=== PATIENT | female | born 1955 | race Caucasian/White ===

== ENCOUNTER → 2016-05-10 | Day surgery (SDC) | payer BC ==
[~2016-05-10] VITALS: Ht 162.6 cm; Wt 65.5 kg
[~2016-05-10] MED LIST: ACAM0.05 PO; CHLO25CA10 PO; CHLO5CAP2 PO; ESCI10TA17 PO; ESCI1TAB10 PO; ESCI1TAB9 PO; FERR1TAB13 PO; FOLI1TAB7 PO; FRS/40 PO; FURO-85 PO; GABA-112 PO; LIDOCAINE HCL 2% 2 ML VIAL (20MG/ML) ONE; LORA-741 PO; MAGN400T6 PO; MAGN500T4 PO; MISCCAP80 PO; MULT-506 PO; NADO20TA PO; NADO20TA15 PO; NALT50TA5 PO; OMEP40CA PO; OMEP40CA41 PO; PROPOFOL IV EMULSION 10 MG/ML 20 ML VIAL IV ONE; SODIUM CHLORIDE 0.9% 500ML 500 ML IV ONE; SPIR25TA PO; SPIR50TA2 PO; THIA50TA3 PO; TRAM-10 PO; TRAZ50TA35 PO; ULT50X PO
[2016-05-10 08:33] VITALS: Ht 162.6 cm; Wt 65.5 kg
--- NOTE | 2016-05-10 08:34 | Endo History and Physical ---
History & Physical Date of Service: May 10, 2016. Chief Complaint: h/o varices Referring Physician: History of Present Illness H/o varices Past Surgical History Hx Cardiac Surgery: No Hx Abdominal Surgery: No Hx Post-Op Nausea and Vomiting: No Hx Cancer Surgery: No Hx Thoracic Surgery: No Hx Orthopedic: No Hx Urinary Tract Surgery: No Social History Smoking Status: Never Smoker Hx Substance Use: Yes Hx Alcohol Use: No (FORMER ALCOHOLIC) Allergies Coded Allergies: Codeine (Verified Allergy, Unknown, ., 03/27/16) Dairy (Unverified Allergy, Unknown, GI ISSUES, 03/27/16) Sulfa Antibiotics (Verified Allergy, Unknown, ., 03/27/16) Current Medications Reported Home Medications Medications Dose Route/Sig Max Daily Dose Days Date Category Aldactone (Spironolactone) 25 Mg Tab 25 Mg PO QPM 03/27/16 Reported Aldactone (Spironolactone) 25 Mg Tab 25 Mg PO QAM 03/27/16 Reported Mag-Ox (Magnesium Oxide) 400 Mg Tab 400 Mg PO QAM 03/27/16 Reported Lasix (Furosemide) 20 Mg Tab 10 Mg PO QAM 03/27/16 Reported Probiotic (Probiotic Product) 1 Cap Cap 2 Cap PO DAILY 03/27/16 Reported Tramadol HCl 50 Mg Tab 25 Mg PO Q6H PRN 03/01/16 Rx Prilosec (Omeprazole) 40 Mg Capcr 40 Mg PO BID 02/16/16 Reported Lexapro (Escitalopram Oxalate) 10 Mg Tab 5 Mg PO QAM 02/16/16 Reported Folvite (Folic Acid) 1 Mg Tab 1 Mg PO DAILY 02/16/16 Reported Ativan (Lorazepam) 0.5 Mg Tab 0.5 Mg PO BID PRN 02/16/16 Reported Vitamin B-1 (Thiamine HCl) 50 Mg Tab 25 Mg PO QAM 02/16/16 Reported Corgard (Nadolol) 20 Mg Tab 20 Mg PO DAILY 02/16/16 Reported Physical Exam General Appearance: no apparent distress Respiratory/Chest: Respiratory effort: no dyspnea Auscultation: breath sounds normal Cardiovascular: Heart Auscultation: RRR Abdomen: Inspection & Palpation: soft Assessment and Plan CIrrhosis, h/o varices - EGD
[2016-05-10 08:46] VITALS: BP 110/62; PULSE 61; TEMP 36.6; O2SAT 98
== END | disposition home or self-care (01) ==
LOC: C.GI 08:06
PROVIDERS: ATTEND Internal Medicine Gastroenterology
DX: K70.31 Alcoholic cirrhosis of liver with ascites (principal); Z53.9 Procedure and treatment not carried out, unspecified reason

== ENCOUNTER → 2016-05-23 | Outpatient (CLI) | payer BC ==
[~2016-05-23] MED LIST changes: -LIDOCAINE HCL 2% 2 ML VIAL (20MG/ML) ONE; -PROPOFOL IV EMULSION 10 MG/ML 20 ML VIAL IV ONE; -SODIUM CHLORIDE 0.9% 500ML 500 ML IV ONE
== END | disposition home or self-care (01) ==
LOC: C.PATHSPEC 17:37
PROVIDERS: ATTEND Plastic Surgery
DX: D23.9 Other benign neoplasm of skin, unspecified (principal)

== ENCOUNTER → 2016-06-12 | Day surgery (SDC) | payer BC ==
[2016-06-05 11:10] VITALS: Ht 162.6 cm; Wt 64.1 kg
[~2016-06-12] VITALS: Ht 162.6 cm; Wt 64.1 kg
[~2016-06-12] MED LIST changes: -ESCI1TAB9 PO; +LIDOCAINE HCL 2% 2 ML VIAL (20MG/ML) ONE; -NADO20TA PO; -OMEP40CA PO; +PROPOFOL IV EMULSION 10 MG/ML 20 ML VIAL IV ONE; +SODIUM CHLORIDE 0.9% 500ML 500 ML IV ONE; -SPIR25TA PO; -ULT50X PO
--- NOTE | 2016-06-12 08:59 | Endo History and Physical ---
History & Physical Date of Service: Jun 12, 2016. Chief Complaint: Esophageal Varices Referring Physician: Dr Reginaldo Vazquez History of Present Illness esophageal varices Past Surgical History Hx Cardiac Surgery: No Hx Internal Defibrillator: No Hx Pacemaker: No Hx Abdominal Surgery: No Hx of Implantable Prosthesis: No Hx Post-Op Nausea and Vomiting: No Hx Cancer Surgery: Yes (FACE AND BACK SKIN EXCISION) Hx Thoracic Surgery: No Hx Orthopedic: No Hx Urinary Tract Surgery: No Family History IBD Social History Smoking Status: Former Smoker Hx Substance Use: No Hx Alcohol Use: No Allergies Coded Allergies: Codeine (Verified Allergy, Unknown, VOMITTING, 06/12/16) Dairy (Unverified Allergy, Unknown, GI ISSUES, 06/12/16) Sulfa Antibiotics (Verified Allergy, Unknown, VOMITTING, 06/12/16) Current Medications Reported Home Medications Medications Dose Route/Sig Max Daily Dose Days Date Category Prilosec (Omeprazole) 40 Mg Cap 40 Mg PO BID 06/05/16 Reported Vitamin B-1 (Thiamine HCl) 50 Mg Tab 50 Mg PO DAILY AFTERNOON 06/05/16 Reported Aldactone (Spironolactone) 50 Mg Tab 50 Mg PO QAM 06/05/16 Reported Magnesium (Magnesium Oxide (Mg Supplement) 500 Mg Tab 1 Tab PO QAM 06/05/16 Reported Ultram (Tramadol HCl) 50 Mg Tab 50 Mg PO Q8H PRN 06/05/16 Reported Lexapro (Escitalopram Oxalate) 10 Mg Tab 10 Mg PO QAM 06/05/16 Reported Lasix (Furosemide) 40 Mg Tab 40 Mg PO DAILY 06/05/16 Reported Lasix (Furosemide) 20 Mg Tab 20 Mg PO QAM 06/05/16 Reported Kp Ferrous Sulfate (Ferrous Sulfate) 325 Mg Tab 1 Tab PO BID 30 06/05/16 Reported Probiotic (Probiotic Product) 1 Cap Cap 1 Cap PO QAM 06/05/16 Reported Corgard (Nadolol) 20 Mg Tab 1 Tab PO BID 06/05/16 Reported Folvite (Folic Acid) 1 Mg Tab 1 Mg PO DAILY AFTERNOON 02/16/16 Reported Ativan (Lorazepam) 0.5 Mg Tab 0.5 Mg PO BID PRN 02/16/16 Reported Vital Signs Weight (Kilograms): 64.09 Height (Feet): 5 Height (Inches): 4 Date Time Temp Pulse Resp B/P Pulse Ox O2 Delivery O2 Flow Rate FiO2 06/12/16 08:33 36.5 63 18 134/70 94 Nasal Cannula Physical Exam General Appearance: WD/WN, no apparent distress Respiratory/Chest: Auscultation: breath sounds normal Cardiovascular: Heart Auscultation: RRR Abdomen: Inspection & Palpation: soft Assessment and Plan H/o varices - EGD
--- NOTE | 2016-06-12 09:28 | Discharge Instructions ---
Endoscopy Patient Instructions Date / Procedure(s) Performed Jun 12, 2016. EGD Allergy Information Coded Allergies: Codeine (Verified Allergy, Unknown, VOMITTING, 06/12/16) Dairy (Unverified Allergy, Unknown, GI ISSUES, 06/12/16) Sulfa Antibiotics (Verified Allergy, Unknown, VOMITTING, 06/12/16) Discharge Date / Findings Jun 12, 2016. Stigmata of prior banding; marked portal gastropathy Provider Instructions Activity Restrictions - No exercising or heavy lifting for 24 hours. - Do not drink alcohol the day of the procedure. - Do not drive a car or operate machinery until the day after the procedure. - Do not make any important decisions or sign important papers in 24 hours after the procedure. Following Day: - Return to full activity which may include returning to work/school. Diet Start your diet with liquids and light foods (jello, soup, juice, toast). Then eat your usual diet if not nauseated. Treatment For Common After Affects For mild abdominal pain, bloating, or excessive gas: - Rest - Eat lightly - Lie on right side Get hemoglobin checked this week Follow-Up Information Follow-up with Dr Reginaldo Vazquez as scheduled Anesthesia Information What You Should Know You have had a procedure that required some medicine to reduce anxiety and discomfort. This treatment is called moderate sedation. After receiving the treatment, you may be sleepy, but you will be able to breathe on your own. The effects of the treatment may last for several hours. Follow these instructions along with Activity/Diet recommendations noted above: * Do NOT do anything where dizziness or clumsiness would be dangerous. * Rest quietly at home today, then you can be up and about tomorrow. * Have a responsible person stay with you the rest of today. * You may have had an I.V. today. If so, you may take the dressing off later today. Recommendations Call your doctor if: * Trouble breathing * Continuous vomiting for more than 24 hours * Temperature above 101 degrees * Severe abdominal pain or bloating * Pain not relieved by pain medicine ordered * There is increased drainage or redness from any incision * A large amount of rectal bleeding greater than 2-3 tablespoons. (If you had a polyp/s removed or have hemorrhoids, a small amount of blood - from the rectum is to be expected.) * You have any unanswered questions or concerns. IN THE EVENT OF A SERIOUS EMERGENCY, GO TO THE NEAREST EMERGENCY ROOM Your discharge instructions were prepared by provider Sandhya Link. Patient Instructions Signature Page Mary Rueda Patient (or Guardian) Signature/Date: I have read and understand the instructions given to me by my caregivers. Caregiver/RN/Doctor Signature/Date: The above-named patient and/or guardian has received patient instructions on this date. + Original Patient Signature Page (only) stays with chart. Please make copy for patient.
[2016-06-12 09:45] VITALS: BP 114/65; PULSE 67; O2SAT 97
--- NOTE | 2016-06-12 10:53 | GI REPORT ---
Procedure Date: 06/12/2016 8:41 AM Procedure: Upper GI endoscopy Indications: For therapy of esophageal varices Medicines: See the Anesthesia note for documentation of the administered medications Complications: No immediate complications. Estimated Blood Loss: Estimated blood loss: none. Procedure: Pre-Anesthesia Assessment: - ASA Grade Assessment: III - A patient with severe systemic disease. After obtaining informed consent, the endoscope was passed under direct vision. Throughout the procedure, the patient's blood pressure, pulse, and oxygen saturations were monitored continuously. The scope was introduced through the mouth, and advanced to the second part of duodenum. The upper GI endoscopy was accomplished without difficulty. The patient tolerated the procedure well. Findings: There were multiple areas of scarring throughout the lower esophagus, from prior banding. There were no varices. The GE junction was at 40 cm and was irregular. No gastric varices. There was marked portal gastropathy throughout the cardia, fundus, and body of the stomach. There was marked edema, a congested snakeskin appearance to the mucosa, several areas of oozing, and two white nipple clots seen on the mucosa in the body. In the antrum, there were stripes of erythema and mild nodularity suggestive of GAVE. The duodenum was normal. Impression: Stigmata of prior esophageal banding; no esophageal varices. Marked portal gastropathy with active oozing and white nipple clots. Recommendation: - Discharge patient to home. Pt is on BID PPI and Corgard; during her procedure, she appeared to be therapeutic on beta-blockade. Pt should have periodic monitoring of Hgb. Sandhya Lew M.D. Sandhya Lew MD 06/12/2016 9:27:24 AM This report has been signed electronically. Note Initiated On: 06/12/2016 8:41 AM I attest to the content of the Intraoperative Record and orders documented therein, exceptions below
--- NOTE | 2016-06-12 11:03 | Anesthesiology Progress Note ---
Anesthesia Post Op Note Date & Time Jun 12, 2016 at 11:03 Vital Signs Pain Intensity: 0 Vital Signs Past 12 Hours Date Time Temp Pulse Resp B/P Pulse Ox O2 Delivery O2 Flow Rate FiO2 06/12/16 09:45 67 20 114/65 97 Room Air 06/12/16 09:31 66 20 105/64 95 Room Air 06/12/16 09:21 100/56 06/12/16 09:16 64 20 89/46 95 Nasal Cannula 06/12/16 08:33 36.5 63 18 134/70 94 Nasal Cannula Notes Mental Status: alert / awake / arousable, participated in evaluation Pt Amnestic to Procedure: Yes Nausea / Vomiting: adequately controlled Pain: adequately controlled Airway Patency, RR, SpO2: stable & adequate BP & HR: stable & adequate Hydration State: stable & adequate Anesthetic Complications: no major complications apparent
== END | disposition home or self-care (01) ==
LOC: C.GI 07:56
PROVIDERS: ATTEND Internal Medicine Gastroenterology
DX: I85.00 Esophageal varices without bleeding (principal); K31.89 Other diseases of stomach and duodenum; Z83.79 Family history of other diseases of the digestive system; Z87.891 Personal history of nicotine dependence; Z88.2 Allergy status to sulfonamides

== ENCOUNTER 2016-11-04 09:46 | Emergency (ER) | payer BC ==
[~2016-11-04] VITALS: Ht 162.6 cm; Wt 76.4 kg
[~2016-11-04 09:46] MED LIST changes: -CHLO25CA10 PO; -CHLO5CAP2 PO; -ESCI10TA17 PO; -FRS/40 PO; -LIDOCAINE HCL 2% 2 ML VIAL (20MG/ML) ONE; -MAGN500T4 PO; -PROPOFOL IV EMULSION 10 MG/ML 20 ML VIAL IV ONE; -SODIUM CHLORIDE 0.9% 500ML 500 ML IV ONE; -THIA50TA3 PO; -TRAM-10 PO
[2016-11-04 09:55] VITALS: TEMP 36.8; Ht 162.6 cm; Wt 76.4 kg
[2016-11-04] MEDS ORDERED: DIAZEPAM INJ 5 MG/ML 2 ML CARP IV STA (10:48)
[2016-11-04] MEDS ORDERED: PANTOprazole INJ 40 MG in SYRINGE 0 ML IV ONE (11:00)
[2016-11-04 11:38] LABS: ISTAT CREATININE 0.6 mg/dl (0.6-1.3); ISTAT HEMOGLOBIN 12.2 g/dl (12.0-16.0); ISTAT IONIZED CALCIUM 1.2 mmol/l (1.12-1.32)
[2016-11-04 11:38] LABS: MEAN CELL VOLUME 98.9 fL (80-100); MEAN CORPUSCULAR HEMOGLOBIN 33.4 pg (25-34); MEAN CORPUSCULAR HGB CONC 33.8 g/dl (32-36); RED BLOOD COUNT 3.74 M/uL (4.2-5.4); WHITE BLOOD COUNT 4.35 K/uL (4.8-10.8)
--- NOTE | 2016-11-04 11:41 | EMERGENCY ROOM VISIT NOTE ---
History Report prepared by Betty: Jennifer Middleton Under the Supervision of: Dr. Marycruz Nichols D.O. First contact with patient: 10:24 Chief Complaint: DETOX REQUEST Stated Complaint: RELAPSE Nursing Triage Summary: Patient sent by Dr Rodriguez States for detox from ETOH. Per patient she had approx 4 4oz of wine this morning. History of alcohol abuse, GI Bleed and esophageal varicies. Patient states "I went to see my shrink this morning and she told me to come to the emergency room for detox" History of Present Illness The patient is a 61 year old female who presents to the Emergency Room for a detox request. The patient has a history of alcoholism. She was recently in rehab for alcohol abuse and was discharged about a month ago. She was doing well but started to develop some cravings. She started drinking alcohol again one week ago. She states that she was drinking three ounces a day at first and is now drinking about 6 ounces a day. She typically starts drinking in the morning, but denies feeling shaky in the mornings. She admits to drinking wine this morning. She has not been blacking out from alcohol this week. She denies any recent falls or injuries. The patient is currently feeling shaky and nauseated. She thinks that this is "due to nerves." She states that her stomach feels "bruised" and this has happened in the past with her alcohol consumption. She is not sure if she has ever had seizures due to her alcohol withdrawal before. She states that she goes into a catatonic state and has to come to the hospital for evaluation, but she is unsure if she has ever had a seizure. The patient has been in the ICU with active DTs with her withdrawal in the past. The patient denies headache, fevers, cough, chest pain, vomiting, hematemesis, urinary symptoms, hematochezia, and any changes in bowel movements. She reports black stools but states that this is typical for her because she takes an iron supplement. She has gained a lot of weight over the past month, which she states is due to eating a lot of chocolate since she got out of rehab. The patient went to see her psychiatrist this morning and was sent to the ED for further evaluation. She notes bilateral ankle swelling and takes Lasix. She denies any personal history of kidney or heart problems. She takes Prilosec BID. Source of History: patient Onset: the past week Position: other (global) Quality: other (alcohol detox) Timing: constant Associated Symptoms: + nausea, + abdominal pain, No fevers, No headache, No cough, No chest pain, No vomiting, No hematochezia, No urinary symptoms Review of Systems See HPI for pertinent positives & negatives. A total of 10 systems reviewed and were otherwise negative. Past Medical & Surgical Medical Problems: (1) NASIM (acute kidney injury) (2) Anxiety (3) ARF (acute renal failure) (4) Decompensated hepatic cirrhosis (5) Dyslipidemia (6) Esophageal varices (7) Portal hypertensive gastropathy Surgical Problems: (1) H/O adenoidectomy (2) H/O colonoscopy (3) History of esophagogastroduodenoscopy (EGD) (4) Hx of tonsillectomy Family History Hypertension Social History Smoking Status: Never Smoker Alcohol Use: heavy Drug Use: none Marital Status: Housing Status: lives with family Occupation Status: retired Current/Historical Medications Scheduled Acamprosate Calcium (Acamprosate Calcium Dr), 666 MG PO TID Chlordiazepoxide (Librium), 25 MG PO DIRECTED Chlordiazepoxide Hcl (Librium), 5 MG PO DIRECTED Escitalopram (Lexapro), 20 MG PO DAILY Ferrous Sulfate (Kp Ferrous Sulfate), 1 TAB PO DAILY Folic Acid (Folvite), 1 MG PO DAILY AFTERNOON Furosemide (Lasix), 20-40 MG PO QAM Gabapentin (Neurontin), 200 MG PO TID Magnesium Oxide (Mag-Ox), 400 MG PO TID Multivitamin (Multivitamin), 1 TAB PO DAILY Nadolol (Corgard), 1 TAB PO BID Naltrexone Hcl (Naltrexone Hcl), 50 MG PO DAILY Omeprazole (Prilosec), 40 MG PO BID Probiotic Product (Probiotic), 1 CAP PO QAM Scheduled PRN Lorazepam (Ativan), 0.5-1 MG PO BID PRN for Anxiety Trazodone Hcl (Trazodone), 50 MG PO HS PRN for Sleep Allergies Coded Allergies: Codeine (Verified Allergy, Unknown, VOMITTING, 09/04/16) Dairy (Unverified Allergy, Unknown, GI ISSUES, 09/04/16) Sulfa Antibiotics (Verified Allergy, Unknown, VOMITTING, 09/04/16) Physical Exam Vital Signs Date Time Temp Pulse Resp B/P (MAP) Pulse Ox O2 Delivery O2 Flow Rate FiO2 11/04/16 14:54 63 20 129/85 94 11/04/16 14:17 64 19 129/85 93 Room Air 11/04/16 13:18 66 14 126/83 93 Room Air 11/04/16 13:14 65 11/04/16 11:35 67 18 115/87 94 Room Air 11/04/16 10:13 70 11/04/16 09:55 36.8 72 18 142/78 95 Room Air Physical Exam GENERAL: alert, tearful and distraught, well nourished, non-toxic EYE EXAM: normal conjunctiva, PERRL and EOM's grossly intact OROPHARYNX: no exudate, no erythema, lips, buccal mucosa, and tongue normal and mucous membranes are moist NECK: supple, no nuchal rigidity, no adenopathy, non-tender LUNGS: Clear to auscultation. Normal chest wall mechanics HEART: no murmurs, S1 normal and S2 normal ABDOMEN: abdomen soft, non-tender, normo-active bowel sounds, no masses, no rebound or guarding. BACK: Back is symmetrical on inspection and there is no deformity, no midline tenderness, no CVA tenderness. SKIN: no rashes and no bruising UPPER EXTREMITIES: upper extremities are grossly normal. LOWER EXTREMITIES: No pitting edema. NEURO EXAM: Normal sensorium, cranial nerves II-XII grossly intact, normal speech, no gross weakness of arms, no gross weakness of legs. Medical Decision & Procedures ER Provider Diagnostic Interpretation: Radiology results have been interpreted by the radiologist and reviewed by me. ABDOMEN 2VIEW W/PA CHEST RTN CLINICAL HISTORY: abd pain pain. Nausea. COMPARISON STUDY: 09/04/2016 FINDINGS: Lungs are clear. Diaphragms are smooth. Bowel pattern is nonobstructive. Multiple calcified uterine fibroids. IMPRESSION: Calcified uterine fibroids. Nonobstructive bowel pattern. No acute process of the chest. Electronically signed by: Carlos Mahan M.D. 11/04/2016 1:51 PM Dictated Date/Time: 11/04/2016 1:50 PM Laboratory Results 11/04/16 11:20 Red Blood Count 3.74, Mean Corpuscular Volume 98.9, Mean Corpuscular Hemoglobin 33.4, Mean Corpuscular Hemoglobin Concent 33.8, Mean Platelet Volume 10.5, Neutrophils (%) (Auto) 68.8, Lymphocytes (%) (Auto) 19.3, Monocytes (%) (Auto) 8.5, Eosinophils (%) (Auto) 3.0, Basophils (%) (Auto) 0.2, Neutrophils # (Auto) 2.99, Lymphocytes # (Auto) 0.84, Monocytes # (Auto) 0.37, Eosinophils # (Auto) 0.13, Basophils # (Auto) 0.01 11/04/16 11:20 Test 11/04/16 11:20 11/04/16 11:26 11/04/16 13:15 White Blood Count 4.35 K/uL (4.8-10.8) Red Blood Count 3.74 M/uL (4.2-5.4) Hemoglobin 12.5 g/dL (12.0-16.0) Hematocrit 37.0 % (37-47) Mean Corpuscular Volume 98.9 fL (80-100) Mean Corpuscular Hemoglobin 33.4 pg (25-34) Mean Corpuscular Hemoglobin Concent 33.8 g/dl (32-36) Platelet Count 66 K/uL (130-400) Mean Platelet Volume 10.5 fL (7.4-10.4) Neutrophils (%) (Auto) 68.8 % Lymphocytes (%) (Auto) 19.3 % Monocytes (%) (Auto) 8.5 % Eosinophils (%) (Auto) 3.0 % Basophils (%) (Auto) 0.2 % Neutrophils # (Auto) 2.99 K/uL (1.4-6.5) Lymphocytes # (Auto) 0.84 K/uL (1.2-3.4) Monocytes # (Auto) 0.37 K/uL (0.11-0.59) Eosinophils # (Auto) 0.13 K/uL (0-0.5) Basophils # (Auto) 0.01 K/uL (0-0.2) RDW Standard Deviation 50.6 fL (36.4-46.3) RDW Coefficient of Variation 14.3 % (11.5-14.5) Immature Granulocyte % (Auto) 0.2 % Immature Granulocyte # (Auto) 0.01 K/uL (0.00-0.02) Est Creatinine Clear Calc Drug Dose 93.0 ml/min Estimated GFR () 111.2 Estimated GFR (Non- 96.0 BUN/Creatinine Ratio 27.2 (10-20) Lactic Acid Level 1.0 mmol/L (0.4-2.0) Calcium Level 8.7 mg/dl (8.5-10.1) Magnesium Level 1.5 mg/dl (1.8-2.4) Total Bilirubin 1.4 mg/dl (0.2-1) Aspartate Amino Transf (AST/SGOT) 46 U/L (15-37) Alanine Aminotransferase (ALT/SGPT) 35 U/L (12-78) Alkaline Phosphatase 130 U/L (45-117) Troponin I < 0.015 ng/ml (0-0.045) Total Protein 6.5 gm/dl (6.4-8.2) Albumin 2.9 gm/dl (3.4-5.0) Globulin 3.6 gm/dl (2.5-4.0) Albumin/Globulin Ratio 0.8 (0.9-2) Lipase 281 U/L (73-393) Thyroid Stimulating Hormone (TSH) 1.500 uIu/ml (0.300-4.500) Ethyl Alcohol mg/dL < 3.0 mg/dl (0-3) Bedside Hemoglobin 12.2 g/dl (12.0-16.0) Bedside Hematocrit 36 % (37-47) Bedside Sodium 140 mEq/L (135-144) Bedside Potassium 4.1 mEq/L (3.3-5.0) Bedside Chloride 100 mEq/L (101-112) Bedside Total CO2 28 mEq/l (24-31) Anion Gap 17.0 mmol/L (16-25) Bedside Blood Urea Nitrogen 17 mg/dl (7-18) Bedside Creatinine 0.6 mg/dl (0.6-1.3) Bedside Glucose (other) 85 mg/dl (70-99) Bedside Ionized Calcium (Jes[place]) 1.20 mmol/l (1.12-1.32) Urine Color YELLOW Urine Appearance CLEAR (CLEAR) Urine pH 7.5 (4.5-7.5) Urine Specific [place] 1.012 (1.000-1.030) Urine Protein NEG (NEG) Urine Glucose (UA) NEG (NEG) Urine Ketones NEG (NEG) Urine Occult Blood NEG (NEG) Urine Nitrite NEG (NEG) Urine Bilirubin NEG (NEG) Urine Urobilinogen NEG (NEG) Urine Leukocyte Esterase NEG (NEG) Laboratory results per my review. Medications Administered Medications (Trade) Dose Ordered Sig/Kai Route Start Time Stop Time Status Last Admin Dose Admin Diazepam (Valium Inj) 5 mg NOW STAT IV 11/04/16 10:48 11/04/16 10:51 DC 11/04/16 11:25 5 MG Pantoprazole Sodium 40 mg/ Syringe 10 ml @ 5 mls/min NOW ONCE IV 11/04/16 11:00 11/04/16 11:01 DC 11/04/16 11:26 5 MLS/MIN Magnesium Sulfate (Magnesium Sulfate) 2 gm NOW STAT IV 11/04/16 12:33 11/04/16 12:34 DC 11/04/16 13:11 2 GM Chlordiazepoxide (Librium Cap) 25 mg NOW ONCE PO 11/04/16 13:45 11/04/16 13:46 DC 11/04/16 14:27 25 MG ECG Indication: toxicologic Rate (beats per minute): 63 Rhythm: normal sinus Findings: T-wave inversion (lead 3), no acute ischemic change, no ectopy, other (normal axis, normal intervals, low voltage) ED Course 1024: The patient was evaluated in room A4A. A complete history and physical exam was performed. 1048: Diazepam 5 mg IV 1100: Pantoprazole Sodium 40 mg/Syringe 10 ml @ 5 mls/min 1233: Magnesium Sulfate 2 gm IV 1244: I spoke with the rifle case repairer regarding the patient's treatment plan. The patient can be discharged for outpatient rehab. 1345: Librium cap 25 mg PO 1357: I reassessed the patient at this time. She is feeling better and resting comfortably. I discussed the results and treatment plan with the patient. I answered all pertaining questions that she had. She expressed understanding and verbalized agreement. The patient will be discharged home. Medical Decision Differential diagnosis: Etiologies such as toxicologic, infection, hypoglycemia, electrolyte abnormalities, cardiac sources, intracerebral event, neurologic, as well as others were entertained. Medication Reconciliation: I attest that I have personally reviewed the patient' s current medication list. Blood pressure screening: Patient was found to have an elevated blood pressure and was referred to their primary doctor for recheck and further treatment. Patient well-appearing here despite complaints of prior history. No evidence of worsening alcohol withdrawal or DTs. Vital signs stable throughout. Patient seen by psychiatric rifle case repairer as well to discuss rehabilitation. Patient's at bedside supportive and understanding of all results, plan, risks and complications, and symptoms to watch and return for. Discussed with patient short term use of Librium to help with potential for additional alcohol withdrawal symptoms. Patient already on additional chronic maintenance medications. Patient with no other concerns for safety, denies SI or HI. Patient's labs otherwise reassuring, known liver dysfunction and mild abnormalities likely normal for the patient. Patient's magnesium repleted here , and likely secondary to poor diet the setting of alcohol abuse. Discussed with patient adequate intake, and need for recheck of labs. No other evidence GI bleed, no vomiting or additional abdominal pain, doubt additional 30 or pulmonary pathology, doubt no acute GI pathology, doubt vascular etiology, bacteremia/sepsis. Impression Primary Impression: Alcohol abuse Additional Impressions: Alcohol withdrawal Hypomagnesemia Scribe Attestation The scribe's documentation has been prepared under my direction and personally reviewed by me in its entirety. I confirm that the note above accurately reflects all work, treatment, procedures, and medical decision making performed by me. Departure Information Dispostion Home / Self-Care Prescriptions Chlordiazepoxide Hcl (LIBRIUM) 5 Mg Cap 5 MG PO DIRECTED for 3 Days, #10 CAP Take 2 tablets every 8 hours on day 3, then 1 tablet every 12 hours on day 4 and 5. Prov: Marycruz Nichols DO 11/04/16 Chlordiazepoxide (Librium) 25 Mg Cap 25 MG PO DIRECTED for Agitation for 2 Days, #7 CAP Take 1 tablet every 6 hours on day 1, then 1 tablets every 8 hours on day 2. Prov: Marycruz Nichols DO 11/04/16 Referrals Ashley Adkins DO (PCP) Forms HOME CARE DOCUMENTATION FORM, IMPORTANT VISIT INFORMATION, WORK / SCHOOL INSTRUCTIONS Patient Instructions My [facility] Additional Instructions Please follow up with her psychologist, continue going to AA meetings, and continue the additional recommendations made by her counselor here. You may use the Librium to help with short-term alcohol withdrawal symptoms. Please continue your other medications as prescribed. If you develop any worsening shakiness, develop sweatiness, feel your heart is racing or have palpitations, develop dizziness, vomiting, noticed blood with the bowel movement, have abdominal pain, chest pain, trouble breathing, or any other new concerns, please return the emergency room. Problem Qualifiers Additional Impressions: Alcohol withdrawal Complication of substance-induced condition: uncomplicated Qualified Codes: F10.230 - Alcohol dependence with withdrawal, uncomplicated
[2016-11-04] MEDS ORDERED: ESCI10TA17 PO (11:56)
[2016-11-04 12:01] LABS: BASO % 0.2 %; BASO ABS # 0.01 K/uL (0-0.2); IG% 0.2 %; LYMPH % 19.3 %; LYMPH ABS # 0.84 K/uL (1.2-3.4); MEAN PLATELET VOLUME 10.5 fL (7.4-10.4); MONO % 8.5 %; NEUT % 68.8 %; PLATELET COUNT 66 K/uL (130-400)
[2016-11-04 12:10] LABS: COMPLETE YES
[2016-11-04 12:14] LABS: ALT/SGPT 35 U/L (12-78); AST/SGOT 46 U/L (15-37); BLOOD UREA NITROGEN 17 mg/dl (7-18); BUN/CREATININE RATIO 27.2 (10-20); CALCIUM 8.7 mg/dl (8.5-10.1); CARBON DIOXIDE 27 mmol/L (21-32); CHLORIDE 106 mmol/L (98-107); CREATININE 0.62 mg/dl (0.60-1.20); GLUCOSE 83 mg/dl (70-99); MAGNESIUM 1.5 mg/dl (1.8-2.4); POTASSIUM 4.1 mmol/L (3.5-5.1); SODIUM 142 mmol/L (136-145)
[2016-11-04 12:26] LABS: ALB/GLOB RATIO 0.8 (0.9-2); ALKALINE PHOSPHATASE 130 U/L (45-117)
[2016-11-04] MEDS ORDERED: MAGNESIUM SULFATE 1GM / D5W 1 GM BAG IV STA (12:33)
[2016-11-04 13:27] LABS: URINE APPEARANCE CLEAR (CLEAR); URINE BILIRUBIN NEG (NEG); URINE COLOR YELLOW; URINE NITRITE NEG (NEG); URINE PH 7.5 (4.5-7.5); URINE SPECIFIC GRAVITY 1.012 (1.000-1.030); UROBILINOGEN NEG (NEG); ZZUR CULT IF INDIC CLEAN CATCH NO
[2016-11-04 13:29] LABS: MANUAL MICROSCOPIC REQUIRED? NO; REVIEW REQ? NO
[2016-11-04] MEDS ORDERED: CHLORDIAZEPOXIDE 25 MG CAP PO ONE (13:45)
--- NOTE | 2016-11-04 13:52 | DIAGNOSTIC IMAGING REPORT ---
ABDOMEN 2VIEW W/PA CHEST RTN CLINICAL HISTORY: abd pain pain. Nausea. COMPARISON STUDY: 09/04/2016 FINDINGS: Lungs are clear. Diaphragms are smooth. Bowel pattern is nonobstructive. Multiple calcified uterine fibroids. IMPRESSION: Calcified uterine fibroids. Nonobstructive bowel pattern. No acute process of the chest. Electronically signed by: Carlos Mahan M.D. 11/04/2016 1:51 PM Dictated Date/Time: 11/04/2016 1:50 PM
[2016-11-04] MEDS ORDERED: CHLO5CAP2 PO (14:30)
[2016-11-04] MEDS ORDERED: CHLO25CA10 PO (14:30)
[2016-11-04 14:54] VITALS: BP 129/85; PULSE 63; O2SAT 94
== END 2016-11-04 14:56 | disposition home or self-care (01) ==
LOC: C.EDB 09:47 → C.EDA 14:56
DX: F10.230 Alcohol dependence with withdrawal, uncomplicated (principal); E83.42 Hypomagnesemia; R60.0 Localized edema; F41.9 Anxiety disorder, unspecified; K74.69 Other cirrhosis of liver; E78.5 Hyperlipidemia, unspecified; I85.00 Esophageal varices without bleeding; K31.89 Other diseases of stomach and duodenum; Z82.49 Family history of ischemic heart disease and other diseases of the circulatory system

== ENCOUNTER → 2017-08-22 | Outpatient (CLI) | payer OTHER ==
[~2017-08-22] MED LIST changes: +ESCI10TA17 PO; -ESCI1TAB10 PO; -FOLI1TAB7 PO; +FOLI1TAB8 PO; -SPIR50TA2 PO
[2017-08-22 14:23] VITALS: BP 108/70; PULSE 66; Ht 162.6 cm
== END ==
LOC: C.NEUR 13:36
PROVIDERS: ATTEND Internal Medicine Pulmonary Disease
DX: R06.83 Snoring (principal); R06.81 Apnea, not elsewhere classified; R40.0 Somnolence; F41.1 Generalized anxiety disorder; G47.61 Periodic limb movement disorder

== ENCOUNTER 2017-09-23 19:22 | Emergency (ER) | payer OTHER ==
[~2017-09-23] VITALS: Ht 162.6 cm; Wt 81.6 kg
[2017-09-23 19:26] VITALS: TEMP 36.7; Ht 162.6 cm; Wt 81.6 kg
--- NOTE | 2017-09-23 19:42 | EMERGENCY ROOM VISIT NOTE ---
History Report prepared by Betty: Noah Hou Under the Supervision of: Dr. Nitin Benoit M.D. First contact with patient: 19:28 Chief Complaint: RECTAL BLEEDING Stated Complaint: EXSESSIVE BLEEDING, SWOLLEN FEET AND LEGS History of Present Illness The patient is a 61 year old female who presents to the Emergency Room with complaints of intermittent rectal bleeding beginning a few weeks ago. The patient states she will wake up every morning and produce "pools" of blood. She reports she developed bilateral leg swelling a few days ago. The patient notes she is short of breath when she goes up stairs, but she states it is because she is not exercising regularly. The patient denies loss of consciousness, recent head injuries, and abdominal pain. She states she typically has 5 drinks a day, and she has had 3 before coming into the ED. The patient reports she has a history of stomach bleeding and varices. She notes she takes Prilosec. The patient states she sees her PCP every month and has an appointment in two days. She reports her liver specialist is Nery Watts. The patient denies trouble with her heart, trouble with her kidneys, and taking aspirin, Tylenol, or ibuprofen. Source of History: patient Onset: few weeks ago Quality: other (rectal bleeding) Timing: intermittent Associated Symptoms: No LOC, No abdominal pain Note: Associated symptoms: bilateral leg swelling Denies: recent head injury Review of Systems See HPI for pertinent positives & negatives. A total of 10 systems reviewed and were otherwise negative. Past Medical & Surgical Medical Problems: (1) NASIM (acute kidney injury) (2) Anxiety (3) ARF (acute renal failure) (4) Decompensated hepatic cirrhosis (5) Dyslipidemia (6) Esophageal varices (7) Portal hypertensive gastropathy Surgical Problems: (1) H/O adenoidectomy (2) H/O colonoscopy (3) History of esophagogastroduodenoscopy (EGD) (4) Hx of tonsillectomy Family History Hypertension Social History Smoking Status: Never Smoker Alcohol Use: heavy Drug Use: none Marital Status: Housing Status: lives with family Occupation Status: retired Current/Historical Medications Scheduled Acamprosate Calcium (Acamprosate Calcium Dr), 666 MG PO TID Clonidine Hcl (Catapres), 1 TAB PO HS Escitalopram (Lexapro), 20 MG PO DAILY Ferrous Sulfate (Kp Ferrous Sulfate), 1 TAB PO DAILY Folic Acid (Folvite), 1 MG PO DAILY AFTERNOON Furosemide (Lasix), 40 MG PO QAM Gabapentin (Gabapentin), 600 MG PO TID Hydrocortisone/Pramoxine (Proctofoam Hc), 1 APPL IN BID Magnesium Oxide (Mag-Ox), 400 MG PO TID Multivitamin (Multivitamin), 1 TAB PO DAILY Nadolol (Corgard), 1 TAB PO BID Omeprazole (Prilosec), 40 MG PO BID Probiotic Product (Probiotic), 1 CAP PO QAM Spironolactone (Aldactone), 25 MG PO QAM Scheduled PRN Trazodone Hcl (Trazodone), 50 MG PO HS PRN for Sleep Allergies Coded Allergies: Codeine (Verified Allergy, Unknown, VOMITTING, 09/23/17) Dairy (Verified Allergy, Unknown, GI ISSUES, 09/23/17) Sulfa Antibiotics (Verified Allergy, Unknown, VOMITTING, 09/23/17) Physical Exam Vital Signs Date Time Temp Pulse Resp B/P (MAP) Pulse Ox O2 Delivery O2 Flow Rate FiO2 09/23/17 20:57 74 18 118/64 93 09/23/17 19:26 36.7 71 18 128/77 96 Room Air Physical Exam GENERAL: Patient is mildly intoxicated appearing and in no acute distress. Smells heavily of alcohol. EYES: No scleral icterus, unremarkable pupils. Pale conjunctiva. ENT: Mucous membranes moist, no nasal congestion. NECK: No masses appreciated, no meningismus, trachea is midline. RESPIRATORY: No dyspnea. Clear to auscultation and equal bilaterally. No wheeze , no rhonchi. CARDIOVASCULAR: Regular rate and rhythm. No murmurs, rubs, gallops appreciated. GASTROINTESTINAL: Abdomen soft, nontender, no peritonitis. Bowel sounds positive. No masses appreciated. RECTAL (performed in the presence of a female nurse): Moderate hemorrhoid on the anterior, right, rectum. No other masses nor fluctuantes noted. No erythema. Small amount of brown stool at the the posterior rectal verge without any evidence of bleeding. BACK: No midline tenderness, no CVA tenderness EXTREMITIES: Normal motion all extremities, no cyanosis, no edema. NEUROLOGIC: Alert and oriented, no acute motor or sensory deficits, no focal weakness, cranial nerves grossly intact. SKIN: No rash, no jaundice, no diaphoresis. Medical Decision & Procedures ER Provider Diagnostic Interpretation: X ray results are stated below per my interpretation and the radiologist's interpretation. CHEST ONE VIEW PORTABLE CLINICAL HISTORY: 61 years-old Female presenting with Generalized weakness. TECHNIQUE: 82 COMPARISON: 11/04/2016. FINDINGS: Atherosclerosis of aortic arch. Tortuosity of the descending thoracic aorta. Cardiac silhouette enlarged. Mildly low lung volumes. No focal opacity. No large effusion or pneumothorax. Osseous structures normal. Upper abdomen normal. IMPRESSION: 1. No acute cardiopulmonary disease. Electronically signed by: Kirt Cross M.D. 09/23/2017 8:00 PM Dictated Date/Time: 09/23/2017 7:59 PM Laboratory Results 09/23/17 19:44 Red Blood Count 3.23, Mean Corpuscular Volume 108.4, Mean Corpuscular Hemoglobin 37.8, Mean Corpuscular Hemoglobin Concent 34.9, Mean Platelet Volume 10.2, Neutrophils (%) (Auto) 59.9, Lymphocytes (%) (Auto) 22.9, Monocytes (%) ( Auto) 15.3, Eosinophils (%) (Auto) 1.4, Basophils (%) (Auto) 0.5, Neutrophils # (Auto) 2.54, Lymphocytes # (Auto) 0.97, Monocytes # (Auto) 0.65, Eosinophils # ( Auto) 0.06, Basophils # (Auto) 0.02 09/23/17 19:44 Test 09/23/17 19:44 09/23/17 20:31 White Blood Count 4.24 K/uL (4.8-10.8) Red Blood Count 3.23 M/uL (4.2-5.4) Hemoglobin 12.2 g/dL (12.0-16.0) Hematocrit 35.0 % (37-47) Mean Corpuscular Volume 108.4 fL (80-100) Mean Corpuscular Hemoglobin 37.8 pg (25-34) Mean Corpuscular Hemoglobin Concent 34.9 g/dl (32-36) Platelet Count 80 K/uL (130-400) Mean Platelet Volume 10.2 fL (7.4-10.4) Neutrophils (%) (Auto) 59.9 % Lymphocytes (%) (Auto) 22.9 % Monocytes (%) (Auto) 15.3 % Eosinophils (%) (Auto) 1.4 % Basophils (%) (Auto) 0.5 % Neutrophils # (Auto) 2.54 K/uL (1.4-6.5) Lymphocytes # (Auto) 0.97 K/uL (1.2-3.4) Monocytes # (Auto) 0.65 K/uL (0.11-0.59) Eosinophils # (Auto) 0.06 K/uL (0-0.5) Basophils # (Auto) 0.02 K/uL (0-0.2) RDW Standard Deviation 59.0 fL (36.4-46.3) RDW Coefficient of Variation 14.8 % (11.5-14.5) Immature Granulocyte % (Auto) 0.0 % Immature Granulocyte # (Auto) 0.00 K/uL (0.00-0.02) Prothrombin Time 13.1 SECONDS (9.0-12.0) Prothromb Time International Ratio 1.3 (0.9-1.1) Activated Partial Thromboplast Time 28.1 SECONDS (21.0-31.0) Partial Thromboplastin Ratio 1.1 Anion Gap 6.0 mmol/L (3-11) Est Creatinine Clear Calc Drug Dose 82.7 ml/min Estimated GFR () 103.3 Estimated GFR (Non- 89.1 BUN/Creatinine Ratio 13.5 (10-20) Calcium Level 8.4 mg/dl (8.5-10.1) Magnesium Level 1.2 mg/dl (1.8-2.4) Total Bilirubin 1.2 mg/dl (0.2-1) Direct Bilirubin 0.6 mg/dl (0-0.2) Aspartate Amino Transf (AST/SGOT) 91 U/L (15-37) Alanine Aminotransferase (ALT/SGPT) 51 U/L (12-78) Alkaline Phosphatase 147 U/L (45-117) Total Creatine Kinase 118 U/L (26-192) Pro-B-Type Natriuretic Peptide 74 pg/ml (0-900) Total Protein 6.7 gm/dl (6.4-8.2) Albumin 3.3 gm/dl (3.4-5.0) Lipase 426 U/L (73-393) Ethyl Alcohol mg/dL 135.2 mg/dl (0-3) Urine Color YELLOW Urine Appearance CLEAR (CLEAR) Urine pH 7.5 (4.5-7.5) Urine Specific [place] 1.013 (1.000-1.030) Urine Protein NEG (NEG) Urine Glucose (UA) NEG (NEG) Urine Ketones NEG (NEG) Urine Occult Blood NEG (NEG) Urine Nitrite NEG (NEG) Urine Bilirubin NEG (NEG) Urine Urobilinogen NEG (NEG) Urine Leukocyte Esterase NEG (NEG) Urine WBC (Auto) 1-5 /hpf (0-5) Urine RBC (Auto) 0-4 /hpf (0-4) Urine Hyaline Casts (Auto) 0 /lpf (0-5) Urine Epithelial Cells (Auto) >30 /lpf (0-5) Urine Bacteria (Auto) NEG (NEG) Laboratory results as reviewed by me. Medications Administered Medications (Trade) Dose Ordered Sig/Kai Route Start Time Stop Time Status Last Admin Dose Admin Hydrocortisone (Proctozone Hc 2.5% Crm) 1 appln NOW ONCE EXT 09/23/17 21:00 09/23/17 21:01 DC 09/23/17 20:57 1 APPLN ED Course 1929: The patient was evaluated in room C12B. A complete history and physical exam was performed. 2042: I discussed the patient's findings of low magnesium with her. I also attempted to perform a rectal exam in the presence of nurse Rey in the room. The patient immediately started screaming loudly with light palpation of the rectal verge. No digital rectal exam was performed as patient did not tolerate the light palpation. Please refer to the PE for limited findings. I also had a long discussion with patient about her low magnesium, reported rectal bleeding, and leg pain. States she needs to leave and will not stay in the hospital even after I made it a point to stay. She is requesting a stronger hemorrhoid cream to use at home. I stressed the need to return immediately if symptoms worsen or if she would like to be reevaluated. I also offered to give her IV magnesium thiamine folate. She states she cannot wait and needs to go home now. The patient states her alcohol specialist sees her regularly and monitors her. Medical Decision Differential: Diverticulitis, AVM, Coagulopathy, Colitis, Malignancy, Upper GI bleed, Fissure, Hemorrhoids, amongst other pathologies entertained. 61 yr old alcoholic arrives for evaluation of rectal bleeding and bilateral leg pains. She is mildly intoxicated with Etoh 140. Labs with improving plts and no significant anemia. She does have significant hypomag but she makes clear this is normal for her though I suspect may be cause of leg pain. She had no calf pain nor swelling nor other hallmarks of dvt. Pulses are intact bilaterally. Bili doing OK for her and INR just mild bump. She has hemorrhoid on exam and there is some brown stool though unable to to JODI given she screams just with light touch of anywhere in area despite it all looking normal. Nurse notes that she did same thing with IV band as well. I do not see any evidence of swelling beyond a hemorrhoid. Will treat with steroid cream. Advised she be admitted for GI Bleed with severe hypoMag though she refuses. She is capable of making this decision and even by legal alcohol is within range to make this decision (as well as she is chronically intoxicated so I suspect 140 is not very high for her). I made it clear I felt she would benefit from inpatient stay. I offered IV Fluids and Magnesium which she also refuses. She is aware she must call her doctor tomorrow. She is aware she can return at any time if worsening or other concerns. Head Trauma GCS Score: 15 Medication Reconcilliation Current Medication List: was personally reviewed by me Blood Pressure Screening Patient's blood pressure: Normal blood pressure Blood pressure disposition: Did not require urgent referral Impression Primary Impression: Rectal bleeding Additional Impressions: Hemorrhoid Alcoholism Hypomagnesemia Scribe Attestation The scribe's documentation has been prepared under my direction and personally reviewed by me in its entirety. I confirm that the note above accurately reflects all work, treatment, procedures, and medical decision making performed by me. Departure Information Dispostion Home / Self-Care Prescriptions Hydrocortisone/Pramoxine (Proctofoam Hc) Aer 1 APPL IN BID, #10 GM 1 Refill Prov: Nitin Benoit M.D. 09/23/17 Referrals Ashley Adkins DO (PCP) Forms HOME CARE DOCUMENTATION FORM, IMPORTANT VISIT INFORMATION, WORK / SCHOOL INSTRUCTIONS Patient Instructions My [facility] Additional Instructions You are leaving against the advise of your physician in the Emergency Department. I advise you return at any time if you feel symptoms are worsening or if you have other concerns. Call 911 if worsening weakness, increased bleeding, vomiting blood, abdominal pains, etc. We are ALWAYS here to help. Call your doctor in the morning to make them aware you were here and to have further evaluation. Problem Qualifiers
--- NOTE | 2017-09-23 20:02 | DIAGNOSTIC IMAGING REPORT ---
CHEST ONE VIEW PORTABLE CLINICAL HISTORY: 61 years-old Female presenting with Generalized weakness. TECHNIQUE: 82 COMPARISON: 11/04/2016. FINDINGS: Atherosclerosis of aortic arch. Tortuosity of the descending thoracic aorta. Cardiac silhouette enlarged. Mildly low lung volumes. No focal opacity. No large effusion or pneumothorax. Osseous structures normal. Upper abdomen normal. IMPRESSION: 1. No acute cardiopulmonary disease. Electronically signed by: Kirt Cross M.D. 09/23/2017 8:00 PM Dictated Date/Time: 09/23/2017 7:59 PM
[2017-09-23 20:10] LABS: INR 1.3 (0.9-1.1); PTT PATIENT 28.1 SECONDS (21.0-31.0)
[2017-09-23 20:19] LABS: ALBUMIN 3.3 gm/dl (3.4-5.0); CALCIUM 8.4 mg/dl (8.5-10.1); CREATININE 0.72 mg/dl (0.60-1.20); TOTAL PROTEIN 6.7 gm/dl (6.4-8.2)
[2017-09-23] MEDS ORDERED: SPIR25TA PO (20:23)
[2017-09-23] MEDS ORDERED: CLON0.2T PO (20:23)
[2017-09-23] MEDS ORDERED: FURO40TA3 PO (20:23)
[2017-09-23] MEDS ORDERED: NRN600 PO (20:23)
[2017-09-23 20:26] LABS: HEMOGLOBIN 12.2 g/dL (12.0-16.0); MEAN CELL VOLUME 108.4 fL (80-100); MEAN CORPUSCULAR HEMOGLOBIN 37.8 pg (25-34); MEAN CORPUSCULAR HGB CONC 34.9 g/dl (32-36); MEAN PLATELET VOLUME 10.2 fL (7.4-10.4); PLATELET COUNT 80 K/uL (130-400); RED CELL DISTRIBUTION WIDTH CV 14.8 % (11.5-14.5); WHITE BLOOD COUNT 4.24 K/uL (4.8-10.8)
[2017-09-23 20:27] LABS: BASO % 0.5 %; BASO ABS # 0.02 K/uL (0-0.2); EOS % 1.4 %; EOS ABS # 0.06 K/uL (0-0.5); LYMPH % 22.9 %; LYMPH ABS # 0.97 K/uL (1.2-3.4); MONO % 15.3 %; MONO ABS # 0.65 K/uL (0.11-0.59); NEUT % 59.9 %; NEUT ABS # 2.54 K/uL (1.4-6.5)
[2017-09-23] MEDS ORDERED: HYDR1AER23 PR (20:51)
[2017-09-23 20:57] VITALS: BP 118/64; PULSE 74; O2SAT 93
[2017-09-23] MEDS ORDERED: HYDROCORTISONE HC 2.5% CRM 30GM TUBE EXT ONE (21:00)
== END 2017-09-23 21:01 | disposition home or self-care (01) ==
LOC: C.EDB 19:23 → C.EDC 21:01
DX: K62.5 Hemorrhage of anus and rectum (principal); K64.9 Unspecified hemorrhoids; F10.20 Alcohol dependence, uncomplicated; E83.42 Hypomagnesemia; F41.9 Anxiety disorder, unspecified; K74.69 Other cirrhosis of liver; Z90.89 Acquired absence of other organs; Z98.890 Other specified postprocedural states; Z88.5 Allergy status to narcotic agent; Z88.1 Allergy status to other antibiotic agents; Z91.018 Allergy to other foods; Z82.49 Family history of ischemic heart disease and other diseases of the circulatory system; Z79.899 Other long term (current) drug therapy

== ENCOUNTER 2018-09-29 13:17 | Observation (INO) ==
[2018-09-29] MEDS ORDERED: MAGNESIUM HYDROXIDE SUSP 30 ML UDC PO PRN (13:41)
[2018-09-29] MEDS ORDERED: ONDANSETRON INJ 2 MG/ML 2 ML VIAL IV PRN (13:41)
[2018-09-29] MEDS ORDERED: ACETAMINOPHEN 325 MG TAB PO PRN (13:41)
[2018-09-29] MEDS ORDERED: POLYETHYLENE (MIRALAX) 17 GM PACK PO PRN (13:41)
[2018-09-29] MEDS ORDERED: ALUMINUM/MAGNESIUM SUSP 30 ML UDC PO PRN (13:41)
[2018-09-29] MEDS ORDERED: GABAPENTIN 600MG ALCOHOL WITHDRAWAL LOAD PO STA (14:59)
[2018-09-29] MEDS ORDERED: LORazepam 1 MG TAB PO PRN (14:59)
[2018-09-29] MEDS ORDERED: MULTI-VITAMIN INFUSION 10 ML, THIAMINE HCL 100 MG, FOLIC ACID 1 MG in SODIUM CHLORIDE 0... IV SCH (15:15)
[2018-09-29 15:26] LABS: Hematocrit (blood only) 34.4 % (37-47); Hemoglobin 11.7 g/dL (12.0-16.0); Mean Corpuscular Volume 103.6 fL (80-100); RDW Coefficient of Variation 15.9 % (11.5-14.5); RDW Standard Deviation 60.3 fL (36.4-46.3); Red Blood Count 3.32 M/uL (4.2-5.4); White Blood Count 3.16 K/uL (4.8-10.8)
[2018-09-29 15:29] LABS: Mean Platelet Volume 11.1 fL (7.4-10.4); Platelet Count 79 K/uL (130-400)
[2018-09-29] MEDS ORDERED: GABAPENTIN 600 MG TAB PO ONE (15:30)
[2018-09-29 15:43] LABS: Alanine Aminotransferase 27 U/L (12-78); Albumin Level 3.1 gm/dl (3.4-5.0); Aspartate Aminotransferase 32 U/L (15-37); BUN Creatinine Ratio 12.7 (10-20); Blood Urea Nitrogen 12 mg/dl (7-18); Calcium 9.2 mg/dl (8.5-10.1); Carbon Dioxide 28 mmol/L (21-32); Chloride 108 mmol/L (98-107); Est GFR (African American) 71.5; Est GFR (Non-African American) 61.7; Glucose 74 mg/dl (70-99); Potassium 3.9 mmol/L (3.5-5.1); Sodium 141 mmol/L (136-145)
[2018-09-29 15:46] LABS: Albumin Globulin Ratio 0.9 (0.9-2); Alkaline Phosphatase 105 U/L (45-117); Bilirubin,Total 1.5 mg/dl (0.2-1); Globulin 3.3 gm/dl (2.5-4.0); Total Protein 6.4 gm/dl (6.4-8.2)
--- NOTE | 2018-09-29 15:46 | History & Physical Report ---
Date of Service September 29, 2018 Assessment & Plan (1) Hypomagnesemia: Hypomagnesemia -serum magnesium is 1.5 -start patient on magnesium oral BID, give IV magnesium x 3 -trend serum magnesium levels Altered Mental Status -ammonia level is 38 which is not very elevated considering patient's cirrhosis history - will continue home dose diuretic of Lasix and spirolactone and rifaximin -TSH and folic acid and B12 levels are normal -check RPR -rule out infectious process by obtaining urine analysis and blood culture -monitor for alcohol withdrawal -minimize sedating medications such as trazadone History of alcohol use alcoholic cirrhosis portal hypertension -Patient had endoscopy on 09/09/18 which did not show evidence of esophageal varices in the lower third of the esophagus; there was a post variceal banding scar was found in the lower third of the esophagus; the scar tissue was healthy in appearance; Severe portal hypertensive gastropathy was found in the gastric fundus and in the gastric body; the duodenal bulb and second portion of the duodenum were normal. -continue home dose nadolol for portal hypertension -INR is 1.5 from cirrhosis -inpatient gastroenterology consult -alcohol withdrawal protocol with ativan and gabapentin Anemia -check fecal occult blood stool -monitor hemoglobin -continue irone supplements -inpatient gastroenterology consult History of depression -continue home dose serteraline obtain PT/OT case management discharge planning DVT: SCDs Code Status:Do not resuscitate and Do not intubate Patient will be followed by my colleague: Dr. Hunt starting on 09/30/18 History of Present Illness Primary Care Provider: Ashley Adkins, DO This is a patient with multiple health issues related to history of alcohol use as per inpatient and outpatient notes including alcoholic cirrhosis, portal hypertension, ascites, h/o esophageal varices banded in 2016 Patient had endoscopy on 09/09/18 which did not show evidence of esophageal varices in the lower third of the esophagus; there was a post variceal banding scar was found in the lower third of the esophagus; the scar tissue was healthy in appearance; Severe portal hypertensive gastropathy was found in the gastric fundus and in the gastric body; the duodenal bulb and second portion of the duodenum were normal. Patient also has had alcohol detox program. During that time she had confusion and had a hospitalization at [facility] and then after being out of the detox program she presented to [facility] emergency room for weakness on 09/23/18 and discharged from the ER the same day and then had follow up visit on 09/24/[address] Arias who advised follow up with gastroenterology Patient was sent as direct admission by gastroenterology clinic with concerns that patient may have been having changes in mental status related to history of alcohol use or cirrhosis or from an underlying infection. Patient had reported that she has not been adherent to taking lactulose. In discussion with patient's Jerrod ([phone]) that he feels that the mental status is better than the ED visit 09/23/18. He does note that patient's cognition has gotten progressively worse over time and said that in the past she was able to drive but has been less functional. (Of note, patient was recommended to have license revoked at the end of 01/2018 hospitalization). Patient demonstrates to hospitalist that when she is walking she can do it only at a slow pace. Patient denies problems with falling. denies problems with balance. She did have a mild dsymetria of finger to nose test of the left upper extremity. Motor strength appeared strong and symmetric on both upper and lower extremities. Patient is awake and alert and oriented to person, place, and time. No headaches or lightheadedness. denies abdomen pain. no vomiting. Last alcohol drink was 1 glass of wine on Friday09/25/18 Patient denies palpitation or chest pain or shortness of breath. Patient denies fevers. denies dsyuria Patient does report of noting blood in stool when asked but no gross bleeding Allergies: sulfa and codeine as causes of vomiting but no rashes Family history: patient reports family history of alcoholism Allergies Allergy/AdvReac Type Severity Reaction Status Date / Time codeine Allergy Intermediate VOMITTING Verified 09/23/18 21:48 milk Allergy Intermediate GI ISSUES Verified 09/23/18 21:48 Sulfa (Sulfonamide Allergy Intermediate VOMITTING Verified 09/23/18 21:48 Antibiotics) Home Medications Home Medications Medication Instructions Recorded Confirmed Type baclofen 20 mg PO TID 09/23/18 09/29/18 History clonidine HCl 0.1 mg PO BID 09/23/18 09/29/18 History escitalopram oxalate [Lexapro] 20 mg PO DAILY 09/23/18 09/29/18 History ferrous sulfate 325 mg PO DAILY 09/23/18 09/29/18 History folic acid 1 mg PO DAILY 09/23/18 09/29/18 History furosemide 20 mg PO DAILY 09/23/18 09/29/18 History gabapentin 600 mg PO TID 09/23/18 09/29/18 History lactobacillus combination no.4 3,000 mmu cells PO DAILY 09/23/18 09/29/18 History [Probiotic] lactulose 10 g PO TID 09/23/18 09/29/18 History nadolol 40 mg PO DAILY 09/23/18 09/29/18 History omeprazole 40 mg PO DAILY 09/23/18 09/29/18 History rifaximin 550 mg PO BID 09/23/18 09/29/18 History spironolactone 50 mg PO DAILY 09/23/18 09/29/18 History trazodone 50 mg PO HS 09/23/18 09/29/18 History magnesium oxide 400 mg PO DAILY 09/29/18 09/29/18 History vitamin B complex [B-Complex] 1 tab PO DAILY 09/29/18 09/29/18 History Past Med/Surg History Medical History Alcoholic cirrhosis (Chronic) Thrombocytopenia (Chronic) Depression (Chronic) Lumbar stenosis (Chronic) Rectal fissure (Chronic) Uterine leiomyoma (Chronic) Ascites (Chronic) managed with furosemide 20mg daily and spironolactone 50mg daily Hyperbilirubinemia (Chronic) Alcohol dependence (Chronic) Dyslipidemia (Chronic) Anxiety (Chronic) Esophageal varices (Chronic) banded in 2015. Secondary prevention of variceal bleeding with Nadolol 40mg daily Portal hypertensive gastropathy (Chronic) Alcohol abuse (Chronic) Anemia (Chronic) Back pain (Chronic) Cirrhosis of liver (Chronic) NASIM (acute kidney injury) (Resolved) Abnormal laboratory test (Resolved) Hypomagnesemia (Resolved) Surgical History Hx of tonsillectomy (Chronic) H/O adenoidectomy (Chronic) History of esophagogastroduodenoscopy (EGD) (Chronic) "02/2014 - grade II esophageal varices, severe portal gastropahy, gastric varices, mild GAVE" 06/2016 - GAVE, no esophageal or variceal bleeding 04/07/18- hyperplastic polyp with ulceration, eso varices, portal hypertensive gastropathy 09/09/2018 Impression: - No evidence of esophageal varices. - Post variceal banding scar in the lower third of the esophagus. - Portal hypertensive gastropathy. - Normal duodenal bulb and second portion of the duodenum. H/O colonoscopy (Chronic) "09/2015 - normal " Social History Preferred Language: Czech Communication Ability: Effective Collection Systems Modeler Required: No Beliefs That Will Affect Care: None Current Living Situation: Spouse Feels Safe at Home: Yes Safety Concerns: Feels Safe At This Time Smoking Status: Current some day smoker Tobacco Type: cigarettes Second Hand Exposure: No Hx Alcohol Use: Yes Alcohol type: wine Hx Substance Use: No Review of Systems Review of Systems: All systems reviewed & are unremarkable except as noted in HPI & below Physical Exam Constitutional: WD/WN, vitals as above Eyes: PERRL, conjunctivae normal, anicteric sclerae EOM intact bilaterally ENMT: external ear and nose normal, oropharynx normal Neck: trachea midline, no thyromegaly Respiratory: normal respiratory effort, lungs clear to auscultation Cardiovascular: RRR, no murmur, no edema Gastrointestinal (Abdomen): normal bowel sounds, soft, nontender, no hepatosplenomegaly Musculoskeletal: Extremities: strength 5/5 throughout Neurologic: PERRL, EOMI, accommodation nl, no face palsy, no dysarthria CN's II-XI intact bilaterally and moves all extremities Coordination: + abnormal [id number] test (mild dsymetria of finger to nose test of the left upper extremity) Psychiatric: Orientation: alert and oriented x 3 Speech: normal rate/rhythm/volume of speech Results & Data Vital Signs (Past 12 Hours) Vital Signs Temp Pulse Resp BP Pulse Ox 09/29/18 15:37 36.5 C 64 20 95/61 L 94
[2018-09-29 15:52] LABS: Magnesium 1.5 mg/dl (1.8-2.4); Phosphorus 2.9 mg/dl (2.5-4.9)
[2018-09-29 15:54] LABS: Folate (Folic Acid) > 24.00 ng/ml (>5.38); Vitamin B12 1330 pg/ml (211-911)
[2018-09-29 15:57] LABS: INR 1.5 (0.9-1.1); Partial Thromboplastin Ratio 1.1; Prothrombin Time 14.6 Seconds (9.0-12.0)
[2018-09-29] MEDS ORDERED: MAGNESIUM OXIDE 400 MG TAB PO STA (15:57)
[2018-09-29 16:05] LABS: Basophils # (auto) 0.02 K/uL (0-0.2); Basophils % (auto) 0.6 %; Eosinophils # (auto) 0.05 K/uL (0-0.5); Eosinophils % (auto) 1.6 %; Immature Granulocytes # (auto) 0.01 K/uL (0.00-0.02); Immature Granulocytes % (auto) 0.3 %; Lymphocytes # (auto) 0.71 K/uL (1.2-3.4); Lymphocytes % (auto) 22.5 %; Monocytes # (auto) 0.43 K/uL (0.11-0.59); Monocytes % (auto) 13.6 %; Neutrophils # (auto) 1.94 K/uL (1.4-6.5); Neutrophils % (auto) 61.4 %
[2018-09-29] MEDS: MAGNESIUM SULFATE / D5W 1 GM/100 ML BAG IV SCH ×3 (16:51→19:07)
[2018-09-29] MEDS: ESCITALOPRAM OXALATE 20 MG TAB PO SCH (17:41)
[2018-09-29 19:56] LABS: Appearance Urine Clear (Clear); Bilirubin Urine Negative (Negative); Blood Urine Negative (Negative); Color Urine Yellow; Glucose Urine UA Negative (Negative); Ketones Urine Negative (Negative); Leukocyte Esterase Urine Negative (Negative); Nitrite Urine Negative (Negative); Protein Urine Negative (Negative); Specific Gravity Urine 1.015 (1.000-1.030); Urobilinogen Urine Negative (Negative); pH Urine 6.5 (4.5-7.5)
[2018-09-29] MEDS: MAGNESIUM OXIDE 400 MG TAB PO SCH (21:25)
[2018-09-29] MEDS: GABAPENTIN 100 MG CAP PO SCH (21:26)
[2018-09-30] MEDS: GABAPENTIN 100 MG CAP PO SCH (03:23)
[2018-09-30 06:49] LABS: Hematocrit (blood only) 33.8 % (37-47); Hemoglobin 11.7 g/dL (12.0-16.0); Mean Corpuscular Hgb Conc 34.6 g/dL (32-36); Mean Corpuscular Volume 104.6 fL (80-100); RDW Coefficient of Variation 15.9 % (11.5-14.5); RDW Standard Deviation 60.6 fL (36.4-46.3); Red Blood Count 3.23 M/uL (4.2-5.4); White Blood Count 2.49 K/uL (4.8-10.8)
[2018-09-30 06:59] LABS: Mean Platelet Volume 10.8 fL (7.4-10.4); Platelet Count 71 K/uL (130-400)
[2018-09-30 07:05] LABS: INR 1.5 (0.9-1.1); Prothrombin Time 14.6 Seconds (9.0-12.0)
[2018-09-30 07:15] LABS: Basophils # (auto) 0.03 K/uL (0-0.2); Basophils % (auto) 1.2 %; Eosinophils # (auto) 0.03 K/uL (0-0.5); Eosinophils % (auto) 1.2 %; Lymphocytes # (auto) 0.78 K/uL (1.2-3.4); Lymphocytes % (auto) 31.3 %; Monocytes # (auto) 0.25 K/uL (0.11-0.59); Neutrophils % (auto) 56.3 %
[2018-09-30 07:19] LABS: Albumin Level 2.7 gm/dl (3.4-5.0); BUN Creatinine Ratio 13.5 (10-20); Calcium 8.9 mg/dl (8.5-10.1); Creatinine Clr Calc Pharmacy 70.5 ml/min; Est GFR (Non-African American) 76.8; Potassium 3.8 mmol/L (3.5-5.1)
[2018-09-30 07:22] LABS: Albumin Globulin Ratio 0.9 (0.9-2); Bilirubin,Total 1.3 mg/dl (0.2-1); Total Protein 5.7 gm/dl (6.4-8.2)
[2018-09-30] MEDS: FERROUS SULFATE 325 MG TAB PO SCH (09:24)
[2018-09-30] MEDS: SPIRONOLACTONE 25 MG TAB PO SCH (09:24)
[2018-09-30] MEDS: PANTOprazole 40 MG TAB PO SCH (09:24)
[2018-09-30] MEDS: MAGNESIUM OXIDE 400 MG TAB PO SCH ×2 (09:24→21:36)
[2018-09-30] MEDS: FUROSEMIDE 20 MG TAB PO SCH (09:24)
[2018-09-30] MEDS: NADOLOL 40 MG TAB PO SCH (09:25)
[2018-09-30] MEDS: ESCITALOPRAM OXALATE 20 MG TAB PO SCH (09:25)
--- NOTE | 2018-09-30 14:13 | Gastrointestinal Consultation ---
Date of Consultation September 30, 2018 Assessment & Plan (1) Alcoholic cirrhosis: 1. Importance of complete, permanent alcohol cessation discussed in detail with pt and her . 2. Liver CT for screening for HCC. 3. Abd US for ascites, with cell count and culture, remove up to 5L of fluid if present. 4. 2 gram sodium diet. 5. Anticipate DC in the next 1-2 days on same diuretic doses, on Xifaxin 550mg BID (as before) and pt to take lactulose up to 3 times daily to affect 2-3 BMs/day. Pt states understanding. 6. Will need continued OP GI f/u for cirrhosis. (2) Esophageal varices: (3) Portal hypertensive gastropathy: Supervising Physician Co-Signing Physician Notes I saw and evaluated the patient. We were consulted for worsening encephalopathy. The patient does have a long history of alcohol and drug abuse and is presently not being abstinent. She denies having abdominal pain nausea or vomiting this afternoon she does appear much better. Physical examination No obvious distress Abdomen: Obese soft Impression: Patient with a history of alcoholic liver disease complicated by thrombocytopenia and hepatic encephalopathy. The patient was again counseled about the need for alcohol and drug rehabilitation as this will likely impact her long-term arrival. History of Present Illness Reason for Consultation: Possible hepatic encephalopathy Requesting Physician: Dr. Mcdonnell Attending Physician: Abbie Hunt MD History of Present Illness Ms. Mary Rueda is a 62yr old female pt of Dr. Adkins, with a hx of depression followed in GI clinic for ETOH cirrhosis complicated by ascites, esophageal varices. She has had brief periods of sobriety, however, continues to drink alcohol recently having started rehab in the [facility]. She tells me that she was transferred from rehab to a hospital for weakness, then was brought to [facility] last week for weakness, discharged from the ED. Admits to having drank alcohol in the past few days. Yesterday, during OP GI follow up, hepatic encephalopathy was suspected and she was direct admitted. Regarding OP management of her ETOH cirrhosis: She has not had any clear prior episodes of hepatic encephalopathy, but, her baseline mentating could be described as a constant, low grade, slow mentation, with slow word recall, mild confusion. She tends to answer questions very non specifically as would be expected with an elderly demented person. She is maintained on Lactulose and Rifaxamin and is supplemented with B12 and folate. She carries a hx of an esophageal variceal bleed in 2018, banded in 2015 and on 05/13/18. Most recent EGD on 09/09/[address] Mcmillan with PHG and scars from prior variceal banding in the lower 1/3 of the esophagus but no current varices. She has had mild ascites, managed with furosemide 20mg QD and spironolactone 50mg QD.She has been screened for HCC, most recently in Apr 2018, with MRI with suspicious findings but CT liver protocal w/o any discrete lesions. Regarding her depression, she is in counselling with Jennifer Arredondo, PhD. On arrival at [facility], ammonia 38. She is pancytopenic: WBC 2.4, Hb 11.7, Hct 33.8, glucose 71, INR 1.5, Na 146, K 3.8, Ch 110, CO2 29, BUN 11, Cr0.8. Mg on arrival was low at 1.5 and today is 2.0. Urine is clean, blood cultures without growth. Today, she tells me that she was "a little confused yesterday." Her is present and tells us that she was "very confused yesterday." Today, she is able to sit up on the bed, and walk with some assistance from the nurses as she is somewhat unsteady on her feet. She can tell me her name, she recalls my name and she can tell me today's date, but answered that the year is 2010. Allergies Allergy/AdvReac Type Severity Reaction Status Date / Time codeine Allergy Intermediate VOMITTING Verified 09/23/18 21:48 milk Allergy Intermediate GI ISSUES Verified 09/23/18 21:48 Sulfa (Sulfonamide Allergy Intermediate VOMITTING Verified 09/23/18 21:48 Antibiotics) Home Medications Home Medications Medication Instructions Recorded Confirmed Type baclofen 20 mg PO TID 09/23/18 09/29/18 History clonidine HCl 0.1 mg PO BID 09/23/18 09/29/18 History escitalopram oxalate [Lexapro] 20 mg PO DAILY 09/23/18 09/29/18 History ferrous sulfate 325 mg PO DAILY 09/23/18 09/29/18 History folic acid 1 mg PO DAILY 09/23/18 09/29/18 History furosemide 20 mg PO DAILY 09/23/18 09/29/18 History gabapentin 600 mg PO TID 09/23/18 09/29/18 History lactobacillus combination no.4 3,000 mmu cells PO DAILY 09/23/18 09/29/18 History [Probiotic] lactulose 10 g PO TID 09/23/18 09/29/18 History nadolol 40 mg PO DAILY 09/23/18 09/29/18 History omeprazole 40 mg PO DAILY 09/23/18 09/29/18 History rifaximin 550 mg PO BID 09/23/18 09/29/18 History spironolactone 50 mg PO DAILY 09/23/18 09/29/18 History trazodone 50 mg PO HS 09/23/18 09/29/18 History magnesium oxide 400 mg PO DAILY 09/29/18 09/29/18 History vitamin B complex [B-Complex] 1 tab PO DAILY 09/29/18 09/29/18 History Patient History Medical History Alcoholic cirrhosis (Chronic) Thrombocytopenia (Chronic) Depression (Chronic) Lumbar stenosis (Chronic) Rectal fissure (Chronic) Uterine leiomyoma (Chronic) Ascites (Chronic) managed with furosemide 20mg daily and spironolactone 50mg daily Hyperbilirubinemia (Chronic) Alcohol dependence (Chronic) Dyslipidemia (Chronic) Anxiety (Chronic) Esophageal varices (Chronic) banded in 2015. Secondary prevention of variceal bleeding with Nadolol 40mg daily Portal hypertensive gastropathy (Chronic) Alcohol abuse (Chronic) Anemia (Chronic) Back pain (Chronic) Cirrhosis of liver (Chronic) NASIM (acute kidney injury) (Resolved) Abnormal laboratory test (Resolved) Hypomagnesemia (Resolved) Surgical History Hx of tonsillectomy (Chronic) H/O adenoidectomy (Chronic) History of esophagogastroduodenoscopy (EGD) (Chronic) "02/2014 - grade II esophageal varices, severe portal gastropahy, gastric varices, mild GAVE" 06/2016 - GAVE, no esophageal or variceal bleeding 04/07/18- hyperplastic polyp with ulceration, eso varices, portal hypertensive gastropathy 09/09/2018 Impression: - No evidence of esophageal varices. - Post variceal banding scar in the lower third of the esophagus. - Portal hypertensive gastropathy. - Normal duodenal bulb and second portion of the duodenum. H/O colonoscopy (Chronic) "09/2015 - normal " Social History Preferred Language: Citizen Of [place] Communication Ability: Effective Crate Opener Required: No Beliefs That Will Affect Care: None Current Living Situation: Spouse Feels Safe at Home: Yes Safety Concerns: Feels Safe At This Time Smoking Status: Current some day smoker Tobacco Type: cigarettes Second Hand Exposure: No Hx Alcohol Use: Yes Alcohol type: wine Hx Substance Use: No Review of Systems Review of Systems: ROS: Gen: Denies weakness, fevers, weight loss Eyes: No eye redness, or pain, no recent vision changes Resp: No SOB, no cough Cardio: No palpitations/irregular beats, no chest pain GI: No abdominal pain, no nausea/vomiting : Denies pain on urination Skin: No jaundice, itching or new rashes Constitutional: + fatigue and + weakness; no fever, no chills and no body aches +weakness, no weight loss, denies fevers Eyes: no icterus Physical Exam Constitutional: well developed, + ill appearing, + thin and cooperative Eyes: PERRL, conjunctivae normal, anicteric sclerae Respiratory: normal respiratory effort, lungs clear to auscultation normal respiratory effort and able to speak in complete sentences; no respiratory distress, no labored breathing, does not use accessory muscles and no cough Cardiovascular: RRR, no murmur, no edema Gastrointestinal (Abdomen): normal bowel sounds, soft, nontender, no hepatosplenomegaly Inspection/Auscultation: abdomen normal to inspection and normal bowel sounds; abdomen not distended and no abdominal edema Percussion/Palpation: + abdomen tender (Mild diffuse adbdominal msk tenderness. No signs of acute abdomen.) and abdomen soft; no guarding and abdomen not rigid no obvious ascites Skin: no rashes, warm and dry normal turgor and + pallor Neurologic: PERRL, EOMI, accommodation nl, no face palsy, no dysarthria awake; not confused Psychiatric: Orientation: alert, oriented to person, oriented to place and cooperative giddy, overly joyful affect, alternating with dull affect. Results & Data Vital Signs (Past 12 Hours) Vital Signs Temp Pulse Pulse Resp BP BP Pulse Ox 09/30/18 11:54 36.4 C L 56 L 18 126/79 96 09/30/18 07:09 60 09/30/18 07:04 36.6 C 61 18 102/68 93 09/30/18 04:20 36.7 C 58 L 18 109/69 90 (1) Alcoholic cirrhosis Ascites presence: unspecified Qualified Code(s): K70.30 - Alcoholic cirrhosis of liver without ascites
--- NOTE | 2018-09-30 14:17 | Hospitalist Progress Note ---
Date of Service September 30, 2018 Assessment & Plan (1) Confusion: Patient is brought to the ER by her , as patient was found to be confused, difficult to arouse Similar episode happened a week ago 09/23/2018, leading to ER visit, patient was discharged from the ER On admissions patient ammonia level mildly elevated to 38, no overt signs symptom of hepatic encephalopathy Patient has not been taking her lactulose for some time (states that she ran out of prescription, and nobody will order it for her ) Very poor insight, and slow thought process Patient started on lactulose, continue on rifaximin Patient follows with [facility], appreciate input GI consult (2) Hypomagnesemia: Due to history of chronic alcohol abuse, poor p.o. intake, alcoholic liver disease/cirrhosis IV supplement of mag given Repeat mag level within normal limit Continue to monitor electrolytes Anemia -check fecal occult blood stool -monitor hemoglobin -continue irone supplements -inpatient gastroenterology consult History of depression -continue home dose serteraline obtain PT/OT case management discharge planning DVT: SCDs Code Status:Do not resuscitate and Do not intubate Patient will be followed by my colleague: Dr. Hunt starting on 09/30/18 (3) Alcoholic cirrhosis: History of long-term, heavy alcohol abuse, leading to alcoholic liver disease/cirrhosis with portal hypertension, esophageal varices Was in alcohol rehab in [facility] Patient denies of recent alcohol intake Blood alcohol level less than 3 No sign of symptoms of alcohol withdrawal Patient counseled for strict alcohol abstinence by GI team and by myself (4) Anxiety: (5) Portal hypertensive gastropathy: Continue PPI, no evidence of GI bleed (6) Portal hypertension: -Patient had endoscopy on 09/09/18 which did not show evidence of esophageal varices in the lower third of the esophagus; there was a post variceal banding scar was found in the lower third of the esophagus; the scar tissue was healthy in appearance; Severe portal hypertensive gastropathy was found in the gastric fundus and in the gastric body; the duodenal bulb and second portion of the duodenum were normal. -continue home dose nadolol for portal hypertension -INR is 1.5 from cirrhosis GI consulted, appreciate input (7) History of esophagogastroduodenoscopy (EGD): (8) Esophageal varices: Due to alcoholic cirrhosis/portal hypertension History of grade 2 esophageal varices, status post banding in 2016 Recent EGD showed no evidence of varices and lower third of esophagus Appreciate input from GI (9) Thrombocytopenia: Chronic: Secondary to alcoholic liver disease, platelet count 71K which is approximate baseline No sign or symptoms of active bleeding avoid antiplatelets CODE STATUS: DNR/DNI DVT prophylaxis: SCD and teds, pharmacological anticoagulation avoided in the setting of advanced alcoholic liver disease/thrombocytopenia/ Disposition: Lives at home With , Independent in ADLs, PT OT evaluation requested Plan to discharge home in next 1-2 days when medically stable Subjective Patient appears to be confused, very anxious, Got dressed up this morning, packed on her belongings, thinks she is doing very well, wants to be discharged home When asked her regarding her illness, reason for admission in hospital-(was admitted yesterday) She could not give any detail, "I feel fine, should not be staying in the hospital, I need to get more activity" Counseling provided, PT OT evaluation was ordered, patient will need to stay in the hospital for at least another 24 hours for close monitoring, Plan of care discussed with patient's , in agreement of patient's not being discharged today Physical Exam Constitutional: WD/WN, vitals as above + ill appearing Confused Eyes: PERRL, conjunctivae normal, anicteric sclerae EOM intact bilaterally ENMT: external ear and nose normal, oropharynx normal Neck: trachea midline, no thyromegaly Respiratory: normal respiratory effort, lungs clear to auscultation Cardiovascular: RRR, no murmur, no edema Gastrointestinal (Abdomen): normal bowel sounds, soft, nontender, no hepatosplenomegaly Musculoskeletal: Extremities: strength 5/5 throughout Neurologic: PERRL, EOMI, accommodation nl, no face palsy, no dysarthria CN's II-XI intact bilaterally and moves all extremities Coordination: + abnormal [id number]-[id number] test (mild dsymetria of finger to nose test of the left upper extremity) Psychiatric: Orientation: alert, oriented to person and oriented to place Eye Contact: + fair eye contact Speech: normal rate/rhythm/volume of speech Affect: + flat affect Insight: + limited insight Very poor memory, and recall Thinks this is a year 2010, very slow to answer questions, repeating the same information, Results & Data Vital Signs (Past 12 Hours) Vital Signs Temp Pulse Pulse Resp BP BP Pulse Ox 09/30/18 11:54 36.4 C L 56 L 18 126/79 96 09/30/18 07:09 60 09/30/18 07:04 36.6 C 61 18 102/68 93 09/30/18 04:20 36.7 C 58 L 18 109/69 90 (1) Alcoholic cirrhosis Ascites presence: unspecified Qualified Code(s): K70.30 - Alcoholic cirrhosis of liver without ascites (2) Esophageal varices Esophageal varices type: secondary Esophageal varices bleeding: without bleeding Qualified Code(s): I85.10 - Secondary esophageal varices without bleeding
[2018-09-30] MEDS ORDERED: GABAPENTIN 600 MG TAB PO SCH (14:59)
[2018-09-30] MEDS ORDERED: IOVERSOL 100ml IV PRN (15:41)
--- NOTE | 2018-09-30 16:08 | CT Scan Report ---
CT OF THE ABDOMEN WITH AND WITHOUT CONTRAST LIVER PROTOCOL CLINICAL HISTORY: Cirrhosis. History of liver lesion. COMPARISON STUDY: CT of the abdomen and pelvis and MRCP April 03, 2018. TECHNIQUE: Unenhanced, arterial and venous phase imaging of the abdomen was performed. Intravenous in jection of 95 cc of Optiray 320 IV was uneventful. Study was performed utilizing automated exposure c ontrol for dose reduction and according to ALARA principles. FINDINGS: Lung bases are clear. Paraesophageal varices are noted. There are large retroperitoneal sona ices which are unchanged. Trace perihepatic ascites is noted. The liver is cirrhotic. A 7 mm hypodens e right hepatic lobe lesion is unchanged. This represents a cyst. Note is made of an 8 mm subcapsular hypervascular focus within segment 5 of the liver on axial image 128 of 271 on the arterial phase se quence. This is not evident on the unenhanced or portal venous phases. An additional 7 mm faint hyper vascular focus within segment 4 of the liver on axial image 98 is also noted. Gallstones within the g allbladder are noted. The main, left and right portal veins are somewhat diminutive but patent. Note is made of a 5 mm calculus within the mid to distal common bile duct. There is no biliary ductal dila tation. There is no CT evidence for acute pancreatitis. Splenomegaly is unchanged. There are few sple nules. The adrenal glands and kidneys are unremarkable. No suspicious skeletal lesions are noted. Fat -containing umbilical hernia is present. Caliber and wall thickness of visualized small and large bow el are normal. IMPRESSION: 1. Cirrhosis. Two small subcapsular hypervascular foci within the liver which measure up to 8 mm. The se are probably benign and may reflect shunts. However, small hepatocellular carcinomas could appear similar. A follow-up CT or MRI of the liver in 6 months is recommended. 2. Sequela of portal hypertension including splenomegaly and extensive varices formation. Trace perih epatic ascites. 3. 5 mm calculus within the mid to distal common bile duct. No CT evidence for acute pancreatitis. No biliary ductal dilatation. 4. Cholelithiasis. No evidence for acute cholecystitis. Electronically signed by: Nishant Alcantar M.D. 09/30/2018 4:06 PM
--- NOTE | 2018-09-30 16:34 | XRay Report ---
XR chest 1V portable CLINICAL HISTORY: cirrhosis, confusion, r/o infection/effusions COMPARISON STUDY: Chest radiograph April 03, 2018. FINDINGS: Scoliosis is noted. There is no pneumothorax or pleural effusion. There is no consolidation or evidence for pulmonary edema. Mild cardiomegaly is noted. IMPRESSION: No acute cardiopulmonary findings. Electronically signed by: Nishant Alcantar M.D. 09/30/2018 4:33 PM
--- NOTE | 2018-09-30 17:48 | Ultrasound Report ---
US abdomen ltd ascites CLINICAL HISTORY: confusion, r/o bacterial peritonitis COMPARISON STUDY: Abdominal ultrasound 04/03/2018. FINDINGS: Transabdominal scanning of the abdomen and pelvis was performed with marketing representative images submitted. No ascites identified. IMPRESSION: No ascites. Electronically signed by: Zaheer Brennan M.D. 09/30/2018 5:46 PM
[2018-09-30] MEDS: LACTULOSE SYRUP 30 GM/45 ML UDP PO SCH ×2 (17:56→21:35)
[2018-09-30] MEDS ORDERED: LACTULOSE SYRUP 20 GM/30 ML UDC PO SCH (21:00)
[2018-09-30] MEDS: GABAPENTIN 600 MG TAB PO SCH (21:36)
[2018-09-30] MEDS: RIFAXIMIN 550 MG TABLET PO SCH (21:36)
[2018-10-01] MEDS: GABAPENTIN 600 MG TAB PO SCH ×2 (08:29→14:16)
[2018-10-01] MEDS: RIFAXIMIN 550 MG TABLET PO SCH (08:29)
[2018-10-01] MEDS: PANTOprazole 40 MG TAB PO SCH (08:30)
[2018-10-01] MEDS: LACTULOSE SYRUP 30 GM/45 ML UDP PO SCH ×2 (08:30→14:16)
[2018-10-01] MEDS: FERROUS SULFATE 325 MG TAB PO SCH (08:57)
[2018-10-01] MEDS: ESCITALOPRAM OXALATE 20 MG TAB PO SCH (08:57)
[2018-10-01] MEDS: SPIRONOLACTONE 25 MG TAB PO SCH (08:57)
[2018-10-01] MEDS: NADOLOL 40 MG TAB PO SCH (08:58)
[2018-10-01] MEDS: FUROSEMIDE 20 MG TAB PO SCH (08:59)
[2018-10-01] MEDS ORDERED: PANTOprazole 40 MG TAB PO SCH (09:00)
[2018-10-01] MEDS ORDERED: FOLIC ACID 1 MG TAB PO SCH (09:00)
[2018-10-01] MEDS ORDERED: NON-FORMULARY MEDICATION (Ferrous Sulfate 325 MG) PO SCH (09:00)
[2018-10-01] MEDS ORDERED: NON-FORMULARY MEDICATION (Lactobacillus Combination No.4 [Probiotic] 3,000 mmu cells) PO SCH (09:00)
[2018-10-01] MEDS ORDERED: MAGNESIUM OXIDE 400 MG TAB PO SCH (09:00)
[2018-10-01] MEDS: MAGNESIUM OXIDE 400 MG TAB PO SCH (09:02)
--- NOTE | 2018-10-01 11:39 | Gastroenterology Progress Note ---
Date of Service October 01, 2018 Assessment & Plan (1) Alcoholic cirrhosis: Suspect hepatic encephalopathy was triggered by missed med doses due to change in routine with recent rehab then home for only a few days however, may also have been related to hypomagnesium. Certainly recent alcohol intake can contribute. Urine tox was also positive for ecstacy during prior ED visit earlier this week. Continue all outpatient meds at current doses. - For ascites/edema: furosemide 20mg daily. - For prevention of hep enceph, she is on Xifaxin 550mg BID and lactulose. She has been hesitant to take the lactulose in the past. Verified with her that she will take this 2-3 times/day to effect 2-3 BMs/day. Complete abstention of drugs/alcohol. Continue OP GI follow up. Present on Admission?: Yes Supervising Physician Co-Signing Physician Notes I saw and evaluated the patient. She is in process of being discharged from the hospital this afternoon. She did have a CT scan performed as part of her usual surveillance for cirrhosis to screen for evidence of liver masses. The CT did show evidence of a possible stone in the distal common bile duct. The patient's liver enzymes are presently normal. In addition the patient has no abdominal discomfort. Recommendation Outpatient endoscopic ultrasound and ERCP to be arranged if positive Patient will need to have preoperative treatment with 1 unit of platelets. Outpatient consultation with general surgery to determine if cholecystectomy should be offered. Subjective Ms. Mary Rueda is a 62 yr old female with ETOH cirrhosis, continuing to drink alcohol as recent as a few days ago, in counselling for depression and ETOH, recently DCed from rehab. She was admitted with confusion 2 days ago. She appears back to baseline, able to tell me today's date, where she is and her name as well as recalling my name. T Bili 1.3, INR 1.5 Na 146, Mg 2. Review of Systems Constitutional: no fever, no chills, no fatigue and no weakness (able to ambulate around the halls) Respiratory: no cough, no chest congestion and no dyspnea Cardiovascular: no chest pain Gastrointestinal: no abdominal pain, no nausea and no vomiting Genitourinary: no dysuria Integumentary: no rash, no lesions and no change in skin color Neurologic: + unsteadiness (denies); no falls and no syncope Psychiatric: no suicidal ideation and no panic attacks Physical Exam Constitutional: WD/WN, vitals as above Eyes: PERRL, conjunctivae normal, anicteric sclerae ENMT: external ear and nose normal, oropharynx normal Neck: trachea midline, no thyromegaly Respiratory: normal respiratory effort, lungs clear to auscultation Cardiovascular: RRR, no murmur, no edema Gastrointestinal (Abdomen): normal bowel sounds, soft, nontender, no hepatosplenomegaly Skin: no rashes, warm and dry Neurologic: patellar DTR's 2+ bilat, sensation intact Psychiatric: A+Ox3, euthymic affect Lymphatic: no cervical or axillary lymphadenopathy Results & Data Vital Signs (Past 12 Hours) Vital Signs Temp Pulse Resp BP BP Pulse Ox 10/01/18 07:58 36.5 C 60 20 94/60 L 90 10/01/18 00:00 36.8 C 61 20 102/63 95 Laboratory Results See HPI Diagnostic Findings CT abdomen/pelvis with IV contrast: 1. Cirrhosis. Two small subcapsular hypervascular foci within the liver which measure up to 8 mm. These are probably benign and may reflect shunts. However, small hepatocellular carcinomas could appear similar. A follow-up CT or MRI of the liver in 6 months is recommended. 2. Sequela of portal hypertension including splenomegaly and extensive varices formation. Trace perihepatic ascites. 3. 5 mm calculus within the mid to distal common bile duct. No CT evidence for acute pancreatitis. No biliary ductal dilatation. 4. Cholelithiasis. No evidence for acute cholecystitis. (1) Alcoholic cirrhosis Ascites presence: unspecified Qualified Code(s): K70.30 - Alcoholic cirrhosis of liver without ascites
--- NOTE | 2018-10-01 12:30 | Hospitalist Progress Note ---
Date of Service October 01, 2018 Assessment & Plan (1) Confusion: Patient is brought to the ER by her , as patient was found to be confused, difficult to arouse Similar episode happened a week ago 09/23/2018, leading to ER visit, patient was discharged from the ER On admissions patient ammonia level mildly elevated to 38, no overt signs symptom of hepatic encephalopathy Patient has not been taking her lactulose for some time (states that she ran out of prescription, and nobody will order it for her ) Patient started on lactulose, continue on rifaximin Patient follows with [facility], appreciate input GI consult Mental status improved to baseline, Patient is counseled repeated time regarding medication compliance, strict abstinence from alcohol Patient verbalizes understanding (2) Hypomagnesemia: Due to history of chronic alcohol abuse, poor p.o. intake, alcoholic liver disease/cirrhosis Magnesium level replaced Stable to be discharged home, patient is continued with outpatient magnesian oxide replacement Anemia -Hemoglobin at baseline, History of depression -continue home dose serteraline obtain PT/OT case management discharge planning DVT: SCDs Code Status:Do not resuscitate and Do not intubate (3) Alcoholic cirrhosis: History of long-term, heavy alcohol abuse, leading to alcoholic liver disease/cirrhosis with portal hypertension, esophageal varices Was in alcohol rehab in [facility] Patient denies of recent alcohol intake Blood alcohol level less than 3 No sign of symptoms of alcohol withdrawal Patient counseled for strict alcohol abstinence by GI team and by myself (4) Anxiety: (5) Portal hypertensive gastropathy: Continue PPI, no evidence of GI bleed (6) Portal hypertension: -Patient had endoscopy on 09/09/18 which did not show evidence of esophageal varices in the lower third of the esophagus; there was a post variceal banding scar was found in the lower third of the esophagus; the scar tissue was healthy in appearance; Severe portal hypertensive gastropathy was found in the gastric fundus and in the gastric body; the duodenal bulb and second portion of the duodenum were normal. -continue home dose nadolol for portal hypertension -INR is 1.5 from cirrhosis GI consulted, appreciate input (7) History of esophagogastroduodenoscopy (EGD): (8) Esophageal varices: Due to alcoholic cirrhosis/portal hypertension History of grade 2 esophageal varices, status post banding in 2016 Recent EGD showed no evidence of varices and lower third of esophagus Appreciate input from GI (9) Thrombocytopenia: Chronic: Secondary to alcoholic liver disease, platelet count 71K which is approximate baseline No sign or symptoms of active bleeding avoid antiplatelets CODE STATUS: DNR/DNI DVT prophylaxis: SCD and teds, pharmacological anticoagulation avoided in the setting of advanced alcoholic liver disease/thrombocytopenia/ sAble to be discharged home today Supervising Physician Co-Signing Physician Notes I Subjective Awake and alert today, no sign of confusion, no behavioral disturbance, Had 2-3 loose bowel movements with lactulose Tolerating diet, no nausea vomiting, no abdominal swelling or ascites, Stable to be discharged home today Physical Exam Constitutional: WD/WN, vitals as above + ill appearing Eyes: PERRL, conjunctivae normal, anicteric sclerae EOM intact bilaterally ENMT: external ear and nose normal, oropharynx normal Neck: trachea midline, no thyromegaly Respiratory: normal respiratory effort, lungs clear to auscultation Cardiovascular: RRR, no murmur, no edema Gastrointestinal (Abdomen): normal bowel sounds, soft, nontender, no hepatosplenomegaly Musculoskeletal: Extremities: strength 5/5 throughout Neurologic: PERRL, EOMI, accommodation nl, no face palsy, no dysarthria CN's II-XI intact bilaterally and moves all extremities Coordination: + abnormal [id number] test (mild dsymetria of finger to nose test of the left upper extremity) Psychiatric: Orientation: alert, oriented to person and oriented to place Eye Contact: + fair eye contact Speech: normal rate/rhythm/volume of speech Affect: + flat affect Insight: + limited insight Results & Data Vital Signs (Past 12 Hours) Vital Signs Temp Pulse Resp BP Pulse Ox 10/01/18 07:58 36.5 C 60 20 94/60 L 90 (1) Esophageal varices Esophageal varices bleeding: without bleeding Esophageal varices type: secondary Qualified Code(s): I85.10 - Secondary esophageal varices without bleeding (2) Alcoholic cirrhosis Ascites presence: unspecified Qualified Code(s): K70.30 - Alcoholic cirrhosis of liver without ascites
[2018-10-01] MEDS ORDERED: GABAPENTIN 400 MG CAP PO SCH (14:59)
[2018-10-01] MEDS ORDERED: TRAZODONE HCL 50 MG TAB PO SCH (21:00)
[2018-10-02] MEDS ORDERED: GABAPENTIN 100 MG CAP PO SCH (14:59)
--- NOTE | 2018-10-02 16:47 | Discharge Summary ---
Date of Service October 02, 2018 Admission HPI Per Admitting Provider This is a patient with multiple health issues related to history of alcohol use as per inpatient and outpatient notes including alcoholic cirrhosis, portal hypertension, ascites, h/o esophageal varices banded in 2016 Patient had endoscopy on 09/09/18 which did not show evidence of esophageal varices in the lower third of the esophagus; there was a post variceal banding scar was found in the lower third of the esophagus; the scar tissue was healthy in appearance; Severe portal hypertensive gastropathy was found in the gastric fundus and in the gastric body; the duodenal bulb and second portion of the duodenum were normal. Patient also has had alcohol detox program. During that time she had confusion and had a hospitalization at [facility] and then after being out of the detox program she presented to [facility] emergency room for weakness on 09/23/18 and discharged from the ER the same day and then had follow up visit on 09/24/[address] Arias who advised follow up with gastroenterology Patient was sent as direct admission by gastroenterology clinic with concerns that patient may have been having changes in mental status related to history of alcohol use or cirrhosis or from an underlying infection. Patient had reported that she has not been adherent to taking lactulose. In discussion with patient's Jerrod ([phone]) that he feels that the mental status is better than the ED visit 09/23/18. He does note that patient's cognition has gotten progressively worse over time and said that in the past she was able to drive but has been less functional. (Of note, patient was recommended to have license revoked at the end of 01/2018 hospitalization). Patient demonstrates to hospitalist that when she is walking she can do it only at a slow pace. Patient denies problems with falling. denies problems with balance. She did have a mild dsymetria of finger to nose test of the left upper extremity. Motor strength appeared strong and symmetric on both upper and lower extremities. Patient is awake and alert and oriented to person, place, and time. No headaches or lightheadedness. denies abdomen pain. no vomiting. Last alcohol drink was 1 glass of wine on Friday09/25/18 Patient denies palpitation or chest pain or shortness of breath. Patient denies fevers. denies dsyuria Patient does report of noting blood in stool when asked but no gross bleeding Allergies: sulfa and codeine as causes of vomiting but no rashes Family history: patient reports family history of alcoholism Principal Diagnosis With oblique encephalopathy/alcoholic liver disease Discharge Exam Constitutional WD/WN, vitals as above + ill appearing Eyes PERRL, conjunctivae normal, anicteric sclerae EOM intact bilaterally ENMT external ear and nose normal, oropharynx normal Neck trachea midline, no thyromegaly Respiratory normal respiratory effort, lungs clear to auscultation Cardiovascular RRR, no murmur, no edema Gastrointestinal (Abdomen) normal bowel sounds, soft, nontender, no hepatosplenomegaly Musculoskeletal Extremities: strength 5/5 throughout Neurologic PERRL, EOMI, accommodation nl, no face palsy, no dysarthria CN's II-XI intact bilaterally and moves all extremities Psychiatric Orientation: alert, oriented to person and oriented to place Eye Contact: + fair eye contact Speech: normal rate/rhythm/volume of speech Affect: + flat affect Discharge Data Allergies Allergy/AdvReac Type Severity Reaction Status Date / Time codeine Allergy Intermediate VOMITTING Verified 09/23/18 21:48 milk Allergy Intermediate GI ISSUES Verified 09/23/18 21:48 Sulfa (Sulfonamide Allergy Intermediate VOMITTING Verified 09/23/18 21:48 Antibiotics) Consultations 09/29/18 13:41 Consult Gastroenterology Routine 09/29/18 13:44 Consult Case Management - Discharge Planning Routine 09/29/18 15:03 Consult Case Management - Discharge Planning Routine Ordered Studies 09/30/18 14:51 CT liver wo/w con Routine 09/30/18 14:53 US abdomen ltd ascites Routine Hospital Course (1) Confusion: Patient is brought to the ER by her , as patient was found to be confused, difficult to arouse Similar episode happened a week ago 09/23/2018, leading to ER visit, patient was discharged from the ER On admissions patient ammonia level mildly elevated to 38, no overt signs symptom of hepatic encephalopathy Patient has not been taking her lactulose for some time (states that she ran out of prescription, and nobody will order it for her ) Patient started on lactulose, continue on rifaximin Patient follows with [facility], appreciate input GI consult Mental status improved to baseline, Patient is counseled repeated time regarding medication compliance, strict abstinence from alcohol Patient verbalizes understanding (2) Hypomagnesemia: Due to history of chronic alcohol abuse, poor p.o. intake, alcoholic liver disease/cirrhosis Magnesium level replaced Stable to be discharged home, patient is continued with outpatient magnesian oxide replacement Anemia -Hemoglobin at baseline, History of depression -continue home dose serteraline obtain PT/OT case management discharge planning DVT: SCDs Code Status:Do not resuscitate and Do not intubate (3) Alcoholic cirrhosis: History of long-term, heavy alcohol abuse, leading to alcoholic liver disease/cirrhosis with portal hypertension, esophageal varices Was in alcohol rehab in [facility] Patient denies of recent alcohol intake Blood alcohol level less than 3 No sign of symptoms of alcohol withdrawal Patient counseled for strict alcohol abstinence by GI team and by myself (4) Anxiety: (5) Portal hypertensive gastropathy: Continue PPI, no evidence of GI bleed (6) Portal hypertension: -Patient had endoscopy on 09/09/18 which did not show evidence of esophageal varices in the lower third of the esophagus; there was a post variceal banding scar was found in the lower third of the esophagus; the scar tissue was healthy in appearance; Severe portal hypertensive gastropathy was found in the gastric fundus and in the gastric body; the duodenal bulb and second portion of the duodenum were normal. -continue home dose nadolol for portal hypertension -INR is 1.5 from cirrhosis GI consulted, appreciate input (7) History of esophagogastroduodenoscopy (EGD): (8) Esophageal varices: Due to alcoholic cirrhosis/portal hypertension History of grade 2 esophageal varices, status post banding in 2016 Recent EGD showed no evidence of varices and lower third of esophagus Appreciate input from GI (9) Thrombocytopenia: Chronic: Secondary to alcoholic liver disease, platelet count 71K which is approximate baseline No sign or symptoms of active bleeding avoid antiplatelets CODE STATUS: DNR/DNI DVT prophylaxis: SCD and teds, pharmacological anticoagulation avoided in the setting of advanced alcoholic liver disease/thrombocytopenia/ sAble to be discharged home today Total Time Total Time Spent Total Time Spent (In Minutes): 45 minutes Total Time Includes: Examination of the Patient, Discharge Planning and Medication Reconciliation Discharge Plan Discharge Items Patient Disposition: Home - Self-Care Reason For Visit: WEAKNESS/ALTERED MENTAL STATUS Discharge Diagnosis: Alcoholic cirrhosis, confusion, Hepatic /metabolic encephalopathy Discharge Goals: Decrease discomfort, Diagnostic testing and Therapeutic intervention Activity: Resume your previous activity Non-emergency contact: Primary Care Provider Call non-emergency contact if: you have any medication questions Follow-up/Referrals: Ashley Adkisn, [Primary Care Provider] - 10/05/18 11:05 am Diet: Low Sodium (2gm) Addtl Provider Instructions: Hospital follow-up with Dr. Adkins on 10/05/2018 at 11 05 AM NEED TO HAVE COMPLETE ABSTINENCE FROM ALCOHOL AND OTHER ILLICIT DRUGS You have advanced alcoholic liver disease/cirrhosis of liver, any further alcohol will lead your liver to be end-stage, with life-threatening complications, Continue to drink alcohol will cause very rapid decline in health: Leading to severe ascites,/unable to create secondary to fluid collection in the lungs, Life-threatening/fatal bleed from GI tract It is very important to have complete compliance / taking all the medications as directed Do not skip any medications, Close follow-up with gastroenterology for continued care Do not take aspirin, Motrin, Aleve, ibuprofen, naproxen: Will cause you serious life-threatening bleeding USG of liver : IMPRESSION: 1. Cirrhosis. Two small subcapsular hypervascular foci within the liver which measure up to 8 mm. These are probably benign and may reflect shunts. However, small hepatocellular carcinomas could appear similar. A follow-up CT or MRI of the liver in 6 months is recommended. 2. Sequela of portal hypertension including splenomegaly and extensive varices formation. Trace perihepatic ascites. 3. 5 mm calculus within the mid to distal common bile duct. No CT evidence for acute pancreatitis. No biliary ductal dilatation. 4. Cholelithiasis. No evidence for acute cholecystitis. WILL NEED CLINIC FOLLOW UP FOR BILE DUCT STONE -POSSIBLE ERCP AND SURGERY FOLLOW UP FOR CHOLECYSTECTOMY Prescriptions: New lactulose 20 gram/30 mL Solution 15 ml PO TID 30 Days Qty: 500 RF: 6 magnesium oxide 400 mg (241.3 mg magnesium) Tablet 400 mg PO BID 30 Days Qty: 60 RF: 3 Continued vitamin B complex [B-Complex] Tablet 1 tab PO DAILY RF: 0 clonidine HCl 0.1 mg Tablet 0.1 mg PO BID RF: 0 gabapentin 600 mg Tablet 600 mg PO TID RF: 0 trazodone 50 mg Tablet 50 mg PO HS RF: 0 omeprazole 40 mg Capsule,Delayed Release(Dr/Ec) 40 mg PO DAILY RF: 0 ferrous sulfate 325 mg (65 mg iron) Tablet 325 mg PO DAILY RF: 0 nadolol 40 mg Tablet 40 mg PO DAILY RF: 0 folic acid 1 mg Tablet 1 mg PO DAILY RF: 0 furosemide 20 mg Tablet 20 mg PO DAILY RF: 0 spironolactone 50 mg Tablet 50 mg PO DAILY RF: 0 escitalopram oxalate [Lexapro] 20 mg Tablet 20 mg PO DAILY RF: 0 rifaximin 550 mg Tablet 550 mg PO BID RF: 0 Probiotic 3 billion cell Capsule 3,000 mmu cells PO DAILY RF: 0 Discontinued magnesium oxide 400 mg magnesium Tablet 400 mg PO DAILY RF: 0 baclofen 20 mg Tablet 20 mg PO TID RF: 0 lactulose 10 gram/15 mL Solution 10 g PO TID RF: 0 Stand-Alone Forms: [facility] Discharge Orders: Discharge Order (Routine); Ordered 10/01/18 Ordered By: Abbie Hunt Admission Data Admit Date/Time: 09/29/18 14:09 Attending Provider: Abbie Hunt Admit Provider: Edgar Mcdonnell Primary Care Provider: Ashley Adkins Other Providers: Shana Nguyen Marten Service: Telemetry Medical Other Interventions: Discharge Summary Assessment (RN) Last Done: 10/01/18 15:13 DC Date/Time DO NOT enter until pt leaves facility: 10/01/18 15:44
== END 2018-10-01 15:44 | disposition home or self-care (01) ==
LOC: 2N → SUATTDRO 14:09

== ENCOUNTER 2019-01-12 10:07 | Inpatient (IN) ==
[2019-01-12] MEDS ORDERED: PROCHLORPERAZINE 2 ML IV ONE (11:04)
[2019-01-12] MEDS ORDERED: SODIUM CHLORIDE 0.9% 1000ML 1,000 ML IV ONE (11:04)
[2019-01-12] MEDS ORDERED: FAMOTIDINE 20MG IV PUSH 20 MG/5 ML SYR IV STA (11:04)
[2019-01-12] MEDS ORDERED: LORazepam 1 MG/2 ML VIAL IV STA (11:04)
[2019-01-12] MEDS ORDERED: MULTI-VITAMIN INFUSION 10 ML, THIAMINE HCL 100 MG, FOLIC ACID 1 MG in SODIUM CHLORIDE 0... IV ONE (11:05)
[2019-01-12 11:25] LABS: INR 1.7 (0.9-1.1); Prothrombin Time 16.9 Seconds (9.0-12.0)
--- NOTE | 2019-01-12 11:32 | XRay Report ---
XR chest 1V portable CLINICAL HISTORY: Chest Pain COMPARISON STUDY: Chest radiograph September 30, 2018. FINDINGS: Low lung volumes are noted. This is unchanged. No pneumothorax or pleural effusion is noted . No consolidation or evidence for pulmonary edema. Mild cardiomegaly is unchanged. The appearance of the chest is unchanged. IMPRESSION: No acute cardiopulmonary findings. No change in appearance of the chest. Electronically signed by: Nishant Alcantar M.D. 01/12/2019 11:31 AM
[2019-01-12 11:42] LABS: Basophils # (auto) 0.01 K/uL (0-0.2); Basophils % (auto) 0.2 %; Echinocytes 3+; Eosinophils # (auto) 0.02 K/uL (0-0.5); Eosinophils % (auto) 0.4 %; Hematocrit (blood only) 40.9 % (37-47); Hemoglobin 14.6 g/dL (12.0-16.0); Immature Granulocytes # (auto) 0.01 K/uL (0.00-0.02); Immature Granulocytes % (auto) 0.2 %; Lymphocytes # (auto) 0.51 K/uL (1.2-3.4); Lymphocytes % (auto) 10.4 %; Mean Corpuscular Hgb Conc 35.7 g/dL (32-36); Mean Corpuscular Volume 100.2 fL (80-100); Mean Platelet Volume 11.3 fL (7.4-10.4); Monocytes # (auto) 0.62 K/uL (0.11-0.59); Monocytes % (auto) 12.6 %; Neutrophils # (auto) 3.74 K/uL (1.4-6.5); Neutrophils % (auto) 76.2 %; Platelet Count 41 K/uL (130-400); Platelet Estimate Decreased (Normal); RDW Coefficient of Variation 19.1 % (11.5-14.5); RDW Standard Deviation 70.3 fL (36.4-46.3); Red Blood Count 4.08 M/uL (4.2-5.4); Toxic Granulation 1+; White Blood Count 4.91 K/uL (4.8-10.8)
[2019-01-12 11:44] LABS: Alanine Aminotransferase 91 U/L (12-78); Albumin Globulin Ratio 0.9 (0.9-2); Albumin Level 3.5 gm/dl (3.4-5.0); Alkaline Phosphatase 182 U/L (45-117); Aspartate Aminotransferase 225 U/L (15-37); BUN Creatinine Ratio 15.6 (10-20); Bilirubin Direct 5.3 mg/dl (0-0.2); Bilirubin,Total 8.7 mg/dl (0.2-1); Blood Urea Nitrogen 16 mg/dl (7-18); Calcium 9.1 mg/dl (8.5-10.1); Carbon Dioxide 22 mmol/L (21-32); Chloride 102 mmol/L (98-107); Est GFR (African American) 66.8; Est GFR (Non-African American) 57.7; Glucose 52 mg/dl (70-99); Magnesium 1.2 mg/dl (1.8-2.4); Phosphorus 2.6 mg/dl (2.5-4.9); Potassium 4.1 mmol/L (3.5-5.1); Sodium 138 mmol/L (136-145); Total Protein 7.5 gm/dl (6.4-8.2); Troponin I < 0.015 ng/ml (0-0.045)
[2019-01-12] MEDS ORDERED: MAGNESIUM SULFATE / D5W 1 GM/100 ML BAG IV STA (11:58)
[2019-01-12] MEDS ORDERED: DEXTROSE 50% 50 ML SYRINGE IV ONE (11:58)
[2019-01-12] MEDS ORDERED: THIAMINE HCL 100 MG in SYRINGE 9 ML IV STA (11:59)
[2019-01-12] MEDS ORDERED: IOVERSOL 100ml IV PRN (12:05)
--- NOTE | 2019-01-12 12:28 | CT Scan Report ---
CT OF THE ABDOMEN AND PELVIS WITH CONTRAST CLINICAL HISTORY: Abdominal pain. Cirrhosis. Melena. COMPARISON STUDY: CT of the abdomen September 30, 2018. MRCP April 03, 2018. TECHNIQUE: Following IV administration of 94 mL of Optiray-320, axial images of the abdomen and pelvi s were obtained from the lung bases to the proximal femurs. Images were reviewed in the axial, sagitt al, and coronal planes. IV contrast was administered without complication. Automated exposure contro l was utilized for the study. A dose lowering technique was utilized adhering to the principles of A JASVIR. CT DOSE: 625.80 mGy.cm FINDINGS: Heart is mildly enlarged. Paraesophageal varices are noted. Liver is markedly cirrhotic. In numerable small hypodense foci within the liver have progressed. These measure up to 1 cm. Sensitivit y for detection of hypervascular lesions is diminished on this venous phase exam. A gallstone within the gallbladder is noted. There is gallbladder wall thickening, a nonspecific finding the setting of cirrhosis. The main, left and right portal veins are patent. Moderate splenomegaly is noted. There is trace ascites. Large abdominal varices are noted. Mild right colon wall thickening is likely related to portal hypertension. No pneumatosis, free air or portal venous gas is present. There are numerous calcified uterine fibroids. No suspicious osseous lesions are noted. There is no evidence for a rody l obstruction. The adrenal glands, pancreas and kidneys are unremarkable. There is no biliary or panc reatic ductal dilatation. Wall thickening of the gastric body is noted. IMPRESSION: 1. Cirrhosis. Marked heterogeneity of the liver with progression of innumerable small hypodense hepat ic nodules since prior CT. These are suboptimally assessed on this venous phase but favor regenerativ e nodules. Diffuse hepatocellular carcinoma is within the differential although considered less likel y. Correlation with AFP levels is recommended. 2. Sequela of portal hypertension including paraesophageal varices and large abdominal varices. Trace ascites. Moderate splenomegaly. 3. Pronounced gastric wall thickening, accentuated by underdistention. This is nonspecific and was sh own on exam April 03, 2018. This could be correlated with upper endoscopy. 4. Cholelithiasis and mild gallbladder wall thickening, a nonspecific finding the setting of cirrhosi s. No gallbladder distention. 5. No bowel obstruction. Electronically signed by: Nishant Alcantar M.D. 01/12/2019 12:27 PM
--- NOTE | 2019-01-12 15:23 | Gastrointestinal Consultation ---
Date of Consultation January 12, 2019 Assessment & Plan (1) Cirrhosis of liver: (2) Alcohol dependence: (3) Nausea & vomiting: (4) Abdominal pain: Pt is a 63 y/o female w hx of ETOH cirrhosis, ongoing ETOH abuse presented to ED w c/o n/v, upper abd pain x 5 days. Upon eval noted to have stable H/H, no signs of GI bleeding, LFTs are however markedly elevated. Previous hx of distal CBD stone noted on liver CT thus may likely have biliary obstruction vs ETOH hepatitis MELD score: 21 Maddreys DF: 31 - Obtain MRCP to check for biliary stones - Obtain Hepatic duplex to r/o PVT - Likely will need ERCP tomorrow. Thus will give her Vit K 5mg IV x 1 dose today. Type and Cross for Plt and FFP. Will give 2U FFP tomorrow AM, then 2U Platelet 1hr prior to ERCP. - Trend LFTs - Strict ETOH cessation advised. Supervising Physician Co-Signing Physician Notes I performed a history and physical examination of the patient, including specifically on physical exam - soft, nontender abdomen. I have discussed the patient's management with Lorelei. Please refer to the nurse practitioner's note for the documented findings and plan of care. 63 female patient with alcholic cirrhosis, recently found with CBD stone on CT scan, now presented with abdominal, mildly elevated lipase and worsening bilirubin. Admits to drinking 5 glasses of wine daily. Plan: MRCP Duplex sono Plan for ERCP tomorrow with PLT and FFP coverage. History of Present Illness Reason for Consultation: N/V, abd pain; hx of ETOH cirrhosis Requesting Physician: Purvi Rosario PA-C Attending Physician: Dr. Zina Mcmillan History of Present Illness Pt is a 63 y/o female w PMHx of ETOH cirrhosis complicated by portal gastropathy, encephalopathy, varices s/p banding, chronic anemia, who presented to ED for c/o abd pain across upper abd area, n/v. She denies any coffee ground emesis or hematemesis. She had loose stools w black particles but rectal exam by ED physician notes brown, heme negative stools. She started drinking about 2 glasses of wine after being 89 days sober. Did note that when she abstained from ETOH, she feels much better. She does however to drink to ease her anxiety. Labs reviewed - no leukocytosis, H/H stable, Plt 41. BUN/Cr normal. She has marked elevation of her LFTs: Tbili 8.7, AST 225, ALT 91, AP 182. ETOH level 36. She was noted to have possible distal CBD stone in previous CT scan. Was scheduled for ERCP in March, with use of [place] prior to her procedure to help increase platelet ct. CT abd/pelvis today showed cirrhotic liver w small nodules w progression ? regenerative nodules vs HCC. she also has signs of portal HTN,varices, trace ascites, moderate splenomegaly. + gastric wall thickening, cholelithiasis. Allergies Allergy/AdvReac Type Severity Reaction Status Date / Time codeine Allergy Intermediate VOMITTING Verified 01/12/19 10:59 milk Allergy Intermediate GI ISSUES Verified 01/12/19 10:59 Sulfa (Sulfonamide Allergy Intermediate VOMITTING Verified 01/12/19 10:59 Antibiotics) Home Medications Home Medications Medication Instructions Recorded Confirmed Type Probiotic 3,000 mmu cells PO QAM 09/23/18 01/12/19 History clonidine HCl 0.1 mg PO BID 09/23/18 01/12/19 History escitalopram oxalate [Lexapro] 20 mg PO QPM 09/23/18 01/12/19 History ferrous sulfate 325 mg PO QAM 09/23/18 01/12/19 History folic acid 1 mg PO QAM 09/23/18 01/12/19 History furosemide 20 mg PO QAM 09/23/18 01/12/19 History gabapentin 600 mg PO TID 09/23/18 01/12/19 History omeprazole 40 mg PO QPM 09/23/18 01/12/19 History rifaximin 550 mg PO BID 09/23/18 01/12/19 History spironolactone 50 mg PO QAM 09/23/18 01/12/19 History trazodone 50 mg PO HS 09/23/18 01/12/19 History vitamin B complex [B-Complex] 1 tab PO QAM 09/29/18 01/12/19 History magnesium oxide 400 mg PO BID 30 Days #60 tab 10/01/18 01/12/19 Rx biotin 1 mg PO BID 10/08/18 01/12/19 History lactulose 15 ml PO DAILY 01/12/19 01/12/19 History ondansetron 4 mg PO Q8H PRN 01/12/19 01/12/19 History Patient History Medical History Thrombocytopenia (Chronic) 2/2 cirrhosis, most recent platelets 71 on 09/30 Depression (Chronic) Lumbar stenosis (Chronic) Ascites (Chronic) managed with furosemide 20mg daily and spironolactone 50mg daily; reports paracentesis 3 years ago Hyperbilirubinemia (Chronic) Dyslipidemia (Chronic) Anxiety (Chronic) Esophageal varices (Chronic) banded in 2015. Secondary prevention of variceal bleeding with Nadolol 40mg daily Portal hypertensive gastropathy (Chronic) Alcohol abuse (Chronic) PER PT NO DRINKING PAST 7 WEEKS Anemia (Chronic) Back pain (Chronic) Alcoholic cirrhosis (Inactive) FOLLOWS W/ [facility] Absence seizure last 2 years ago Hypomagnesemia Supplemented, most recent Mg 1.2 on 10/08. Noncompliance Per [facility] records, patient has been noncompliant with Lactulose, and continues to drink ETOH, leading to elevated ammonia levels, hypomagnesemia and hospitalizations/ED visits for confusion/AMS. Poor historian Portal hypertension Surgical History Hx of tonsillectomy (Chronic) H/O adenoidectomy (Chronic) History of esophagogastroduodenoscopy (EGD) (Chronic) 09/09/2018 Impression: No evidence of esophageal varices. Post variceal banding scar in the lower third of the esophagus. Portal hypertensive gastropathy. Normal duodenal bulb and second portion of the duodenum. H/O colonoscopy (Chronic) "09/2015 - normal " History of tooth extraction Family History Other Bladder cancer Hypertension TIA (transient ischemic attack) Social History Preferred Language: Luxembourgish Communication Ability: Effective Multiple Needle Stitcher Required: No Beliefs That Will Affect Care: None Current Living Situation: Spouse Other Information That Helps Us Care for You: No Feels Safe at Home: Hesitant to Answer Smoking Status: Former smoker Tobacco Type: cigarettes ; Second Hand Exposure: No ; Hx Alcohol Use: Yes (4 drinks a day) Alcohol type: wine Hx Substance Use: No Review of Systems Review of Systems: All systems reviewed & are unremarkable except as noted in HPI & below Physical Exam Constitutional: WD/WN, vitals as above + ill appearing, well groomed and cooperative Eyes: + scleral abnormality (icteric ), PERRL and EOM intact bilaterally ENMT: external ear and nose normal, oropharynx normal Respiratory: normal respiratory effort, lungs clear to auscultation Cardiovascular: RRR, no murmur, no edema Gastrointestinal (Abdomen): normal bowel sounds, soft, nontender, no hepatosplenomegaly Skin: no rashes, warm and dry + jaundice spider angiomata Neurologic: Motor/Sensory: no asterixis tremulous Psychiatric: A+Ox3, euthymic affect Lymphatic: no lymphedema Results & Data Vital Signs (Past 12 Hours) Vital Signs Temp Pulse Pulse Resp BP BP Pulse Ox 01/12/19 14:35 88 16 135/90 01/12/19 13:34 82 16 148/92 H 93 01/12/19 12:58 85 16 143/89 H 93 01/12/19 11:18 93 01/12/19 11:17 95 H 18 142/79 H 93 01/12/19 10:15 36.8 C 100 H 20 145/86 H 95 (1) Alcohol dependence Substance use status: unspecified alcohol-induced disorder Qualified Code(s): F10.29 - Alcohol dependence with unspecified alcohol-induced disorder (2) Cirrhosis of liver Ascites presence: unspecified Hepatic cirrhosis type: alcoholic cirrhosis Qualified Code(s): K70.30 - Alcoholic cirrhosis of liver without ascites (3) Nausea & vomiting Vomiting Intractability: non-intractable Vomiting type: unspecified Qualified Code(s): R11.2 - Nausea with vomiting, unspecified
--- NOTE | 2019-01-12 15:30 | History & Physical Report ---
Date of Service January 12, 2019 Assessment & Plan (1) Abdominal pain: (2) Nausea & vomiting: (3) Elevated bilirubin: (4) Elevated LFTs: (5) Alcoholic cirrhosis: Pt is 63 y/o with PMH alcoholic cirrhosis, portal hypertension, ascites, h/o esophageal varices banding in 2016, chronic anemia, h/o hepatic encephalopathy, continued alcohol use presented to ER with complaint of nausea and vomiting lower abdominal pain x4 days. Reports tactile fever. Reports black flecks stool this am In ER pt afebrile, P: 100 down to 82, R: 20, BP: 145/86, 95% on RA No leukocytosis, H/H: 14/40, Plt: 41, INR: 1.7, BUN: 16, Cr: 1.0, GFR: 57, Total bili: 8.7, (was 1.4 in 11/2018) Direct bili: 5.3, AST: 225 (was 31 in 11/20), ALT: 91 (was 26 in 11/20), Alk Phos: 182 (was 97 in 11/20), Lipase: 449, ETOH: 36 CT ABD/PELVIS: 1. Cirrhosis. Marked heterogeneity of the liver with progression of innumerable small hypodense hepatic nodules since prior CT. These are suboptimally assessed on this venous phase but favor regenerative nodules. Diffuse hepatocellular carcinoma is within the differential although considered less likely. Correlation with AFP levels is recommended. 2. Sequela of portal hypertension including paraesophageal varices and large abdominal varices. Trace ascites. Moderate splenomegaly. 3. Pronounced gastric wall thickening, accentuated by underdistention. This is nonspecific and was shown on exam April 03, 2018. This could be correlated with upper endoscopy. 4. Cholelithiasis and mild gallbladder wall thickening, a nonspecific finding the setting of cirrhosis. No gallbladder distention. 5. No bowel obstruction. DDX: Common bile duct stone, cholangitis -In ER reported brown stool which was guaiac negative -Blood cultures pending -Currently pt afebrile, vitals stable, no leukocytosis -IVF -NPO -GI consult. Recommended MRCP -Monitor CBC, CMP, Liver functions (6) Hypoglycemia: In ER random glucose 52. Was given dextrose 15 mL IV and glucose up to 104 Probable hypoglycemic secondary to vomiting and no oral intake -D5W 1/2 NSS at 50 mL/h (7) Hypomagnesemia: Magnesium 1.2 Probable secondary to vomiting and patient has not been taking oral magnesium supplements -In ER patient given magnesium sulfate 1 g -We will give additional magnesium 2 g -Monitor magnesium (8) Thrombocytopenia: Chronic thrombocytopenia Platelet: 41. Was 71 in 09/2018 -Monitor CBC (9) Alcohol dependence: Drinking 4 glasses of wine daily. Had quit approximately 3 months ago and participated in alcohol rehab EtOH level: 36. No current tremor, anxiety, hallucinations -Alcohol withdrawal protocol with gabapentin and Ativan as needed -Alcohol cessation encouraged DVT Prophylaxis -SCDs Full Code as per discussion with pt Follows with Dr Adkins for routine care Pt was seen and care coordinated with Dr Mcdonnell. See addendum History of Present Illness Chief Complaint: N/V, abdominal Primary Care Provider: Ashley Adkins, Pt is 63 y/o with PMH alcoholic cirrhosis, portal hypertension, ascites, h/o esophageal varices banding in 2016, chronic anemia, h/o hepatic encephalopathy presented to ER with complaint of nausea and vomiting lower abdominal pain x4 d ays. Patient reports nausea reports vomiting 15 episodes a day over the past 4 days. She states she has been unable to eat or drink secondary to vomiting. Has not been taking her medications last several days secondary to vomiting. Denies diarrhea or constipation. Reports had "black flecks" BM this morning. Complaining of lower abdominal discomfort and is unable to describe. States he tried Zofran at home with limited relief. Patient reports feeling hot however did not take her temperature. Patient reports started drinking alcohol again. Reports drinking 4 glasses of wine a day last drink at 10 PM last night. Reports was in rehab approximately 3 months ago. Patient reports history of anxiety and tremors with alcohol withdrawal in the past, denies history of seizure. Denies diaphoresis, hematemesis, hematochezia, BAKER, dizziness, syncope, vision changes, neck pain, CP, SOB, orthopnea, palpitations, cough, sore throat, choking, otalgia, rhinorrhea, paresthesias, weakness, extremity weakness, extremity edema, rashes, urinary symptoms. History of upper GI 09/2017: No esophageal varices, post variceal banding scarring lower third of esophagus, portal hypertensive gastropathy Today in ER reported rectal exam with brown stool which was guaiac negative Allergies Allergy/AdvReac Type Severity Reaction Status Date / Time codeine Allergy Intermediate VOMITTING Verified 01/12/19 10:59 milk Allergy Intermediate GI ISSUES Verified 01/12/19 10:59 Sulfa (Sulfonamide Allergy Intermediate VOMITTING Verified 01/12/19 10:59 Antibiotics) Home Medications Home Medications Medication Instructions Recorded Confirmed Type Probiotic 3,000 mmu cells PO QAM 09/23/18 01/12/19 History clonidine HCl 0.1 mg PO BID 09/23/18 01/12/19 History escitalopram oxalate [Lexapro] 20 mg PO QPM 09/23/18 01/12/19 History ferrous sulfate 325 mg PO QAM 09/23/18 01/12/19 History folic acid 1 mg PO QAM 09/23/18 01/12/19 History furosemide 20 mg PO QAM 09/23/18 01/12/19 History gabapentin 600 mg PO TID 09/23/18 01/12/19 History omeprazole 40 mg PO QPM 09/23/18 01/12/19 History rifaximin 550 mg PO BID 09/23/18 01/12/19 History spironolactone 50 mg PO QAM 09/23/18 01/12/19 History trazodone 50 mg PO HS 09/23/18 01/12/19 History vitamin B complex [B-Complex] 1 tab PO QAM 09/29/18 01/12/19 History magnesium oxide 400 mg PO BID 30 Days #60 tab 10/01/18 01/12/19 Rx biotin 1 mg PO BID 10/08/18 01/12/19 History lactulose 15 ml PO DAILY 01/12/19 01/12/19 History ondansetron 4 mg PO Q8H PRN 01/12/19 01/12/19 History Past Med/Surg History Medical History Thrombocytopenia (Chronic) 2/2 cirrhosis, most recent platelets 71 on 09/30 Depression (Chronic) Lumbar stenosis (Chronic) Ascites (Chronic) managed with furosemide 20mg daily and spironolactone 50mg daily; reports paracentesis 3 years ago Hyperbilirubinemia (Chronic) Dyslipidemia (Chronic) Anxiety (Chronic) Esophageal varices (Chronic) banded in 2016. Secondary prevention of variceal bleeding with Nadolol 40mg daily Portal hypertensive gastropathy (Chronic) Alcohol abuse (Chronic) PER PT NO DRINKING PAST 7 WEEKS Anemia (Chronic) Back pain (Chronic) Alcoholic cirrhosis (Inactive) FOLLOWS W/ [facility] Absence seizure last 2 years ago Hypomagnesemia Supplemented, most recent Mg 1.2 on 10/08. Noncompliance Per [facility] records, patient has been noncompliant with Lactulose, and continues to drink ETOH, leading to elevated ammonia levels, hypomagnesemia and hospitalizations/ED visits for confusion/AMS. Poor historian Portal hypertension Surgical History Hx of tonsillectomy (Chronic) H/O adenoidectomy (Chronic) History of esophagogastroduodenoscopy (EGD) (Chronic) 09/09/2018 Impression: No evidence of esophageal varices. Post variceal banding scar in the lower third of the esophagus. Portal hypertensive gastropathy. Normal duodenal bulb and second portion of the duodenum. H/O colonoscopy (Chronic) "09/2015 - normal " History of tooth extraction Family History Other Bladder cancer Hypertension TIA (transient ischemic attack) Social History Preferred Language: Swedish Communication Ability: Effective Operator Receptionist Required: No Beliefs That Will Affect Care: None Current Living Situation: Spouse Feels Safe at Home: Yes Smoking Status: Former smoker Tobacco Type: cigarettes ; Second Hand Exposure: No ; Hx Alcohol Use: Yes (4 drinks a day) Alcohol type: wine Hx Substance Use: No Review of Systems Review of Systems: All systems reviewed & are unremarkable except as noted in HPI & below Physical Exam Physical Exam: General: chronic ill appearing, no apparent distress, overweight Head: normocephalic, atraumatic Eyes: PERRL, EOM's intact, conjunctiva non-injected, +icteric ENT: normal inspection external ears, nose, mucous membranes moist Neck: supple, trachea midline, non-tender Lungs: clear, no respiratory distress, no wheezing/rhonchi/rales CV: RRR, no murmur, no pretibial edema Abd: normal BS, soft, non-tender to palpation Ext: no cyanosis, no calf tenderness Neuro: A&O x 3, no focal deficits noted, normal affect Skin: warm, dry, yellow skin Results & Data Vital Signs (Past 12 Hours) Vital Signs Temp Pulse Pulse Resp BP BP Pulse Ox 01/12/19 14:35 88 16 135/90 01/12/19 13:34 82 16 148/92 H 93 01/12/19 12:58 85 16 143/89 H 93 01/12/19 11:18 93 01/12/19 11:17 95 H 18 142/79 H 93 01/12/19 10:15 36.8 C 100 H 20 145/86 H 95 Laboratory Results Short CBC 01/12/19 Range/Units 11:02 WBC 4.91 (4.8-10.8) K/uL Hgb 14.6 (12.0-16.0) g/dL Hct 40.9 (37-47) % Plt Count 41 L (130-400) K/uL BMP 01/12/19 11:02 Sodium 138 Potassium 4.1 Chloride 102 Carbon Dioxide 22 BUN 16 Creatinine 1.02 Glucose 52 L* Calcium 9.1 Cardiac Enzymes 01/12/19 Range/Units 11:02 Troponin I < 0.015 (0-0.045) ng/ml Liver Function 01/12/19 Range/Units 11:02 Total Bilirubin 8.7 H (0.2-1) mg/dl Direct Bilirubin 5.3 H (0-0.2) mg/dl AST 225 H (15-37) U/L ALT 91 H (12-78) U/L Alkaline Phosphatase 182 H (45-117) U/L Albumin 3.5 (3.4-5.0) gm/dl Diagnostic Findings CXR: IMPRESSION: No acute cardiopulmonary findings. No change in appearance of the chest. CT ABD/PELVIS: IMPRESSION: 1. Cirrhosis. Marked heterogeneity of the liver with progression of innumerable small hypodense hepatic nodules since prior CT. These are suboptimally assessed on this venous phase but favor regenerative nodules. Diffuse hepatocellular carcinoma is within the differential although considered less likely. Correlation with AFP levels is recommended. 2. Sequela of portal hypertension including paraesophageal varices and large abdominal varices. Trace ascites. Moderate splenomegaly. 3. Pronounced gastric wall thickening, accentuated by underdistention. This is nonspecific and was shown on exam April 03, 2018. This could be correlated with upper endoscopy. 4. Cholelithiasis and mild gallbladder wall thickening, a nonspecific finding the setting of cirrhosis. No gallbladder distention. 5. No bowel obstruction. Code Status & VTE Plan VTE Prophylaxis Plan VTE Prophylaxis will be ordered: Yes Supervising Physician Co-Signing Physician Notes I have seen and examined the patient with physician certified surgical assistant and agree with the assessment and plan as described by physician certified surgical assistant and would like to comment that patient having abdominal pain symptoms and then also noting episodes of dark stool with other people around her noticing jaundice in her eyes on my exam general: patient is not in distress abdomen is soft and nontender to palpation, bowel sounds present heart: regular rate and rhythm lungs: clear to auscultation bilaterally neuro: awake and alert, verbal, patient ambulating In regards to the abdominal pain and jaundice, TRANSAMINITIS (elevated LFTs) and HYPERBILIRUBINEMIA (elevated bilirubin) is concerning possible obstruction in the biliary tract although there might be other manifestations of progression alcoholic Cirrhosis. In addition to patient's complaints of dark stools, currently are seeking gastronenterology evaluation for MRCP versus ERCP, have asked patient to sign consent for blood transfusion if needed for possible GASTROINTESTINAL BLEED given her reports of dark stool. send Fecal occult blood stool. will order IV ranitdine and trend CBC and INR. Monitor thrombocytopenia. Give patient IV fluids with dextrose while NPO. Dextrose will also correct for HYPOGLYCEMIA. Also give IV magnesium for HYPOMAGNESEMIA. Patient also on alcohol withdrawal protocol due to ALCOHOL DEPENDENCE and to prevent alcohol withdrawal (1) Alcohol dependence Substance use status: unspecified alcohol-induced disorder Qualified Code(s): F10.29 - Alcohol dependence with unspecified alcohol-induced disorder (2) Nausea & vomiting Vomiting Intractability: non-intractable Vomiting type: unspecified Qualified Code(s): R11.2 - Nausea with vomiting, unspecified
--- NOTE | 2019-01-12 16:22 | Ultrasound Report ---
Study: Ultrasound of the portal and hepatic venous structures HISTORY: Portal venous thrombosis. Hepatic cirrhosis. FINDINGS: Reversal of flow within the portal venous structures. The pelvic veins are not well seen du e to poor sound transmission through the course liver due to hepatic cirrhotic change. IMPRESSION: 1. Limited study as sound transmission was suboptimal due to hepatic cirrhotic changes. 2. Reversal of flow within the portal venous structures. 3. Nondiagnostic evaluation of the hepatic veins Electronically signed by: Carlos Mahan M.D. 01/12/2019 4:21 PM
--- NOTE | 2019-01-12 16:36 | Emergency Department Note ---
Entered by Violet Liang acting as a scribe for Christopher Crowley MD History of Present Illness General Chief complaint: GI Assessment Stated complaint: BLACK STOOLS,ENG STAGE LIVER DISEASE Time Seen by Provider: 01/12/19 10:51 Source: patient History of Present Illness Provider complaint: abdominal pain Onset (ago): day(s) 4 Location: abdomen Pain Consistency: + intermittent Maximum Pain Intensity: 10 Relieved By: + none Exacerbated By: + none Associated symptoms: + nausea/vomiting and + other (blood in stool, jaundice, esophageal spasms) The patient is a 63 y/o female with a history of liver cirrhosis, who presents to the emergency department for intermittent bleeding and abdominal pain that began four days ago. The patient states that she began having abdominal pain four days ago and the bleeding began last evening. She reports that she has had five black stools and is unable to eat or drink anything without vomiting, which includes her medications. She notes that she has cirrhosis from alcohol, with her most recent drink being last evening and she reports she experiences withdrawal if she does not drink. Her family notes that her eyes have been jaundice and that she has been experiencing esophageal spasms. She denies blood in her vomit, and any other symptoms. Home Medications Home Medications Medication Instructions Recorded Confirmed Type Probiotic 3,000 mmu cells PO QAM 09/23/18 01/12/19 History clonidine HCl 0.1 mg PO BID 09/23/18 01/12/19 History escitalopram oxalate [Lexapro] 20 mg PO QPM 09/23/18 01/12/19 History ferrous sulfate 325 mg PO QAM 09/23/18 01/12/19 History folic acid 1 mg PO QAM 09/23/18 01/12/19 History furosemide 20 mg PO QAM 09/23/18 01/12/19 History gabapentin 600 mg PO TID 09/23/18 01/12/19 History omeprazole 40 mg PO QPM 09/23/18 01/12/19 History rifaximin 550 mg PO BID 09/23/18 01/12/19 History spironolactone 50 mg PO QAM 09/23/18 01/12/19 History trazodone 50 mg PO HS 09/23/18 01/12/19 History vitamin B complex [B-Complex] 1 tab PO QAM 09/29/18 01/12/19 History magnesium oxide 400 mg PO BID 30 Days #60 tab 10/01/18 01/12/19 Rx biotin 1 mg PO BID 10/08/18 01/12/19 History lactulose 15 ml PO DAILY 01/12/19 01/12/19 History ondansetron 4 mg PO Q8H PRN 01/12/19 01/12/19 History Allergies Allergy/AdvReac Type Severity Reaction Status Date / Time codeine Allergy Intermediate VOMITTING Verified 01/12/19 10:59 milk Allergy Intermediate GI ISSUES Verified 01/12/19 10:59 Sulfa (Sulfonamide Allergy Intermediate VOMITTING Verified 01/12/19 10:59 Antibiotics) Past Med/Surg History Medical History Thrombocytopenia (Chronic) 2/2 cirrhosis, most recent platelets 71 on 09/30 Depression (Chronic) Lumbar stenosis (Chronic) Ascites (Chronic) managed with furosemide 20mg daily and spironolactone 50mg daily; reports paracentesis 3 years ago Hyperbilirubinemia (Chronic) Dyslipidemia (Chronic) Anxiety (Chronic) Esophageal varices (Chronic) banded in 2015. Secondary prevention of variceal bleeding with Nadolol 40mg daily Portal hypertensive gastropathy (Chronic) Alcohol abuse (Chronic) PER PT NO DRINKING PAST 7 WEEKS Anemia (Chronic) Back pain (Chronic) Alcoholic cirrhosis (Inactive) FOLLOWS W/ [facility] Absence seizure last 2 years ago Hypomagnesemia Supplemented, most recent Mg 1.2 on 10/08. Noncompliance Per [facility] records, patient has been noncompliant with Lactulose, and continues to drink ETOH, leading to elevated ammonia levels, hypomagnesemia and hospitalizations/ED visits for confusion/AMS. Poor historian Portal hypertension Surgical History Hx of tonsillectomy (Chronic) H/O adenoidectomy (Chronic) History of esophagogastroduodenoscopy (EGD) (Chronic) 09/09/2018 Impression: No evidence of esophageal varices. Post variceal banding scar in the lower third of the esophagus. Portal hypertensive gastropathy. Normal duodenal bulb and second portion of the duodenum. H/O colonoscopy (Chronic) "09/2015 - normal " History of tooth extraction Family History Other Bladder cancer Hypertension TIA (transient ischemic attack) Social History Preferred Language: Belarusian Communication Ability: Effective Full Fashioned Garment Knitter Required: No Beliefs That Will Affect Care: None Current Living Situation: Spouse Other Information That Helps Us Care for You: No Feels Safe at Home: Hesitant to Answer Smoking Status: Former smoker Tobacco Type: cigarettes ; Second Hand Exposure: No ; Hx Alcohol Use: Yes (4 drinks a day) Alcohol type: wine Hx Substance Use: No Review of Systems See HPI for pertinent positives & negatives. and A total of 10 systems reviewed and were otherwise negative Physical Exam Vital Signs Vital Signs - 24 hr 01/12/19 10:15 01/12/19 11:17 01/12/19 11:18 Temperature 36.8 C Temperature Source Oral Sepsis Recent Fever Within 48 Hours No Sepsis Action Taken by Nursing No Action Required Pulse Rate 100 H Pulse Rate [Apical] 95 H Respiratory Rate 20 18 Respiratory Effort / Characteristics Non-Labored Spontaneous Respiratory Depth Normal Respiratory Pattern Regular Blood Pressure 145/86 H Blood Pressure [Right Arm] 142/79 H Blood Pressure Mean 105 Blood Pressure Mean [Right Arm] 100 Blood Pressure Position Sitting Pulse Oximetry 95 93 93 Oxygen Delivery Method Room Air Room Air Room Air 01/12/19 12:58 01/12/19 13:34 01/12/19 14:35 Temperature Temperature Source Sepsis Recent Fever Within 48 Hours Sepsis Action Taken by Nursing Pulse Rate Pulse Rate [Apical] 85 82 88 Respiratory Rate 16 16 16 Respiratory Effort / Characteristics Respiratory Depth Respiratory Pattern Blood Pressure Blood Pressure [Right Arm] 143/89 H 148/92 H 135/90 Blood Pressure Mean Blood Pressure Mean [Right Arm] 107 110 105 Blood Pressure Position Pulse Oximetry 93 93 Oxygen Delivery Method GENERAL: Awake, alert, ill-appearing, in no distress HENT: Normocephalic, atraumatic. Oropharynx with dry mucous membranes and otherwise unremarkable. EYES: Normal conjunctiva. Sclera non-icteric. Mild scleral icterus of eyes NECK: Supple. No nuchal rigidity. FROM. No JVD. RESPIRATORY: CTAB CARDIAC: Regular rate, normal rhythm. Extremities warm and well perfused. Pulses equal. ABDOMEN: Soft, non-distended. Generalized abdominal tenderness to palpation. No rebound or guarding. No masses. RECTAL: Scant brown stool, guaiac positive, no gross melena or blood. MUSCULOSKELETAL: Chest examination reveals no tenderness. The back is symmetrical on inspection without obvious abnormality. There is no CVA tenderness to palpation. No joint edema. LOWER EXTREMITIES: Calves are equal size bilaterally and non-tender. No edema. No discoloration. NEURO: Normal sensorium. No sensory or motor deficits noted. SKIN: Warm and dry. Mild jaundice. No rash noted. Course 1101: Past medical records reviewed. The patient was evaluated in room C06. A complete history and physical exam was performed. 1345: I spoke with Elizabeth Simmons. She will evaluate for further management. 1405: I spoke with Elizabeth KIM and she advised ordering a RUQ ultrasound. Administered Medications Clonidine HCl (Catapres) 0.1 mg PO BID MALIK Stop: 02/11/19 20:59 Last Admin: 01/12/19 21:20 Dose: 0.1 mg Documented by: [id number] Escitalopram Oxalate (Lexapro Tab) 20 mg PO QPM MALIK Stop: 02/11/19 20:59 Last Admin: 01/12/19 21:22 Dose: 20 mg Documented by: [id number] Gabapentin (Neurontin) 600 mg PO Q6H MALIK Stop: 01/13/19 06:01 Last Admin: 01/13/19 00:14 Dose: 600 mg Documented by: [id number] Dextrose/Sodium Chloride (D5w And 1/2nss) 1,000 mls @ 50 mls/hr IV .Q20H MALIK Stop: 02/11/19 16:40 Last Admin: 01/12/19 21:19 Dose: 50 mls/hr Documented by: [id number] Magnesium Oxide (Mag-Ox) 400 mg PO BID MALIK Stop: 02/11/19 20:59 Last Admin: 01/12/19 21:22 Dose: 400 mg Documented by: [id number] Pantoprazole Sodium (Protonix) 40 mg PO QPM MALIK Stop: 02/11/19 20:59 Last Admin: 01/12/19 21:23 Dose: 40 mg Documented by: [id number] Rifaximin (Xifaxan) 550 mg PO BID MALIK Stop: 02/11/19 20:59 Last Admin: 01/12/19 21:23 Dose: 550 mg Documented by: [id number] Trazodone HCl (Desyrel) 50 mg PO HS MALIK Stop: 02/11/19 20:59 Last Admin: 01/12/19 21:22 Dose: 50 mg Documented by: [id number] Discontinued Medications Dextrose (Dextrose 50%) 50 ml IV NOW ONE Stop: 01/12/19 11:59 Last Admin: 01/12/19 12:24 Dose: 50 ml Documented by: [id number] Gabapentin (Neurontin) 1,200 mg PO TODAY@1800 MALIK Stop: 01/12/19 18:01 Last Admin: 01/12/19 18:30 Dose: 1,200 mg Documented by: [id number] Prochlorperazine (Compazine) 2 mls @ 1 mls/min IV ONE ONE Stop: 01/12/19 11:05 Last Admin: 01/12/19 11:14 Dose: 1 mls/min Documented by: [id number] Sodium Chloride (Nss 1000ml) 1,000 mls @ 999 mls/hr IV .Q1H1M ONE Stop: 01/12/19 12:04 Last Infusion: 01/12/19 12:50 Dose: 0 mls/hr Documented by: [id number] Admin: 01/12/19 11:13 Dose: 999 mls/hr Documented by: [id number] Lorazepam (Ativan) 1 mg in 2 mls @ 2 mls/min IV NOW STA Stop: 01/12/19 11:05 Last Admin: 01/12/19 11:13 Dose: 2 mls/min Documented by: [id number] Famotidine (Pepcid 20mg Iv Push) 20 mg in 5 mls @ 2.5 mls/min IV NOW STA Stop: 01/12/19 11:05 Last Admin: 01/12/19 11:13 Dose: 2.5 mls/min Documented by: [id number] Multivitamins 10 ml/ Thiamine HCl 100 mg/ Folic Acid 1 mg/Sodium Chloride 1,011.2 mls @ 1,011.2 mls/hr IV .Q1H ONE Stop: 01/12/19 12:04 Last Infusion: 01/12/19 12:50 Dose: 0 mls/hr Documented by: [id number] Admin: 01/12/19 11:44 Dose: 1,011.2 mls/hr Documented by: [id number] Magnesium Sulfate/Dextrose (Magnesium Sulfate / D5w) 1 gm in 100 mls @ 100 mls/hr IV NOW STA Stop: 01/12/19 12:57 Last Infusion: 01/12/19 12:50 Dose: 0 mls/hr Documented by: [id number] Admin: 01/12/19 12:24 Dose: 100 mls/hr Documented by: [id number] Thiamine HCl 100 mg/ Syringe 10 mls @ 2 mls/min IV NOW STA Stop: 01/12/19 12:03 Last Admin: 01/12/19 12:23 Dose: 2 mls/min Documented by: [id number] Magnesium Sulfate/Dextrose (Magnesium Sulfate / D5w) 1 gm in 100 mls @ 100 mls/hr IV Q1H MALIK Stop: 01/12/19 18:59 Last Infusion: 01/12/19 22:10 Dose: 0 mls/hr Documented by: [id number] Admin: 01/12/19 20:13 Dose: 100 mls/hr Documented by: [id number] Infusion: 01/12/19 19:29 Dose: 100 mls/hr Documented by: [id number] Admin: 01/12/19 18:29 Dose: 100 mls/hr Documented by: [id number] Ranitidine HCl 50 mg/ Dextrose 102 mls @ 200 mls/hr IV NOW STA Stop: 01/12/19 18:03 Last Infusion: 01/12/19 19:10 Dose: 0 mls/hr Documented by: [id number] Admin: 01/12/19 18:29 Dose: 200 mls/hr Documented by: [id number] Phytonadione 5 mg/ Sodium (Chloride) 50.5 mls @ 101 mls/hr IV ONE ONE Stop: 01/12/19 18:59 Last Infusion: 01/12/19 22:10 Dose: 0 mls/hr Documented by: [id number] Admin: 01/12/19 21:19 Dose: 101 mls/hr Documented by: [id number] Phytonadione 5 mg/ Sodium (Chloride) 50.5 mls @ 101 mls/hr IV ONE ONE Stop: 01/12/19 18:32 Last Admin: 01/12/19 23:10 Dose: Not Given Documented by: [id number] Ioversol (Optiray 320 100ml) 94 ml IV ONCE PRN PRN Reason: Interaction Checking Stop: 01/16/19 12:04 Last Admin: 01/12/19 12:05 Dose: 94 ml Documented by: [id number] Medical Decision Making Differential Diagnosis Differential considered: pancreatitis, hepatitis, or acute cholecystitis, AAA, UTI, pyelonephritis, kidney stones, appendicitis, diverticulitis, shingles, bowel obstruction mesenteric ischemia, intussusception,hernia, testicular torsion, ovarian torsion, ruptured ovarian cyst,ectopic , . Medical Records Attestation: I reviewed the patient's medical records. Home Medications Current Medication List: was personally reviewed by me Laboratory Data Attestation: I reviewed the patient's lab results. Result diagrams: 01/12/19 18:15 01/12/19 11:02 Lab Results 01/12/19 01/12/19 01/12/19 Range/Units 11:01 11:02 11:02 WBC 4.91 (4.8-10.8) K/uL RBC 4.08 L (4.2-5.4) M/uL Hgb 14.6 (12.0-16.0) g/dL Hct 40.9 (37-47) % MCV 100.2 H (80-100) fL MCH 35.8 H (25-34) pg MCHC 35.7 (32-36) g/dL RDW Std Deviation 70.3 H (36.4-46.3) fL RDW Coeff of Adam 19.1 H (11.5-14.5) % Plt Count 41 L (130-400) K/uL MPV 11.3 H (7.4-10.4) fL Immature Gran % (Auto) 0.2 % Neut % (Auto) 76.2 % Lymph % (Auto) 10.4 % [place] % (Auto) 12.6 % Eos % (Auto) 0.4 % Baso % (Auto) 0.2 % Immature Gran # (Auto) 0.01 (0.00-0.02) K/uL Neut # (Auto) 3.74 (1.4-6.5) K/uL Lymph # (Auto) 0.51 L (1.2-3.4) K/uL [place] # (Auto) 0.62 H (0.11-0.59) K/uL Eos # (Auto) 0.02 (0-0.5) K/uL Baso # (Auto) 0.01 (0-0.2) K/uL Toxic Granulation 1+ Platelet Estimate Decreased L (Normal) Echinocytes 3+ PT (9.0-12.0) Seconds INR (0.9-1.1) Sodium 138 (136-145) mmol/L Potassium 4.1 (3.5-5.1) mmol/L Chloride 102 (98-107) mmol/L Carbon Dioxide 22 (21-32) mmol/L Anion Gap 14.0 H (3-11) BUN 16 (7-18) mg/dl Creatinine 1.02 (0.6-1.2) mg/dl Est Cr Clr Drug Dosing 54.0 ml/min Est GFR ( Amer) 66.8 Est GFR (Non-Af Amer) 57.7 BUN/Creatinine Ratio 15.6 (10-20) Glucose 52 L* (70-99) mg/dl POC Glucose (70-99) Calcium 9.1 (8.5-10.1) mg/dl Phosphorus 2.6 (2.5-4.9) mg/dl Magnesium 1.2 L (1.8-2.4) mg/dl Total Bilirubin 8.7 H (0.2-1) mg/dl Direct Bilirubin 5.3 H (0-0.2) mg/dl AST 225 H (15-37) U/L ALT 91 H (12-78) U/L Alkaline Phosphatase 182 H (45-117) U/L Troponin I < 0.015 (0-0.045) ng/ml Total Protein 7.5 (6.4-8.2) gm/dl Albumin 3.5 (3.4-5.0) gm/dl Globulin 4.0 (2.5-4.0) gm/dl Albumin/Globulin Ratio 0.9 (0.9-2) Lipase 449 H (73-393) U/L Ethyl Alcohol mg/dL 36.4 H (0-3) mg/dl 01/12/19 01/12/19 Range/Units 11:02 14:42 WBC (4.8-10.8) K/uL RBC (4.2-5.4) M/uL Hgb (12.0-16.0) g/dL Hct (37-47) % MCV (80-100) fL MCH (25-34) pg MCHC (32-36) g/dL RDW Std Deviation (36.4-46.3) fL RDW Coeff of Adam (11.5-14.5) % Plt Count (130-400) K/uL MPV (7.4-10.4) fL Immature Gran % (Auto) % Neut % (Auto) % Lymph % (Auto) % [place] % (Auto) % Eos % (Auto) % Baso % (Auto) % Immature Gran # (Auto) (0.00-0.02) K/uL Neut # (Auto) (1.4-6.5) K/uL Lymph # (Auto) (1.2-3.4) K/uL [place] # (Auto) (0.11-0.59) K/uL Eos # (Auto) (0-0.5) K/uL Baso # (Auto) (0-0.2) K/uL Toxic Granulation Platelet Estimate (Normal) Echinocytes PT 16.9 H (9.0-12.0) Seconds INR 1.7 H (0.9-1.1) Sodium (136-145) mmol/L Potassium (3.5-5.1) mmol/L Chloride (98-107) mmol/L Carbon Dioxide (21-32) mmol/L Anion Gap (3-11) BUN (7-18) mg/dl Creatinine (0.6-1.2) mg/dl Est Cr Clr Drug Dosing ml/min Est GFR ( Amer) Est GFR (Non-Af Amer) BUN/Creatinine Ratio (10-20) Glucose (70-99) mg/dl POC Glucose 104 H (70-99) Calcium (8.5-10.1) mg/dl Phosphorus (2.5-4.9) mg/dl Magnesium (1.8-2.4) mg/dl Total Bilirubin (0.2-1) mg/dl Direct Bilirubin (0-0.2) mg/dl AST (15-37) U/L ALT (12-78) U/L Alkaline Phosphatase (45-117) U/L Troponin I (0-0.045) ng/ml Total Protein (6.4-8.2) gm/dl Albumin (3.4-5.0) gm/dl Globulin (2.5-4.0) gm/dl Albumin/Globulin Ratio (0.9-2) Lipase (73-393) U/L Ethyl Alcohol mg/dL (0-3) mg/dl Imaging Data Radiologist's Impression: Radiology results as stated below per my review and the radiologist's interpretation: XR chest 1V portable CLINICAL HISTORY: Chest Pain COMPARISON STUDY: Chest radiograph September 30, 2018. FINDINGS: Low lung volumes are noted. This is unchanged. No pneumothorax or pleural effusion is noted. No consolidation or evidence for pulmonary edema. Mild cardiomegaly is unchanged. The appearance of the chest is unchanged. IMPRESSION: No acute cardiopulmonary findings. No change in appearance of the chest. Electronically signed by: Nishant Alcantar M.D. 01/12/2019 11:[address] OF THE ABDOMEN AND PELVIS WITH CONTRAST CLINICAL HISTORY: Abdominal pain. Cirrhosis. Melena. COMPARISON STUDY: CT of the abdomen September 30, 2018. MRCP April 03, 2018. TECHNIQUE: Following IV administration of 94 mL of Optiray-320, axial images of the abdomen and pelvis were obtained from the lung bases to the proximal femurs. Images were reviewed in the axial, sagittal, and coronal planes. IV contrast was administered without complication. Automated exposure control was utilized for the study. A dose lowering technique was utilized adhering to the principles of ALARA. CT DOSE: 625.80 mGy.cm FINDINGS: Heart is mildly enlarged. Paraesophageal varices are noted. Liver is markedly cirrhotic. Innumerable small hypodense foci within the liver have p rogressed. These measure up to 1 cm. Sensitivity for detection of hypervascular lesions is diminished on this venous phase exam. A gallstone within the gallbladder is noted. There is gallbladder wall thickening, a nonspecific finding the setting of cirrhosis. The main, left and right portal veins are patent. Moderate splenomegaly is noted. There is trace ascites. Large abdominal varices are noted. Mild right colon wall thickening is likely related to portal hypertension. No pneumatosis, free air or portal venous gas is present. There are numerous calcified uterine fibroids. No suspicious osseous lesions are noted. There is no evidence for a bowel obstruction. The adrenal glands, pancreas and kidneys are unremarkable. There is no biliary or pancreatic ductal dilatation. Wall thickening of the gastric body is noted. IMPRESSION: 1. Cirrhosis. Marked heterogeneity of the liver with progression of innumerable small hypodense hepatic nodules since prior CT. These are suboptimally assessed on this venous phase but favor regenerative nodules. Diffuse hepatocellular carcinoma is within the differential although considered less likely. Correlation with AFP levels is recommended. 2. Sequela of portal hypertension including paraesophageal varices and large abdominal varices. Trace ascites. Moderate splenomegaly. 3. Pronounced gastric wall thickening, accentuated by underdistention. This is nonspecific and was shown on exam April 03, 2018. This could be correlated with upper endoscopy. 4. Cholelithiasis and mild gallbladder wall thickening, a nonspecific finding the setting of cirrhosis. No gallbladder distention. 5. No bowel obstruction. Electronically signed by: Nishant Alcantar M.D. 01/12/2019 12:27 PM ECG Data Attestation: I personally reviewed and interpreted this ECG as follows: Indication: abdominal pain Rate (beats per minute): 86 Rhythm: normal sinus Findings: + other (poor R wave progression); no ST depression and no ST carlos vation Blood Pressure Blood Pressure Findings: Elevated blood pressure Blood Pressure Disposition: further management by hospitalist VALERIE Rojas The patient is a pleasant 63-year-old woman with a past medical history of alcoholic cirrhosis, alcohol abuse/dependence, history of alcohol withdrawal who presents emergency department with persistent nausea vomiting reported black stools per hpi. On arrival the patient is ill-appearing but no acute distress, afebrile, heart rate in the 100s and stable vital signs. Patient does appear clinically dry despite mild abdominal distention. She has mild scleral icterus and jaundice of her skin. She has generalized abdominal tenderness without guarding and abdomen is soft. EKG without overt acute ischemia. Chest x-ray negative for acute process. WBC within normal limits. H/H within normal limits. Platelets 41K within prior range of values. Chemistry without acidosis. Creatinine within normal limits. Patient's initial glucose was low at 52 subsequent given D50 with improvement in her symptoms. Magnesium 1.2 with repletion provided. Total bilirubin elevated at 8.7 with direct bilirubin of 5.3 which is increased from September 2018 when she had a total bilirubin of 1.3. AST, ALT, and alk phos elevated at 225, 91, 182 respectively. INR 1.7 from 1.5 in September. Troponin negative. Patient feeling improved after IV fluid hydration, thiamine, D50, banana bag, Pepcid, Ativan, magnesium repletion. CT of the abdomen pelvis demonstrates evidence of the patient's known cirrhosis but with progression of small hypodense hepatic nodules that could be suspicious for hepatocellular carcinoma. There is evidence of portal hypertension is identified with paraesophageal varices and large abdominal varices with trace ascites and moderate splenomegaly. There is also gastric wall thickening that was present on previous CT. Additionally there is cholelithiasis with mild gallbladder wall thickening but no distention and likely related to the patient's cirrhosis, given upon reevaluation patient's abdomen was benign. Given the patient's worsening cirrhosis reasonable to admit the patient for further management. Case was discussed with Purvi Price, [facility], who evaluate the patient for admission. Impression & Plan Cirrhosis of liver, Hypomagnesemia, Nausea & vomiting, Thrombocytopenia concurrent with and due to alcoholism Discharge Plan Visit Data *Final* Discharge Date/Time: 01/12/19 15:51 Chief Complaint: GI Assessment Stated Complaint: BLACK STOOLS,ENG STAGE LIVER DISEASE ED Provider: Christopher Crowley Discharge Problem: Cirrhosis of liver, Hypomagnesemia, Nausea & vomiting, Thrombocytopenia concurrent with and due to alcoholism Patient Disposition: Admitted As Inpatient Discharge Instructions Interventions: ED Discharge Assessment Last Done: 01/12/19 15:51 The scribe's documentation has been prepared under my direction and personally reviewed by me in its entirety. I confirm that the note above accurately reflects all work, treatment, procedures, and medical decision making performed by me.
[2019-01-12] MEDS ORDERED: LORazepam 1 MG/2 ML VIAL IV PRN (16:41)
[2019-01-12] MEDS ORDERED: GABAPENTIN 1200MG ALCOHOL WITHDRAWAL LOAD PO STA (16:41)
[2019-01-12] MEDS ORDERED: ONDANSETRON INJ 2 MG/ML 2 ML VIAL IV PRN (16:41)
[2019-01-12] MEDS ORDERED: GABAPENTIN 600 MG TAB PO SCH ×2 (18:00→21:00)
[2019-01-12] MEDS ORDERED: PHYTONADIONE 5 MG in SODIUM CHLORIDE 0.9% 50 ML IV ONE ×2 (18:03→18:30)
[2019-01-12] MEDS ORDERED: SODIUM CHLORIDE 0.9% 250 ML IV PRN (18:05)
[2019-01-12] MEDS: MAGNESIUM SULFATE / D5W 1 GM/100 ML BAG IV SCH ×2 (18:29→20:13)
[2019-01-12 18:35] LABS: INR 1.9 (0.9-1.1); Prothrombin Time 18.2 Seconds (9.0-12.0)
[2019-01-12 19:05] LABS: Hematocrit (blood only) 35.2 % (37-47); Hemoglobin 12.7 g/dL (12.0-16.0); Mean Corpuscular Hgb Conc 36.1 g/dL (32-36); Mean Corpuscular Volume 100.9 fL (80-100); Mean Platelet Volume 10.5 fL (7.4-10.4); Platelet Count 29 K/uL (130-400); RDW Coefficient of Variation 18.9 % (11.5-14.5); RDW Standard Deviation 69.6 fL (36.4-46.3); Red Blood Count 3.49 M/uL (4.2-5.4); White Blood Count 3.37 K/uL (4.8-10.8)
[2019-01-12 19:07] LABS: ALC (manual) 0.32 K/uL (1.2-3.4); Eosinophils # (manual) 0.03 K/uL (0-0.5); Eosinophils % (manual) 0.9 %; Lymphocytes # (manual) 0.32 K/uL (1.2-3.4); Lymphocytes % (manual) 9.6 %; Monocytes # (manual) 0.44 K/uL (0.11-0.59); Neutrophils % (manual) 76.5 %; Platelet Estimate Decreased (Normal)
[2019-01-12] MEDS: D5W AND 1/2NSS 1,000 ML IV SCH (21:19)
[2019-01-12] MEDS: cloNIDine HCl 0.1 MG TAB PO SCH (21:20)
[2019-01-12] MEDS: ESCITALOPRAM OXALATE 20 MG TAB PO SCH (21:22)
[2019-01-12] MEDS: TRAZODONE HCL 50 MG TAB PO SCH (21:22)
[2019-01-12] MEDS: MAGNESIUM OXIDE 400 MG TAB PO SCH (21:22)
[2019-01-12] MEDS: PANTOprazole 40 MG TAB PO SCH (21:23)
[2019-01-12] MEDS: RIFAXIMIN 550 MG TABLET PO SCH (21:23)
[2019-01-13] MEDS: GABAPENTIN 600 MG TAB PO SCH ×4 (00:14→21:06)
[2019-01-13 06:28] LABS: INR 1.8 (0.9-1.1); Prothrombin Time 17.7 Seconds (9.0-12.0)
[2019-01-13 06:45] LABS: Hematocrit (blood only) 33.7 % (37-47); Hemoglobin 11.8 g/dL (12.0-16.0); Mean Corpuscular Volume 101.8 fL (80-100); Mean Platelet Volume 11.5 fL (7.4-10.4); Platelet Count 29 K/uL (130-400); RDW Coefficient of Variation 19.1 % (11.5-14.5); RDW Standard Deviation 70.9 fL (36.4-46.3); Red Blood Count 3.31 M/uL (4.2-5.4); White Blood Count 2.36 K/uL (4.8-10.8)
[2019-01-13 06:59] LABS: Albumin Level 2.8 gm/dl (3.4-5.0); BUN Creatinine Ratio 12.5 (10-20); Bilirubin Direct 4.1 mg/dl (0-0.2); Bilirubin,Total 6.9 mg/dl (0.2-1); Calcium 8.1 mg/dl (8.5-10.1); Creatinine Clr Calc Pharmacy 55.5 ml/min; Est GFR (African American) 68.5; Est GFR (Non-African American) 59.1; Globulin 2.9 gm/dl (2.5-4.0); Magnesium 1.9 mg/dl (1.8-2.4); Potassium 3.4 mmol/L (3.5-5.1); Total Protein 5.7 gm/dl (6.4-8.2)
--- NOTE | 2019-01-13 07:06 | Magnetic Resonance Report ---
Study: MRCP HISTORY: Pain. Cirrhosis. Melena. COMPARISON: CT 01/12/2019. MRCP 04/03/2018. FINDINGS: Lung bases are grossly clear. Findings of diffuse signal heterogeneity of the liver consist ent with a combination of fatty infiltration and hepatic cirrhosis. These findings are mildly progres sive compared to the prior exam. Diffuse parenchymal nodularity felt to represent sequela of hepatic cirrhotic change. Diffusion upper abdominal varices are again noted. Hepatic and portal venous structures appear to be intact. Pancreas is uniform. A trace amount of perihepatic ascites. Kidneys are negative for hydronephrosis. There are findings of moderate splenomegaly with a maximum l inear dimension 13 cm. The gallbladder contains several gallstones. There is slight thickening of the gallbladder wall. Biliary ductal system is slightly prominent although this is unchanged from the prior study. There is no dilatation of pancreatic duct. IMPRESSION: 1. Hepatic cirrhosis with a trace amount of perihepatic ascites. 2. Diffuse upper abdominal varices. 3. Splenomegaly stable compared to the prior exam. 4. No filling defects within the biliary or pancreatic ductal systems. 5. The hepatic and venous portal systems appear patent.: 1. Electronically signed by: Carlos Mahan M.D. 01/13/2019 7:04 AM
[2019-01-13] MEDS ORDERED: INDOMETHACIN 50 MG SUPP PR SCH (08:00)
[2019-01-13] MEDS: SPIRONOLACTONE 25 MG TAB PO SCH (08:28)
[2019-01-13] MEDS: cloNIDine HCl 0.1 MG TAB PO SCH ×2 (08:29→20:08)
[2019-01-13] MEDS: FOLIC ACID 1 MG TAB PO SCH (08:30)
[2019-01-13] MEDS: FERROUS SULFATE 325 MG TAB PO SCH (08:30)
[2019-01-13] MEDS: MAGNESIUM OXIDE 400 MG TAB PO SCH ×2 (08:31→20:08)
[2019-01-13] MEDS: RIFAXIMIN 550 MG TABLET PO SCH ×2 (08:32→20:08)
[2019-01-13] MEDS: THIAMINE HCL 100 MG TAB PO SCH (08:32)
[2019-01-13] MEDS: VITAMIN B COMPLEX TAB PO SCH (08:32)
--- NOTE | 2019-01-13 09:27 | History & Physical Bridge Note ---
Date of Service January 13, 2019 History & Physical Bridge Note I have examined the patient, reviewed the History & Physical and in the interval since the performance of the History & Physical I have noted the following changes of clinical significance: no changes noted Pt did well overnight. Denies any n/v, abd pain, loose stools. Limited portal vein studies; MRCP w/o filling defect though LFTs still elevated. We will still plan for ERCP today, pls keep her NPO Exam: - AAOx3, in NAD - CTA bilateral lungs - HRR no murmur or gallops - Abd soft, non tender, hypoactive BS - Mild jaundice noted Spoke w RN, will administer 2U FFP this morning then 2U platelets 1 hour prior to ERCP procedure Supervising Physician Co-Signing Physician Notes I performed a history and physical examination of the patient, including specifically on physical exam - soft, nontender abdomen. I have discussed the patient's management with Lorelei. Please refer to the nurse practitioner's note for the documented findings and plan of care. Patient with jaundice and CBD stone on recent CT scan, plan for ERCP. She is aware of the high bleeding risk and agrees.
[2019-01-13] MEDS ORDERED: POTASSIUM CHLORIDE 20 MEQ TABCR PO ONE (09:30)
--- NOTE | 2019-01-13 11:58 | Anesthesiology Consultation ---
Date of Service January 13, 2019 Assessment & Plan (1) Encounter for pre-operative examination: Chart Review Chart Review: Acceptable Risk for Surgery (pt is high risk, but appears to be optimized as much as possible) and Patient NOT seen in Pre Admission Testing Consults Requested none ASA ASA4 Proposed Anesthesia Anesthesia Type: General Risk / Benefits Reviewed With: PT / POA / Parent / Guardian, Accepts Plan and Informed Consent Obtained Additional Notes Pt was given 2 units of FFP and 2 packs of platelets immediately prior to going to OR History Surgery Operation Date: 01/13/19 07:00 Proposed Procedures p Endoscopic Retrograde Cholangiopancreatogram - Zina Mcmillan MD Height/Weight Height: 5 ft 4 in Weight: 74.6 kg Allergies Allergy/AdvReac Type Severity Reaction Status Date / Time codeine Allergy Intermediate VOMITTING Verified 01/12/19 10:59 milk Allergy Intermediate GI ISSUES Verified 01/12/19 10:59 Sulfa (Sulfonamide Allergy Intermediate VOMITTING Verified 01/12/19 10:59 Antibiotics) Medications Home Medications Medication Instructions Recorded Confirmed Last Taken Probiotic 3,000 mmu cells PO QAM 09/23/18 01/12/19 Unknown clonidine HCl 0.1 mg PO BID 09/23/18 01/12/19 Unknown escitalopram oxalate [Lexapro] 20 mg PO QPM 09/23/18 01/12/19 Unknown ferrous sulfate 325 mg PO QAM 09/23/18 01/12/19 Unknown folic acid 1 mg PO QAM 09/23/18 01/12/19 Unknown furosemide 20 mg PO QAM 09/23/18 01/12/19 Unknown gabapentin 600 mg PO TID 09/23/18 01/12/19 Unknown omeprazole 40 mg PO QPM 09/23/18 01/12/19 Unknown rifaximin 550 mg PO BID 09/23/18 01/12/19 Unknown spironolactone 50 mg PO QAM 09/23/18 01/12/19 Unknown trazodone 50 mg PO HS 09/23/18 01/12/19 Unknown vitamin B complex [B-Complex] 1 tab PO QAM 09/29/18 01/12/19 Unknown magnesium oxide 400 mg PO BID 30 Days #60 tab 10/01/18 01/12/19 Unknown biotin 1 mg PO BID 10/08/18 01/12/19 Unknown lactulose 15 ml PO DAILY 01/12/19 01/12/19 Unknown ondansetron 4 mg PO Q8H PRN 01/12/19 01/12/19 01/12/19 Active Medications Generic Name Dose Route Start Last Admin Trade Name Martinezq PRN Reason Stop Dose Admin Clonidine HCl 0.1 mg 01/12/19 21:00 01/13/19 08:29 Catapres PO 02/11/19 20:59 0.1 mg BID MALIK Administration Escitalopram Oxalate 20 mg 01/12/19 21:00 01/12/19 21:22 Lexapro Tab PO 02/11/19 20:59 20 mg QPM MALIK Administration Ferrous Sulfate 325 mg 01/13/19 09:00 01/13/19 08:30 Feosol PO 02/12/19 08:59 325 mg QAM MALIK Administration Folic Acid 1 mg 01/13/19 09:00 01/13/19 08:30 Folvite PO 02/12/19 08:59 1 mg QAM MALIK Administration Gabapentin 600 mg 01/13/19 14:00 01/13/19 14:30 Neurontin PO 01/14/19 06:01 600 mg Q8H MALIK Administration Ranitidine HCl 50 mg/ Dextrose 102 mls @ 200 mls/hr 01/13/19 02:00 01/13/19 11:03 IV 02/12/19 01:59 Not Given Q8H MALIK Magnesium Oxide 400 mg 01/12/19 21:00 01/13/19 08:31 Mag-Ox PO 02/11/19 20:59 400 mg BID MALIK Administration Pantoprazole Sodium 40 mg 01/12/19 21:00 01/12/19 21:23 Protonix PO 02/11/19 20:59 40 mg QPM MALIK Administration Rifaximin 550 mg 01/12/19 21:00 01/13/19 08:32 Xifaxan PO 02/11/19 20:59 550 mg BID MALIK Administration Spironolactone 50 mg 01/13/19 09:00 01/13/19 08:28 Aldactone PO 02/12/19 08:59 50 mg QAM MALIK Administration Thiamine HCl 100 mg 01/13/19 09:00 01/13/19 08:32 Vitamin B-1 PO 02/12/19 08:59 100 mg QAM MALIK Administration Trazodone HCl 50 mg 01/12/19 21:00 01/12/19 21:22 Desyrel PO 02/11/19 20:59 50 mg HS MALIK Administration Vitamin B Complex 1 tab 01/13/19 09:00 01/13/19 08:32 Vitamin B Complex PO 02/12/19 08:59 1 tab QAM MALIK Administration NPO Date Last Intake of Fluids: 01/13/19 Time Last Intake of Fluids: 15:00 Last Intake of Fluids Comment: Sip of water with pills Date Last Intake of Solids: 01/08/19 Time Last Intake of Solids: 17:00 Past Medical History Medical History Thrombocytopenia (Chronic) 2/2 cirrhosis, most recent platelets 71 on 09/30 Depression (Chronic) Lumbar stenosis (Chronic) Ascites (Chronic) managed with furosemide 20mg daily and spironolactone 50mg daily; reports paracentesis 3 years ago Hyperbilirubinemia (Chronic) Dyslipidemia (Chronic) Anxiety (Chronic) Esophageal varices (Chronic) banded in 2015. Secondary prevention of variceal bleeding with Nadolol 40mg daily Portal hypertensive gastropathy (Chronic) Alcohol abuse (Chronic) PER PT NO DRINKING PAST 7 WEEKS Anemia (Chronic) Back pain (Chronic) Alcoholic cirrhosis (Inactive) FOLLOWS W/ [facility] Absence seizure last 2 years ago Hypomagnesemia Supplemented, most recent Mg 1.2 on 10/08. Noncompliance Per [facility] records, patient has been noncompliant with Lactulose, and continues to drink ETOH, leading to elevated ammonia levels, hypomagnesemia and hospitalizations/ED visits for confusion/AMS. Poor historian Portal hypertension Exercise / Class Metabolic Activity II 4-5 Yardwork/Stairs/Walk up hill Negative for chest pain or shortness of breath. Past Family History Family History Other Bladder cancer Hypertension TIA (transient ischemic attack) Past Surgical History Surgical History Hx of tonsillectomy (Chronic) H/O adenoidectomy (Chronic) History of esophagogastroduodenoscopy (EGD) (Chronic) 09/09/2018 Impression: No evidence of esophageal varices. Post variceal banding scar in the lower third of the esophagus. Portal hypertensive gastropathy. Normal du odenal bulb and second portion of the duodenum. H/O colonoscopy (Chronic) "09/2015 - normal " History of tooth extraction Past Anesthesia History No Hx of Anesthesia Complications and No Family Hx of Anesthesia Complications History of PONV No Hx of PONV and No Hx of Motion Sickness Social History Smoking Status: Former smoker tobacco type: cigarettes Hx Alcohol Use: Yes (4 drinks a day) Alcohol type: wine alcohol intake frequency: 3 or more drinks per day Hx Substance Use: No substance use type: does not use Substance Use Type Other:: denies Review of Systems Patient denies active symptoms of GERD. denies ascites Physical Exam Vital Signs Last Vital Signs Temp 37.2 C 01/13/19 16:05 Pulse 72 01/13/19 16:05 Resp 20 01/13/19 16:05 BP 113/74 01/13/19 16:05 Pulse Ox 97 01/13/19 16:05 Constitutional + obese ENMT Mouth: no TMJ abnormality and oral opening not small Thyromental Distance: < 3.5 Finger Breadths Mallampati Class: III Neck normal visual inspection; neck extension not limited Respiratory normal respiratory effort Auscultation: lungs clear to auscultation bilaterally Cardiovascular Rate/Rhythm: regular rate and regular rhythm Heart Sounds: no murmur Neurologic moves all extremities Motor/Sensory: no sensory deficit Psychiatric Orientation: alert and oriented x 3 Testing Laboratory Results 01/13/19 05:38 01/13/19 05:38 PT 17.7 Seconds (9.0-12.0) H 01/13/19 05:38 INR 1.8 (0.9-1.1) H 01/13/19 05:38 Urine Color Dark Yellow 01/13/19 12:35 Urine Appearance Clear (Clear) 01/13/19 12:35 Urine pH 6.5 (4.5-7.5) 01/13/19 12:35 Ur Specific [place] 1.023 (1.000-1.030) 01/13/19 12:35 Urine Protein Negative (Negative) 01/13/19 12:35 Urine Glucose (UA) Negative (Negative) 01/13/19 12:35 Urine Ketones Trace (Negative) H 01/13/19 12:35 Urine Nitrite Positive (Negative) A 01/13/19 12:35 Ur Leukocyte Esterase Trace (Negative) H 01/13/19 12:35 Urine WBC (Auto) 1-5 /hpf (0-5) 01/13/19 12:35 Urine RBC (Auto) 0-4 /hpf (0-4) 01/13/19 12:35 U Hyaline Cast (Auto) 1-5 /lpf (0-5) 01/13/19 12:35 U Epithel Cells (Auto) 20-30 /lpf (0-5) H 01/13/19 12:35 Urine Bacteria (Auto) Negative (Negative) 01/13/19 12:35 Blood Type O Positive 01/12/19 18:15 Antibody Screen NEGATIVE 01/12/19 18:15 Electrocardiogram Date: 01/13/19 Findings: + NSR @ (76) Inferior infarct (cited on or before 27-SEP-2012) Possible Anterior infarct (cited on or before 27-SEP-2012) When compared with ECG of 12-JAN-2019 11:29, T wave inversion now evident in Lateral leads Other Testing Chest X-Ray Date: 09/30/18 Findings: + NAD
[2019-01-13 13:02] LABS: Appearance Urine Clear (Clear); Bacteria Urine Automated Negative (Negative); Blood Urine Negative (Negative); Color Urine Dark Yellow; Epithelial Cell Urine Auto 20-30 /lpf (0-5); Glucose Urine UA Negative (Negative); Ketones Urine Trace (Negative); Leukocyte Esterase Urine Trace (Negative); Nitrite Urine Positive (Negative); Protein Urine Negative (Negative); RBC Urine Automated 0-4 /hpf (0-4); Specific Gravity Urine 1.023 (1.000-1.030); Urobilinogen Urine Negative (Negative); pH Urine 6.5 (4.5-7.5)
[2019-01-13 13:08] LABS: Bilirubin Urine 1+ (Negative)
[2019-01-13 13:09] LABS: Ictotest Urine Positive (Negative)
--- NOTE | 2019-01-13 16:06 | Hospitalist Progress Note ---
Date of Service January 13, 2019 Assessment & Plan (1) Hyperbilirubinemia: Appears to have obstructive jaundice. +scleral icterus on exam. Portal venous us negative for clot. MRCP negative. ERCP planned for today. (2) Elevated LFTs: ERCP planned for today. Cont workup per GI findings and recs. (3) Alcoholic cirrhosis: Multiple liver nodules favoring regenerative nodules on CT, however, HCC in the differential. AFP pending. Still drinking alcohol and on a withdrawal prevention protocol with gabapentin. Appears to be doing well without signs of withdrawal. Although she reported black specks in her stool, FOBT was negative in the ER and she denies any blood per rectum, or hematemesis. Cont rifampin, aldactone. Lasix is on hold. (4) Hypoglycemia: was secondary to poor oral intake prior to arrival. Nausea is now controlled, and she should be able to eat post-procedure. Will stop IVF at this time. Glucose has been reliably up in the normal range since the low of 52 that was noted yesterday morning. (5) Hypomagnesemia: resolved to 1.9 after supplementation. (6) Thrombocytopenia: chronic, platelet transfusion prior to procedure. (7) Alcohol dependence: alcohol withdrawal protocol as above. Doing well without signs of withdrawal at this time. Encourage cessation. (8) DVT prophylaxis: Autoanticoagulated with INR 1.8, reversed with vitamin K prior to proc edure, SCDs for now Full Code Dispo-uncertain pending procedure and continued clinical improvement Sarai Rea DO [facility] Hospitalist Subjective Pt is 63 y/o with PMH alcoholic cirrhosis, portal hypertension, ascites, h/o esophageal varices banding in 2016, chronic anemia, h/o hepatic encephalopathy, continued alcohol use presented to ER with complaint of nausea and vomiting lower abdominal pain x4 days. Nausea and vomiting has resolved since admission. When asked what helped her she states, "being away from home. My yells at me and makes me anxious." She is also notably not drinking while hospitalized. She reports a resolution of abdominal pain. MRCP was negative for stones, and ERCP is planned for this afternoon. She states, "I feel excellent." She received 1 unit of FFP and Platelets today prior to her procedure. She has alcoholic cirrhosis. Review of Systems Review of Systems: All systems reviewed & are unremarkable except as noted in HPI & below Physical Exam Physical Exam: CONSTITUTIONAL: WNWD, vitals as above, generally well- appearing EYES: normal conjunctivae, +icteric sclerae ENT: MMM RESPIRATORY: clear to auscultation bilaterally, no crackles, rales or wheezes, normal respiratory effort CARDIOVASCULAR: regular rate and rhythm, S1 and 2 heard without murmurs, gallops or rubs, no JVD, no peripheral edema GASTROINTESTINAL: soft, nontender, nondistended MUSCULOSKELETAL: strength 5/5 throughout, head is normocephalic and atraumatic SKIN: warm and dry, +jaundice NEUROLOGIC: CN 2-12 grossly intact, normal cognition PSYCHIATRIC: alert cooperative and oriented Results & Data Vital Signs (Past 12 Hours) Vital Signs Temp Pulse Pulse Resp BP BP Pulse Ox 01/13/19 15:55 36.9 C 79 18 127/83 95 01/13/19 15:50 36.9 C 78 17 126/82 95 01/13/19 15:43 36.6 C 73 17 121/80 94 01/13/19 15:22 36.9 C 76 72 16 111/70 111/73 01/13/19 14:49 36.9 C 72 16 111/73 95 01/13/19 14:07 36.7 C 80 16 115/78 95 01/13/19 13:52 36.7 C 72 16 126/81 97 01/13/19 13:35 36.9 C 66 16 118/79 95 01/13/19 13:20 36.9 C 64 14 108/70 95 01/13/19 12:21 36.2 C L 76 14 105/71 96 01/13/19 11:52 37.0 C 14 106/72 94 01/13/19 11:36 36.7 C 79 16 103/61 95 01/13/19 11:20 36.2 C L 74 18 97/62 L 01/13/19 11:01 36.2 C L 72 14 109/71 94 01/13/19 10:31 36.8 C 75 14 99/62 L 95 01/13/19 10:01 36.8 C 79 14 107/72 95 01/13/19 09:46 36.9 C 75 18 107/72 94 01/13/19 09:31 36.7 C 74 16 102/68 01/13/19 08:00 75 01/13/19 07:33 36.8 C 72 18 109/70 93 01/13/19 04:09 36.5 C 72 16 114/70 92 Laboratory Results Short CBC 01/12/19 01/13/19 Range/Units 18:15 05:38 WBC 3.37 L 2.36 L (4.8-10.8) K/uL Hgb 12.7 11.8 L (12.0-16.0) g/dL Hct 35.2 L 33.7 L (37-47) % Plt Count 29 L* 29 L* (130-400) K/uL BMP 01/13/19 05:38 Sodium 138 Potassium 3.4 L D Chloride 105 Carbon Dioxide 25 BUN 13 Creatinine 1.00 Glucose 123 H Calcium 8.1 L Liver Function 01/13/19 Range/Units 05:38 Total Bilirubin 6.9 H (0.2-1) mg/dl Direct Bilirubin 4.1 H (0-0.2) mg/dl AST 173 H (15-37) U/L ALT 70 (12-78) U/L Alkaline Phosphatase 140 H (45-117) U/L Albumin 2.8 L (3.4-5.0) gm/dl Urine 01/13/19 Range/Units 12:35 Urine Color Dark Yellow Urine Appearance Clear (Clear) Urine pH 6.5 (4.5-7.5) Ur Specific [place] 1.023 (1.000-1.030) Urine Protein Negative (Negative) Urine Glucose (UA) Negative (Negative) Diagnostic Findings CT a/p with IV contrast: IMPRESSION: 1. Cirrhosis. Marked heterogeneity of the liver with progression of innumerable small hypodense hepatic nodules since prior CT. These are suboptimally assessed on this venous phase but favor regenerative nodules. Diffuse hepatocellular carcinoma is within the differential although considered less likely. Correlation with AFP levels is recommended. 2. Sequela of portal hypertension including paraesophageal varices and large abdominal varices. Trace ascites. Moderate splenomegaly. 3. Pronounced gastric wall thickening, accentuated by underdistention. This is nonspecific and was shown on exam April 03, 2018. This could be correlated with upper endoscopy. 4. Cholelithiasis and mild gallbladder wall thickening, a nonspecific finding the setting of cirrhosis. No gallbladder distention. 5. No bowel obstruction. Portal venous us: IMPRESSION: 1. Limited study as sound transmission was suboptimal due to hepatic cirrhotic changes. 2. Reversal of flow within the portal venous structures. 3. Nondiagnostic evaluation of the hepatic veins MRCP IMPRESSION: 1. Hepatic cirrhosis with a trace amount of perihepatic ascites. 2. Diffuse upper abdominal varices. 3. Splenomegaly stable compared to the prior exam. 4. No filling defects within the biliary or pancreatic ductal systems. 5. The hepatic and venous portal systems appear patent. Medications Administered Current Inpatient Medications Clonidine HCl (Catapres) 0.1 mg PO BID MALIK Stop: 02/11/19 20:59 Last Admin: 01/13/19 08:29 Dose: 0.1 mg Documented by: Escitalopram Oxalate (Lexapro Tab) 20 mg PO QPM MALIK Stop: 02/11/19 20:59 Last Admin: 01/12/19 21:22 Dose: 20 mg Documented by: Ferrous Sulfate (Feosol) 325 mg PO QAM MALIK Stop: 02/12/19 08:59 Last Admin: 01/13/19 08:30 Dose: 325 mg Documented by: Folic Acid (Folvite) 1 mg PO QAM MALIK Stop: 02/12/19 08:59 Last Admin: 01/13/19 08:30 Dose: 1 mg Documented by: Gabapentin (Neurontin) 600 mg PO Q12H MALIK Stop: 01/15/19 06:01 Gabapentin (Neurontin) 600 mg PO Q24H MALIK Stop: 01/16/19 06:01 Gabapentin (Neurontin) 600 mg PO Q8H MALIK Stop: 01/14/19 06:01 Last Admin: 01/13/19 14:30 Dose: 600 mg Documented by: Lorazepam (Ativan) 1 mg in 2 mls @ 2 mls/min IV ONE PRN; Protocol PRN Reason: EtoH Withdrawal AWSS 6-10 Stop: 02/11/19 16:40 Dextrose/Sodium Chloride (D5w And 1/2nss) 1,000 mls @ 50 mls/hr IV .Q20H MALIK Stop: 02/11/19 16:40 Last Infusion: 01/13/19 09:32 Dose: 0 mls/hr Documented by: Ranitidine HCl 50 mg/ Dextrose 102 mls @ 200 mls/hr IV Q8H MALIK Stop: 02/12/19 01:59 Last Admin: 01/13/19 11:03 Dose: Not Given Documented by: Magnesium Oxide (Mag-Ox) 400 mg PO BID MALIK Stop: 02/11/19 20:59 Last Admin: 01/13/19 08:31 Dose: 400 mg Documented by: Ondansetron HCl (Zofran) 4 mg IV Q6H PRN PRN Reason: Nausea Stop: 02/11/19 16:40 Pantoprazole Sodium (Protonix) 40 mg PO QPM MALIK Stop: 02/11/19 20:59 Last Admin: 01/12/19 21:23 Dose: 40 mg Documented by: Rifaximin (Xifaxan) 550 mg PO BID [facility] Stop: 02/11/19 20:59 Last Admin: 01/13/19 08:32 Dose: 550 mg Documented by: Spironolactone (Aldactone) 50 mg PO QAM [facility] Stop: 02/12/19 08:59 Last Admin: 01/13/19 08:28 Dose: 50 mg Documented by: Thiamine HCl (Vitamin B-1) 100 mg PO QAM [facility] Stop: 02/12/19 08:59 Last Admin: 01/13/19 08:32 Dose: 100 mg Documented by: Trazodone HCl (Desyrel) 50 mg PO HS [facility] Stop: 02/11/19 20:59 Last Admin: 01/12/19 21:22 Dose: 50 mg Documented by: Vitamin B Complex (Vitamin B Complex) 1 tab PO QAM [facility] Stop: 02/12/19 08:59 Last Admin: 01/13/19 08:32 Dose: 1 tab Documented by: (1) Alcohol dependence Substance use status: unspecified alcohol-induced disorder Qualified Code(s): F10.29 - Alcohol dependence with unspecified alcohol-induced disorder
[2019-01-13] MEDS ORDERED: LIDOCAINE HCL 2% 2 ML VIAL/AMP(20MG/ML) INFIL ONE (16:11)
[2019-01-13] MEDS ORDERED: PROPOFOL IV EMULSION 10 MG/ML 20 ML VIAL IV ONE ×2 (16:11→17:11)
[2019-01-13] MEDS ORDERED: fentaNYL citrate 100 MCG/2 ML VIAL ONE ×2 (16:11→17:02)
[2019-01-13] MEDS ORDERED: MIDAZOLAM HCL 1 MG/ML 2ML VIAL ONE (16:12)
[2019-01-13] MEDS ORDERED: ePHEDrine sulfate 50 MG/ML AMP IV PRN (16:53)
[2019-01-13] MEDS ORDERED: ONDANSETRON INJ 2 MG/ML 2 ML VIAL IV PRN (16:53)
[2019-01-13] MEDS ORDERED: ATROPINE SULFATE 0.1 MG/ML 10ML SYR IV PRN (16:53)
[2019-01-13] MEDS ORDERED: fentaNYL citrate 100 MCG/2 ML VIAL IV PRN (16:53)
[2019-01-13] MEDS ORDERED: ONDANSETRON INJ 2 MG/ML 2 ML VIAL ONE (17:11)
[2019-01-13] MEDS ORDERED: SUCCINYLCHOLINE 100MG/5ML SYR ONE ×2 (17:15→18:33)
--- NOTE | 2019-01-13 17:40 | Fluoroscopy Report ---
[place] ERCP biliary ductal CLINICAL HISTORY: 63 years-old Female presenting with cholelithiasis. TECHNIQUE: Fluoroscopy was provided for endoscopic retrograde cholangiopancreatography. 16 fluoroscop ic image(s) recorded. COMPARISON: MRCP from earlier the same day. FINDINGS: Procedure: An endoscope projects over the descending duodenum. The common bile duct was opacified wit h contrast after passing a microcatheter into the biliary system. The common bile duct is dilated. Th e cystic duct was also opacified resulting in opacification of the gallbladder indicating patent cyst ic duct. Mild proximal intrahepatic biliary ductal dilatation. Gallstones evident. Few filling defect suggested in the distal common duct. Peritoneal spillage: No evidence of peritoneal spillage of contrast. Extrahepatic bile ducts: Dilated common bile duct. Suspected distal common bile duct calculi on at le ast one of the images. Balloon clearance suspected. Contrast extends into the small bowel. Intrahepatic bile ducts: Mild central predominant intrahepatic bile or ductal dilatation. Fluoroscopy dosage (mGy): 52.57. Fluoroscopy time: 120.3 seconds. Number or time of high level fluoroscopy (HLF), digital spot, or digital subtraction images: 0. IMPRESSION: Cholelithiasis and suspected choledocholithiasis. Intrahepatic and extra hepatic ductal dilatation. P atent cystic duct. Electronically signed by: Kirt Cross M.D. 01/13/2019 5:39 PM
--- NOTE | 2019-01-13 17:42 | GI REPORT ---
Patient Name: Mary Rueda Procedure Date: 01/13/2019 5:20 PM Date of : 1955 Admit Type: Inpatient Age: 63 Gender: Female Attending MD: Zina Mcmillan MD Procedure: Upper GI endoscopy Providers: Zina Mcmillan MD Referring MD: Ashley Murguia Sabrina M. Sumner, Do Indications: Follow-up of esophageal varices Medicines: General Anesthesia Complications: No immediate complications. Estimated Blood Loss: Estimated blood loss: none. Procedure: Pre-Anesthesia Assessment: - Prior to the procedure, a History and Physical was performed, and patient medications and allergies were reviewed. The patient is competent. The risks and benefits of the procedure and the sedation options and risks were discussed with the patient. All questions were answered and informed consent was obtained. Patient identification and proposed procedure were verified by the physician and the nurse in the procedure room. Mental Status Examination: alert and oriented. Airway Examination: normal oropharyngeal airway and neck mobility. Respiratory Examination: clear to auscultation. CV Examination: normal. ASA Grade Assessment: III - A patient with severe systemic disease. After reviewing the risks and benefits, the patient was deemed in satisfactory condition to undergo the procedure. The anesthesia plan was to use general anesthesia. Immediately prior to administration of medications, the patient was re-assessed for adequacy to receive sedatives. The heart rate, respiratory rate, oxygen saturations, blood pressure, adequacy of pulmonary ventilation, and response to care were monitored throughout the procedure. The physical status of the patient was re-assessed after the procedure. After obtaining informed consent, the endoscope was passed under direct vision. Throughout the procedure, the patient's blood pressure, pulse, and oxygen saturations were monitored continuously. The Endoscope was introduced through the mouth, and advanced to the second part of duodenum. The upper GI endoscopy was accomplished without difficulty. The patient tolerated the procedure well. Findings: A post variceal banding scar was found in the lower third of the esophagus. The scar was unremarkable in appearance. No residual varices. Severe portal hypertensive gastropathy was found in the gastric body. The duodenal bulb and second portion of the duodenum were normal. Impression: - Scar in the lower third of the esophagus. No significant residual varices seen. - Portal hypertensive gastropathy. - Normal duodenal bulb and second portion of the duodenum. - No specimens collected. Recommendation: - Perform an ERCP today. - Repeat upper endoscopy in 1 year for surveillance. Zina Mcmillan MD 01/13/2019 5:42:11 PM This report has been signed electronically. Note Initiated On: 01/13/2019 5:20 PM Number of Addenda: 0 I attest to the content of the Intraoperative Record and orders documented therein, exceptions below {[id number]}
--- NOTE | 2019-01-13 17:57 | GI REPORT ---
Patient Name: Mary Rueda Procedure Date: 01/13/2019 4:46 PM Date of : 1955 Admit Type: Inpatient Age: 63 Gender: Female Attending MD: Zina Mcmillan MD Procedure: ERCP Providers: Zina Mcmillan MD Referring MD: Sarai Rea Do, Lorella Thomas, Marten B. Duncan, DO, Ashley Adkins Indications: Bile duct stone on Computed Tomogram Scan, For therapy of bile duct stone(s), Jaundice, Elevated liver enzymes Medicines: General Anesthesia Complications: No immediate complications. Estimated Blood Loss: Estimated blood loss: none. Procedure: Pre-Anesthesia Assessment: - Prior to the procedure, a History and Physical was performed, and patient medications and allergies were reviewed. The patient is competent. The risks and benefits of the procedure and the sedation options and risks were discussed with the patient. All questions were answered and informed consent was obtained. Patient identification and proposed procedure were verified by the physician and the nurse in the procedure room. Mental Status Examination: alert and oriented. Airway Examination: normal oropharyngeal airway and neck mobility. Respiratory Examination: clear to auscultation. CV Examination: normal. ASA Grade Assessment: III - A patient with severe systemic disease. After reviewing the risks and benefits, the patient was deemed in satisfactory condition to undergo the procedure. The anesthesia plan was to use general anesthesia. Immediately prior to administration of medications, the patient was re-assessed for adequacy to receive sedatives. The heart rate, respiratory rate, oxygen saturations, blood pressure, adequacy of pulmonary ventilation, and response to care were monitored throughout the procedure. The physical status of the patient was re-assessed after the procedure. After obtaining informed consent, the scope was passed under direct vision. Throughout the procedure, the patient's blood pressure, pulse, and oxygen saturations were monitored continuously. The Scope was introduced through the mouth, and advanced to the duodenum and used to inject contrast into the bile duct. The ERCP was accomplished without difficulty. The patient tolerated the procedure well. Findings: The administrative office specialist film was normal. The esophagus was successfully intubated under direct vision. The scope was advanced to a normal major papilla in the descending duodenum without detailed examination of the pharynx, larynx and associated structures, and upper GI tract. The upper GI tract was grossly normal. A 0.035 inch straight standard wire was passed into the biliary tree from the first attempt. The Fusion OMNI sphincterotome was passed over the guidewire and the bile duct was then deeply cannulated. Contrast was injected. I personally interpreted the bile duct images. Ductal flow of contrast was adequate. Image quality was adequate. Contrast extended to the main bile duct. The lower third of the main bile duct was mildly dilated. The largest diameter was 8 mm. Opacification of the cystic duct and gallbladder was seen. The gallbladder contained multiple stones. The cystic duct is long and loops behind the CBD. A 3 mm (minimal ) biliary sphincterotomy was made with a monofilament traction (standard) sphincterotome using ERBE electrocautery. There was no post-sphincterotomy bleeding. Dilation of the common bile duct with an 8 mm balloon dilator was successful. The biliary tree was swept with an 11.5 mm balloon starting at the bifurcation. One stone was removed. No stones remained. Occlusion cholangiogram showed no filling defects. Indomethacin 100 mg was given via suppository to decrease the risk of post-ERCP pancreatitis (PEP). PD was not cannulated nor injected with contrast. Impression: - The lower third of the main bile duct was mildly dilated and contained a small stone. - Choledocholithiasis was found. Complete removal was accomplished by minimal biliary sphincterotomy, sphincteroplasty and balloon extraction. Recommendation: - Return patient to [facility] for [facility] care. - Avoid aspirin and nonsteroidal anti-inflammatory medicines for 5 days. - Alcohol cessation counseling. - Patient is high risk for cholecystectomy due to advanced CTP stage Liver cirrhosis, may consider Axios stent (cholecystoenterostomy) if she develops cholecystitis in the future. - Recall Gi if needed. Zina Mcmillan MD 01/13/2019 5:57:12 PM This report has been signed electronically. Note Initiated On: 01/13/2019 4:46 PM Number of Addenda: 0 I attest to the content of the Intraoperative Record and orders documented therein, exceptions below {[id number]}
[2019-01-13] MEDS ORDERED: CIPROFLOXACIN 400 MG/200 ML BAG IV SCH (18:00)
--- NOTE | 2019-01-13 18:27 | Anesthesiology Progress Note ---
Date of Service January 13, 2019 Anesthesia Post Procedure Vital Signs Vital Signs: Temp Pulse Pulse Pulse Resp BP BP 01/13/19 18:15 36.4 C L 83 16 114/79 01/13/19 18:05 90 20 114/79 01/13/19 17:55 97 H 19 105/59 L 01/13/19 17:49 36.2 C L 104 H 16 106/61 01/13/19 16:05 37.2 C 72 20 113/74 01/13/19 15:55 36.9 C 79 18 127/83 01/13/19 15:50 36.9 C 78 17 126/82 01/13/19 15:43 36.6 C 73 17 121/80 01/13/19 15:22 36.9 C 76 72 16 111/70 111/73 01/13/19 15:00 71 01/13/19 14:49 36.9 C 72 16 111/73 01/13/19 14:07 36.7 C 80 16 115/78 01/13/19 13:52 36.7 C 72 16 126/81 01/13/19 13:35 36.9 C 66 16 118/79 01/13/19 13:20 36.9 C 64 14 108/70 01/13/19 12:21 36.2 C L 76 14 105/71 01/13/19 11:52 37.0 C 14 106/72 01/13/19 11:36 36.7 C 79 16 103/61 01/13/19 11:20 36.2 C L 74 18 97/62 L 01/13/19 11:01 36.2 C L 72 14 109/71 01/13/19 10:31 36.8 C 75 14 99/62 L 01/13/19 10:01 36.8 C 79 14 107/72 01/13/19 09:46 36.9 C 75 18 107/72 01/13/19 09:31 36.7 C 74 16 102/68 01/13/19 08:00 75 01/13/19 07:33 36.8 C 72 18 109/70 01/13/19 04:09 36.5 C 72 16 114/70 01/13/19 02:03 84 01/12/19 23:58 36.8 C 80 20 01/12/19 21:58 36.6 C 82 20 110/72 01/12/19 21:27 36.7 C 85 18 134/78 01/12/19 19:38 36.8 C 81 20 113/72 BP Pulse Ox Pulse Ox 01/13/19 18:15 95 01/13/19 18:05 94 01/13/19 17:55 94 01/13/19 17:49 92 01/13/19 16:05 97 01/13/19 15:55 95 01/13/19 15:50 95 01/13/19 15:43 94 01/13/19 15:22 95 01/13/19 15:00 01/13/19 14:49 95 01/13/19 14:07 95 01/13/19 13:52 97 01/13/19 13:35 95 01/13/19 13:20 95 01/13/19 12:21 96 01/13/19 11:52 94 01/13/19 11:36 95 01/13/19 11:20 95 01/13/19 11:01 94 01/13/19 10:31 95 01/13/19 10:01 95 01/13/19 09:46 94 01/13/19 09:31 01/13/19 08:00 01/13/19 07:33 93 01/13/19 04:09 92 01/13/19 02:03 89 L 01/12/19 23:58 114/71 92 01/12/19 21:58 93 01/12/19 21:27 93 01/12/19 19:38 94 Pain Intensity Abdomen: Pain Intensity: 0 Transfer of Care Handoff Completed per policy Notes Mental Status: alert / awake / arousable and participated in evaluation Patient Amnestic to Procedure: Yes Nausea / Vomiting: adequately controlled Pain: adequately controlled Airway Patency, RR, SpO2: stable & adequate BP & HR: stable & adequate Hydration State: stable & adequate Anesthetic Complications: no major complications apparent and Pt Satisfied with anesthetic care
[2019-01-13] MEDS: D5W AND 1/2NSS 1,000 ML IV SCH (19:13)
[2019-01-13] MEDS ORDERED: GLUCAGON FOR INJ 1 MG VIAL ONE (19:18)
[2019-01-13] MEDS: TRAZODONE HCL 50 MG TAB PO SCH (20:08)
[2019-01-13] MEDS: PANTOprazole 40 MG TAB PO SCH (20:08)
[2019-01-13] MEDS: ESCITALOPRAM OXALATE 20 MG TAB PO SCH (20:08)
[2019-01-14] MEDS: GABAPENTIN 600 MG TAB PO SCH (06:04)
[2019-01-14 06:21] LABS: Hematocrit (blood only) 33.9 % (37-47); Hemoglobin 11.9 g/dL (12.0-16.0); Mean Corpuscular Hgb Conc 35.1 g/dL (32-36); Mean Corpuscular Volume 103.7 fL (80-100); RDW Coefficient of Variation 19.1 % (11.5-14.5); RDW Standard Deviation 71.6 fL (36.4-46.3); Red Blood Count 3.27 M/uL (4.2-5.4); White Blood Count 2.16 K/uL (4.8-10.8)
[2019-01-14 06:28] LABS: Mean Platelet Volume 11.2 fL (7.4-10.4); Platelet Count 43 K/uL (130-400)
[2019-01-14 06:31] LABS: INR 1.7 (0.9-1.1)
[2019-01-14 06:48] LABS: Basophils # (auto) 0.01 K/uL (0-0.2); Basophils % (auto) 0.5 %; Eosinophils # (auto) 0.03 K/uL (0-0.5); Eosinophils % (auto) 1.4 %; Lymphocytes # (auto) 0.42 K/uL (1.2-3.4); Lymphocytes % (auto) 19.4 %; Monocytes # (auto) 0.32 K/uL (0.11-0.59); Monocytes % (auto) 14.8 %; Neutrophils # (auto) 1.38 K/uL (1.4-6.5); Neutrophils % (auto) 63.9 %
[2019-01-14 07:02] LABS: Albumin Globulin Ratio 0.8 (0.9-2); Albumin Level 2.8 gm/dl (3.4-5.0); BUN Creatinine Ratio 9.4 (10-20); Calcium 8.4 mg/dl (8.5-10.1); Creatinine Clr Calc Pharmacy 56.7 ml/min; Est GFR (African American) 68.5; Est GFR (Non-African American) 59.1; Globulin 3.3 gm/dl (2.5-4.0); Potassium 3.6 mmol/L (3.5-5.1); Total Protein 6.1 gm/dl (6.4-8.2)
--- NOTE | 2019-01-14 07:33 | Anesthesiology Progress Note ---
Date of Service January 14, 2019 Anesthesia Post Procedure Vital Signs Vital Signs: Temp Pulse Pulse Pulse Resp BP BP 01/14/19 07:31 64 01/14/19 07:20 36.4 C L 67 18 113/74 01/14/19 05:07 36.2 C L 68 18 104/67 01/13/19 23:34 77 01/13/19 22:33 36.5 C 74 18 125/81 01/13/19 20:38 36.6 C 67 18 149/92 H 01/13/19 19:47 36.4 C L 76 20 131/87 01/13/19 19:15 36.9 C 75 19 139/80 01/13/19 18:44 36.9 C 74 16 117/78 01/13/19 18:15 36.4 C L 83 16 114/79 01/13/19 18:05 90 20 114/79 01/13/19 17:55 97 H 19 105/59 L 01/13/19 17:49 36.2 C L 104 H 16 106/61 01/13/19 16:05 37.2 C 72 20 113/74 01/13/19 15:55 36.9 C 79 18 127/83 01/13/19 15:50 36.9 C 78 17 126/82 01/13/19 15:43 36.6 C 73 17 121/80 01/13/19 15:22 36.9 C 76 72 16 111/70 111/73 01/13/19 15:00 71 01/13/19 14:49 36.9 C 72 16 111/73 01/13/19 14:07 36.7 C 80 16 115/78 01/13/19 13:52 36.7 C 72 16 126/81 01/13/19 13:35 36.9 C 66 16 118/79 01/13/19 13:20 36.9 C 64 14 108/70 01/13/19 12:21 36.2 C L 76 14 105/71 01/13/19 11:52 37.0 C 14 106/72 01/13/19 11:36 36.7 C 79 16 103/61 01/13/19 11:20 36.2 C L 74 18 97/62 L 01/13/19 11:01 36.2 C L 72 14 109/71 01/13/19 10:31 36.8 C 75 14 99/62 L 01/13/19 10:01 36.8 C 79 14 107/72 01/13/19 09:46 36.9 C 75 18 107/72 01/13/19 09:31 36.7 C 74 16 102/68 01/13/19 08:00 75 01/13/19 07:33 36.8 C 72 18 109/70 Pulse Ox 01/14/19 07:31 01/14/19 07:20 99 01/14/19 05:07 97 01/13/19 23:34 01/13/19 22:33 97 01/13/19 20:38 97 01/13/19 19:47 100 01/13/19 19:15 99 01/13/19 18:44 97 01/13/19 18:15 95 01/13/19 18:05 94 01/13/19 17:55 94 01/13/19 17:49 92 01/13/19 16:05 97 01/13/19 15:55 95 01/13/19 15:50 95 01/13/19 15:43 94 01/13/19 15:22 95 01/13/19 15:00 01/13/19 14:49 95 01/13/19 14:07 95 01/13/19 13:52 97 01/13/19 13:35 95 01/13/19 13:20 95 01/13/19 12:21 96 01/13/19 11:52 94 01/13/19 11:36 95 01/13/19 11:20 95 01/13/19 11:01 94 01/13/19 10:31 95 01/13/19 10:01 95 01/13/19 09:46 94 01/13/19 09:31 01/13/19 08:00 01/13/19 07:33 93 Pain Intensity Abdomen: Pain Intensity: 0 Notes Mental Status: alert / awake / arousable and participated in evaluation Patient Amnestic to Procedure: Yes Nausea / Vomiting: adequately controlled Pain: adequately controlled Airway Patency, RR, SpO2: stable & adequate BP & HR: stable & adequate Hydration State: stable & adequate Anesthetic Complications: no major complications apparent and Pt Satisfied with anesthetic care
[2019-01-14] MEDS: SPIRONOLACTONE 25 MG TAB PO SCH (08:30)
[2019-01-14] MEDS: MAGNESIUM OXIDE 400 MG TAB PO SCH (08:30)
[2019-01-14] MEDS: RIFAXIMIN 550 MG TABLET PO SCH (08:30)
[2019-01-14] MEDS: THIAMINE HCL 100 MG TAB PO SCH (08:30)
[2019-01-14] MEDS: cloNIDine HCl 0.1 MG TAB PO SCH (08:30)
[2019-01-14] MEDS: FOLIC ACID 1 MG TAB PO SCH (08:31)
[2019-01-14] MEDS: VITAMIN B COMPLEX TAB PO SCH (08:31)
[2019-01-14] MEDS: FERROUS SULFATE 325 MG TAB PO SCH (08:31)
[2019-01-14] MEDS ORDERED: FUROSEMIDE 20 MG TAB PO SCH (09:30)
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
--- NOTE | 2019-01-14 12:42 | Gastroenterology Progress Note ---
Date of Service January 14, 2019 Assessment & Plan (1) Cirrhosis of liver: (2) Alcohol dependence: (3) Nausea & vomiting: (4) Abdominal pain: Pt is a 63 y/o female w hx of ETOH cirrhosis, ongoing ETOH abuse presented to ED w c/o n/v, upper abd pain x 5 days. Upon eval noted to have stable H/H, no signs of GI bleeding, LFTs are however markedly elevated. Previous hx of distal CBD stone noted on liver CT thus may likely have biliary obstruction vs ETOH hepatitis MELD score: 21 Maddreys DF: 31 EGD/ERCP done on 01/13: portal hypertensive gastropathy, no significant residual varices. Choledocholithiasis found removed, sphincterectomy done. LFTs trending down. - Avoid NSAIDs and ASA 5 days after ERCP w sphincterectomy - Advance diet as tolerated - Strict ETOH cessation - Trend LFTs, F/U w PCP - Recommend psych f/u for anxiety - GI to sign off; pls recall as needed. No contraindication for DC home from GI standpoint Supervising Physician Co-Signing Physician Notes I performed a history and physical examination of the patient, including specifically on physical exam - soft, nontender abdomen. I have discussed the patient's management with Lorelei. Please refer to the nurse practitioner's note for the documented findings and plan of care. H/H stable today. No signs of bleeding. Recall GI if needed. Subjective Pt reports feeling great, denies any n/v, abd pain. Review of Systems Review of Systems: All systems reviewed & are unremarkable except as noted in HPI & below Physical Exam Constitutional: WD/WN, vitals as above well groomed, cooperative and comfortable Eyes: + scleral abnormality (icteric ), PERRL and EOM intact bilaterally ENMT: external ear and nose normal, oropharynx normal Respiratory: normal respiratory effort, lungs clear to auscultation Cardiovascular: RRR, no murmur, no edema Gastrointestinal (Abdomen): normal bowel sounds, soft, nontender, no hepatosplenomegaly Skin: no rashes, warm and dry + jaundice Psychiatric: A+Ox3, euthymic affect Lymphatic: no lymphedema Results & Data Vital Signs (Past 12 Hours) Vital Signs Temp Pulse Pulse Resp BP Pulse Ox 01/14/19 11:22 36.5 C 70 18 102/69 93 01/14/19 07:31 64 01/14/19 07:20 36.4 C L 67 18 113/74 99 01/14/19 05:07 36.2 C L 68 18 104/67 97 (1) Alcohol dependence Substance use status: unspecified alcohol-induced disorder Qualified Code(s): F10.29 - Alcohol dependence with unspecified alcohol-induced disorder (2) Cirrhosis of liver Ascites presence: unspecified Hepatic cirrhosis type: alcoholic cirrhosis Qualified Code(s): K70.30 - Alcoholic cirrhosis of liver without ascites (3) Nausea & vomiting Vomiting Intractability: non-intractable Vomiting type: unspecified Qualified Code(s): R11.2 - Nausea with vomiting, unspecified
[2019-01-14] MEDS ORDERED: GABAPENTIN 600 MG TAB PO SCH (18:00)
[2019-01-16] MEDS ORDERED: GABAPENTIN 600 MG TAB PO SCH (06:00)
== END 2019-01-14 14:24 | disposition home or self-care (01) | DRG 445 ==
LOC: ED 10:07 → SUATTDRO 15:19 → 2N 15:19

== ENCOUNTER 2019-05-02 19:23 | Inpatient (IN) ==
[2019-05-02] MEDS ORDERED: FOLIC ACID 1 MG in SYRINGE 9.8 ML IV STA (19:39)
[2019-05-02] MEDS ORDERED: THIAMINE HCL 100 MG in SYRINGE 9 ML IV STA (19:39)
--- NOTE | 2019-05-02 20:04 | XRay Report ---
XR chest 1V portable HISTORY: 63 years-old Female weakness acute weakness COMPARISON: Chest radiograph 01/12/2019 TECHNIQUE: Portable AP view of the chest FINDINGS: Cardiac silhouette is mildly enlarged, unchanged. Unchanged mild right hemidiaphragmatic elevation. T horacic aortic tortuosity. Mild hypoinflation. No pneumothorax, pleural effusion or overt pulmonary e estrada. No airspace consolidation typical for pneumonia. Degenerative changes of the shoulders and spin e. IMPRESSION: No acute process. ACT 112: Negative or not required by law. The above report was generated using voice recognition software. It may contain grammatical, syntax o r spelling errors. Electronically signed by: Rishi Brennan M.D. 05/02/2019 8:03 PM
[2019-05-02 20:08] LABS: Partial Thromboplastin Ratio 1.2; Partial Thromboplastin Time 33.6 Seconds (21.0-31.0); Prothrombin Time 19.1 Seconds (9.0-12.0)
--- NOTE | 2019-05-02 20:12 | CT Scan Report ---
CT head/brain wo con CLINICAL HISTORY: 63 years-old Female with ams eval for bleed. Acutely altered mental status TECHNIQUE: Multiple axial CT images of the head were obtained without contrast. A dose lowering tech nique was utilized adhering to the principles of ALARA. CT DOSE: 537.48 mGy.cm COMPARISON: Head CT 09/04/2016. FINDINGS: No acute intracranial hemorrhage, midline shift, intracranial mass, hydrocephalus, territorial ischem ia or abnormal extra-axial collection. Mild age-related involutional changes. Patchy white matter hyp odensities suggest chronic microvascular ischemic disease. No acute calvarial fracture. Tiny scattered lucent foci of the calvarium are indeterminate and likely benign. Osteoma of the outer table right occiput, 1.5 x 1.2 cm which appears unchanged. The paranas al sinuses, mastoid air cells, and middle ear cavities are clear. IMPRESSION: No acute intracranial abnormality. ACT 112: Negative or not required by law. The above report was generated using voice recognition software. It may contain grammatical, syntax o r spelling errors. Electronically signed by: Rishi Brennan M.D. 05/02/2019 8:10 PM
[2019-05-02 20:15] LABS: Alanine Aminotransferase 39 U/L (12-78); Albumin Level 2.5 gm/dl (3.4-5.0); Aspartate Aminotransferase 68 U/L (15-37); BUN Creatinine Ratio 6.7 (10-20); Blood Urea Nitrogen 15 mg/dl (7-18); Calcium 8.7 mg/dl (8.5-10.1); Carbon Dioxide 24 mmol/L (21-32); Chloride 108 mmol/L (98-107); Creatinine Clr Calc Pharmacy 24.6 ml/min; Est GFR (African American) 26.2; Est GFR (Non-African American) 22.6; Glucose 133 mg/dl (70-99); Magnesium 1.7 mg/dl (1.8-2.4); Potassium 2.8 mmol/L (3.5-5.1); Sodium 140 mmol/L (136-145)
[2019-05-02] MEDS ORDERED: SODIUM CHLORIDE 0.9% 500 ML IV ONE (20:18)
[2019-05-02 20:19] LABS: Hematocrit (blood only) 31.6 % (37-47); Hemoglobin 11.1 g/dL (12.0-16.0); Mean Corpuscular Hemoglobin 36.6 pg (25-34); Mean Corpuscular Hgb Conc 35.1 g/dL (32-36); Mean Corpuscular Volume 104.3 fL (80-100); Mean Platelet Volume 10.4 fL (7.4-10.4); Platelet Count 51 K/uL (130-400); RDW Coefficient of Variation 16.9 % (11.5-14.5); RDW Standard Deviation 64.4 fL (36.4-46.3); Red Blood Count 3.03 M/uL (4.2-5.4); White Blood Count 4.43 K/uL (4.8-10.8)
[2019-05-02 20:25] LABS: Albumin Globulin Ratio 0.7 (0.9-2); Alkaline Phosphatase 147 U/L (45-117); Bilirubin,Total 4.2 mg/dl (0.2-1); Globulin 3.5 gm/dl (2.5-4.0); Troponin I < 0.015 ng/ml (0-0.045)
[2019-05-02 20:27] LABS: Anisocytosis Present; Basophils # (auto) 0.02 K/uL (0-0.2); Basophils % (auto) 0.5 %; Echinocytes 2+; Eosinophils # (auto) 0.08 K/uL (0-0.5); Eosinophils % (auto) 1.8 %; Lymphocytes # (auto) 0.54 K/uL (1.2-3.4); Lymphocytes % (auto) 12.2 %; Macrocytosis Present; Monocytes # (auto) 0.55 K/uL (0.11-0.59); Monocytes % (auto) 12.4 %; Neutrophils # (auto) 3.24 K/uL (1.4-6.5); Neutrophils % (auto) 73.1 %; Toxic Granulation 1+
--- NOTE | 2019-05-02 21:46 | Emergency Department Note ---
Entered by Narendra Wise acting as a scribe for History of Present Illness General Chief complaint: Altered Mental Status Stated complaint: HALLUCINATIONS Time Seen by Provider: 05/02/19 19:30 Source: patient History of Present Illness Provider complaint: Altered mental status Onset (ago): day(s) 1 Location: head Pain Consistency: + constant Maximum Pain Intensity: 10 Relieved By: + none Associated symptoms: + confusion and + other (Hallucinations); no headaches The patient is a 63 year old female who presents to the Emergency Room with complaints of constant altered mental status that started yesterday. Per the patient's , the patient has been confused and unable to articulate full sentences. She also has been having hallucinations where she believes something is happening when nothing really is. Per the , the patient also started trembling yesterday to where she was having trouble holding a cup of water. The patient endorses generalized body pain at this time. She states her last alcoholic beverage was 5 days ago but she does have a history of alcoholic cirrhosis and hepatic encephalopathy. The patient also notes she has fluid on her abdomen and the last time she had it drained was years ago. Additionally, the reports the patient has not been taking her medications, including her Lactulose, appropriately, but he is unsure for how long. She states that it has been at least several days. The adds that he has taken over the pat ient's medication dosing so he has made sure she received the proper amount both last night and this morning. The patient denies any headache or feeling as though she is withdrawing. The mentioned that she had an MRI of her abdomen last week. Home Medications Home Medications Medication Instructions Recorded Confirmed Type Probiotic 3,000 mmu cells PO HS 09/23/18 05/02/19 History ferrous sulfate 325 mg PO QAM 09/23/18 05/02/19 History folic acid 1 mg PO QAM 09/23/18 05/02/19 History gabapentin 600 mg PO TID 09/23/18 05/02/19 History omeprazole 40 mg PO QAM 09/23/18 05/02/19 History rifaximin 550 mg PO BID 09/23/18 05/02/19 History trazodone 50 mg PO HS PRN 09/23/18 05/02/19 History vitamin B complex [B-Complex] 1 tab PO QAM 09/29/18 05/02/19 History biotin 1 mg PO BID 10/08/18 05/02/19 History lactulose 15 ml PO TID 01/12/19 05/02/19 History ondansetron 4 mg PO Q8H PRN 01/12/19 05/02/19 History cholecalciferol (vitamin D3) 1,000 unit PO QAM 05/02/19 05/02/19 History [Vitamin D3] furosemide [Lasix] 40 mg PO DAILY 05/02/19 05/02/19 History magnesium oxide 400 mg PO AMHS 05/02/19 05/02/19 History naltrexone 50 mg PO QAM 05/02/19 05/02/19 History spironolactone [Aldactone] 100 mg PO DAILY 05/02/19 05/02/19 History vortioxetine [Trintellix] 5 mg PO DAILY 05/02/19 05/02/19 History Allergies Allergy/AdvReac Type Severity Reaction Status Date / Time codeine Allergy Intermediate VOMITTING Verified 05/02/19 20:49 milk Allergy Intermediate GI ISSUES Verified 05/02/19 20:49 Sulfa (Sulfonamide Allergy Intermediate VOMITTING Verified 05/02/19 20:49 Antibiotics) Past Med/Surg History Medical History Absence seizure last 2 years ago Alcohol abuse (Chronic) PER PT NO DRINKING PAST 7 WEEKS Alcoholic cirrhosis (Inactive) FOLLOWS W/ [facility] Anemia (Chronic) Anxiety (Chronic) Ascites (Chronic) managed with furosemide 20mg daily and spironolactone 50mg daily; reports paracentesis 3 years ago Back pain (Chronic) Depression (Chronic) Dyslipidemia (Chronic) Esophageal varices (Chronic) banded in 2016. Secondary prevention of variceal bleeding with Nadolol 40mg daily Hyperbilirubinemia (Chronic) Hypomagnesemia Supplemented, most recent Mg 1.2 on 10/08. Lumbar stenosis (Chronic) Noncompliance Per [facility] records, patient has been noncompliant with Lactulose, and continues to drink ETOH, leading to elevated ammonia levels, hypomagnesemia and hospitalizations/ED visits for confusion/AMS. Poor historian Portal hypertension Portal hypertensive gastropathy (Chronic) Thrombocytopenia (Chronic) 2/2 cirrhosis, most recent platelets 71 on 09/30 Surgical History H/O adenoidectomy (Chronic) H/O colonoscopy (Chronic) "09/2015 - normal " History of esophagogastroduodenoscopy (EGD) (Chronic) 09/09/2018 Impression: No evidence of esophageal varices. Post variceal banding scar in the lower third of the esophagus. Portal hypertensive gastropathy. Normal duodenal bulb and second portion of the duodenum. History of tooth extraction Hx of tonsillectomy (Chronic) Family History Other Bladder cancer Hypertension TIA (transient ischemic attack) Social History Preferred Language: Hungarian Communication Ability: Effective Credit Or Loans Officer Required: No Beliefs That Will Affect Care: None Current Living Situation: Spouse Feels Safe at Home: Yes Smoking Status: Former smoker Tobacco Type: cigarettes ; Second Hand Exposure: No ; Hx Alcohol Use: Yes (4 drinks a day) Alcohol type: wine Hx Substance Use: No Review of Systems See HPI for pertinent positives & negatives. and A total of 10 systems reviewed and were otherwise negative Physical Exam Vital Signs Vital Signs - 24 hr 05/02/19 19:26 05/02/19 19:37 05/02/19 19:45 Temperature 36.7 C Temperature Source Oral Pulse Rate 54 L Pulse Rate [Right] 52 L Pulse Rhythm [Right] Regular Pulse Strength [Right] Normal Respiratory Rate 18 16 Respiratory Effort / Characteristics Non-Labored Spontaneous Respiratory Depth Normal Blood Pressure 114/79 Blood Pressure [Right Arm] 107/64 Blood Pressure Mean 90 Blood Pressure Mean [Right Arm] 78 Blood Pressure Position [Right Arm] Pulse Oximetry 98 100 100 Oxygen Delivery Method Room Air Room Air Room Air Sepsis Recent Fever Within 48 Hours No Sepsis New/Unexplained Change in Mental Status No Sepsis Action Taken by Nursing No Action Required 05/02/19 20:12 05/02/19 20:40 Temperature Temperature Source Pulse Rate Pulse Rate [Right] 53 L 52 L Pulse Rhythm [Right] Pulse Strength [Right] Respiratory Rate 18 15 Respiratory Effort / Characteristics Non-Labored Spontaneous Respiratory Depth Blood Pressure Blood Pressure [Right Arm] 100/63 102/57 L Blood Pressure Mean Blood Pressure Mean [Right Arm] 75 72 Blood Pressure Position [Right Arm] Sitting Lying Pulse Oximetry 99 98 Oxygen Delivery Method Room Air Room Air Sepsis Recent Fever Within 48 Hours Sepsis New/Unexplained Change in Mental Status Sepsis Action Taken by Nursing Constitutional: Vital signs reviewed. Eyes: Scleral icterus noted. Pupils are equal round reactive to light. Conjunctiva are noninjected. ENT: Pharynx is clear without erythema or exudate. Mucous membranes are moist. Neck supple without meningeal signs. Respiratory: Clear to auscultation bilaterally. Breath sounds are equal felisa aterally. Cardiovascular: Regular rate and rhythm. No rubs or gallops. GI: Soft and nontender. Bowel sounds are present. Ascites noted. Musculoskeletal: No peripheral edema. No lower extremity tenderness. Bruising to the left upper extremity and left upper back. Integumentary: No cyanosis. Jaundice noted. Neurological: The patient is awake and alert. Cranial nerves II-XII are intact. Motor is 5 out of 5 all extremities. Sensation is intact to light touch all extremities. Normal speech. No pronator drift. Asterixis noted. Psychiatric: Normal affect. Course Course 1931: Past medical records reviewed. The patient was evaluated in room B11B, and a complete history and physical examination were performed. 2015: I reevaluated the patient and updated both her and her at bedside. 2056: I spoke to Dr. Yue Nvaa about the patient's case and he agreed to accept the patient for further evaluation. 2100: I updated the patient and her at bedside about the treatment plan and all parties are agreeable. Consultations Consultation #1: I spoke to Dr. Yue Nava about the gretta t's case and he agreed to accept the patient for further evaluation. Time: 20:57 Administered Medications Discontinued Medications Thiamine HCl 100 mg/ Syringe 10 mls @ 2 mls/min IV NOW STA Stop: 05/02/19 19:43 Last Admin: 05/02/19 20:33 Dose: 2 mls/min Documented by: [id number] Folic Acid 1 mg/ Syringe 10 mls @ 5 mls/min IV NOW STA Stop: 05/02/19 19:40 Last Admin: 05/02/19 20:33 Dose: 5 mls/min Documented by: [id number] Sodium Chloride (Nss) 500 mls @ 999 mls/hr IV .Q31M ONE Stop: 05/02/19 20:48 Last Infusion: 05/02/19 21:15 Dose: 0 mls/hr Documented by: [id number] Admin: 05/02/19 20:33 Dose: 999 mls/hr Documented by: [id number] Medical Decision Making Differential Diagnosis Differential Diagnosis includes: Hepatic encephalopathy, Wernicke Korsakoff syndrome, ICH, CVA, and infection, amongst others. Medical Records Attestation: I reviewed the patient's medical records. Home Medications Current Medication List: was personally reviewed by me Laboratory Data Attestation: I reviewed the patient's lab results. Result diagrams: 05/02/19 19:41 05/02/19 19:41 Lab Results 05/02/19 05/02/19 05/02/19 Range/Units 19:41 19:41 19:41 WBC (4.8-10.8) K/uL RBC (4.2-5.4) M/uL Hgb (12.0-16.0) g/dL Hct (37-47) % MCV (80-100) fL MCH (25-34) pg MCHC (32-36) g/dL RDW Std Deviation (36.4-46.3) fL RDW Coeff of Adam (11.5-14.5) % Plt Count (130-400) K/uL MPV (7.4-10.4) fL Immature Gran % (Auto) % Neut % (Auto) % Lymph % (Auto) % Crane % (Auto) % Eos % (Auto) % Baso % (Auto) % Immature Gran # (Auto) (0.00-0.02) K/uL Neut # (Auto) (1.4-6.5) K/uL Lymph # (Auto) (1.2-3.4) K/uL Crane # (Auto) (0.11-0.59) K/uL Eos # (Auto) (0-0.5) K/uL Baso # (Auto) (0-0.2) K/uL Toxic Granulation Anisocytosis Macrocytosis Echinocytes PT 19.1 H (9.0-12.0) Seconds INR 2.0 H (0.9-1.1) APTT 33.6 H (21.0-31.0) Seconds PTT Ratio 1.2 Sodium 140 (136-145) mmol/L Potassium 2.8 L (3.5-5.1) mmol/L Chloride 108 H (98-107) mmol/L Carbon Dioxide 24 (21-32) mmol/L Anion Gap 8.0 (3-11) BUN 15 (7-18) mg/dl Creatinine 2.21 H (0.6-1.2) mg/dl Est Cr Clr Drug Dosing 24.6 ml/min Est GFR ( Amer) 26.2 Est GFR (Non-Af Amer) 22.6 BUN/Creatinine Ratio 6.7 L (10-20) Glucose 133 H (70-99) mg/dl Calcium 8.7 (8.5-10.1) mg/dl Magnesium 1.7 L (1.8-2.4) mg/dl Total Bilirubin 4.2 H (0.2-1) mg/dl AST 68 H (15-37) U/L ALT 39 (12-78) U/L Alkaline Phosphatase 147 H (45-117) U/L Ammonia (11-32) umol/L Troponin I < 0.015 (0-0.045) ng/ml Total Protein 6.0 L (6.4-8.2) gm/dl Albumin 2.5 L (3.4-5.0) gm/dl Globulin 3.5 (2.5-4.0) gm/dl Albumin/Globulin Ratio 0.7 L (0.9-2) TSH 1.700 (0.300-4.500) uIu/ml 05/02/19 05/02/19 Range/Units 19:41 20:29 WBC 4.43 L (4.8-10.8) K/uL RBC 3.03 L (4.2-5.4) M/uL Hgb 11.1 L (12.0-16.0) g/dL Hct 31.6 L (37-47) % MCV 104.3 H (80-100) fL MCH 36.6 H (25-34) pg MCHC 35.1 (32-36) g/dL RDW Std Deviation 64.4 H (36.4-46.3) fL RDW Coeff of Adam 16.9 H (11.5-14.5) % Plt Count 51 L (130-400) K/uL MPV 10.4 (7.4-10.4) fL Immature Gran % (Auto) 0.0 % Neut % (Auto) 73.1 % Lymph % (Auto) 12.2 % Crane % (Auto) 12.4 % Eos % (Auto) 1.8 % Baso % (Auto) 0.5 % Immature Gran # (Auto) 0.00 (0.00-0.02) K/uL Neut # (Auto) 3.24 (1.4-6.5) K/uL Lymph # (Auto) 0.54 L (1.2-3.4) K/uL Crane # (Auto) 0.55 (0.11-0.59) K/uL Eos # (Auto) 0.08 (0-0.5) K/uL Baso # (Auto) 0.02 (0-0.2) K/uL Toxic Granulation 1+ Anisocytosis Present Macrocytosis Present Echinocytes 2+ PT (9.0-12.0) Seconds INR (0.9-1.1) APTT (21.0-31.0) Seconds PTT Ratio Sodium (136-145) mmol/L Potassium (3.5-5.1) mmol/L Chloride (98-107) mmol/L Carbon Dioxide (21-32) mmol/L Anion Gap (3-11) BUN (7-18) mg/dl Creatinine (0.6-1.2) mg/dl Est Cr Clr Drug Dosing ml/min Est GFR ( Amer) Est GFR (Non-Af Amer) BUN/Creatinine Ratio (10-20) Glucose (70-99) mg/dl Calcium (8.5-10.1) mg/dl Magnesium (1.8-2.4) mg/dl Total Bilirubin (0.2-1) mg/dl AST (15-37) U/L ALT (12-78) U/L Alkaline Phosphatase (45-117) U/L Ammonia 86.0 H (11-32) umol/L Troponin I (0-0.045) ng/ml Total Protein (6.4-8.2) gm/dl Albumin (3.4-5.0) gm/dl Globulin (2.5-4.0) gm/dl Albumin/Globulin Ratio (0.9-2) TSH (0.300-4.500) uIu/ml Imaging Data Radiologist's Impression: Radiology results as stated below per my review and the radiologist's interpretation: XR chest 1V portable HISTORY: 63 years-old Female weakness acute weakness COMPARISON: Chest radiograph 01/12/2019 TECHNIQUE: Portable AP view of the chest FINDINGS: Cardiac silhouette is mildly enlarged, unchanged. Unchanged mild right hemidiaphragmatic elevation. Thoracic aortic tortuosity. Mild hypoinflation. No pneumothorax, pleural effusion or overt pulmonary edema. No airspace consolidation typical for pneumonia. Degenerative changes of the shoulders and spine. IMPRESSION: No acute process. ACT 112: Negative or not required by law. The above report was generated using voice recognition software. It may contain grammatical, syntax or spelling errors. Electronically signed by: Rishi Brennan M.D. 05/02/2019 8:[address] head/brain wo con CLINICAL HISTORY: 63 years-old Female with ams eval for bleed. Acutely altered mental status TECHNIQUE: Multiple axial CT images of the head were obtained without contrast. A dose lowering technique was utilized adhering to the principles of ALARA. CT DOSE: 537.48 mGy.cm COMPARISON: Head CT 09/04/2016. FINDINGS: No acute intracranial hemorrhage, midline shift, intracranial mass, hydrocephalus, territorial ischemia or abnormal extra-axial collection. Mild age-related involutional changes. Patchy white matter hypodensities suggest chronic microvascular ischemic disease. No acute calvarial fracture. Tiny scattered lucent foci of the calvarium are indeterminate and likely benign. Osteoma of the outer table right occiput, 1.5 x 1.2 cm which appears unchanged. The paranasal sinuses, mastoid air cells, and middle ear cavities are clear. IMPRESSION: No acute intracranial abnormality. ACT 112: Negative or not required by law. The above report was generated using voice recognition software. It may contain grammatical, syntax or spelling errors. Electronically signed by: Rishi Brennan M.D. 05/02/2019 8:10 PM ECG Data Attestation: I personally reviewed and interpreted this ECG as follows: Indication: + altered mental status Rate (beats per minute): 53 Rhythm: + sinus bradycardia ECG ST segments: no ST elevation ECG Findings: + Q waves (Inferior); no PVCs Comparison ECG Date: from (01/13/19) Change: the following changes noted (Sinus kristin has replaced normal sinus rhythm ) Blood Pressure Blood Pressure Findings: Low blood pressure Blood Pressure Disposition: further management by hospitalist MDM Narrative I did evaluate the patient as noted above. I did obtain history from the patient as well as her due to her change in mental status. I suspect the patient has hepatic encephalopathy given her alcoholic cirrhosis and prior history. She also admits to not taking her lactulose for several days. She does have bruising over her body likely from her liver disease. She does not believe she fell recently but does have bruising to her left back. IV access was established. The patient was placed on a continuous security monitor. I did order and personally review the patient's 12-lead EKG as described above. Her twelve-lead EKG does not show any acute ischemia. I did order and personally reviewed the images of the patient's chest x-ray as described above. Chest x- ray does not show pneumothorax or infiltrate. I did order and review the patient's blood work as noted in the electronic medical record. I suspect that her ammonia level is significantly elevated. She has hyperbilirubinemia. She also has acute kidney injury with a creatinine of 2.2. She also has hypokalemia and hypomagnesemia. I did order a CT of the head. I did review the images myself as well as the radiology report as described above. There is no evidence of acute intracranial abnormality. I did treat the patient with normal saline IV. She was also given IV thiamine and folic acid. I did recommend hospitalization for further care and evaluation. I did discuss case with the hospitalist and embedded case manager. Impression & Plan Encephalopathy, hepatic, Hyperbilirubinemia, Hypomagnesemia, Pancytopenia, NASIM (acute kidney injury), Hypokalemia, Elevated INR Discharge Plan Visit Data Chief Complaint: Altered Mental Status Stated Complaint: HALLUCINATIONS ED Provider: Mac Maloney Discharge Problem: Encephalopathy, hepatic, Hyperbilirubinemia, Hypomagnesemia, Pancytopenia, NASIM (acute kidney injury), Hypokalemia, Elevated INR Patient Disposition: Being Evaluated by Hospitalist Forms Stand Alone Forms: My [facility] Prescriptions Prescriptions: No Action vitamin B complex [B-Complex] Tablet 1 tab PO QAM RF: 0 ondansetron 4 mg Tablet,Disintegrating 4 mg PO Q8H PRN (Reason: Nausea) RF: 0 lactulose 10 gram/15 mL Solution 15 ml PO TID RF: 0 gabapentin 600 mg Tablet 600 mg PO TID RF: 0 trazodone 50 mg Tablet 50 mg PO HS PRN (Reason: Insomnia) RF: 0 omeprazole 40 mg Capsule,Delayed Release(Dr/Ec) 40 mg PO QAM RF: 0 ferrous sulfate 325 mg (65 mg iron) Tablet 325 mg PO QAM RF: 0 folic acid 1 mg Tablet 1 mg PO QAM RF: 0 rifaximin 550 mg Tablet 550 mg PO BID RF: 0 Probiotic 3 billion cell Capsule 3,000 mmu cells PO HS RF: 0 biotin 1 mg Capsule 1 mg PO BID RF: 0 naltrexone 50 mg Tablet 50 mg PO QAM RF: 0 cholecalciferol (vitamin D3) [Vitamin D3] 1,000 unit Tablet,Chewable 1,000 unit PO QAM RF: 0 magnesium oxide 400 mg magnesium Tablet 400 mg PO AMHS RF: 0 furosemide [Lasix] 40 mg Tablet 40 mg PO DAILY RF: 0 spironolactone [Aldactone] 100 mg Tablet 100 mg PO DAILY RF: 0 Trintellix 5 mg tablet 5 mg PO DAILY RF: 0 Referrals Referrals: Ashley Adkins, DO [Primary Care Provider] - The scribe's documentation has been prepared under my direction and personally reviewed by me in its entirety. I confirm that the note above accurately reflects all work, treatment, procedures, and medical decision making performed by me.
[2019-05-02] MEDS ORDERED: LORazepam 1 MG/2 ML VIAL IV PRN (22:46)
[2019-05-02] MEDS ORDERED: MAGNESIUM SULFATE / D5W 1 GM/100 ML BAG IV ONE (22:46)
[2019-05-02] MEDS ORDERED: NITROGLYCERIN SL 0.4 MG/TAB TAB SL PRN (22:46)
[2019-05-02] MEDS ORDERED: GABAPENTIN 1200MG ALCOHOL WITHDRAWAL LOAD PO STA (22:46)
[2019-05-02] MEDS ORDERED: LORazepam 3 MG/6 ML VIAL IV PRN (22:46)
[2019-05-02] MEDS ORDERED: ATIVAN IV ALCOHOL WITHDRAWL IV PRN (22:46)
[2019-05-02] MEDS ORDERED: TRAZODONE HCL 50 MG TAB PO PRN (22:46)
[2019-05-02] MEDS ORDERED: LORazepam 2 MG/4 ML VIAL IV PRN (22:46)
[2019-05-02] MEDS ORDERED: POTASSIUM CHLORIDE 20 MEQ/15 ML UDC PO STA (22:46)
[2019-05-02] MEDS ORDERED: ONDANSETRON INJ 2 MG/ML 2 ML VIAL IV PRN (22:46)
--- NOTE | 2019-05-02 22:54 | CT Scan Report ---
ABDOMEN AND PELVIS CT WITHOUT CONTRAST CT DOSE: 567.54 mGy.cm HISTORY: Acute generalized abdominal pain with cirrhosis abdominal pain, liver cirrhosis TECHNIQUE: Multiaxial CT images of the abdomen and pelvis were performed without contrast. A dose lo wering technique was utilized adhering to the principles of ALARA. COMPARISON STUDY: CT abdomen and pelvis 01/12/2019 FINDINGS: Study is degraded by respiratory motion artifact. Study is also limited without the use of contrast. Mild subsegmental left basilar atelectasis. No pneumatosis or pneumoperitoneum identified. Cardiomega ly. Trace pericardial effusion. Spleen is enlarged measuring up to 15.1 cm. Cirrhotic morphology of t he liver with innumerable subcentimeter hypodense foci redemonstrated, suboptimally assessed on this noncontrast study. Cholelithiasis with equivocal gallbladder wall thickening. No choledocholithiasis or biliary ductal dilation identified. Unremarkable pancreas and adrenal glands. Kidneys are within normal limits. No obstructive uropathy. Partial distention the bladder with mild w all thickening. Multiple calcified uterine fibroids. No adnexal mass lesions. No aortic aneurysm or a denopathy. Paraesophageal and upper abdominal varices are redemonstrated. Marked gastric wall thicken ing with partial distention redemonstrated. There is no small bowel obstruction. Diffuse mesenteric e estrada with small to moderate abdominopelvic ascites, progressed from comparison. Wall thickening of th e descending colon and hepatic flexure with partial distention. Additionally, the cecum and proximal ascending colon demonstrates wall thickening. The appendix is not definitively seen. Small fat and fl uid filled periumbilical hernia. Diffuse body wall edema. 8 mm anterolisthesis L4 on L5, likely secon radha to severe facet arthrosis. IMPRESSION: 1. Cirrhotic morphology of the liver with stigmata of portal venous hypertension which include spleno megaly, periesophageal and upper abdominal varices. Innumerable subcentimeter hypodense foci of the l iver are better seen on comparison contrast-enhanced study however are again suggestive of probable r egenerative nodules. 2. Marked gastric wall thickening redemonstrated. 3. Wall thickening of the cecum, splenic flexure and descending colon may be secondary to partial dis tention, portal colopathy or nonspecific colitis. Correlate with patient's symptoms. 4. Cholelithiasis with equivocal gallbladder wall thickening. 5. No bowel obstruction. 6. Additional findings as above. ACT 112: Negative or not required by law. The above report was generated using voice recognition software. It may contain grammatical, syntax o r spelling errors. Electronically signed by: Rishi Brennan M.D. 05/02/2019 10:53 PM
[2019-05-02] MEDS ORDERED: GABAPENTIN 600 MG TAB PO SCH (23:00)
[2019-05-02] MEDS ORDERED: MULTI-VITAMIN INFUSION 10 ML, THIAMINE HCL 100 MG, FOLIC ACID 1 MG in SODIUM CHLORIDE 0... IV ONE (23:00)
[2019-05-02] MEDS ORDERED: LACTULOSE SYRUP 30 GM/45 ML UDP PO STA (23:45)
[2019-05-03] MEDS: LACTULOSE SYRUP 30 GM/45 ML UDP PO SCH ×4 (00:12→21:47)
[2019-05-03 00:17] LABS: Hematocrit (blood only) 26.8 % (37-47); Hemoglobin 9.6 g/dL (12.0-16.0)
[2019-05-03] MEDS ORDERED: PHYTONADIONE 2.5 MG in SODIUM CHLORIDE 0.9% 50 ML IV ONE (01:30)
--- NOTE | 2019-05-03 01:31 | History and Physical Report ---
DATE OF ADMISSION: 05/02/2019 CHIEF COMPLAINT: Altered mental status. HISTORY OF PRESENT ILLNESS: This is a 63-year-old female with past medical history significant for alcoholic cirrhosis, chronic alcoholism, portal hypertension, ascites, esophageal varices status post banding in 2016, chronic anemia, history of hepatic encephalopathy, history of bleeding gastric varices, history of anal fissures, depression, history of pancytopenia, presents with altered mental status. The patient lives with her . As per the patient and also her the patient is still drinking wine, about 5-6 glasses of wine every day, but she says she did not drink since last Friday. In the past, when she stopped drinking, she used to get withdrawal symptoms, but the patient states for some reason she is okay at this time, but her noticed that she is getting more confused since last few days and getting progressively worse and she is falling frequently at home and he thought that she might not take her medications yesterday and he took control of her medications yesterday. The patient says she does not remember when she last time urinated, but she says she noticed some blood in the stools every day and says its from anal fissures. As per the outpatient notes that recently Lasix and Aldactone was increased by GI But says they are on hold secondary to kidney problems. . She is having ongoing difficulty with lower extremity edema recently and she says she has chronic diarrhea and she does not know whether she is taking laxatives or not. The patient could tell her name, knows that she is in the hospital, knows both month and year, knows her date of , but she was somewhat slow to answer and her labs showed her creatinine bumped up to 2.2 and potassium 2.8, magnesium 1.7, INR of 2, platelets 51, which is chronic. Her ammonia level was 86. CT head was unremarkable. The patient has complaints of abdominal pain and she says she has hernia. Denies any headache. Has dizziness, no earache, no runny nose, no sore throat. She has had some difficulty swallowing pills. She has nausea and not eating much,denies any chest pain, no shortness of breath, no cough, no fever, no chills. Has swelling in the legs. Currently, resting comfortable and hemodynamically stable. Blood pressure on the lower side. ALLERGIES: CODEINE, MILK AND SULFA ANTIBIOTICS. PAST MEDICAL HISTORY: As mentioned above. PAST SURGICAL HISTORY: Colonoscopy, dilation and curretage, EGDs, multiple ERCPs, tonsillectomy and adenoidectomy, uterine fibroid embolization, vaginal delivery and rectal exam under anesthesia. MEDICATIONS: The patient is on Naltrexone 50mg daily., but per she is not taking it, Lasix 40 mg daily, as per on hold, spironolactone 100 mg p.o. daily as per which is on hold, omeprazole 40 mg daily, folic acid 1 mg p.o. daily, trazodone 50 mg p.o. at bedtime p.r.n., gabapentin 600 mg p.o. t.i.d., rifaximin 550 mg p.o. b.i.d., B complex 1 tablet daily, biotin 1 mg p.o. t.i.d., ferrous sulfate 325 mg p.o. daily, magnesium oxide 400 mg p.o. b.i.d., probiotic 1 capsule daily. FAMILY HISTORY: Significant for father had bladder cancer, stroke. Mother had thyroid disorder and liver disease. SOCIAL HISTORY: , quit smoking in 2005, smoked 1.1 pack a day for 23 years. Alcohol, drinks 4-6 glasses of wine daily, but she says she stopped drinking about 5 days ago, smoked marijuana. REVIEW OF SYMPTOMS: As per HPI. Rest of review of systems negative. PHYSICAL EXAMINATION: GENERAL: The patient is of moderate built, somewhat confused. VITAL SIGNS: Temperature 36.7, pulse rate 51, respiratory rate 18, blood pressure 90/50, oxygen 98% on room air. HEENT: No pallor. Icterus present. Pupils equal, round, and reactive to light. NECK: No JVD, no neck masses, no carotid bruits. CARDIOVASCULAR: S1, S2 heard, regular rate and rhythm, no murmur, no gallop. RESPIRATORY SYSTEM: Normal AP diameter. No accessory muscle use. No wheezing, no crackles. ABDOMEN: Soft, bowel sounds present. Mild abdominal diffuse discomfort. No guarding, no rigidity. Mild distention. CENTRAL NERVOUS SYSTEM: Alert and oriented x3, somewhat slow to answer. Nonfocal. EXTREMITIES: Bilateral lower extremity +2 edema present. LABORATORY DATA: WBC 4.4, hemoglobin 11.1, hematocrit 31.6, platelets 51. PT 19.1, INR 2, APTT 33.6. Sodium 140, potassium 2.8, chloride 108, bicarbonate 24, BUN 15, creatinine 2.2, serum glucose 133, calcium 8.7, magnesium 1.7, total bilirubin 1.2, AST 68, ALT 39, alkaline phosphatase 147, ammonia 86. Troponin I less than 0.015. TSH 1.7. IMAGING: CT of the head, no acute findings. Chest x-ray, no acute process. EKG: Sinus bradycardia at rate of 53, nonspecific T-wave abnormalities. ASSESSMENT AND PLAN: This is a 63-year-old female who presents with altered mental status. 1. Altered mental status from hepatic encephalopathy, possibly from alcohol withdrawal. Her ammonia level was 86. CT head was unremarkable. We will give lactulose 45 mL t.i.d. repeat ammonia levels and consult GI for further recommendations. Continue Xifaxan. 2. Alcoholism. The patient says she is still drinking 5-6 glasses of wine every day, last drink was4- 5 days ago on last Friday. Check alcohol levels,urine drug screen, patient smokes marijuana as per records. Her symptoms could be from alcohol withdrawal, but she is not having tachycardia or shakiness, but we will empirically place her on gabpentin withdrawal protocol, IV Ativan p.r.n., banana bag, we will give IV thiamine daily and multivitamins. Monitor in the med/surg daily. The patient has been at rehab in the past,can discuss about further plan of care when stable 3. Acute kidney injury, baseline creatinine is about 1, current creatinine of 2.2. Holding her diuretics, on gentle fluids. Follow the labs in a.m. 4. electrolyte abnormalities, potassium 2.9, magnesium 1.7. We will replace. Follow the labs. 5. Alcoholic hepatitis. Total bilirubin 4.2, elevated INR. Follow repeat labs. Discriminant function 37. IV solumedrol. GI consult. 6. Alcoholism, alcoholic liver cirrhosis,Nadolol was stopped because of ascites History of esophageal varices and banding. Last time, EGD showed some scarring at the banding site and one year followup EGD recommended. . At the time of her. The patient also had an MRI scan recently few days back and it showed some questionable lesions in the liver and repeat MRI scan in 3 months is recommended to follow up with GI. Holding the diuretics because of acute kidney injury, on gentle fluids. Monitor for volume overload. We will get a CT scan of the abdomen and pelvis as patient has abdominal pain and has ascites.Await further recommendation as per GI. MELD score 27. 7. Depression. Continue antidepressant. 8. Gastroesophageal reflux disease, on PPI. 9. Pancytopenia mostly from her alcoholism and cirrhosis. We will follow the labs. 10. Rectal bleed? patinet complains of rectal bleed. Will monitor H and H. Will give iv vitamin k 2.5mg for elevated inr. 11. Elevated lft ,elevated inr follow labs. 10. Deep venous thrombosis prophylaxis, SCDs, Disposition: Admit to med/surg tele. Level 1 full code only if there is a chance of recovery for short duration of time. PT and OT per discharge. Social Service to help with discharge planning. Addendum: transferred to tele as patient is getting more confused. Borderline BP. Rectal bleed?Close monitor. Confusion mostly from hepatic encephalopathy rather than alcohol withdrawal . But will continue gabapentin protocol and iv atvian prn and close monitor. MTDD
[2019-05-03] MEDS ORDERED: methylPREDNISolone 40 MG in SYRINGE 0 ML IV SCH (02:00)
[2019-05-03] MEDS ORDERED: FAMOTIDINE 20 MG in SYRINGE 3 ML IV STA (02:11)
[2019-05-03] MEDS: D5NSS + 20MEQ KCL 20 MEQ/1,000 ML BAG IV SCH (03:17)
[2019-05-03 04:10] LABS: Appearance Urine Slightly Cloudy (Clear); Blood Urine 1+ (Negative); Color Urine Yellow; Glucose Urine UA Negative (Negative); Ketones Urine Trace (Negative); Leukocyte Esterase Urine Negative (Negative); Nitrite Urine Negative (Negative); Protein Urine 1+ (Negative); Urobilinogen Urine Negative (Negative); pH Urine 6.5 (4.5-7.5)
[2019-05-03 04:11] LABS: Bilirubin Urine 1+ (Negative)
[2019-05-03] MEDS ORDERED: SODIUM CHLORIDE 0.9% 1000ML 250 ML IV ONE (04:17)
[2019-05-03 04:20] LABS: Epithelial Cell Urine >30 /lpf (0-5)
--- NOTE | 2019-05-03 04:22 | Hospitalist Progress Note ---
Date of Service May 03, [address] scan showing non specific colitis and gall bladder thickening and gall sones. Will follow gall bladder ultrasound and await GI inputs. Results & Data Vital Signs (Past 12 Hours) Vital Signs Temp Pulse Pulse Resp BP BP Pulse Ox 05/03/19 02:01 36.4 C L 54 L 16 96/61 L 95 05/02/19 23:00 36.4 C L 47 L 16 99/63 L 97 05/02/19 22:24 52 L 18 109/63 98 05/02/19 21:46 51 L 18 93/59 L 98 05/02/19 20:40 52 L 15 102/57 L 98 05/02/19 20:12 53 L 18 100/63 99 05/02/19 19:45 100 05/02/19 19:37 52 L 16 107/64 100 05/02/19 19:26 36.7 C 54 L 18 114/79 98
[2019-05-03 04:28] LABS: Bacteria Urine Negative (Negative)
[2019-05-03] MEDS ORDERED: PIPERACILL/TAZOBAC CONSULT ACTIVE PRN (05:09)
[2019-05-03] MEDS ORDERED: PIPERACILLIN/TAZOBACTAM 4.5 GM in DEXTROSE 5% 100 ML IV ONE (05:30)
[2019-05-03] MEDS: GABAPENTIN 600 MG TAB PO SCH ×3 (05:46→21:47)
[2019-05-03 06:11] LABS: Hemoglobin 9.9 g/dL (12.0-16.0); Mean Corpuscular Hemoglobin 37.1 pg (25-34); Mean Corpuscular Volume 104.9 fL (80-100); RDW Coefficient of Variation 16.7 % (11.5-14.5); RDW Standard Deviation 63.7 fL (36.4-46.3); Red Blood Count 2.67 M/uL (4.2-5.4); White Blood Count 2.75 K/uL (4.8-10.8)
[2019-05-03 06:22] LABS: Prothrombin Time 19.2 Seconds (9.0-12.0)
[2019-05-03 06:29] LABS: Albumin Level 2.2 gm/dl (3.4-5.0); BUN Creatinine Ratio 6.5 (10-20); Calcium 8.3 mg/dl (8.5-10.1); Creatinine Clr Calc Pharmacy 25.6 ml/min; Est GFR (African American) 27.3; Est GFR (Non-African American) 23.5; Magnesium 2.1 mg/dl (1.8-2.4)
[2019-05-03 06:31] LABS: Albumin Globulin Ratio 0.7 (0.9-2); Bilirubin,Total 4.3 mg/dl (0.2-1); Globulin 3.1 gm/dl (2.5-4.0); Phosphorus 1.6 mg/dl (2.5-4.9); Total Protein 5.3 gm/dl (6.4-8.2)
[2019-05-03 06:47] LABS: Mean Corpuscular Hgb Conc 35.4 g/dL (32-36); Platelet Count 37 K/uL (130-400)
[2019-05-03] MEDS ORDERED: POTASSIUM CHLORIDE 20 MEQ/15 ML UDC PO STA (06:57)
[2019-05-03] MEDS ORDERED: POTASSIUM PHOS 3 MMOL/1 ML INFUSION IV STA (06:57)
[2019-05-03] MEDS ORDERED: LACTULOSE SYRUP 30 GM/45 ML UDP PO STA (07:03)
--- NOTE | 2019-05-03 07:21 | Ultrasound Report ---
ABDOMINAL ULTRASOUND, RIGHT UPPER QUADRANT HISTORY: gall bladder wall thickening on ct scan. COMPARISON: Abdomen and pelvis CT 05/02/2019. MRCP 01/13/2019. FINDINGS: Pancreas: The pancreas demonstrates a normal echotexture. Liver: Cirrhotic liver is again noted. Gallbladder: Cholelithiasis without evidence for acute cholecystitis. No significant gallbladder wall thickening. CBD: Stable mildly dilated common bile duct at 7.5 mm. Right kidney: No hydronephrosis. Miscellaneous: Small amount of ascites. IMPRESSION: 1. Cholelithiasis. No gallbladder wall thickening. 2. Cirrhosis with a small amount of ascites, unchanged. 3. Stable mildly dilated common bile duct at 7.5 mm. ACT 112: Negative or not required by law. Electronically signed by: Zaheer Brennan M.D. 05/03/2019 7:20 AM
[2019-05-03] MEDS ORDERED: POTASSIUM PHOSPHATE 24 MMOL in SODIUM CHLORIDE 0.9% 500 ML IV ONE (07:30)
[2019-05-03 07:57] LABS: Albumin Level 2.2 gm/dl (3.4-5.0); Bilirubin Direct 1.8 mg/dl (0-0.2); Bilirubin,Total 4.2 mg/dl (0.2-1); Total Protein 5.5 gm/dl (6.4-8.2)
[2019-05-03 08:18] LABS: Echinocytes 1+; Eosinophils # (auto) 0.03 K/uL (0-0.5); Eosinophils % (auto) 1.1 %; Lymphocytes # (auto) 0.45 K/uL (1.2-3.4); Lymphocytes % (auto) 16.4 %; Monocytes # (auto) 0.17 K/uL (0.11-0.59); Monocytes % (auto) 6.2 %; Neutrophils % (auto) 76.3 %
[2019-05-03 08:24] LABS: Vitamin B12 > 2000 pg/ml (211-911)
[2019-05-03 08:25] LABS: Folate (Folic Acid) > 24.00 ng/ml (>5.38)
[2019-05-03] MEDS: THIAMINE HCL 100 MG in SYRINGE 9 ML IV SCH (08:34)
--- NOTE | 2019-05-03 08:36 | Gastrointestinal Consultation ---
Date of Consultation May 03, 2019 Assessment & Plan (1) Encephalopathy, hepatic: 1. Gentle fluid challenge -> ? will renal function improve. 2. Diuretic have been held for a week, continue to hold. 3. Needs complete, permanent alcohol abstention. She is in intensive counselling - continue. 4. Though liver function is clearly worsening, no clear indication for transfer to [facility] as she continues to drink alcohol, therefor, she is not a candidate for liver transplant. 5. Lactulose TID. If refuses po, then needs to be given by enema. 6. Continue Rifaxamin 550mg BID. 7. Urine culture. 8. No diagnostic tap needed because very little asctes on imaging and typically SBP occurs only when a significant amount of ascites. 9. No clear indication for antibiotics or steroids. Present on Admission?: Yes Supervising Physician Co-Signing Physician Notes Late entry: Patient was seen and examined on 05/03 with PADMA Adorno whose note reflects our findings and plan. History of Present Illness Reason for Consultation: Hepatic Encephalopathy Requesting Physician: Dr. Turner Attending Physician: Steven Barnes MD History of Present Illness Ms. Mary Rueda is a 63 yr old female pt of Dr. Adkins with a hx of ETOH, continuing to drink, ascites, esophageal varices status post banding in 2015, prior hepatic encephalopathy chronic pancytopenina, chronic lower back pain from DDD, prior ERCP for choledocholithiasis. She was brought to [facility] by her for confusion early today. Her believes that she may not have taken her medications correctly recently. On arrival CT abd/pelvis with cirrhosis, non contrast CT head w/o acute changes. T Bili 4.2, Cr 2.14 (rising from baseline of 1 early in 2018 and 1.7 as OP last week), Urine (+) for 5-10 WBC, and 1+ blood, CXR w/o acute processes. Regarding hx of EV: Most recent EGD 01/14/19 with PHG, scars from prior EV banding, no residual varices. Not on a Beta tom because contraindicated when ascites is present. Regarding hx of ascites: mild to moderate in the past and held a week ago due to acute worsening of renal function. Regarding hx of hepatic encephalopathy: maintained on Lactulose TID and rifaximin BID. Allergies Allergy/AdvReac Type Severity Reaction Status Date / Time codeine Allergy Intermediate VOMITTING Verified 05/02/19 20:49 Sulfa (Sulfonamide Allergy Intermediate VOMITTING Verified 05/02/19 20:49 Antibiotics) lactose AdvReac Intermediate Diarrhea Verified 05/03/19 18:08 Home Medications Home Medications Medication Instructions Recorded Confirmed Type Probiotic 3,000 mmu cells PO HS 09/23/18 05/02/19 History ferrous sulfate 325 mg PO QAM 09/23/18 05/02/19 History folic acid 1 mg PO QAM 09/23/18 05/02/19 History gabapentin 600 mg PO TID 09/23/18 05/02/19 History omeprazole 40 mg PO QAM 09/23/18 05/02/19 History rifaximin 550 mg PO BID 09/23/18 05/02/19 History trazodone 50 mg PO HS PRN 09/23/18 05/02/19 History vitamin B complex [B-Complex] 1 tab PO QAM 09/29/18 05/02/19 History biotin 1 mg PO BID 10/08/18 05/02/19 History lactulose 15 ml PO TID 01/12/19 05/02/19 History ondansetron 4 mg PO Q8H PRN 01/12/19 05/02/19 History cholecalciferol (vitamin D3) 1,000 unit PO QAM 05/02/19 05/02/19 History [Vitamin D3] furosemide [Lasix] 40 mg PO DAILY 05/02/19 05/02/19 History magnesium oxide 400 mg PO AMHS 05/02/19 05/02/19 History naltrexone 50 mg PO QAM 05/02/19 05/02/19 History spironolactone [Aldactone] 100 mg PO DAILY 05/02/19 05/02/19 History vortioxetine [Trintellix] 5 mg PO DAILY 05/02/19 05/02/19 History Patient History Medical History (Updated 05/17/19 @ 00:03 by Background Sami) Absence seizure last 2 years ago Alcohol abuse (Chronic) PER PT NO DRINKING PAST 7 WEEKS Alcoholic cirrhosis (Inactive) FOLLOWS W/ [facility] Anemia (Chronic) Anxiety (Chronic) Ascites (Chronic) managed with furosemide 20mg daily and spironolactone 50mg daily; reports paracentesis 3 years ago Back pain (Chronic) Comfort measures only status Depression (Chronic) Dyslipidemia (Chronic) Esophageal varices (Chronic) banded in 2016. Secondary prevention of variceal bleeding with Nadolol 40mg daily Goals of care, counseling/discussion Hyperbilirubinemia (Chronic) Hypomagnesemia Supplemented, most recent Mg 1.2 on 10/08. Lumbar stenosis (Chronic) Noncompliance Per [facility] records, patient has been noncompliant with Lactulose, and continues to drink ETOH, leading to elevated ammonia levels, hypomagnesemia and hospitalizations/ED visits for confusion/AMS. Poor historian Portal hypertension Portal hypertensive gastropathy (Chronic) Thrombocytopenia (Chronic) 2/2 cirrhosis, most recent platelets 71 on 09/30 Surgical History H/O adenoidectomy (Chronic) H/O colonoscopy (Chronic) "09/2015 - normal " History of esophagogastroduodenoscopy (EGD) (Chronic) 09/09/2018 Impression: No evidence of esophageal varices. Post variceal banding scar in the lower third of the esophagus. Portal hypertensive gastropathy. Normal duodenal bulb and second portion of the duodenum. 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 Review of records: no fevers; per at time of arrival, pt may not have been taking meds correctly. Physical Exam Constitutional: + ill appearing and + obese Eyes: PERRL, mild icterus ENMT: external ear and nose normal, oropharynx normal Neck: trachea midline, no thyromegaly Respiratory: normal respiratory effort, lungs clear to auscultation Cardiovascular: RRR, no murmur, no edema Gastrointestinal (Abdomen): BS hypoactive, abd is soft, non tender, mild ascites Skin: no rashes, warm and dry no jaundice Neurologic: PERRL, EOMI, accommodation nl, no face palsy, no dysarthria Motor/Sensory: no tremor 1 beat of asterix Psychiatric: Very lethargic but not abtunded. Reacts to verbal and tactile stimulus. Able to tell me her name and my first name (sees me in the office) Unable to provide a meaningful hx. When asked how she is feeling she says, "I am sick and cold," and when asked if anything else is wrong, she says, "my nose is cold." Results & Data Vital Signs (Past 12 Hours) Vital Signs Temp Pulse Resp BP Pulse Ox 05/03/19 07:46 36.3 C L 50 L 18 91/55 L 98 05/03/19 05:56 50 L 112/74 05/03/19 04:27 49 L 86/54 L 05/03/19 02:40 36.8 C 53 L 16 91/58 L 98 05/03/19 02:01 36.4 C L 54 L 16 96/61 L 95 05/02/19 23:00 36.4 C L 47 L 16 99/63 L 97 05/02/19 22:24 52 L 18 109/63 98 05/02/19 21:46 51 L 18 93/59 L 98 05/02/19 20:40 52 L 15 102/57 L 98 Laboratory Results WBC 2.7, Hb 9.9, Hct 28, platelets 37, Na 141, K 3.0, BUN 14, Cr 2.14, glucose 136, T Bili 4.2, AST 55, ALT 36, Alk Phos 117. Diagnostic Findings US 05/03: 1. Cholelithiasis. No gallbladder wall thickening. 2. Cirrhosis with a small amount of ascites, unchanged. 3. Stable mildly dilated common bile duct at 7.[address] abd/pelvis: 1. Cirrhotic morphology of the liver with stigmata of portal venous hypertension which include splenomegaly, periesophageal and upper abdominal varices. Innumerable subcentimeter hypodense foci of the liver are better seen on co mparison contrast-enhanced study however are again suggestive of probable regenerative nodules. 2. Marked gastric wall thickening redemonstrated. 3. Wall thickening of the cecum, splenic flexure and descending colon may be secondary to partial distention, portal colopathy or nonspecific colitis. Correlate with patient's symptoms. 4. Cholelithiasis with equivocal gallbladder wall thickening. 5. No bowel obstruction. 6. Additional findings as above.
[2019-05-03] MEDS: POTASSIUM CHLORIDE / WTR 10 MEQ/100 ML PLCT IV SCH ×2 (08:37→10:16)
[2019-05-03] MEDS: FERROUS SULFATE 325 MG TAB PO SCH (08:40)
[2019-05-03] MEDS: FOLIC ACID 1 MG TAB PO SCH (08:40)
[2019-05-03] MEDS: MAGNESIUM OXIDE 400 MG TAB PO SCH ×2 (08:40→21:47)
[2019-05-03] MEDS: VITAMIN B COMPLEX TAB PO SCH (08:40)
[2019-05-03] MEDS: RIFAXIMIN 550 MG TABLET PO SCH ×2 (08:41→21:47)
[2019-05-03] MEDS: CHOLECALCIFEROL 1,000 UNITS TAB PO SCH (08:41)
[2019-05-03] MEDS: PANTOprazole 40 MG TAB PO SCH (08:41)
[2019-05-03] MEDS: CEROVITE ADV FORMULA TAB PO SCH (08:43)
[2019-05-03] MEDS ORDERED: NON-FORMULARY MEDICATION (Biotin 1 MG) PO SCH (09:00)
--- NOTE | 2019-05-03 10:01 | Nephrology Consultation ---
Date of Consultation May 03, 2019 Assessment & Plan (1) NASIM (acute kidney injury): Patient with acute kidney injury likely due to ischemic ATN in setting of hypotension. Urinalysis showing 10-30 RBCs per high-power field which would be consistent with ATN. She is anuric. Her blood pressure is low. Hepatorenal syndrome would be entertained after fluid challenge. No indication for dialysis. -We will start Albumin 25 g 3 times daily for 48 hours. -If blood pressure remains low we will start midodrine but cannot hold off for now. -Monitor renal function with daily BMP. Avoid nephrotoxins. (2) Encephalopathy, hepatic: Patient with altered mental status likely hepatic encephalopathy. She is on lactulose per GI and primary team. This is not uremia given BUN of 14. We will continue to monitor renal function. (3) Hypokalemia: Likely due to aggressive diuresis recently. Agree with potassium and phosphorus replacement. History of Present Illness Reason for Consultation: Acute kidney injury Requesting Physician: Steven Barnes MD Attending Physician: Steven Barnes MD History of Present Illness This is a 63-year-old female with history of alcoholic cirrhosis and active drinker with fairly normal renal function at baseline who was admitted on 05/03/2019 with confusion thought to be due to hepatic encephalopathy. His baseline creatinine is 1 as recent as January 2019. He was admitted with a creatinine of 2.2 and stated over to 2.1 today. She drinks about 6 glasses of wine daily. She remains confused this morning. Her blood pressure is low in the 90s over 50s. She has a Long catheter but is anuric. She is not a great historian. It is unclear if she is taken NSAIDs. Her NSAIDs were reportedly held recently due to worsening renal function. She was on Lasix and Aldactone at home. She was also hypokalemic and receiving potassium chloride supplements this morning. Allergies Allergy/AdvReac Type Severity Reaction Status Date / Time codeine Allergy Intermediate VOMITTING Verified 05/02/19 20:49 milk Allergy Intermediate GI ISSUES Verified 05/02/19 20:49 Sulfa (Sulfonamide Allergy Intermediate VOMITTING Verified 05/02/19 20:49 Antibiotics) Home Medications Home Medications Medication Instructions Recorded Confirmed Type Probiotic 3,000 mmu cells PO HS 09/23/18 05/02/19 History ferrous sulfate 325 mg PO QAM 09/23/18 05/02/19 History folic acid 1 mg PO QAM 09/23/18 05/02/19 History gabapentin 600 mg PO TID 09/23/18 05/02/19 History omeprazole 40 mg PO QAM 09/23/18 05/02/19 History rifaximin 550 mg PO BID 09/23/18 05/02/19 History trazodone 50 mg PO HS PRN 09/23/18 05/02/19 History vitamin B complex [B-Complex] 1 tab PO QAM 09/29/18 05/02/19 History biotin 1 mg PO BID 10/08/18 05/02/19 History lactulose 15 ml PO TID 01/12/19 05/02/19 History ondansetron 4 mg PO Q8H PRN 01/12/19 05/02/19 History cholecalciferol (vitamin D3) 1,000 unit PO QAM 05/02/19 05/02/19 History [Vitamin D3] furosemide [Lasix] 40 mg PO DAILY 05/02/19 05/02/19 History magnesium oxide 400 mg PO AMHS 05/02/19 05/02/19 History naltrexone 50 mg PO QAM 05/02/19 05/02/19 History spironolactone [Aldactone] 100 mg PO DAILY 05/02/19 05/02/19 History vortioxetine [Trintellix] 5 mg PO DAILY 05/02/19 05/02/19 History Patient History Medical History Absence seizure last 2 years ago Alcohol abuse (Chronic) PER PT NO DRINKING PAST 7 WEEKS Alcoholic cirrhosis (Inactive) FOLLOWS W/ [facility] Anemia (Chronic) Anxiety (Chronic) Ascites (Chronic) managed with furosemide 20mg daily and spironolactone 50mg daily; reports paracentesis 3 years ago Back pain (Chronic) Depression (Chronic) Dyslipidemia (Chronic) Esophageal varices (Chronic) banded in 2016. Secondary prevention of variceal bleeding with Nadolol 40mg daily Hyperbilirubinemia (Chronic) Hypomagnesemia Supplemented, most recent Mg 1.2 on 10/08. Lumbar stenosis (Chronic) Noncompliance Per [facility] records, patient has been noncompliant with Lactulose, and continues to drink ETOH, leading to elevated ammonia levels, hypomagnesemia and hospitalizations/ED visits for confusion/AMS. Poor historian Portal hypertension Portal hypertensive gastropathy (Chronic) Thrombocytopenia (Chronic) 2/2 cirrhosis, most recent platelets 71 on 09/30 Surgical History H/O adenoidectomy (Chronic) H/O colonoscopy (Chronic) "09/2015 - normal " History of esophagogastroduodenoscopy (EGD) (Chronic) 09/09/2018 Impression: No evidence of esophageal varices. Post variceal banding scar in the lower third of the esophagus. Portal hypertensive gastropathy. Normal duodenal bulb and second portion of the duodenum. History of tooth extraction Hx of tonsillectomy (Chronic) Family History Other Bladder cancer Hypertension TIA (transient ischemic attack) Social History Preferred Language: Kiswahili Communication Ability: Effective Car Dryer Required: No Beliefs That Will Affect Care: None Current Living Situation: Spouse Feels Safe at Home: Yes Safety Concerns: Feels Safe At This Time Smoking Status: Former smoker Tobacco Type: cigarettes ; Second Hand Exposure: No ; Hx Alcohol Use: Yes Alcohol type: wine Hx Substance Use: No Review of Systems Review of Systems: All systems reviewed & are unremarkable except as noted in HPI & below Physical Exam Physical Exam: General exam: Appears comfortable, no acute distress HEENT: Pupils are equal and reactive to light Neck: No JVD, neck is supple trachea is midline Respiratory system: Clear breath sounds bilaterally. Gastrointestinal: Abdomen is soft, distended, non tender, bowel sounds are present CVS: Regular rate and rhythm. No murmurs, rubs or gallops Musculoskeletal: No joint or muscle tenderness Extremities: Non tender, no edema, peripheral pulses are present Neuro: disoriented, has tremors Skin: No rashes Results & Data Vital Signs (Past 12 Hours) Vital Signs Temp Pulse Resp BP Pulse Ox 05/03/19 07:46 36.3 C L 50 L 18 91/55 L 98 05/03/19 05:56 50 L 112/74 05/03/19 04:27 49 L 86/54 L 05/03/19 02:40 36.8 C 53 L 16 91/58 L 98 05/03/19 02:01 36.4 C L 54 L 16 96/61 L 95 05/02/19 23:00 36.4 C L 47 L 16 99/63 L 97 05/02/19 22:24 52 L 18 109/63 98 Laboratory Results Laboratory Results - last 24 hr 05/02/19 05/02/19 05/02/19 19:41 19:41 19:41 WBC RBC Hgb Hct MCV MCH MCHC RDW Std Deviation RDW Coeff of Adam Plt Count MPV Immature Gran % (Auto) Neut % (Auto) Lymph % (Auto) Coke % (Auto) Eos % (Auto) Baso % (Auto) Immature Gran # (Auto) Neut # (Auto) Lymph # (Auto) Coke # (Auto) Eos # (Auto) Baso # (Auto) Toxic Granulation Anisocytosis Macrocytosis Echinocytes PT 19.1 H INR 2.0 H APTT 33.6 H PTT Ratio 1.2 Sodium 140 Potassium 2.8 L Chloride 108 H Carbon Dioxide 24 Anion Gap 8.0 BUN 15 Creatinine 2.21 H Est Cr Clr Drug Dosing 24.6 Est GFR ( Amer) 26.2 Est GFR (Non-Af Amer) 22.6 BUN/Creatinine Ratio 6.7 L Glucose 133 H Lactate Calcium 8.7 Phosphorus Magnesium 1.7 L Total Bilirubin 4.2 H Direct Bilirubin AST 68 H ALT 39 Alkaline Phosphatase 147 H Ammonia Troponin I < 0.015 Total Protein 6.0 L Albumin 2.5 L Globulin 3.5 Albumin/Globulin Ratio 0.7 L Vitamin B12 Folate TSH 1.700 Urine Color Urine Appearance Urine pH Ur Specific [place] Urine Protein Urine Glucose (UA) Urine Ketones Urine Blood Urine Nitrite Urine Bilirubin Urine Urobilinogen Ur Leukocyte Esterase Urine RBC Urine WBC Ur Epithelial Cells Urine Bacteria Urine Opiates Screen Ur Methadone, Qual Urine Barbiturates Ur Phencyclidine (PCP) U Amphetamin/Meth Scrn MDMA (Ecstasy) Screen U Benzodiazepines Scrn Ur Cocaine Metabolite U Marijuana (THC) Screen 05/02/19 05/02/19 05/03/19 19:41 20:29 00:10 WBC 4.43 L RBC 3.03 L Hgb 11.1 L 9.6 L Hct 31.6 L 26.8 L MCV 104.3 H MCH 36.6 H MCHC 35.1 RDW Std Deviation 64.4 H RDW Coeff of Adam 16.9 H Plt Count 51 L MPV 10.4 Immature Gran % (Auto) 0.0 Neut % (Auto) 73.1 Lymph % (Auto) 12.2 Coke % (Auto) 12.4 Eos % (Auto) 1.8 Baso % (Auto) 0.5 Immature Gran # (Auto) 0.00 Neut # (Auto) 3.24 Lymph # (Auto) 0.54 L Coke # (Auto) 0.55 Eos # (Auto) 0.08 Baso # (Auto) 0.02 Toxic Granulation 1+ Anisocytosis Present Macrocytosis Present Echinocytes 2+ PT INR APTT PTT Ratio Sodium Potassium Chloride Carbon Dioxide Anion Gap BUN Creatinine Est Cr Clr Drug Dosing Est GFR ( Amer) Est GFR (Non-Af Amer) BUN/Creatinine Ratio Glucose Lactate Calcium Phosphorus Magnesium Total Bilirubin Direct Bilirubin AST ALT Alkaline Phosphatase Ammonia 86.0 H Troponin I Total Protein Albumin Globulin Albumin/Globulin Ratio Vitamin B12 Folate TSH Urine Color Urine Appearance Urine pH Ur Specific [place] Urine Protein Urine Glucose (UA) Urine Ketones Urine Blood Urine Nitrite Urine Bilirubin Urine Urobilinogen Ur Leukocyte Esterase Urine RBC Urine WBC Ur Epithelial Cells Urine Bacteria Urine Opiates Screen Ur Methadone, Qual Urine Barbiturates Ur Phencyclidine (PCP) U Amphetamin/Meth Scrn MDMA (Ecstasy) Screen U Benzodiazepines Scrn Ur Cocaine Metabolite U Marijuana (THC) Screen 05/03/19 05/03/19 05/03/19 03:30 03:30 05:54 WBC RBC Hgb Hct MCV MCH MCHC RDW Std Deviation RDW Coeff of Adam Plt Count MPV Immature Gran % (Auto) Neut % (Auto) Lymph % (Auto) Coke % (Auto) Eos % (Auto) Baso % (Auto) Immature Gran # (Auto) Neut # (Auto) Lymph # (Auto) Coke # (Auto) Eos # (Auto) Baso # (Auto) Toxic Granulation Anisocytosis Macrocytosis Echinocytes PT INR APTT PTT Ratio Sodium Potassium Chloride Carbon Dioxide Anion Gap BUN Creatinine Est Cr Clr Drug Dosing Est GFR ( Amer) Est GFR (Non-Af Amer) BUN/Creatinine Ratio Glucose Lactate Calcium Phosphorus Magnesium Total Bilirubin Direct Bilirubin AST ALT Alkaline Phosphatase Ammonia Troponin I Total Protein Albumin Globulin Albumin/Globulin Ratio Vitamin B12 > 2000 H Folate > 24.00 TSH Urine Color Yellow Urine Appearance Slightly Cloudy Urine pH 6.5 Ur Specific [place] 1.010 Urine Protein 1+ H Urine Glucose (UA) Negative Urine Ketones Trace H Urine Blood 1+ H Urine Nitrite Negative Urine Bilirubin 1+ H Urine Urobilinogen Negative Ur Leukocyte Esterase Negative Urine RBC 10-30 H Urine WBC 5-10 H Ur Epithelial Cells >30 H Urine Bacteria Negative Urine Opiates Screen Pending Ur Methadone, Qual Pending Urine Barbiturates Pending Ur Phencyclidine (PCP) Pending U Amphetamin/Meth Scrn Pending MDMA (Ecstasy) Screen Pending U Benzodiazepines Scrn Pending Ur Cocaine Metabolite Pending U Marijuana (THC) Screen Pending 05/03/19 05/03/19 05/03/19 05:54 05:54 05:54 WBC 2.75 L RBC 2.67 L Hgb 9.9 L Hct 28.0 L MCV 104.9 H MCH 37.1 H MCHC 35.4 RDW Std Deviation 63.7 H RDW Coeff of Adam 16.7 H Plt Count 37 L MPV 10.0 Immature Gran % (Auto) 0.0 Neut % (Auto) 76.3 Lymph % (Auto) 16.4 Coke % (Auto) 6.2 Eos % (Auto) 1.1 Baso % (Auto) 0.0 Immature Gran # (Auto) 0.00 Neut # (Auto) 2.10 Lymph # (Auto) 0.45 L Coke # (Auto) 0.17 Eos # (Auto) 0.03 Baso # (Auto) 0.00 Toxic Granulation Anisocytosis Macrocytosis Echinocytes 1+ PT 19.2 H INR 2.0 H APTT PTT Ratio Sodium 141 Potassium 3.0 L Chloride 113 H Carbon Dioxide 22 Anion Gap 6.0 BUN 14 Creatinine 2.14 H Est Cr Clr Drug Dosing 25.6 Est GFR ( Amer) 27.3 Est GFR (Non-Af Amer) 23.5 BUN/Creatinine Ratio 6.5 L Glucose 136 H Lactate Calcium 8.3 L Phosphorus 1.6 L Magnesium 2.1 Total Bilirubin 4.3 H Direct Bilirubin AST 55 H ALT 38 Alkaline Phosphatase 122 H Ammonia Troponin I Total Protein 5.3 L Albumin 2.2 L Globulin 3.1 Albumin/Globulin Ratio 0.7 L Vitamin B12 Folate TSH Urine Color Urine Appearance Urine pH Ur Specific [place] Urine Protein Urine Glucose (UA) Urine Ketones Urine Blood Urine Nitrite Urine Bilirubin Urine Urobilinogen Ur Leukocyte Esterase Urine RBC Urine WBC Ur Epithelial Cells Urine Bacteria Urine Opiates Screen Ur Methadone, Qual Urine Barbiturates Ur Phencyclidine (PCP) U Amphetamin/Meth Scrn MDMA (Ecstasy) Screen U Benzodiazepines Scrn Ur Cocaine Metabolite U Marijuana (THC) Screen 05/03/19 05/03/19 05/03/19 05:54 05:54 08:54 WBC RBC Hgb Hct MCV MCH MCHC RDW Std Deviation RDW Coeff of Adam Plt Count MPV Immature Gran % (Auto) Neut % (Auto) Lymph % (Auto) Coke % (Auto) Eos % (Auto) Baso % (Auto) Immature Gran # (Auto) Neut # (Auto) Lymph # (Auto) Coke # (Auto) Eos # (Auto) Baso # (Auto) Toxic Granulation Anisocytosis Macrocytosis Echinocytes PT INR APTT PTT Ratio Sodium Potassium Chloride Carbon Dioxide Anion Gap BUN Creatinine Est Cr Clr Drug Dosing Est GFR ( Amer) Est GFR (Non-Af Amer) BUN/Creatinine Ratio Glucose Lactate 1.5 Calcium Phosphorus Magnesium Total Bilirubin 4.2 H Direct Bilirubin 1.8 H AST 55 H ALT 36 Alkaline Phosphatase 117 Ammonia 75.0 H Troponin I Total Protein 5.5 L Albumin 2.2 L Globulin Albumin/Globulin Ratio Vitamin B12 Folate TSH Urine Color Urine Appearance Urine pH Ur Specific [place] Urine Protein Urine Glucose (UA) Urine Ketones Urine Blood Urine Nitrite Urine Bilirubin Urine Urobilinogen Ur Leukocyte Esterase Urine RBC Urine WBC Ur Epithelial Cells Urine Bacteria Urine Opiates Screen Ur Methadone, Qual Urine Barbiturates Ur Phencyclidine (PCP) U Amphetamin/Meth Scrn MDMA (Ecstasy) Screen U Benzodiazepines Scrn Ur Cocaine Metabolite U Marijuana (THC) Screen
[2019-05-03] MEDS: FAMOTIDINE 20 MG in SYRINGE 3 ML IV SCH ×2 (10:16→21:21)
[2019-05-03] MEDS: LORazepam 1 MG/2 ML VIAL IV PRN ×2 (10:22→21:21)
[2019-05-03 11:51] LABS: Hematocrit (blood only) 29.8 % (37-47); Hemoglobin 10.5 g/dL (12.0-16.0)
[2019-05-03] MEDS ORDERED: PIPERACILLIN/TAZOBACTAM 4.5 GM in DEXTROSE 5% 100 ML IV SCH (12:00)
[2019-05-03] MEDS ORDERED: PIPERACILLIN/TAZOBACTAM 3.375 GM in DEXTROSE 5% 100 ML IV SCH (12:00)
[2019-05-03] MEDS: ALBUMIN 25% 50 ML IV SCH ×4 (15:15→22:15)
--- NOTE | 2019-05-03 15:47 | Hospitalist Progress Note ---
Date of Service May 03, 2019 Assessment & Plan (1) Encephalopathy, hepatic: Recurrent admissions Presented with altered mental status Has been moving her bowels regularly at home Ammonia level is noted to be [address] of the head We will continue lactulose and rifaximin Appreciate GI input and recommendation (2) Alcoholic cirrhosis: Has alcoholic cirrhosis Unfortunately continues to drink (3) NASIM (acute kidney injury): Creatinine noted to be elevated at 2.21 on admission Seems to have NASIM likely secondary to dehydration and evidenced by hematuria Not been producing much urine Appreciate nephrology input and recommendation We will get cautious amount of intravenous fluid May have hepatorenal syndrome (4) Elevated LFTs: Secondary to cirrhosis Bilirubin is high at 4 INR is high at 2.0 We will monitor (5) Thrombocytopenia concurrent with and due to alcoholism: Secondary to alcoholism (6) Depression: No acute delirium Continue current medications (7) Esophageal varices: No evidence of hematemesis and no melena Continue PPI (8) Anemia: Chronic anemia secondary to chronic disease No acute GI bleed Subjective 05/03 Patient was seen and examined in telemetry unit She remains pleasantly confused and complains to have cough Denies any significant pain and wore abdominal distention No fever and/or chills Review of Systems Review of Systems: All systems reviewed and are unremarkable except as noted below Constitutional: + fatigue, + weakness, + anorexia and + daytime sleepiness Eyes: as per Subjective / HPI Gastrointestinal: + abdominal pain and + bloating Physical Exam Physical Exam: Lying in bed with moderate discomfort due to abdominal distention and cough Constitutional: well developed, well nourished, + acute distress, + ill appearing and + obese Eyes: PERRL, conjunctivae normal, anicteric sclerae ENMT: external ear and nose normal, oropharynx normal Respiratory: normal respiratory effort Auscultation: + diminished lung sounds (Bilaterally) Cardiovascular: Rate/Rhythm: regular rate and regular rhythm Heart Sounds: no murmur Gastrointestinal (Abdomen): Inspection/Auscultation: + abdomen distended and normal bowel sounds Percussion/Palpation: + abdomen tender (Mildly tender all over) and abdomen soft; no guarding and abdomen not rigid Musculoskeletal: No acute arthritis in any joints Neurologic: moves all extremities; no focal motor deficits Alert and awake. Pleasantly confused. Generally very weak and lethargic Lymphatic: no cervical or axillary lymphadenopathy Results & Data Vital Signs (Past 12 Hours) Vital Signs Temp Pulse Resp BP Pulse Ox 05/03/19 15:20 36.3 C L 54 L 20 119/75 97 05/03/19 11:38 36.3 C L 60 19 115/74 100 05/03/19 07:46 36.3 C L 50 L 18 91/55 L 98 05/03/19 05:56 50 L 112/74 05/03/19 04:27 49 L 86/54 L Laboratory Results Short CBC 05/02/19 05/03/19 05/03/19 Range/Units 19:41 00:10 05:54 WBC 4.43 L 2.75 L (4.8-10.8) K/uL Hgb 11.1 L 9.6 L 9.9 L (12.0-16.0) g/dL Hct 31.6 L 26.8 L 28.0 L (37-47) % Plt Count 51 L 37 L (130-400) K/uL 05/03/19 Range/Units 11:42 WBC (4.8-10.8) K/uL Hgb 10.5 L (12.0-16.0) g/dL Hct 29.8 L (37-47) % Plt Count (130-400) K/uL BMP 05/02/19 05/03/19 05/03/19 19:41 05:54 13:53 Sodium 140 141 Potassium 2.8 L 3.0 L 3.7 D Chloride 108 H 113 H Carbon Dioxide 24 22 BUN 15 14 Creatinine 2.21 H 2.14 H Glucose 133 H 136 H Calcium 8.7 8.3 L Cardiac Enzymes 05/02/19 Range/Units 19:41 Troponin I < 0.015 (0-0.045) ng/ml Liver Function 05/02/19 05/03/19 05/03/19 Range/Units 19:41 05:54 08:54 Total Bilirubin 4.2 H 4.3 H 4.2 H (0.2-1) mg/dl Direct Bilirubin 1.8 H (0-0.2) mg/dl AST 68 H 55 H 55 H (15-37) U/L ALT 39 38 36 (12-78) U/L Alkaline Phosphatase 147 H 122 H 117 (45-117) U/L Albumin 2.5 L 2.2 L 2.2 L (3.4-5.0) gm/dl Urine 05/03/19 Range/Units 03:30 Urine Color Yellow Urine Appearance Slightly Cloudy (Clear) Urine pH 6.5 (4.5-7.5) Ur Specific [place] 1.010 (1.000-1.030) Urine Protein 1+ H (Negative) Urine Glucose (UA) Negative (Negative) Medications Administered Current Inpatient Medications Ferrous Sulfate (Feosol) 325 mg PO QAM [facility] Stop: 06/02/19 08:59 Last Admin: 05/03/19 08:40 Dose: 325 mg Documented by: Folic Acid (Folvite) 1 mg PO QAM [facility] Stop: 06/02/19 08:59 Last Admin: 05/03/19 08:40 Dose: 1 mg Documented by: Gabapentin (Neurontin) 600 mg PO BID [facility] Stop: 06/05/19 20:59 Gabapentin (Neurontin) 600 mg PO Q8H [facility] Stop: 05/04/19 14:01 Gabapentin (Neurontin) 600 mg PO Q12H [facility] Stop: 05/05/19 12:01 Gabapentin (Neurontin) 600 mg PO Q24H [facility] Stop: 05/06/19 12:01 Guaifenesin (Mucinex) 600 mg PO Q12 [facility] Stop: 06/02/19 20:59 Potassium Chloride/Dextrose/Sod Cl (D5nss + 20meq Kcl) 20 meq in 1,000 mls @ 50 mls/hr IV .Q20H [facility] Stop: 06/02/19 00:59 Last Admin: 05/03/19 03:17 Dose: 50 mls/hr Documented by: Thiamine HCl 100 mg/ Syringe 10 mls @ 2 mls/min IV QAM [facility] Stop: 06/02/19 08:59 Last Admin: 05/03/19 08:34 Dose: 2 mls/min Documented by: Famotidine 20 mg/ Syringe 5 mls @ 2.5 mls/min IV BID [facility] Stop: 06/02/19 08:59 Last Admin: 05/03/19 10:16 Dose: 2.5 mls/min Documented by: Lorazepam (Ativan) 1 mg in 2 mls @ 2 mls/min IV Q2H PRN PRN Reason: Anxiety/Agitation Stop: 06/02/19 04:06 Last Admin: 05/03/19 10:22 Dose: 2 mls/min Documented by: Albumin Human (Albumin 25%) 50 mls @ 50 mls/hr IV TID [facility] Stop: 05/06/19 12:59 Last Admin: 05/03/19 15:15 Dose: 50 mls/hr Documented by: Albumin Human (Albumin 25%) 50 mls @ 50 mls/hr IV Q8H [facility] Stop: 05/06/19 14:59 Lactobacillus Acidophilus (Floranex) 4 tab PO HS [facility] Stop: 06/02/19 20:59 Lactulose (Chronulac) 30 gm PO TID [facility] Stop: 06/02/19 00:59 Last Admin: 05/03/19 15:10 Dose: 30 gm Documented by: Magnesium Oxide (Mag-Ox) 400 mg PO BID [facility] Stop: 06/02/19 08:59 Last Admin: 05/03/19 08:40 Dose: 400 mg Documented by: Miscellaneous (Order Awaiting Action) 1 ea N/A QS [facility] Stop: 06/02/19 07:59 Last Admin: 05/03/19 08:35 Dose: Not Given Documented by: Multivitamins/Minerals (Multivitamin W/ Minerals Tab) 1 tab PO QAM [facility] Stop: 06/02/19 08:59 Last Admin: 05/03/19 08:43 Dose: 1 tab Documented by: Nitroglycerin (Nitrostat) 0.4 mg SL UD PRN PRN Reason: Chest Pain Stop: 06/01/19 22:45 Ondansetron HCl (Zofran) 4 mg IV Q6H PRN PRN Reason: Nausea Stop: 06/01/19 22:45 Pantoprazole Sodium (Protonix) 40 mg PO QAM [facility] Stop: 06/02/19 08:59 Last Admin: 05/03/19 08:41 Dose: 40 mg Documented by: Rifaximin (Xifaxan) 550 mg PO BID [facility] Stop: 06/02/19 08:59 Last Admin: 05/03/19 08:41 Dose: 550 mg Documented by: Trazodone HCl (Desyrel) 50 mg PO HS PRN PRN Reason: Insomnia Stop: 06/01/19 22:45 Vitamin B Complex (Vitamin B Complex) 1 tab PO QAM [facility] Stop: 06/02/19 08:59 Last Admin: 05/03/19 08:40 Dose: 1 tab Documented by: Vitamin D (Vitamin D3) [facility] Stop: 06/02/19 08:59 Last Admin: 05/03/19 08:41 Dose: 1,000 units Documented by: (1) Esophageal varices Esophageal varices type: secondary Esophageal varices bleeding: without blee ding Qualified Code(s): I85.10 - Secondary esophageal varices without bleeding
[2019-05-03 18:39] LABS: Hematocrit (blood only) 24.4 % (37-47); Hemoglobin 8.5 g/dL (12.0-16.0)
[2019-05-03 20:21] LABS: Amphetamines+Metham, Urine Neg (Neg); Barbiturates, Urine Neg (Neg); Benzodiazepine, Urine Neg (Neg); Cocaine, Urine Neg (Neg); MDMA (Ecstacy), Urine Pos (Neg); Methadone, Urine Neg (Neg); Opiate, Urine Neg (Neg); Phencyclidine, Urine Neg (Neg)
[2019-05-03] MEDS: guaiFENesin 600 MG TABCR PO SCH (21:47)
[2019-05-03] MEDS: LACTOBACILLUS ACIDOPHILUS (FLORANEX) TAB PO SCH (21:47)
[2019-05-03] MEDS: LACTULOSE 200 GM, WATER, STERILE IRRIG 700 ML, BARCODE IDENTIFIER 1 EA PR SCH (22:40)
[2019-05-04 00:23] LABS: Hematocrit (blood only) 28.9 % (37-47)
[2019-05-04] MEDS: D5NSS + 20MEQ KCL 20 MEQ/1,000 ML BAG IV SCH ×3 (01:43→20:20)
[2019-05-04] MEDS: LORazepam 1 MG/2 ML VIAL IV PRN ×3 (03:54→22:39)
[2019-05-04] MEDS: GABAPENTIN 600 MG TAB PO SCH ×2 (05:37→14:52)
[2019-05-04] MEDS: LACTULOSE 200 GM, WATER, STERILE IRRIG 700 ML, BARCODE IDENTIFIER 1 EA PR SCH ×3 (06:38→20:00)
[2019-05-04 07:15] LABS: Hematocrit (blood only) 24.8 % (37-47); Hemoglobin 8.4 g/dL (12.0-16.0); Mean Corpuscular Hemoglobin 37.2 pg (25-34); Mean Corpuscular Hgb Conc 33.9 g/dL (32-36); Mean Corpuscular Volume 109.7 fL (80-100); RDW Coefficient of Variation 17.6 % (11.5-14.5); RDW Standard Deviation 70.2 fL (36.4-46.3); Red Blood Count 2.26 M/uL (4.2-5.4); White Blood Count 6.07 K/uL (4.8-10.8)
[2019-05-04 07:23] LABS: INR 2.3 (0.9-1.1)
[2019-05-04] MEDS: guaiFENesin 600 MG TABCR PO SCH ×2 (07:32→20:14)
[2019-05-04] MEDS: MAGNESIUM OXIDE 400 MG TAB PO SCH ×2 (07:32→20:14)
[2019-05-04] MEDS: VITAMIN B COMPLEX TAB PO SCH (07:33)
[2019-05-04] MEDS: FERROUS SULFATE 325 MG TAB PO SCH (07:33)
[2019-05-04] MEDS: RIFAXIMIN 550 MG TABLET PO SCH ×2 (07:33→19:59)
[2019-05-04] MEDS: LACTULOSE SYRUP 30 GM/45 ML UDP PO SCH ×3 (07:34→19:49)
[2019-05-04] MEDS: CEROVITE ADV FORMULA TAB PO SCH (07:34)
[2019-05-04] MEDS: FOLIC ACID 1 MG TAB PO SCH (07:34)
[2019-05-04] MEDS: CHOLECALCIFEROL 1,000 UNITS TAB PO SCH (07:34)
[2019-05-04] MEDS: PANTOprazole 40 MG TAB PO SCH (07:39)
[2019-05-04] MEDS: FAMOTIDINE 20 MG in SYRINGE 3 ML IV SCH ×2 (07:39→20:17)
[2019-05-04 07:49] LABS: Basophils # (auto) 0.01 K/uL (0-0.2); Basophils % (auto) 0.2 %; Echinocytes 2+; Eosinophils # (auto) 0.03 K/uL (0-0.5); Eosinophils % (auto) 0.5 %; Immature Granulocytes # (auto) 0.01 K/uL (0.00-0.02); Immature Granulocytes % (auto) 0.2 %; Lymphocytes # (auto) 0.55 K/uL (1.2-3.4); Lymphocytes % (auto) 9.1 %; Mean Platelet Volume 10.9 fL (7.4-10.4); Monocytes # (auto) 0.51 K/uL (0.11-0.59); Monocytes % (auto) 8.4 %; Neutrophils # (auto) 4.96 K/uL (1.4-6.5); Neutrophils % (auto) 81.6 %; Platelet Count 40 K/uL (130-400); Platelet Estimate Decreased (Normal)
[2019-05-04] MEDS: ALBUMIN 25% 50 ML IV SCH ×6 (08:26→21:06)
[2019-05-04] MEDS: THIAMINE HCL 100 MG in SYRINGE 9 ML IV SCH (08:27)
[2019-05-04 08:46] LABS: Albumin Level 2.4 gm/dl (3.4-5.0); BUN Creatinine Ratio 6.9 (10-20); Calcium 8.7 mg/dl (8.5-10.1); Creatinine Clr Calc Pharmacy 25.1 ml/min; Est GFR (African American) 26.4; Est GFR (Non-African American) 22.8; Potassium 3.4 mmol/L (3.5-5.1)
[2019-05-04 09:00] LABS: Albumin Globulin Ratio 0.7 (0.9-2); Bilirubin,Total 4.6 mg/dl (0.2-1); Globulin 3.3 gm/dl (2.5-4.0); Magnesium 1.9 mg/dl (1.8-2.4); Phosphorus 3.6 mg/dl (2.5-4.9); Total Protein 5.7 gm/dl (6.4-8.2)
--- NOTE | 2019-05-04 11:34 | Gastroenterology Progress Note ---
Date of Service May 04, 2019 Assessment & Plan (1) Encephalopathy, hepatic: 1. Renal function stable, managed by nephrology - appreciate. 2. Diuretic have been held for a week, continue to hold. Would defer restarting to nephrology. 3. Needs complete, permanent alcohol abstention. She is in intensive counselling - continue. 5. Lactulose TID. If refuses po, then needs to be given by enema (order in place). 6. Continue Rifaxamin 550mg BID. 7. Watch for results of urine culture. Consider blood cultures also. 8. No diagnostic tap needed because very little ascites on imaging and typically SBP occurs only when a significant amount of ascites. 9. No clear indication for antibiotics or steroids. 10. GI will watch peripherally. Supervising Physician Co-Signing Physician Notes I performed a history and physical examination of the patient, including specifically on physical exam - soft, nontender abdomen. I have discussed the patient's management with Ale. Please refer to the nurse practitioner's note for the documented findings and plan of care. Continues to drink Alcohol. Currently with Hepatic encephalopathy. Continue Lactulose and Rifaximin Correct Potassium and electrolytes. IV Albumin. May need Midodrine. Avoid Benzo by all means. Recall if any change in clinical status. Subjective Ms. Mary Rueda is a 63 yr old female admitted on 05/03 for ETOH cirrhosis hepatic encephalopathy. No clear trigger - no abnormalities on urine, CXR and no large ascites. According to nursing, this morning, pt was agitated and then given a benzo, and pt was very somnolent but not obtunded when I examined her. She did not arouse with verbal or tactile stimulation. Nursing did assure me that she did take her lactulose po this AM and they are giving it by enema if pt is not alert enough to take po. Labs: Ammonia 75 yesterday Cr 2.2->2.2 Na 148 K 3.4 T Bili 4.2->4.6 Review of Systems Review of Systems: Unable to obtain ROS from pt and no family present. Review of records: no fevers; per at time of arrival, pt may not have been taking meds correctly. Physical Exam Constitutional: + ill appearing and + obese; no acute distress and not edematous Somnolent, not obtunded ENMT: external ear and nose normal, oropharynx normal Neck: trachea midline, no thyromegaly Respiratory: normal respiratory effort, lungs clear to auscultation Cardiovascular: RRR, no murmur, no edema Skin: no rashes, warm and dry no jaundice Neurologic: Motor/Sensory: no tremor and no asterixis Psychiatric: not able to assess due to somnolence Results & Data Vital Signs (Past 12 Hours) Vital Signs Temp Pulse Resp BP Pulse Ox 05/04/19 08:00 36.8 C 74 20 112/78 94 05/04/19 03:10 36.8 C 62 17 105/64 97 05/04/19 00:09 36.4 C L 64 19 133/76 95
[2019-05-04] MEDS ORDERED: PHYTONADIONE 2.5 MG in SODIUM CHLORIDE 0.9% 50 ML IV ONE (15:32)
--- NOTE | 2019-05-04 15:45 | Hospitalist Progress Note ---
Date of Service May 04, 2019 Assessment & Plan (1) Encephalopathy, hepatic: Recurrent admissions Presented with altered mental status Has been moving her bowels regularly at home Ammonia level is noted to be [address] of the head We will continue lactulose and rifaximin Appreciate GI input and recommendation Condition seems to be worse this morning with acute confusion and not being able to communicate Remains restless-we will get another set of blood test including ammonia level Continue current management Doubt any infection (2) Alcoholic cirrhosis: Has alcoholic cirrhosis Unfortunately continues to drink (3) NASIM (acute kidney injury): Creatinine noted to be elevated at 2.21 on admission Seems to have NASIM likely secondary to dehydration and evidenced by hematuria Not been producing much urine Appreciate nephrology input and recommendation We will get cautious amount of intravenous fluid May have hepatorenal syndrome We will continue with small dose of intravenous fluid (4) Elevated LFTs: Secondary to cirrhosis Bilirubin is high at 4 INR is high at 2.4 Received 2.5 mg of IV vitamin K on admission INR remains elevated We will give another 2.5 mg of IV vitamin K Acute cholecystitis ruled out Noted to have gallstones with thickening of the gallbladder on CT of the abdomen and pelvis Ultrasound did show gallstones but no acute cholecystitis (5) Thrombocytopenia concurrent with and due to alcoholism: Secondary to alcoholism (6) Depression: No acute delirium Continue current medications (7) Esophageal varices: No evidence of hematemesis and no melena Continue PPI (8) Anemia: Chronic anemia secondary to chronic disease No acute GI bleed Hemoglobin remains stable We will discuss with the family members Subjective 05/03 Patient was seen and examined in telemetry unit She remains pleasantly confused and complains to have cough Denies any significant pain and wore abdominal distention No fever and/or chills 05/04 The patient was seen and examined this morning and also in the afternoon She remains confused today and has not been communicating Seems to be in distress Requiring one-to-one sitter Review of Systems Review of Systems: All systems reviewed and are unremarkable except as noted below Constitutional: + fatigue, + weakness, + anorexia and + daytime sleepiness Eyes: as per Subjective / HPI Gastrointestinal: + abdominal pain and + bloating Physical Exam Constitutional: well developed, well nourished, + acute distress, + ill appearing and + obese Eyes: PERRL, conjunctivae normal, anicteric sclerae ENMT: external ear and nose normal, oropharynx normal Respiratory: normal respiratory effort Auscultation: + diminished lung sounds (Bilaterally) Cardiovascular: Rate/Rhythm: regular rate and regular rhythm Heart Sounds: no murmur Gastrointestinal (Abdomen): Inspection/Auscultation: + abdomen distended and normal bowel sounds Percussion/Palpation: + abdomen tender (Mildly tender all over) and abdomen soft; no guarding and abdomen not rigid Neurologic: moves all extremities; no focal motor deficits Lymphatic: no cervical or axillary lymphadenopathy Results & Data Vital Signs (Past 12 Hours) Vital Signs Temp Pulse Resp BP BP Pulse Ox 05/04/19 15:02 36.7 C 66 20 108/74 93 05/04/19 12:00 36.5 C 65 18 91/61 L 98 05/04/19 08:00 36.8 C 74 20 112/78 94 Laboratory Results Short CBC 05/03/19 05/04/19 05/04/19 Range/Units 18:19 00:15 06:48 WBC 6.07 (4.8-10.8) K/uL Hgb 8.5 L 10.0 L 8.4 L (12.0-16.0) g/dL Hct 24.4 L 28.9 L 24.8 L (37-47) % Plt Count 40 L (130-400) K/uL BMP 05/04/19 05/04/19 06:48 08:06 Sodium Cancelled 148 H Potassium Cancelled 3.4 L Chloride Cancelled 121 H Carbon Dioxide Cancelled 20 L BUN Cancelled 15 Creatinine Cancelled 2.20 H Glucose Cancelled 117 H Calcium Cancelled 8.7 Liver Function 05/04/19 05/04/19 Range/Units 06:48 08:06 Total Bilirubin Cancelled 4.6 H AST Cancelled 47 H ALT Cancelled 37 Alkaline Phosphatase Cancelled 99 Albumin Cancelled 2.4 L Medications Administered Current Inpatient Medications Lactulose 200 gm/ Sterile Water 700 ml/ BARCODE IDENTIFIER 1 ea 0 gm [place] Q8H [facility] Stop: 06/02/19 21:59 Last Admin: 05/04/19 14:53 Dose: Not Given Documented by: Ferrous Sulfate (Feosol) 325 mg PO [facility] Stop: 06/02/19 08:59 Last Admin: 05/04/19 07:33 Dose: 325 mg Documented by: Folic [facility] ([facility]olvite) [facility] Stop: 06/02/19 08:59 Last Admin: 05/04/19 07:34 Dose: 1 mg Documented by: Gabapentin (Neurontin) 600 mg PO BID [facility] Stop: 06/05/19 20:59 Gabapentin (Neurontin) 600 mg PO Q12H [facility] Stop: 05/05/19 12:01 Gabapentin (Neurontin) 600 mg PO Q24H [facility] Stop: 05/06/19 12:01 Guaifenesin (Mucinex) 600 mg PO Q12 [facility] Stop: 06/02/19 20:59 Last Admin: 05/04/19 07:32 Dose: 600 mg Documented by: Potassium Chloride/Dextrose/Sod Cl (D5nss + 20meq Kcl) 20 meq in 1,000 mls @ 50 mls/hr IV .Q20H [facility] Stop: 06/02/19 00:59 Last Admin: 05/04/19 01:43 Dose: 50 mls/hr Documented by: Thiamine HCl 100 mg/ Syringe 10 mls @ 2 mls/min IV QAM [facility] Stop: 06/02/19 08:59 Last Admin: 05/04/19 08:27 Dose: 2 mls/min Documented by: Famotidine 20 mg/ Syringe 5 mls @ 2.5 mls/min IV BID [facility] Stop: 06/02/19 08:59 Last Admin: 05/04/19 07:39 Dose: 2.5 mls/min Documented by: Lorazepam (Ativan) 1 mg in 2 mls @ 2 mls/min IV Q2H PRN PRN Reason: Anxiety/Agitation Stop: 06/02/19 04:06 Last Admin: 05/04/19 08:35 Dose: 2 mls/min Documented by: Albumin Human (Albumin 25%) 50 mls @ 50 mls/hr IV TID [facility] Stop: 05/06/19 12:59 Last Admin: 05/04/19 14:52 Dose: 50 mls/hr Documented by: Albumin Human (Albumin 25%) 50 mls @ 50 mls/hr IV Q8H [facility] Stop: 05/06/19 14:59 Last Infusion: 05/04/19 09:29 Dose: Infused Documented by: Phytonadione 2.5 mg/ Sodium (Chloride) 50.25 mls @ 100.5 mls/hr IV ONE ONE Stop: 05/04/19 16:01 Lactobacillus Acidophilus (Floranex) 4 tab PO HS [facility] Stop: 06/02/19 20:59 Last Admin: 05/03/19 21:47 Dose: Not Given Documented by: Lactulose (Chronulac) 30 gm PO TID [facility] Stop: 06/02/19 00:59 Last Admin: 05/04/19 14:52 Dose: 30 gm Documented by: Magnesium Oxide (Mag-Ox) 400 mg PO BID [facility] Stop: 06/02/19 08:59 Last Admin: 05/04/19 07:32 Dose: 400 mg Documented by: Miscellaneous (Order Awaiting Action) 1 ea N/A QS [facility] Stop: 06/02/19 07:59 Last Admin: 05/04/19 07:37 Dose: Not Given Documented by: Multivitamins/Minerals (Multivitamin W/ Minerals Tab) 1 tab PO QAM [facility] Stop: 06/02/19 08:59 Last Admin: 05/04/19 07:34 Dose: 1 tab Documented by: Nitroglycerin (Nitrostat) 0.4 mg SL UD PRN PRN Reason: Chest Pain Stop: 06/01/19 22:45 Ondansetron HCl (Zofran) 4 mg IV Q6H PRN PRN Reason: Nausea Stop: 06/01/19 22:45 Pantoprazole Sodium (Protonix) [facility] Stop: 06/02/19 08:59 Last Admin: 05/04/19 07:39 Dose: 40 mg Documented by: Rifaximin (Xifaxan) 550 mg PO BID [facility] Stop: 06/02/19 08:59 Last Admin: 05/04/19 07:33 Dose: 550 mg Documented by: Trazodone HCl (Desyrel) 50 mg PO HS PRN PRN Reason: Insomnia Stop: 06/01/19 22:45 Vitamin B Complex (Vitamin B Complex) 1 [facility] Stop: 06/02/19 08:59 Last Admin: 05/04/19 07:33 Dose: 1 tab Documented by: Vitamin D (Vitamin D3) 1,000 units [facility] [place] Stop: 06/02/19 08:59 Last Admin: 05/04/19 07:34 Dose: 1,000 units Documented by: (1) Esophageal varices Esophageal varices type: secondary Esophageal varices bleeding: without bleeding Qualified Code(s): I85.10 - Secondary esophageal varices without bleeding
[2019-05-04 16:01] LABS: Hematocrit (blood only) 26.6 % (37-47); Hemoglobin 9.1 g/dL (12.0-16.0); Mean Corpuscular Hemoglobin 36.5 pg (25-34); Mean Corpuscular Hgb Conc 34.2 g/dL (32-36); Mean Corpuscular Volume 106.8 fL (80-100); RDW Coefficient of Variation 17.2 % (11.5-14.5); RDW Standard Deviation 66.5 fL (36.4-46.3); Red Blood Count 2.49 M/uL (4.2-5.4); White Blood Count 5.22 K/uL (4.8-10.8)
[2019-05-04 16:03] LABS: Mean Platelet Volume 9.9 fL (7.4-10.4); Platelet Count 37 K/uL (130-400)
[2019-05-04 16:17] LABS: BUN Creatinine Ratio 7.6 (10-20); Calcium 9.1 mg/dl (8.5-10.1); Creatinine Clr Calc Pharmacy 25.6 ml/min; Est GFR (Non-African American) 23.3; Potassium 3.3 mmol/L (3.5-5.1)
[2019-05-04 16:18] LABS: Basophils # (auto) 0.01 K/uL (0-0.2); Basophils % (auto) 0.2 %; Echinocytes 1+; Eosinophils # (auto) 0.07 K/uL (0-0.5); Eosinophils % (auto) 1.3 %; Immature Granulocytes # (auto) 0.01 K/uL (0.00-0.02); Immature Granulocytes % (auto) 0.2 %; Lymphocytes # (auto) 0.37 K/uL (1.2-3.4); Lymphocytes % (auto) 7.1 %; Monocytes # (auto) 0.37 K/uL (0.11-0.59); Monocytes % (auto) 7.1 %; Neutrophils # (auto) 4.39 K/uL (1.4-6.5); Neutrophils % (auto) 84.1 %; Toxic Granulation 1+
--- NOTE | 2019-05-04 17:29 | Nephrology Progress Note ---
Date of Service May 04, 2019 Assessment & Plan (1) NASIM (acute kidney injury): Patient with acute kidney injury likely due to ischemic ATN in setting of hypotension. Urinalysis showing 10-30 RBCs per high-power field which would be consistent with ATN. She is making urine now but still oliguric. Her blood pressure is better. Hepatorenal syndrome would be entertained after fluid challenge. No indication for dialysis. -We will continue Albumin 25 g 3 times daily for today. -If blood pressure remains low we will start midodrine but can hold off for now. -Monitor renal function with daily BMP. Avoid nephrotoxins. (2) Encephalopathy, hepatic: Patient with altered mental status likely hepatic encephalopathy. She is on lactulose per GI and primary team. This is not uremia given BUN of 14. We will continue to monitor renal function. (3) Hypokalemia: Likely due to aggressive diuresis recently. Agree with potassium and phosphorus replacement. Subjective Patient was drowsy after getting ativan. No SOB. She is intermittently agitated. On 1:1 sitter. cr stable Review of Systems Review of Systems: All systems reviewed & are unremarkable except as noted in HPI & below Physical Exam Physical Exam: General exam: Appears comfortable, no acute distress HEENT: Pupils are equal and reactive to light Neck: No JVD, neck is supple trachea is midline Respiratory system: Clear breath sounds bilaterally. Gastrointestinal: Abdomen is soft, non distended, non tender, bowel sounds are present CVS: Regular rate and rhythm. No murmurs, rubs or gallops Musculoskeletal: No joint or muscle tenderness Extremities: Non tender, no edema, peripheral pulses are present Neuro: drowsy but arousable, no focal neurological deficits Skin: No rashes Results & Data Vital Signs (Past 12 Hours) Vital Signs Temp Pulse Resp BP BP Pulse Ox 05/04/19 15:02 36.7 C 66 20 108/74 93 05/04/19 12:00 36.5 C 65 18 91/61 L 98 05/04/19 08:00 36.8 C 74 20 112/78 94 Laboratory Results Laboratory Results - last 24 hr 05/03/19 05/03/19 05/03/19 18:19 19:45 19:45 WBC RBC Hgb 8.5 L Hct 24.4 L MCV MCH MCHC RDW Std Deviation RDW Coeff of Adam Plt Count MPV Immature Gran % (Auto) Neut % (Auto) Lymph % (Auto) [place] % (Auto) Eos % (Auto) Baso % (Auto) Immature Gran # (Auto) Neut # (Auto) Lymph # (Auto) [place] # (Auto) Eos # (Auto) Baso # (Auto) Toxic Granulation Platelet Estimate Echinocytes PT INR Sodium Potassium Chloride Carbon Dioxide Anion Gap BUN Creatinine Est Cr Clr Drug Dosing Est GFR ( Amer) Est GFR (Non-Af Amer) BUN/Creatinine Ratio Glucose Calcium Phosphorus Magnesium Total Bilirubin AST ALT Alkaline Phosphatase Ammonia Total Protein Albumin Globulin Albumin/Globulin Ratio Urine Opiates Screen Neg Ur Methadone, Qual Neg Urine Barbiturates Neg Ur Phencyclidine (PCP) Neg U Amphetamin/Meth Scrn Neg Urine MDEA Pending MDMA (Ecstasy) Screen Pos H MDMA Pending Urine MDMA Pending U Benzodiazepines Scrn Neg Ur Cocaine Metabolite Neg U Marijuana (THC) Screen Neg 05/03/19 05/04/19 05/04/19 20:00 00:15 06:48 WBC RBC Hgb 10.0 L Hct 28.9 L MCV MCH MCHC RDW Std Deviation RDW Coeff of Adam Plt Count MPV Immature Gran % (Auto) Neut % (Auto) Lymph % (Auto) [place] % (Auto) Eos % (Auto) Baso % (Auto) Immature Gran # (Auto) Neut # (Auto) Lymph # (Auto) [place] # (Auto) Eos # (Auto) Baso # (Auto) Toxic Granulation Platelet Estimate Echinocytes PT 22.0 H INR 2.3 H Sodium Potassium Chloride Carbon Dioxide Anion Gap BUN Creatinine Est Cr Clr Drug Dosing Est GFR ( Amer) Est GFR (Non-Af Amer) BUN/Creatinine Ratio Glucose Calcium Phosphorus Magnesium Total Bilirubin AST ALT Alkaline Phosphatase Ammonia Total Protein Albumin Globulin Albumin/Globulin Ratio Urine Opiates Screen Cancelled Ur Methadone, Qual Cancelled Urine Barbiturates Cancelled Ur Phencyclidine (PCP) Cancelled U Amphetamin/Meth Scrn Cancelled Urine MDEA MDMA (Ecstasy) Screen Cancelled MDMA Urine MDMA U Benzodiazepines Scrn Cancelled Ur Cocaine Metabolite Cancelled U Marijuana (THC) Screen Cancelled 05/04/19 05/04/19 05/04/19 06:48 06:48 08:06 WBC 6.07 RBC 2.26 L Hgb 8.4 L Hct 24.8 L MCV 109.7 H MCH 37.2 H MCHC 33.9 RDW Std Deviation 70.2 H RDW Coeff of Adam 17.6 H Plt Count 40 L MPV 10.9 H Immature Gran % (Auto) 0.2 Neut % (Auto) 81.6 Lymph % (Auto) 9.1 [place] % (Auto) 8.4 Eos % (Auto) 0.5 Baso % (Auto) 0.2 Immature Gran # (Auto) 0.01 Neut # (Auto) 4.96 Lymph # (Auto) 0.55 L [place] # (Auto) 0.51 Eos # (Auto) 0.03 Baso # (Auto) 0.01 Toxic Granulation Platelet Estimate Decreased L Echinocytes 2+ PT INR Sodium Cancelled 148 H Potassium Cancelled 3.4 L Chloride Cancelled 121 H Carbon Dioxide Cancelled 20 L Anion Gap Cancelled 7.0 BUN Cancelled 15 Creatinine Cancelled 2.20 H Est Cr Clr Drug Dosing Cancelled 25.1 Est GFR ( Amer) Cancelled 26.4 Est GFR (Non-Af Amer) Cancelled 22.8 BUN/Creatinine Ratio Cancelled 6.9 L Glucose Cancelled 117 H Calcium Cancelled 8.7 Phosphorus Cancelled 3.6 D Magnesium Cancelled 1.9 Total Bilirubin Cancelled 4.6 H AST Cancelled 47 H ALT Cancelled 37 Alkaline Phosphatase Cancelled 99 Ammonia Total Protein Cancelled 5.7 L Albumin Cancelled 2.4 L Globulin Cancelled 3.3 Albumin/Globulin Ratio Cancelled 0.7 L Urine Opiates Screen Ur Methadone, Qual Urine Barbiturates Ur Phencyclidine (PCP) U Amphetamin/Meth Scrn Urine MDEA MDMA (Ecstasy) Screen MDMA Urine MDMA U Benzodiazepines Scrn Ur Cocaine Metabolite U Marijuana (THC) Screen 05/04/19 05/04/19 05/04/19 15:51 15:51 15:51 WBC 5.22 RBC 2.49 L Hgb 9.1 L Hct 26.6 L MCV 106.8 H MCH 36.5 H MCHC 34.2 RDW Std Deviation 66.5 H RDW Coeff of Adam 17.2 H Plt Count 37 L MPV 9.9 Immature Gran % (Auto) 0.2 Neut % (Auto) 84.1 Lymph % (Auto) 7.1 [place] % (Auto) 7.1 Eos % (Auto) 1.3 Baso % (Auto) 0.2 Immature Gran # (Auto) 0.01 Neut # (Auto) 4.39 Lymph # (Auto) 0.37 L [place] # (Auto) 0.37 Eos # (Auto) 0.07 Baso # (Auto) 0.01 Toxic Granulation 1+ Platelet Estimate Echinocytes 1+ PT INR Sodium 151 H Potassium 3.3 L Chloride 123 H Carbon Dioxide 21 Anion Gap 8.0 BUN 16 Creatinine 2.16 H Est Cr Clr Drug Dosing 25.6 Est GFR ( Amer) 27.0 Est GFR (Non-Af Amer) 23.3 BUN/Creatinine Ratio 7.6 L Glucose 121 H Calcium 9.1 Phosphorus Magnesium 2.0 Total Bilirubin AST ALT Alkaline Phosphatase Ammonia 59.0 H Total Protein Albumin Globulin Albumin/Globulin Ratio Urine Opiates Screen Ur Methadone, Qual Urine Barbiturates Ur Phencyclidine (PCP) U Amphetamin/Meth Scrn Urine MDEA MDMA (Ecstasy) Screen MDMA Urine MDMA U Benzodiazepines Scrn Ur Cocaine Metabolite U Marijuana (THC) Screen
[2019-05-04] MEDS: POTASSIUM CHLORIDE / WTR 10 MEQ/100 ML PLCT IV SCH ×2 (17:53→19:48)
[2019-05-04] MEDS: LACTOBACILLUS ACIDOPHILUS (FLORANEX) TAB PO SCH (20:14)
[2019-05-05] MEDS ORDERED: GABAPENTIN 600 MG TAB PO SCH
[2019-05-05] MEDS: LACTULOSE 200 GM, WATER, STERILE IRRIG 700 ML, BARCODE IDENTIFIER 1 EA PR SCH ×3 (03:10→11:56)
[2019-05-05] MEDS ORDERED: ACETAMINOPHEN 65 ML IV ONE (03:30)
[2019-05-05 03:32] LABS: Hematocrit (blood only) 25.2 % (37-47); Hemoglobin 8.8 g/dL (12.0-16.0); Mean Corpuscular Hemoglobin 36.8 pg (25-34); Mean Corpuscular Hgb Conc 34.9 g/dL (32-36); Mean Corpuscular Volume 105.4 fL (80-100); RDW Coefficient of Variation 17.6 % (11.5-14.5); RDW Standard Deviation 67.5 fL (36.4-46.3); Red Blood Count 2.39 M/uL (4.2-5.4); White Blood Count 4.35 K/uL (4.8-10.8)
[2019-05-05 03:33] LABS: Mean Platelet Volume 11.3 fL (7.4-10.4); Platelet Count 36 K/uL (130-400)
[2019-05-05 03:49] LABS: INR 2.2 (0.9-1.1); Prothrombin Time 21.7 Seconds (9.0-12.0)
[2019-05-05 03:56] LABS: Creatinine Clr Calc Pharmacy 27.3 ml/min; Est GFR (African American) 29.3; Est GFR (Non-African American) 25.2; Potassium 3.4 mmol/L (3.5-5.1)
[2019-05-05 03:59] LABS: Albumin Globulin Ratio 1.1 (0.9-2); Bilirubin,Total 4.8 mg/dl (0.2-1); Globulin 2.8 gm/dl (2.5-4.0); Total Protein 5.8 gm/dl (6.4-8.2)
[2019-05-05] MEDS ORDERED: SODIUM CHLOR 0.45% + 20MEQ KCL 20 MEQ/1,000 ML BAG IV STA (04:08)
[2019-05-05] MEDS ORDERED: HYDROmorphone INJ 1 MG/ML SYRINGE IV STA (04:10)
[2019-05-05 04:50] LABS: Echinocytes 2+; Eosinophils # (auto) 0.07 K/uL (0-0.5); Eosinophils % (auto) 1.6 %; Lymphocytes # (auto) 0.47 K/uL (1.2-3.4); Lymphocytes % (auto) 10.8 %; Monocytes # (auto) 0.35 K/uL (0.11-0.59); Neutrophils # (auto) 3.46 K/uL (1.4-6.5); Neutrophils % (auto) 79.6 %; Target Cells 1+
[2019-05-05] MEDS: LACTULOSE SYRUP 30 GM/45 ML UDP PO SCH ×3 (05:07→20:12)
[2019-05-05] MEDS: RIFAXIMIN 550 MG TABLET PO SCH ×2 (05:08→20:30)
[2019-05-05] MEDS: ALBUMIN 25% 50 ML IV SCH ×6 (08:03→20:36)
[2019-05-05] MEDS: CEROVITE ADV FORMULA TAB PO SCH (08:05)
[2019-05-05] MEDS: MAGNESIUM OXIDE 400 MG TAB PO SCH ×2 (08:05→20:29)
[2019-05-05] MEDS: FOLIC ACID 1 MG TAB PO SCH (08:05)
[2019-05-05] MEDS: GABAPENTIN 100 MG CAP PO SCH ×2 (08:06→20:30)
[2019-05-05] MEDS: CHOLECALCIFEROL 1,000 UNITS TAB PO SCH (08:06)
[2019-05-05] MEDS: VITAMIN B COMPLEX TAB PO SCH (08:06)
[2019-05-05] MEDS: PANTOprazole 40 MG TAB PO SCH (08:06)
[2019-05-05] MEDS: FERROUS SULFATE 325 MG TAB PO SCH (08:09)
[2019-05-05] MEDS: guaiFENesin 600 MG TABCR PO SCH ×2 (08:10→20:30)
[2019-05-05] MEDS: THIAMINE HCL 100 MG in SYRINGE 9 ML IV SCH (08:10)
[2019-05-05] MEDS: FAMOTIDINE 20 MG in SYRINGE 3 ML IV SCH ×2 (08:27→20:35)
[2019-05-05 08:57] LABS: Potassium 3.8 mmol/L (3.5-5.1)
[2019-05-05 08:58] LABS: BUN Creatinine Ratio 8.8 (10-20); Calcium 9.4 mg/dl (8.5-10.1); Creatinine Clr Calc Pharmacy 28.1 ml/min; Est GFR (African American) 30.5; Est GFR (Non-African American) 26.3
--- NOTE | 2019-05-05 10:02 | Nephrology Progress Note ---
Date of Service May 05, 2019 Assessment & Plan (1) NASIM (acute kidney injury): Patient with acute kidney injury likely due to ischemic ATN in setting of hypotension. Urinalysis showing 10-30 RBCs per high-power field which would be consistent with ATN. She is making urine now but still oliguric. Her blood pressure is better. Hepatorenal syndrome would be entertained after fluid challenge. No indication for dialysis. Creatinine stable at 2 but she has hyponatremia of 153 -We will continue Albumin 25 g 3 times daily for today. -If blood pressure remains low we will start midodrine but can hold off for now. -Monitor renal function with daily BMP. Avoid nephrotoxins. -Start D5 water at 80 mL/h. (2) Encephalopathy, hepatic: Patient with altered mental status likely hepatic encephalopathy. Consider reducing the Ativan on Neurontin as patient is quite somnolent. She is unable to metabolize his medications in setting of acute kidney injury. This is not uremia given BUN of 14. We will continue to monitor renal function. (3) Hypokalemia: Will give 40 mEq of potassium chloride today. Subjective Patient is somnolent in setting of Neurontin and Ativan. She is unable to give history. Review of Systems Review of Systems: Unobtainable due to reduced consciousness Physical Exam Physical Exam: General exam: Appears comfortable, no acute distress HEENT: Pupils are equal and reactive to light Neck: No JVD, neck is supple trachea is midline Respiratory system: Clear breath sounds bilaterally. Gastrointestinal: Abdomen is soft, non distended, non tender, bowel sounds are present CVS: Regular rate and rhythm. No murmurs, rubs or gallops Musculoskeletal: No joint or muscle tenderness Extremities: Non tender, no edema, peripheral pulses are present Neuro: Somnolent Skin: No rashes Results & Data Vital Signs (Past 12 Hours) Vital Signs Temp Pulse Resp BP Pulse Ox 05/05/19 06:58 36.7 C 72 22 111/74 96 05/05/19 03:08 36.7 C 68 19 120/69 96 05/04/19 23:13 36.7 C 72 19 120/76 95 Laboratory Results Laboratory Results - last 24 hr 05/04/19 05/04/19 05/04/19 15:51 15:51 15:51 WBC 5.22 RBC 2.49 L Hgb 9.1 L Hct 26.6 L MCV 106.8 H MCH 36.5 H MCHC 34.2 RDW Std Deviation 66.5 H RDW Coeff of Adam 17.2 H Plt Count 37 L MPV 9.9 Immature Gran % (Auto) 0.2 Neut % (Auto) 84.1 Lymph % (Auto) 7.1 [place] % (Auto) 7.1 Eos % (Auto) 1.3 Baso % (Auto) 0.2 Immature Gran # (Auto) 0.01 Neut # (Auto) 4.39 Lymph # (Auto) 0.37 L [place] # (Auto) 0.37 Eos # (Auto) 0.07 Baso # (Auto) 0.01 Toxic Granulation 1+ Target Cells Echinocytes 1+ PT INR Sodium 151 H Potassium 3.3 L Chloride 123 H Carbon Dioxide 21 Anion Gap 8.0 BUN 16 Creatinine 2.16 H Est Cr Clr Drug Dosing 25.6 Est GFR ( Amer) 27.0 Est GFR (Non-Af Amer) 23.3 BUN/Creatinine Ratio 7.6 L Glucose 121 H Calcium 9.1 Magnesium 2.0 Total Bilirubin AST ALT Alkaline Phosphatase Ammonia 59.0 H Total Protein Albumin Globulin Albumin/Globulin Ratio 05/05/19 05/05/19 05/05/19 03:20 03:20 03:20 WBC 4.35 L RBC 2.39 L Hgb 8.8 L Hct 25.2 L MCV 105.4 H MCH 36.8 H MCHC 34.9 RDW Std Deviation 67.5 H RDW Coeff of Adam 17.6 H Plt Count 36 L MPV 11.3 H Immature Gran % (Auto) 0.0 Neut % (Auto) 79.6 Lymph % (Auto) 10.8 [place] % (Auto) 8.0 Eos % (Auto) 1.6 Baso % (Auto) 0.0 Immature Gran # (Auto) 0.00 Neut # (Auto) 3.46 Lymph # (Auto) 0.47 L [place] # (Auto) 0.35 Eos # (Auto) 0.07 Baso # (Auto) 0.00 Toxic Granulation Target Cells 1+ Echinocytes 2+ PT 21.7 H INR 2.2 H Sodium 153 H Potassium 3.4 L Chloride 131 H Carbon Dioxide 19 L Anion Gap 3.0 BUN 16 Creatinine 2.02 H Est Cr Clr Drug Dosing 27.3 Est GFR ( Amer) 29.3 Est GFR (Non-Af Amer) 25.2 BUN/Creatinine Ratio 8.0 L Glucose 120 H Calcium 9.0 Magnesium Total Bilirubin 4.8 H AST 44 H ALT 32 Alkaline Phosphatase 74 Ammonia Total Protein 5.8 L Albumin 3.0 L Globulin 2.8 Albumin/Globulin Ratio 1.1 05/05/19 05/05/19 03:20 07:58 WBC RBC Hgb Hct MCV MCH MCHC RDW Std Deviation RDW Coeff of Adam Plt Count MPV Immature Gran % (Auto) Neut % (Auto) Lymph % (Auto) [place] % (Auto) Eos % (Auto) Baso % (Auto) Immature Gran # (Auto) Neut # (Auto) Lymph # (Auto) [place] # (Auto) Eos # (Auto) Baso # (Auto) Toxic Granulation Target Cells Echinocytes PT INR Sodium 154 H Potassium 3.8 Chloride 129 H Carbon Dioxide 16 L Anion Gap 9.0 BUN 17 Creatinine 1.95 H Est Cr Clr Drug Dosing 28.1 Est GFR ( Amer) 30.5 Est GFR (Non-Af Amer) 26.3 BUN/Creatinine Ratio 8.8 L Glucose 115 H Calcium 9.4 Magnesium Total Bilirubin AST ALT Alkaline Phosphatase Ammonia 69.0 H Total Protein Albumin Globulin Albumin/Globulin Ratio
[2019-05-05] MEDS: DEXTROSE 5% 1,000 ML IV SCH ×2 (10:16→20:34)
[2019-05-05] MEDS ORDERED: POTASSIUM CHLORIDE / WTR 10 MEQ/100 ML PLCT IV ONE (11:00)
[2019-05-05] MEDS ORDERED: LACTULOSE 200 GM, WATER, STERILE IRRIG 700 ML, BARCODE IDENTIFIER 1 EA PR PRN (15:30)
--- NOTE | 2019-05-05 18:06 | Hospitalist Progress Note ---
Date of Service May 05, 2019 Assessment & Plan (1) Encephalopathy, hepatic: (1) Encephalopathy, hepatic: Per admitting service notes: Recurrent admissions Presented with altered mental status Negative CT of the head --Ammonia level 69 from 86 --Continue lactulose and rifaximin --Patient drowsy today Likely secondary to Ativan, dose reduced 2.5 every 12 Continue to monitor, continue one-to-one observation (2) Alcoholic cirrhosis: Has alcoholic cirrhosis Unfortunately continues to drink --Gabapentin protocol, will need to be restarted once patient is more alert and able to take p.o. medications (3) NASIM (acute kidney injury): Per admitting service notes Creatinine noted to be elevated at 2.21 on admission Seems to have NASIM likely secondary to dehydration and evidenced by hematuria [employer] Supervisor consulted -- Creatinine stable at 2 -- On D5 water plus albumin (4) Elevated LFTs: Secondary to cirrhosis Total bili 4.2 now 4.8 AST improving INR 2.2 Acute cholecystitis ruled out Noted to have gallstones with thickening of the gallbladder on CT of the abdomen and pelvis Ultrasound did show gallstones but no acute cholecystitis (5) Thrombocytopenia concurrent with and due to alcoholism: Secondary to alcoholism (6) Depression: Continue current medications --Per patient's , patient's depressive symptoms have been worsening at home We will consult psychiatry service when patient's mental status improves (7) Esophageal varices: No evidence of hematemesis and no melena Continue PPI (8) Anemia: Chronic anemia secondary to chronic disease No acute GI bleed Hemoglobin remains stable Discussed in detail and at length with patient's All questions answered He is agreeable and comfortable with the plan of care Subjective ff for hepatic encephalopathy, acute kidney injury Seen 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 Patient mostly sleeping, but otherwise comfortable Already had 2-3 BMs today Patient is drowsy, moaning with tactile stimuli Not in distress Moves all extremities equally Review of Systems Review of Systems: All systems reviewed & are unremarkable except as noted in HPI & below Physical Exam Physical Exam: General-drowsy, not in distress, breathing with no effort or accessory muscle use Head- atraumatic Eyes- PERRL, EOMI, anicteric ENT- oropharynx clear Neck- supple, no JVD, no adenopathy, no thyromegaly; carotids +2/2, no bruits appreciated Lungs- clear to auscultation bilaterally, no rales/wheezes Heart- normal rate, regular rhythm; no murmur, no gallop, no rub appreciated Abdomen- normal bowel sounds, nondistended, soft, nontender, no masses or hepatosplenomegaly Extremities- no pretibial edema, no calf tenderness; peripheral pulses intact Neuro-drowsy but no gross focal neurologic deficits noted Skin- warm & dry Results & Data Vital Signs (Past 12 Hours) Vital Signs Temp Pulse Pulse Resp BP Pulse Ox 05/05/19 16:00 81 05/05/19 14:59 37.2 C 74 22 129/89 98 05/05/19 11:17 36.7 C 75 18 128/76 93 05/05/19 06:58 36.7 C 72 22 111/74 96 Laboratory Results Laboratory Results - last 24 hr 05/05/19 05/05/19 05/05/19 03:20 03:20 03:20 WBC 4.35 L RBC 2.39 L Hgb 8.8 L Hct 25.2 L MCV 105.4 H MCH 36.8 H MCHC 34.9 RDW Std Deviation 67.5 H RDW Coeff of Adam 17.6 H Plt Count 36 L MPV 11.3 H Immature Gran % (Auto) 0.0 Neut % (Auto) 79.6 Lymph % (Auto) 10.8 [place] % (Auto) 8.0 Eos % (Auto) 1.6 Baso % (Auto) 0.0 Immature Gran # (Auto) 0.00 Neut # (Auto) 3.46 Lymph # (Auto) 0.47 L [place] # (Auto) 0.35 Eos # (Auto) 0.07 Baso # (Auto) 0.00 Target Cells 1+ Echinocytes 2+ PT 21.7 H INR 2.2 H Sodium 153 H Potassium 3.4 L Chloride 131 H Carbon Dioxide 19 L Anion Gap 3.0 BUN 16 Creatinine 2.02 H Est Cr Clr Drug Dosing 27.3 Est GFR ( Amer) 29.3 Est GFR (Non-Af Amer) 25.2 BUN/Creatinine Ratio 8.0 L Glucose 120 H Calcium 9.0 Total Bilirubin 4.8 H AST 44 H ALT 32 Alkaline Phosphatase 74 Ammonia Total Protein 5.8 L Albumin 3.0 L Globulin 2.8 Albumin/Globulin Ratio 1.1 05/05/19 05/05/19 03:20 07:58 WBC RBC Hgb Hct MCV MCH MCHC RDW Std Deviation RDW Coeff of Adam Plt Count MPV Immature Gran % (Auto) Neut % (Auto) Lymph % (Auto) [place] % (Auto) Eos % (Auto) Baso % (Auto) Immature Gran # (Auto) Neut # (Auto) Lymph # (Auto) [place] # (Auto) Eos # (Auto) Baso # (Auto) Target Cells Echinocytes PT INR Sodium 154 H Potassium 3.8 Chloride 129 H Carbon Dioxide 16 L Anion Gap 9.0 BUN 17 Creatinine 1.95 H Est Cr Clr Drug Dosing 28.1 Est GFR ( Amer) 30.5 Est GFR (Non-Af Amer) 26.3 BUN/Creatinine Ratio 8.8 L Glucose 115 H Calcium 9.4 Total Bilirubin AST ALT Alkaline Phosphatase Ammonia 69.0 H Total Protein Albumin Globulin Albumin/Globulin Ratio
[2019-05-05] MEDS: LORazepam 0.5 MG/1 ML VIAL IV PRN (18:25)
[2019-05-05] MEDS: ACETAMINOPHEN 65 ML IV SCH (19:03)
--- NOTE | 2019-05-05 19:06 | Communication Note ---
Date of Service: May 05, 2019 Notified by RN as patient was having restlessness as observed by Discussed in detail at length with him and , he feels patient is restless and uncomfortable Patient seen examined at the bedside, sleeping, but with verbal/tactile stimuli becomes somewhat restless and moans Patient likely having encephalopathy, multifactorial from elevated ammonia, acute kidney injury, etc. Upon discussion with patient's , he reiterates that he is priority is for the patient to be comfortable Ativan 0.5 mg IV ordered, and Tylenol IV as well-patient has been agreeable and comfortable with the plan of care Will observe patient's progress in the next 24 hours Kg Pavon MD
[2019-05-05] MEDS: LACTOBACILLUS ACIDOPHILUS (FLORANEX) TAB PO SCH (20:29)
[2019-05-06] MEDS: ACETAMINOPHEN 65 ML IV SCH ×3 (02:06→19:45)
[2019-05-06] MEDS: MAGNESIUM OXIDE 400 MG TAB PO SCH ×2 (08:00→19:45)
[2019-05-06] MEDS: guaiFENesin 600 MG TABCR PO SCH ×2 (08:00→19:45)
[2019-05-06] MEDS: FERROUS SULFATE 325 MG TAB PO SCH (08:00)
[2019-05-06] MEDS: CEROVITE ADV FORMULA TAB PO SCH (08:00)
[2019-05-06] MEDS: FOLIC ACID 1 MG TAB PO SCH (08:00)
[2019-05-06] MEDS: GABAPENTIN 100 MG CAP PO SCH ×2 (08:00→19:45)
[2019-05-06] MEDS: CHOLECALCIFEROL 1,000 UNITS TAB PO SCH (08:01)
[2019-05-06] MEDS: VITAMIN B COMPLEX TAB PO SCH (08:01)
[2019-05-06] MEDS: PANTOprazole 40 MG TAB PO SCH (08:01)
[2019-05-06] MEDS: RIFAXIMIN 550 MG TABLET PO SCH ×2 (08:01→19:45)
[2019-05-06] MEDS: DEXTROSE 5% 1,000 ML IV SCH (08:10)
[2019-05-06] MEDS: ALBUMIN 25% 50 ML IV SCH ×2 (08:11→10:55)
[2019-05-06] MEDS: FAMOTIDINE 20 MG in SYRINGE 3 ML IV SCH ×2 (08:12→19:54)
[2019-05-06] MEDS: THIAMINE HCL 100 MG in SYRINGE 9 ML IV SCH (08:12)
[2019-05-06] MEDS: LORazepam 0.5 MG/1 ML VIAL IV PRN ×3 (09:06→18:31)
[2019-05-06 09:12] LABS: BUN Creatinine Ratio 10.6 (10-20); Calcium 9.4 mg/dl (8.5-10.1); Creatinine Clr Calc Pharmacy 25.8 ml/min; Est GFR (African American) 27.9; Est GFR (Non-African American) 24.1
[2019-05-06] MEDS: LACTULOSE SYRUP 30 GM/45 ML UDP PO SCH ×3 (09:28→19:45)
[2019-05-06] MEDS ORDERED: LORazepam 0.5 MG/1 ML VIAL IV PRN (09:56)
[2019-05-06] MEDS ORDERED: LORazepam 0.5 MG/1 ML VIAL IV STA (09:59)
--- NOTE | 2019-05-06 10:09 | Hospitalist Progress Note ---
Date of Service May 06, 2019 Assessment & Plan (1) Encephalopathy, hepatic: (1) Encephalopathy, hepatic: Per admitting service notes: Recurrent admissions Presented with altered mental status Negative CT of the head --Ammonia elevated at 86 -- has not been receiving PO lactulose and rifaximin in light of drowsiness has received lactulose enema intermittently (+) multiple BMs since yesterday -- Ammonia level now down to 40s -- still not following commands will discuss again with GI -- hepatic encephalopathy complicated by possible alcohol withdrawal last drink before admission, 05/03/19 will consult Neurologist --Continue lactulose and rifaximin --Continue to monitor, continue one-to-one observation (2) Alcoholic cirrhosis: Has alcoholic cirrhosis -- possible component of alcohol withdrawal, but no overt signs of DTs like sweating, tachycardia, seizures unable to take Gabapentin protocol due to mental status, Ativan 0.5mg IV q8h for now --Gabapentin protocol, will need to be restarted once patient is more alert and able to take p.o. medications (3) NASIM (acute kidney injury): Per admitting service notes Creatinine noted to be elevated at 2.21 on admission Seems to have NASIM likely secondary to dehydration and evidenced by hematuria Obiee Report Developer consulted -- Creatinine stable at 2.1 -- On D5 water plus albumin (4) Elevated LFTs: Secondary to cirrhosis Total bili 4.2 now 4.8 AST improving INR 2.2 Acute cholecystitis ruled out Noted to have gallstones with thickening of the gallbladder on CT of the abdomen and pelvis Ultrasound did show gallstones but no acute cholecystitis (5) Thrombocytopenia concurrent with and due to alcoholism: Secondary to alcoholism (6) Depression: Continue current medications --Per patient's , patient's depressive symptoms have been worsening at home We will consult psychiatry service when patient's mental status improves (7) Esophageal varices: -- No evidence of hematemesis and no melena Continue PPI (8) Anemia: Chronic anemia secondary to chronic disease No acute GI bleed Hemoglobin remains stable Subjective ff up for encephalopathy patient received 1 dose of Ativan IV overnight still drowsy, eyes closed but restless not in distress on exam, patient still has her eyes closed, does not follow commands appears to be moving extremities more, restless but not agitated (+) large BMs this AM, multiple small BMs through the night Review of Systems Review of Systems: All systems reviewed & are unremarkable except as noted in HPI & below Physical Exam Physical Exam: General- drowsy, does not follow commands Eyes- anicteric Neck- no JVD Lungs- clear breath sounds bilaterally, no wheezing, no crackles Heart- normal rate, regular rhythm; no murmurs Abdomen- normal bowel sounds, nondistended, soft, nontender Extremities- no pretibial edema, no calf tenderness Neuro- drowsy, eyes closed, does not follow commands, pupils equal round reactive to light, moves all extremities equally Skin- warm & dry Results & Data Vital Signs (Past 12 Hours) Vital Signs Temp Pulse Resp BP Pulse Ox 05/06/19 07:58 36.7 C 05/06/19 07:02 37.8 C H 91 H 24 149/89 H 93 05/06/19 03:09 37.0 C 75 23 114/71 97 05/05/19 23:11 36.9 C 80 24 118/75 96 Laboratory Results Laboratory Results - last 24 hr 05/06/19 05/06/19 08:30 08:34 Sodium 154 H Potassium 3.0 L D Chloride 130 H Carbon Dioxide 17 L Anion Gap 7.0 BUN 22 H Creatinine 2.10 H Est Cr Clr Drug Dosing 25.8 Est GFR ( Amer) 27.9 Est GFR (Non-Af Amer) 24.1 BUN/Creatinine Ratio 10.6 Glucose 155 H Calcium 9.4 Ammonia 43.9 H
--- NOTE | 2019-05-06 10:28 | Gastroenterology Progress Note ---
Date of Service May 06, 2019 Assessment & Plan (1) Encephalopathy, hepatic: 1. Renal function stable, managed by nephrology - appreciate. 2. Diuretics held - would defer restarting to nephrology. 3. Needs complete, permanent alcohol abstention. She is in intensive counseling - continue. 5. Lactulose TID. If refuses po, then needs to be given by enema (order in place). Nursing: Please give the enema, even if she is not retaining. 6. Restart Rifaximin 550mg BID when alert enough to take po. 7. No diagnostic tap needed because very little ascites on imaging and typically SBP occurs only when a significant amount of ascites. 9. Will add methylprednisolone for tx of alcoholic hepatitis. 40mg IV daily. 10. Consider transfer to tertiary care center for consideration for liver transplant, though still drinking alcohol. Supervising Physician Co-Signing Physician Notes I saw and evaluated the patient, she continues to have an altered mental status and is not able to provide any historical information this afternoon. Due to the patient's alcohol use she is not a good candidate for liver transplantation. Recommendations Minimize use of narcotics and benzodiazepines Continue lactulose enemas Begin methylprednisolone 40 mg/day x 28 days (then taper with 30 mg x 1 week, 20 mg x 1 week, and 10 mg x 1 week) Subjective Ms. Mary Rueda is a 63 yr old female admitted on 05/03 for ETOH cirrhosis (continuing to drink alcohol). Admitted with signs of hepatic encephalopathy. No clear trigger - no abnormalities on urine, CXR and no large ascites. Pt is lethargic, not responding to verbal stimulation and minimal response to tactile stimulation. She is receiving benzos for alcohol withdrawal. Labs: INR 2.2 Ammonia 86->43. Cr 2.2->2.1 Na 154 K 3.0 T Bili 4.2->4.8 Maddrey's DF = 42. MELD = 28 (though not a candidate for transplant because has not abstained). Review of Systems Review of Systems: pt unable to provide ROS Physical Exam Constitutional: + ill appearing and + obese; no acute distress and not edematous Minimally responsive to tactile, no verbal ENMT: external ear and nose normal, oropharynx normal Neck: trachea midline, no thyromegaly Respiratory: normal respiratory effort, lungs clear to auscultation Cardiovascular: RRR, no murmur, no edema Gastrointestinal (Abdomen): Inspection/Auscultation: abdomen normal to inspection and + hypoactive bowel sounds; abdomen not distended and no abdominal edema Percussion/Palpation: abdomen soft; abdomen nontender (no evdence of pain on palpation) Skin: no rashes, warm and dry no jaundice Neurologic: PERRL, EOMI, accommodation nl, no face palsy, no dysarthria Motor/Sensory: no tremor and no asterixis Results & Data Vital Signs (Past 12 Hours) Vital Signs Temp Pulse Resp BP Pulse Ox 05/06/19 07:58 36.7 C 05/06/19 07:02 37.8 C H 91 H 24 149/89 H 93 05/06/19 03:09 37.0 C 75 23 114/71 97 05/05/19 23:11 36.9 C 80 24 118/75 96
[2019-05-06] MEDS ORDERED: methylPREDNISolone 20 MG in SYRINGE 0 ML IV SCH (12:00)
[2019-05-06] MEDS ORDERED: GABAPENTIN 600 MG TAB PO SCH ×2 (12:00→21:00)
--- NOTE | 2019-05-06 17:16 | Nephrology Progress Note ---
Date of Service May 06, 2019 Assessment & Plan (1) NASIM (acute kidney injury): nonoliguric acute kidney injury from ischemic ATN in setting of hypotension. Urinalysis showing 10-30 RBCs per high-power field which would be consistent with ATN. She is making urine now but still oliguric. Her blood pressure is better. Hepatorenal syndrome would be entertained after fluid challenge. No indication for dialysis. Creatinine stable at 2 but she has hyponatremia of 153 -We will continue Albumin 25 g 3 times daily for today. -If blood pressure remains low we will start midodrine but can hold off for now. -Monitor renal function with daily BMP. Avoid nephrotoxins. -Start D5 water at 80 mL/h. (2) Encephalopathy, hepatic: Patient with altered mental status likely hepatic encephalopathy. Consider reducing the Ativan on Neurontin as patient is quite somnolent. She is unable to metabolize his medications in setting of acute kidney injury. This is not uremia given BUN of 14. We will continue to monitor renal function. (3) Hypokalemia: and w/ metabolic acidosis >> will put K (40 mEq/L) and sodium bicarb into fluids (4) Hypernatremia: slightly worse today - increase D5W to 125 ml/hr w/ additives above Present on Admission?: Yes Subjective did have massive /explosive BM this am remains w/ sitter; more agitated today; not responsive/interactive Review of Systems Review of Systems: Unobtainable due to reduced consciousness Physical Exam Constitutional: well developed, well nourished and + altered mental status ENMT: Ears: no external ear abnormality Nose: no external nose abnormality Mouth: + dry oral mucous membranes Neck: no nuchal rigidity Respiratory: normal respiratory effort Auscultation: + diminished lung sounds Cardiovascular: Rate/Rhythm: regular rate and regular rhythm Extremities: no edema Gastrointestinal (Abdomen): Inspection/Auscultation: + abdomen distended and normal bowel sounds Percussion/Palpation: abdomen soft; abdomen nontender and no ascites Musculoskeletal: Extremities: strength 5/5 throughout Skin: no rashes, warm and dry Neurologic: webb; not interactive Genitourinary: clay w/ scant brown urine Results & Data Vital Signs (Past 12 Hours) Vital Signs Temp Pulse Resp BP Pulse Ox 05/06/19 15:28 36.6 C 84 20 135/81 95 05/06/19 11:15 37 C 71 18 115/66 98 05/06/19 07:58 36.7 C 05/06/19 07:02 37.8 C H 91 H 24 149/89 H 93 Laboratory Results 05/05/19 03:20 05/06/19 08:30
[2019-05-06] MEDS: POTASSIUM CHLORIDE / WTR 10 MEQ/100 ML PLCT IV SCH ×4 (17:40→21:23)
[2019-05-06] MEDS: SODIUM BICARBONATE IV SCH (17:51)
[2019-05-06] MEDS: POTASSIUM CHLORIDE IV SCH (17:51)
[2019-05-06] MEDS: DEXTROSE 5% IV SCH (17:51)
--- NOTE | 2019-05-06 19:11 | XRay Report ---
XR chest 1V portable CLINICAL HISTORY: wheezing dyspnea COMPARISON STUDY: 05/02/2019 FINDINGS: Minimal interstitial infiltrate left base. Small hiatal hernia. Lungs otherwise appear kylie r. Diaphragms are smooth. IMPRESSION: Minimal interstitial infiltrate left base. ACT 112: Negative or not required by law. The above report was generated using voice recognition software. It may contain grammatical, syntax or spelling errors. Electronically signed by: Carlos Mahan M.D. 05/06/2019 7:10 PM
[2019-05-06] MEDS: LACTOBACILLUS ACIDOPHILUS (FLORANEX) TAB PO SCH (19:45)
[2019-05-07] MEDS ORDERED: ALBUT/IPRATROP 3MG/0.5MG NEB 3 ML VIAL NEB STA (00:01)
[2019-05-07] MEDS ORDERED: PIPERACILL/TAZOBAC CONSULT ACTIVE PRN (00:19)
--- NOTE | 2019-05-07 00:19 | Communication Note ---
Date of Service: May 07, 2019
[2019-05-07 00:38] LABS: Hemoglobin 7.5 g/dL (12.0-16.0); Mean Corpuscular Hemoglobin 37.1 pg (25-34); Mean Corpuscular Hgb Conc 35.7 g/dL (32-36); RDW Coefficient of Variation 17.6 % (11.5-14.5); RDW Standard Deviation 67.1 fL (36.4-46.3); Red Blood Count 2.02 M/uL (4.2-5.4); White Blood Count 3.85 K/uL (4.8-10.8)
[2019-05-07 00:42] LABS: Base Excess ABG -9.3 mEq/L (-9-1.8); HCO3 ABG 15 mmol/L (19-24); Oxygen Saturation ABG 99.3 % (90-95); PCO2 ABG 26 mmHg (35-46); PO2 ABG 196 mm/Hg (80-95); pH ABG 7.38 (7.35-7.45)
[2019-05-07 00:45] LABS: Allen Test Pos (Pos)
[2019-05-07] MEDS ORDERED: PIPERACILLIN/TAZOBACTAM 4.5 GM in DEXTROSE 5% 100 ML IV STA (00:55)
[2019-05-07] MEDS ORDERED: methylPREDNISolone 40 MG in SYRINGE 0 ML IV STA (00:55)
[2019-05-07 01:02] LABS: Albumin Globulin Ratio 1.7 (0.9-2); Albumin Level 3.5 gm/dl (3.4-5.0); Bilirubin,Total 7.2 mg/dl (0.2-1); Creatinine Clr Calc Pharmacy 28.5 ml/min; Est GFR (African American) 31.5; Est GFR (Non-African American) 27.2; Globulin 2.1 gm/dl (2.5-4.0); Magnesium 1.4 mg/dl (1.8-2.4); Potassium 2.7 mmol/L (3.5-5.1); Total Protein 5.6 gm/dl (6.4-8.2)
[2019-05-07 01:09] LABS: Mean Platelet Volume 10.6 fL (7.4-10.4); Platelet Count 31 K/uL (130-400)
[2019-05-07 01:11] LABS: Echinocytes 2+; Immature Granulocytes # (auto) 0.02 K/uL (0.00-0.02); Immature Granulocytes % (auto) 0.5 %; Lymphocytes # (auto) 0.39 K/uL (1.2-3.4); Lymphocytes % (auto) 10.1 %; Monocytes # (auto) 0.24 K/uL (0.11-0.59); Monocytes % (auto) 6.2 %; Neutrophils % (auto) 83.2 %; Toxic Granulation 1+
[2019-05-07 01:12] LABS: INR 2.8 (0.9-1.1); Prothrombin Time 26.5 Seconds (9.0-12.0)
[2019-05-07] MEDS ORDERED: CARBOHYDRATES FOR HYPOGLYCEMIA PO PRN (01:13)
[2019-05-07] MEDS ORDERED: INSULIN GLARGINE SOLOSTAR 100 UNITS/ML 3 ML PEN SC STA (01:13)
[2019-05-07] MEDS ORDERED: GLUCAGON FOR INJ 1 MG VIAL SQ PRN (01:13)
[2019-05-07] MEDS ORDERED: GLUCOSE 10 TABS/TUBE PO PRN (01:13)
[2019-05-07] MEDS ORDERED: GLUCOSE 40% GEL 15 GM TUBE PO PRN (01:13)
[2019-05-07] MEDS ORDERED: DEXTROSE 50% 50 ML SYRINGE IV PRN (01:13)
[2019-05-07 01:21] LABS: Partial Thromboplastin Time 54.2 Seconds (21.0-31.0)
[2019-05-07] MEDS ORDERED: SODIUM CHLORIDE 0.9% 250 ML IV PRN ×3 (01:36→08:24)
[2019-05-07] MEDS: INSULIN ASPART 100 UNITS/ML 3 ML PEN SC SCH ×3 (01:46→11:35)
[2019-05-07] MEDS: POTASSIUM CHLORIDE / WTR 10 MEQ/100 ML PLCT IV SCH ×8 (01:52→10:33)
[2019-05-07] MEDS: MAGNESIUM SULFATE / D5W 1 GM/100 ML BAG IV SCH ×3 (01:52→03:40)
--- NOTE | 2019-05-07 02:03 | Hospitalist Progress Note ---
Date of Service May 07, 2019 Assessment & Plan (1) UGIB (upper gastrointestinal bleed): History alcoholic cirrhosis History esophageal varices as per records Hepatorenal syndrome H CAP possible aspiration Possible sepsis ICU transfer for closer monitoring IV PPI, Octreotide for UGIB, history of esophageal varices Trend H&H, transfuse PRBC if hemoglobin less than 7 Cultures, IV Zosyn Fresh frozen plasma for worsening coagulopathy of chronic liver disease. Patient's updated of events over the phone and he was agreeable to plan of care. Verbal consent for blood product transfusion for patient obtained from the over the phone. Will relay developments to AM provider. Subjective Made aware by RN of tachypnea, abdominal breathing around 11:30 PM last night. Patient still lethargic as per RN. Belly distended, dark stools noted during shift as per RN. Physical Exam Physical Exam: GENERAL: Obtunded, restless, no respiratory distress SKIN: Pallor, warm HEENT: Pale palpebral conjunctivae, no ptosis, dry buccal mucosa NECK : Supple, no tenderness CHEST : Decreased breath sounds , no tenderness HEART : RRR, no obvious murmurs ABDOMEN: distention, nontender RECTAL : Intact sphincter, black stool, FOBT positive EXTREMITIES : Minimal LE swelling, no LE tenderness, no other conspicuous deformities noted NEUROLOGIC : Obtunded, restless , no facial asymmetry, gait and stance not assessed Results & Data Vital Signs (Past 12 Hours) Vital Signs Temp Pulse Resp BP BP Pulse Ox 05/07/19 00:18 67 20 97 05/06/19 23:38 36.2 C L 80 36 H 129/85 95 05/06/19 20:01 36.4 C L 05/06/19 18:21 37.4 C 75 22 141/80 H 98 05/06/19 15:28 36.6 C 84 20 135/81 95 Laboratory Results Laboratory Results WBC 3.85 K/uL (4.8-10.8) L 05/07/19 00:20 RBC 2.02 M/uL (4.2-5.4) L 05/07/19 00:20 Hgb 7.5 g/dL (12.0-16.0) L 05/07/19 00:20 Hct 21.0 % (37-47) L 05/07/19 00:20 MCV 104.0 fL (80-100) H 05/07/19 00:20 MCH 37.1 pg (25-34) H 05/07/19 00:20 MCHC 35.7 g/dL (32-36) 05/07/19 00:20 RDW Std Deviation 67.1 fL (36.4-46.3) H 05/07/19 00:20 RDW Coeff of Adam 17.6 % (11.5-14.5) H 05/07/19 00:20 Plt Count 31 K/uL (130-400) L 05/07/19 00:20 MPV 10.6 fL (7.4-10.4) H 05/07/19 00:20 Immature Gran % (Auto) 0.5 % 05/07/19 00:20 Neut % (Auto) 83.2 % 05/07/19 00:20 Lymph % (Auto) 10.1 % 05/07/19 00:20 Moore % (Auto) 6.2 % 05/07/19 00:20 Eos % (Auto) 0.0 % 05/07/19 00:20 Baso % (Auto) 0.0 % 05/07/19 00:20 Immature Gran # (Auto) 0.02 K/uL (0.00-0.02) 05/07/19 00:20 Neut # (Auto) 3.20 K/uL (1.4-6.5) 05/07/19 00:20 Lymph # (Auto) 0.39 K/uL (1.2-3.4) L 05/07/19 00:20 Moore # (Auto) 0.24 K/uL (0.11-0.59) 05/07/19 00:20 Eos # (Auto) 0.00 K/uL (0-0.5) 05/07/19 00:20 Baso # (Auto) 0.00 K/uL (0-0.2) 05/07/19 00:20 Toxic Granulation 1+ 05/07/19 00:20 Platelet Estimate Decreased (Normal) L 05/04/19 06:48 Anisocytosis Present 05/02/19 19:41 Macrocytosis Present 05/02/19 19:41 Target Cells 1+ 05/05/19 03:20 Echinocytes 2+ 05/07/19 00:20 PT 26.5 Seconds (9.0-12.0) H 05/07/19 00:34 INR 2.8 (0.9-1.1) H 05/07/19 00:34 APTT 54.2 Seconds (21.0-31.0) H* 05/07/19 00:34 PTT Ratio 2.0 05/07/19 00:34 ABG pH 7.38 (7.35-7.45) 05/07/19 00:20 ABG pCO2 26 mmHg (35-46) L 05/07/19 00:20 ABG pO2 196 mm/Hg (80-95) H 05/07/19 00:20 ABG HCO3 15 mmol/L (19-24) L 05/07/19 00:20 ABG O2 Saturation 99.3 % (90-95) H 05/07/19 00:20 ABG Base Excess -9.3 mEq/L (-9-1.8) L 05/07/19 00:20 Eder Test Pos (Pos) 05/07/19 00:20 Barometric Pressure 726.9 mm/Hg 05/07/19 00:20 Oxygen Given 7L O2 05/07/19 00:20 Sodium 151 mmol/L (136-145) H 05/07/19 00:20 Potassium 2.7 mmol/L (3.5-5.1) L 05/07/19 00:20 Chloride 131 mmol/L (98-107) H 05/07/19 00:20 Carbon Dioxide 15 mmol/L (21-32) L 05/07/19 00:20 Anion Gap 5.0 (3-11) 05/07/19 00:20 BUN 25 mg/dl (7-18) H 05/07/19 00:20 Creatinine 1.90 mg/dl (0.6-1.2) H 05/07/19 00:20 Est Cr Clr Drug Dosing 28.5 ml/min 05/07/19 00:20 Est GFR ( Amer) 31.5 05/07/19 00:20 Est GFR (Non-Af Amer) 27.2 05/07/19 00:20 BUN/Creatinine Ratio 13.0 (10-20) 05/07/19 00:20 Glucose 175 mg/dl (70-99) H 05/07/19 00:20 POC Glucose 168 (70-99) H 05/07/19 01:28 Lactate 1.9 mmol/L (0.4-2.0) 05/07/19 00:20 Calcium 9.0 mg/dl (8.5-10.1) 05/07/19 00:20 Phosphorus 3.6 mg/dl (2.5-4.9) D 05/04/19 08:06 Magnesium 1.4 mg/dl (1.8-2.4) L 05/07/19 00:20 Total Bilirubin 7.2 mg/dl (0.2-1) H 05/07/19 00:20 Direct Bilirubin 1.8 mg/dl (0-0.2) H 05/03/19 08:54 AST 104 U/L (15-37) H 05/07/19 00:20 ALT 37 U/L (12-78) 05/07/19 00:20 Alkaline Phosphatase 61 U/L (45-117) 05/07/19 00:20 Ammonia 105.0 umol/L (11-32) H 05/07/19 00:20 Troponin I < 0.015 ng/ml (0-0.045) 05/02/19 19:41 Total Protein 5.6 gm/dl (6.4-8.2) L 05/07/19 00:20 Albumin 3.5 gm/dl (3.4-5.0) 05/07/19 00:20 Globulin 2.1 gm/dl (2.5-4.0) L 05/07/19 00:20 Albumin/Globulin Ratio 1.7 (0.9-2) 05/07/19 00:20 Vitamin B12 > 2000 pg/ml (211-911) H 05/03/19 05:54 Folate > 24.00 ng/ml (>5.38) 05/03/19 05:54 TSH 1.700 uIu/ml (0.300-4.500) 05/02/19 19:41 Urine Color Yellow 05/03/19 03:30 Urine Appearance Slightly Cloudy (Clear) 05/03/19 03:30 Urine pH 6.5 (4.5-7.5) 05/03/19 03:30 Ur Specific Swiss 1.010 (1.000-1.030) 05/03/19 03:30 Urine Protein 1+ (Negative) H 05/03/19 03:30 Urine Glucose (UA) Negative (Negative) 05/03/19 03:30 Urine Ketones Trace (Negative) H 05/03/19 03:30 Urine Blood 1+ (Negative) H 05/03/19 03:30 Urine Nitrite Negative (Negative) 05/03/19 03:30 Urine Bilirubin 1+ (Negative) H 05/03/19 03:30 Urine Urobilinogen Negative (Negative) 05/03/19 03:30 Ur Leukocyte Esterase Negative (Negative) 05/03/19 03:30 Urine RBC 10-30 /hpf (0-4) H 05/03/19 03:30 Urine WBC 5-10 /hpf (0-5) H 05/03/19 03:30 Ur Epithelial Cells >30 /lpf (0-5) H 05/03/19 03:30 Urine Bacteria Negative (Negative) 05/03/19 03:30 Urine Opiates Screen Cancelled 05/03/19 20:00 Ur Methadone, Qual Cancelled 05/03/19 20:00 Urine Barbiturates Cancelled 05/03/19 20:00 Ur Phencyclidine (PCP) Cancelled 05/03/19 20:00 U Amphetamin/Meth Scrn Cancelled 05/03/19 20:00 MDMA (Ecstasy) Screen Cancelled 05/03/19 20:00 U Benzodiazepines Scrn Cancelled 05/03/19 20:00 Ur Cocaine Metabolite Cancelled 05/03/19 20:00 U Marijuana (THC) Screen Cancelled 05/03/19 20:00 Diagnostic Findings Chest x-ray as per my interpretation atelectasis, right infiltrate
[2019-05-07] MEDS ORDERED: CONSULT PHARMACY STA (02:17)
[2019-05-07] MEDS ORDERED: PANTOprazole 80 MG in DEXTROSE 5% 100 ML IV STA (02:30)
[2019-05-07] MEDS ORDERED: ICU PROTOCOL FOR HYPERGLYCEMIA PRN ×2 (02:50→03:02)
[2019-05-07] MEDS: OCTREOTIDE ACETATE 500 MCG in 0.9 % SODIUM CHLORIDE 100 ML IV SCH ×2 (02:54→13:02)
[2019-05-07] MEDS: PANTOprazole 40 MG in DEXTROSE 5% 100 ML IV SCH ×3 (02:55→13:02)
[2019-05-07] MEDS ORDERED: fentaNYL citrate 100 MCG/2 ML VIAL IV PRN (03:02)
[2019-05-07] MEDS ORDERED: ACETAMINOPHEN 65 ML IV PRN (03:02)
[2019-05-07] MEDS ORDERED: SODIUM BICARBONATE 8.4% 150 MEQ, POTASSIUM CHLORIDE 40 MEQ in DEXTROSE 5% 1,000 ML IV SCH (03:15)
[2019-05-07] MEDS ORDERED: OCTREOTIDE ACETATE 50 MCG in SYRINGE 9.5 ML IV STA (03:20)
--- NOTE | 2019-05-07 03:45 | Critical Care Consultation ---
Date of Consultation May 07, 2019 Assessment & Plan (1) Acute liver failure: Reason Critically Ill: 63-year-old female with worsening of acute alcoholic hepatitis now developing GI bleed Neuro - Metabolic encephalopathylikely hepatic in origin considering ammonia of 114, cannot rule out alcohol withdrawal -Limiting benzos/Neurontin as patient has been somnolent -BUN within normal limits -We will continue lactulose enemas as patient is unable to tolerate oral -No acute abnormality on CT -Trend ammonia, expect to improve with downtrend -Monitor for worsening neuro status, will keep n.p.o. for now Cardiac - Patient currently sinus rhythm, hemodynamically stable Respiratory - CXR appeared to show minimal left basilar infiltrate, primary team started Zosyn to cover H CAP, will monitor Patient currently maintaining oxygen saturations on room air, continuous monitoring on sat probe Patient mildly tachypneic likely contributed to compensation for metabolic acidosis, will monitor closely and intubate if patient begins to tire GI - Acute alcoholic hepatitispatient current drinker and not candidate for liver transplant -Meld score worsened from 28-31 this a.m., will continue to trend -Consider palliative consult with high mortality probability -History of portal hypertension and esophageal varices with stent in 2016 -Started on N-acetylcysteine infusion -GI following, will follow up recommendations -Continue folate, rifaximin, thiamine, multivitamin -AWSS scale, seizure precautions, PRN Ativan for withdrawals -We will trend BMPs, LFTs, VBG's, coags every 6 hours GI bleedpatient's hemoglobin dropped from 8.5-7.5 in 24 hours. -Hemoccult positive -Patient with history of esophageal varices and anal fissure -Started on octreotide and Protonix drips -Keeping n.p.o. for now -We will trend H&H and transfuse for hemoglobin less than 7 -Attempting to correct prolonged INR, transfused with FFP, platelets, IV vitamin K - RENAL/LYTES - AKIcreatinine currently stable at 1.9, will continue to trend -Likely ATN, nephrology following, will follow recommendations -Cannot rule out hepatorenal syndrome at this time -We will continue bicarb drip now -Avoid nephrotoxins -Follow-up nephrology recommendations - Foleystrict I's and O's ENDO - No history DM or thyroid disease, ICU hypoglycemic protocol HEME - Pancytopenialikely in the setting of chronic alcohol abuse with bone marrow suppression -We will continue to trend CBCs -Platelets 32,000, consider transfusion for less than 50,000 if patient requires procedures Elevated INRsecondary to liver failure -Was transfused with 2 units FFP and platelets -Given IV vitamin K -We will consider PCC if H&H does not stabilize or patient requires emergent procedure in the near setting ID - Per GI, patient low risk for developing SBP secondary to small size of varices -Currently on Zosyn after CXR suggest possible pneumonia in left basilar -Blood cultures pending LINES/IV ACCESS - Peripheral IVs, midline DVT PROPHYLAXIS - SCDs, holding anticoagulation in the setting of elevated INR I have personally spent [] minutes of critical care time in the direct management of this patient. This is a life/limb threatening event. This includes time spent evaluating patient, direct bedside care, chart review, placing orders, interpretation of diagnostic studies, discussion with consultants, patient, and family members, as well as other required patient management activ ities. This time is exclusive of all separately billable procedures, and teaching time and separate from and in addition to any other critical care service time. Thank you for allowing us to participate in the care of this patient. Please refer to my attending physician's documentation for any further recommendations. (2) NASIM (acute kidney injury): (3) Encephalopathy, hepatic: (4) Pancytopenia: (5) Elevated LFTs: (6) Alcohol dependence: (7) Gastrointestinal bleeding: History of Present Illness Attending Physician: Kg Pavon MD History of Present Illness Ms. Redman is a 63-year-old female with a significant past medical history related to alcohol abuse (active drinker), alcoholic cirrhosis, chronic pancytopenia, esophageal varices stented 2015, who presents to the ICU as transfer for worsening acute alcoholic hepatitis and development of GI bleed. Patient is being followed by GI and is not currently candidate for liver transplant due to active drinking. Meld score this a.m. of 31 with high probability of mortality. INR 2.8, given vitamin K IV. Was also started on octreotide and Protonix drips., And started N-acetylcysteine infusion this a.m. Currently the patient is somnolent and does not respond appropriately due to hepatic encephalopathy is protecting airway. Patient's course complicated by NASIM, multiple electrolyte derangements, elevated INR. Patient will remain in ICU for now for further management of care for the time being. Allergies Allergy/AdvReac Type Severity Reaction Status Date / Time codeine Allergy Intermediate VOMITTING Verified 05/02/19 20:49 Sulfa (Sulfonamide Allergy Intermediate VOMITTING Verified 05/02/19 20:49 Antibiotics) lactose AdvReac Intermediate Diarrhea Verified 05/03/19 18:08 Home Medications Home Medications Medication Instructions Recorded Confirmed Type Probiotic 3,000 mmu cells PO HS 09/23/18 05/02/19 History ferrous sulfate 325 mg PO QAM 09/23/18 05/02/19 History folic acid 1 mg PO QAM 09/23/18 05/02/19 History gabapentin 600 mg PO TID 09/23/18 05/02/19 History omeprazole 40 mg PO QAM 09/23/18 05/02/19 History rifaximin 550 mg PO BID 09/23/18 05/02/19 History trazodone 50 mg PO HS PRN 09/23/18 05/02/19 History vitamin B complex [B-Complex] 1 tab PO QAM 09/29/18 05/02/19 History biotin 1 mg PO BID 10/08/18 05/02/19 History lactulose 15 ml PO TID 01/12/19 05/02/19 History ondansetron 4 mg PO Q8H PRN 01/12/19 05/02/19 History cholecalciferol (vitamin D3) 1,000 unit PO QAM 05/02/19 05/02/19 History [Vitamin D3] furosemide [Lasix] 40 mg PO DAILY 05/02/19 05/02/19 History magnesium oxide 400 mg PO AMHS 05/02/19 05/02/19 History naltrexone 50 mg PO QAM 05/02/19 05/02/19 History spironolactone [Aldactone] 100 mg PO DAILY 05/02/19 05/02/19 History vortioxetine [Trintellix] 5 mg PO DAILY 05/02/19 05/02/19 History Patient History Medical History Absence seizure last 2 years ago Alcohol abuse (Chronic) PER PT NO DRINKING PAST 7 WEEKS Alcoholic cirrhosis (Inactive) FOLLOWS W/ [facility] Anemia (Chronic) Anxiety (Chronic) Ascites (Chronic) managed with furosemide 20mg daily and spironolactone 50mg daily; reports paracentesis 3 years ago Back pain (Chronic) Depression (Chronic) Dyslipidemia (Chronic) Esophageal varices (Chronic) banded in 2015. Secondary prevention of variceal bleeding with Nadolol 40mg daily Hyperbilirubinemia (Chronic) Hypomagnesemia Supplemented, most recent Mg 1.2 on 10/08. Lumbar stenosis (Chronic) Noncompliance Per [facility] records, patient has been noncompliant with Lactulose, and continues to drink ETOH, leading to elevated ammonia levels, hypomagnesemia and hospitalizations/ED visits for confusion/AMS. Poor historian Portal hypertension Portal hypertensive gastropathy (Chronic) Thrombocytopenia (Chronic) 2/2 cirrhosis, most recent platelets 71 on 09/30 Surgical History H/O adenoidectomy (Chronic) H/O colonoscopy (Chronic) "09/2015 - normal " History of esophagogastroduodenoscopy (EGD) (Chronic) 09/09/2018 Impression: No evidence of esophageal varices. Post variceal banding scar in the lower third of the esophagus. Portal hypertensive gastropathy. Normal duodenal bulb and second portion of the duodenum. 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 Beliefs That Will Affect Care: None Current Living Situation: Spouse Feels Safe at Home: Yes Safety Concerns: Feels Safe At This Time Smoking Status: Former smoker Tobacco Type: cigarettes ; Second Hand Exposure: No ; Hx Alcohol Use: Yes Alcohol type: wine Hx Substance Use: No Review of Systems Review of Systems: Unobtainable due to cognitive status Physical Exam Constitutional: + ill appearing and + altered mental status Eyes: PERRLA, sclera jaundiced, ENMT: external ear and nose normal, oropharynx normal Neck: trachea midline, no thyromegaly Respiratory: Tachypnea, nonlabored breathing, lungs clear to auscultation in all fernando Cardiovascular: Rate/Rhythm: regular rate and regular rhythm Heart Sounds: normal S1 and normal S2 Vessels: no JVD Extremities: normal capillary refill Gastrointestinal (Abdomen): Inspection/Auscultation: + abdomen distended Percussion/Palpation: + abdomen tender and + ascites; no guarding Skin: Generalized bruising, jaundice Neurologic: Patient altered mental status, does not follow commands, symmetrical movement, Psychiatric: Unable to assess Genitourinary: Indwelling Long catheter present Results & Data Vital Signs (Past 12 Hours) Vital Signs Temp Pulse Pulse Resp BP BP BP 05/07/19 03:32 37.2 C 66 21 150/88 H 05/07/19 00:18 67 20 05/06/19 23:38 36.2 C L 80 36 H 129/85 05/06/19 20:01 36.4 C L 05/06/19 18:21 37.4 C 75 22 141/80 H Pulse Ox 05/07/19 03:32 96 05/07/19 00:18 97 05/06/19 23:38 95 05/06/19 20:01 05/06/19 18:21 98 Coding Level of Care Code Critical Care 1st 30-74 mins Diagnoses Acute liver failure K72.00 NASIM (acute kidney injury) N17.9 Encephalopathy, hepatic K72.90 Pancytopenia D61.818 Elevated LFTs R94.5 Alcohol dependence F10.29 Substance use status: unspecified alcohol-induced disorder Gastrointestinal bleeding K92.2 Time Spent (min) 85 (1) Alcohol dependence Substance use status: unspecified alcohol-induced disorder Qualified Code(s): F10.29 - Alcohol dependence with unspecified alcohol-induced disorder
[2019-05-07] MEDS: DEXTROSE 5% IV SCH (03:50)
[2019-05-07] MEDS: SODIUM BICARBONATE IV SCH (03:50)
[2019-05-07] MEDS: POTASSIUM CHLORIDE IV SCH (03:50)
[2019-05-07 04:36] LABS: Hemoglobin 7.7 g/dL (12.0-16.0)
[2019-05-07 04:39] LABS: Base Excess VBG -10.8 mEq/L; HCO3 VBG 14 mmol/L; PCO2 VBG 28 mmHg (38-50); PO2 VBG 34 mmHg; pH VBG 7.32 (7.36-7.41)
[2019-05-07 04:45] LABS: Oxygen Saturation VBG < 60.0 %
[2019-05-07] MEDS ORDERED: ACETYLCYSTEINE IV ONE ×2 (04:45→06:00)
[2019-05-07] MEDS ORDERED: DEXTROSE 5% IV ONE ×2 (04:45→06:00)
[2019-05-07] MEDS ORDERED: PHYTONADIONE 10 MG in SODIUM CHLORIDE 0.9% 50 ML IV ONE (04:45)
[2019-05-07] MEDS: ACETAMINOPHEN 65 ML IV SCH (04:52)
[2019-05-07 04:56] LABS: INR 2.4 (0.9-1.1); Partial Thromboplastin Ratio 1.7; Prothrombin Time 22.8 Seconds (9.0-12.0)
[2019-05-07 04:57] LABS: Albumin Level 3.6 gm/dl (3.4-5.0); BUN Creatinine Ratio 12.9 (10-20); Calcium 9.5 mg/dl (8.5-10.1); Creatinine Clr Calc Pharmacy 28.2 ml/min; Est GFR (African American) 31.1; Est GFR (Non-African American) 26.8; Magnesium 2.3 mg/dl (1.8-2.4); Potassium 3.4 mmol/L (3.5-5.1)
[2019-05-07 04:58] LABS: Bilirubin,Total 7.4 mg/dl (0.2-1); Phosphorus 2.6 mg/dl (2.5-4.9); Total Protein 5.9 gm/dl (6.4-8.2)
[2019-05-07 07:03] LABS: Estimated Average Glucose 85 mg/dl; Hemoglobin A1C 4.6 % (4.5-5.6)
--- NOTE | 2019-05-07 07:26 | XRay Report ---
SINGLE VIEW CHEST CLINICAL HISTORY: Respiratory distress. FINDINGS: An AP, portable, upright chest radiograph is compared to study dated 05/06/2019. The examinat ion is significant degraded by portable technique and patient rotation. The heart is enlarged. The pu lmonary vasculature is noncongested. There are low lung volumes with bibasilar atelectasis. No airspa ce consolidation or large pleural effusion is identified. No pneumothorax is seen. The skeletal struc tures are osteopenic. The bony thorax is grossly intact. IMPRESSION: Cardiomegaly with no acute cardiopulmonary abnormality. ACT 112: Negative or not required by law. Electronically signed by: Alvarado Pizarro M.D. 05/07/2019 7:25 AM
[2019-05-07 07:54] LABS: Hematocrit (blood only) 19.6 % (37-47); Hemoglobin 6.8 g/dL (12.0-16.0)
[2019-05-07 07:58] LABS: INR 2.3 (0.9-1.1); Partial Thromboplastin Ratio 1.5; Prothrombin Time 22.4 Seconds (9.0-12.0)
[2019-05-07] MEDS ORDERED: PIPERACILLIN/TAZOBACTAM 4.5 GM in DEXTROSE 5% 100 ML IV SCH (08:00)
[2019-05-07 08:01] LABS: HCO3 VBG 15 mmol/L; PCO2 VBG 27 mmHg (38-50); PO2 VBG 32 mmHg; pH VBG 7.37 (7.36-7.41)
[2019-05-07 08:02] LABS: Oxygen Saturation VBG < 60.0 %
[2019-05-07] MEDS: guaiFENesin 600 MG TABCR PO SCH (08:34)
[2019-05-07] MEDS: FOLIC ACID 1 MG TAB PO SCH (08:34)
[2019-05-07] MEDS: CEROVITE ADV FORMULA TAB PO SCH (08:34)
[2019-05-07] MEDS: GABAPENTIN 100 MG CAP PO SCH (08:35)
[2019-05-07] MEDS: VITAMIN B COMPLEX TAB PO SCH (08:35)
[2019-05-07] MEDS: RIFAXIMIN 550 MG TABLET PO SCH (08:35)
[2019-05-07 08:42] LABS: Albumin Level 3.2 gm/dl (3.4-5.0); Bilirubin Direct 1.7 mg/dl (0-0.2); Bilirubin,Total 7.2 mg/dl (0.2-1); Magnesium 2.1 mg/dl (1.8-2.4); Phosphorus 2.1 mg/dl (2.5-4.9); Total Protein 5.8 gm/dl (6.4-8.2)
[2019-05-07 09:32] LABS: Albumin Globulin Ratio 1.3 (0.9-2); Albumin Level 3.2 gm/dl (3.4-5.0); BUN Creatinine Ratio 12.2 (10-20); Bilirubin,Total 7.1 mg/dl (0.2-1); Calcium 9.3 mg/dl (8.5-10.1); Creatinine Clr Calc Pharmacy 27.5 ml/min; Est GFR (African American) 29.6; Est GFR (Non-African American) 25.6; Globulin 2.5 gm/dl (2.5-4.0); Potassium 3.6 mmol/L (3.5-5.1); Total Protein 5.7 gm/dl (6.4-8.2)
[2019-05-07 09:48] LABS: Beta-Hydroxybutyrate 1.07 mg/dl (0.2-2.81)
[2019-05-07] MEDS ORDERED: PHENobarbitaL sodium 130 MG in SYRINGE 0 ML IV SCH (10:00)
[2019-05-07] MEDS ORDERED: ACETYLCYSTEINE IV SCH (10:00)
[2019-05-07] MEDS ORDERED: DEXTROSE 5% IV SCH (10:00)
--- NOTE | 2019-05-07 10:36 | Gastroenterology Progress Note ---
Date of Service May 07, 2019 Assessment & Plan (1) Encephalopathy, hepatic: Current decreased mental acuity and agitation more likely from DTs than hepatic encephalopathy but should treat both. Offered EGD, obtained consent, but anesthesia reluctant to sedate while pt continuing with symptoms of alcohol withdrawal. 1. Renal function stable, managed by nephrology - appreciate. 2. Diuretics held - would defer restarting to nephrology. 3. Needs complete, permanent alcohol abstention. She is in intensive counseling - continue. 4. Lactulose TID by enema. 5. Continue methylprednisolone for tx of alcoholic hepatitis. 40mg IV daily. 6. Prognosis is poor, DF >28 thus >50% likelihood of mortality in the next 90 days. 7. Consider transfer to tertiary care center for consideration for liver transplant, though still drinking alcohol, thus unlikely to be considered for transplant. Present on Admission?: Yes Supervising Physician Co-Signing Physician Notes I saw and evaluated the patient this morning. She appears much worse today with regard to her withdrawal symptoms and hepatic symptoms. She does have mild encephalopathy has been made worse by her alcohol withdrawal symptoms. Unfortunately she does appear to have advanced liver disease as a result of her chronic alcohol abuse. Given this she is not a good candidate for transplantation as she is failed outpatient debilitation. Upon discussion with the patient's he has begun to wonder about withdrawal of care as her long-term prognosis is very poor. Given the situation I think withdrawal of care would be a reasonable option for her and her family that they choose as her medical options from the standpoint of her liver disease are limited given her ongoing alcohol abuse. Subjective Ms. Mary Rueda is a 63 yr old female admitted on 05/03 for confusion. Hx of ETOH cirrhosis complicated by EV (banded, scars, no residual present on EGD Jan 2019), ascites, prior hepatic encephalopathy. Continuing to drink alcohol. Most recently on 05/03. Per had some mild confusion for a week or so prior to admission and may not have been taking medications correctly. Since admission, ammonia improved with lactulose but mental status declined and became agitated. Overnight worsened respiratory status and transferred to [facility]. Hb dropped from 10.0 ->6.8 during this admission. Per nursing verbal report, no gross GI bleeding. BUN 24, Cr 2, INR 2.3. Spoke with today, who gave consent for EGD but commented if the situati on is hopeless, to avoid further aggressive care. Pt currently not responsive, agitated, some bruising on exam. Review of Systems Review of Systems: pt unable to provide ROS Physical Exam Constitutional: + ill appearing and + obese; not edematous agitated, moving around in the bed nearly constantly ENMT: external ear and nose normal, oropharynx normal Neck: trachea midline, no thyromegaly Respiratory: normal respiratory effort, lungs clear to auscultation Cardiovascular: RRR, no murmur, no edema Gastrointestinal (Abdomen): Inspection/Auscultation: abdomen normal to inspection and + hypoactive bowel sounds; abdomen not distended and no abdominal edema Percussion/Palpation: abdomen soft; abdomen nontender (no evdence of pain on palpation) Skin: no rashes, warm and dry + jaundice (mild) + bruising on left upper back, axilla Neurologic: PERRL, EOMI, accommodation nl, no face palsy, no dysarthria Motor/Sensory: no tremor and no asterixis Results & Data Vital Signs (Past 12 Hours) Vital Signs Temp Pulse Pulse Resp BP BP Pulse Ox 05/07/19 10:09 36.8 C 80 26 H 161/98 H 94 05/07/19 10:00 83 27 H 95 05/07/19 09:54 36.8 C 77 26 H 135/79 95 05/07/19 09:39 82 31 H 163/100 H 95 05/07/19 09:24 36.9 C 85 33 H 180/85 H 94 05/07/19 09:13 36.9 C 84 23 162/85 H 94 05/07/19 09:10 36.9 C 81 21 162/85 H 96 05/07/19 09:00 36.9 C 81 28 H 94 05/07/19 08:55 75 26 H 150/103 H 94 05/07/19 08:49 72 25 H 151/72 H 97 05/07/19 08:47 76 23 96 05/07/19 08:46 36.7 C 74 21 151/72 H 96 05/07/19 08:45 78 35 H 96 05/07/19 08:39 79 21 168/59 H 96 05/07/19 08:30 75 24 97 05/07/19 08:15 36.7 C 79 26 H 149/82 H 96 05/07/19 08:09 75 21 149/82 H 98 05/07/19 08:00 74 20 96 05/07/19 07:54 81 22 146/94 H 96 05/07/19 07:24 79 20 152/86 H 97 05/07/19 07:00 79 19 96 05/07/19 06:34 37.0 C 81 18 160/86 H 98 05/07/19 05:58 37.0 C 78 20 142/108 H 98 05/07/19 05:43 37 C 70 18 170/76 H 99 05/07/19 04:54 37.0 C 77 20 149/64 H 98 05/07/19 04:30 78 22 155/71 H 96 05/07/19 03:48 37.2 C 20 164/90 H 97 05/07/19 03:32 37.2 C 66 21 150/88 H 96 05/07/19 00:18 67 20 97 05/06/19 23:38 36.2 C L 80 36 H 129/85 95
--- NOTE | 2019-05-07 10:39 | Palliative Care Consultation ---
Date of Consultation May 07, 2019 Assessment & Plan (1) Comfort measures only status: -63 year old female patient with end-stage liver disease due to alcoholic cirrhosis, continued alcohol abuse, portal hypertension, ascites, esophageal varices status post banding in 2016, chronic anemia, history of hepatic encephalopathy, history of bleeding gastric varices, history of anal fissures, depression, history of pancytopenia, presented five days ago with altered mental status 2/2 hepatic encephalopathy. On arrival, ammonia was 86 which has risen to 105 today despite lactulose therapy. Bilirubin 4.2 on 05/02, now 7.1. INR elevated at 2 on admission, now 2.3 despite vitamin k and transfusions. Patient was initially admitted to telemetry unit, but unfortunately with her worsening condition, her mental status continued to deteriorate and she began to have dark stools. She was transferred to the ICU last evening for GI bleed. Her hgb dropped from 9 to 6.8. She has received blood transfusions. GI was consulted on admission for assistance with her hepatic encephalopathy, and also visited patient today for possible EGD. Anesthesia team deemed patient not a candidate for surgery at this time due to her critical illness. Patient is also showing some signs of active alcohol withdrawal for which phenobarbital was started today. Aside from patient's active alcohol withdrawal, her liver disease is end- stage and worsening by the day. Patient has failed outpatient and inpatient treatment of her disease. Again, she continued to drink alcohol daily at home which makes her not a candidate for liver transplant. She was having increased mental status changes as well as weakness and frequent falls at home per her . Given patient's extremely poor prognosis from both short and lobsterman standpoints, palliative care is consulted to discuss goals of care. -Met first with patient in room 107 this morning after ICU rounds. Patient is lethargic, confused/encephalopathic. Restless and agitated in the bed. Unable to participate in any conversation. Called patient's , Jerrod Rueda. He states he is the POA. Patient has an adult daughter Marie who lives outside of [place]. Jerrod has three children of his own. No children together. Discussed patient's condition over the phone. Jerrod states, "Mary would not want this, and I certainly do not either." He states that patient has known for quite some time that she "was in deep trouble," and has end-stage liver disease and is not eligible for a transplant due to continued alcohol abuse. Jerrod states that patient has even stated several times that she knows her life is limited and prognosis is poor. Discussed that even if we treated the acute issues such as withdrawal and GI bleed, patient still has end-stage liver disease and now progressive deconditioning/deterioration which would prevent her from continuing to live at home independently with her . Jerrod states this would not be a suitable quality of life for the patient. -Met with patient, her Jerrod Rueda, sister Kennedi, and Dr. Craft. We stepped out of room to speak about patient's condition and goals of care. -Jerrod, patient's , brought POA and living will paperwork dated December 2016. Jerrod is POA. Patient's living will indicates that when she is end-stage, she would want to be a DNR and made comfortable in order to allow natural . -Will transition to Comfort Measures Only. -Stop medications unrelated to comfort. No further lab draws. -Start IV phenobarbital to treat for alcohol withdrawal and comfort. -60mg IV x1 dose today at 1600. -30mg IV BID scheduled starting tonight at 2100. -30mg IV Q6h PRN agitation. -Morphine 2mg IV Q2h PRN pain or SOB. Family counseled on the secondary side effects of morphine such as sedation and respiratory depression-- they are accepting and want patient to be comfortable. -Atropine 1% oph soln 4 drops SL Q1h PRN secretions. -Discussed with family that prognosis is likely hours to days. They understand. Patient's daughter Annabel is coming tomorrow, one of three step-children is coming today as well. (2) UGIB (upper gastrointestinal bleed): (3) Acute liver failure: (4) Alcoholic cirrhosis: (5) Encephalopathy, hepatic: History of Present Illness Attending Physician: Kg Pavon MD History of Present Illness This 63 year old female patient with end-stage liver disease due to alcoholic cirrhosis, continued alcohol abuse, portal hypertension, ascites, esophageal varices status post banding in 2016, chronic anemia, history of hepatic encephalopathy, history of bleeding gastric varices, history of anal fissures, depression, history of pancytopenia, presented five days ago with altered mental status 2/2 hepatic encephalopathy. On arrival, ammonia was 86 which has risen to 105 today despite lactulose therapy. Bilirubin 4.2 on 05/02, now 7.1. INR elevated at 2 on admission, now 2.3 despite vitamin k and transfusions. Patient was initially admitted to telemetry unit, but unfortunately with her worsening condition, her mental status continued to deteriorate and she began to have dark stools. She was transferred to the ICU last evening for GI bleed. Her hgb dropped from 9 to 6.8. She has received blood transfusions. GI was consulted on admission for assistance with her hepatic encephalopathy, and also visited patient today for possible EGD. Anesthesia team deemed patient not a candidate for surgery at this time due to her critical illness. Patient is also showing some signs of active alcohol withdrawal for which phenobarbital was started today. Aside from patient's active alcohol withdrawal, her liver disease is end- stage and worsening by the day. Patient has failed outpatient and inpatient treatment of her disease. Again, she continued to drink alcohol daily at home which makes her not a candidate for liver transplant. She was having increased mental status changes as well as weakness and frequent falls at home per her . Given patient's extremely poor prognosis from both short and mcc standpoints, palliative care is consulted to discuss goals of care. Thank you kindly for this consult. Palliative care team will follow as needed. Allergies Allergy/AdvReac Type Severity Reaction Status Date / Time codeine Allergy Intermediate VOMITTING Verified 05/02/19 20:49 Sulfa (Sulfonamide Allergy Intermediate VOMITTING Verified 05/02/19 20:49 Antibiotics) lactose AdvReac Intermediate Diarrhea Verified 05/03/19 18:08 Home Medications Home Medications Medication Instructions Recorded Confirmed Type Probiotic 3,000 mmu cells PO HS 09/23/18 05/02/19 History ferrous sulfate 325 mg PO QAM 09/23/18 05/02/19 History folic acid 1 mg PO QAM 09/23/18 05/02/19 History gabapentin 600 mg PO TID 09/23/18 05/02/19 History omeprazole 40 mg PO QAM 09/23/18 05/02/19 History rifaximin 550 mg PO BID 09/23/18 05/02/19 History trazodone 50 mg PO HS PRN 09/23/18 05/02/19 History vitamin B complex [B-Complex] 1 tab PO QAM 09/29/18 05/02/19 History biotin 1 mg PO BID 10/08/18 05/02/19 History lactulose 15 ml PO TID 01/12/19 05/02/19 History ondansetron 4 mg PO Q8H PRN 01/12/19 05/02/19 History cholecalciferol (vitamin D3) 1,000 unit PO QAM 05/02/19 05/02/19 History [Vitamin D3] furosemide [Lasix] 40 mg PO DAILY 05/02/19 05/02/19 History magnesium oxide 400 mg PO AMHS 05/02/19 05/02/19 History naltrexone 50 mg PO QAM 05/02/19 05/02/19 History spironolactone [Aldactone] 100 mg PO DAILY 05/02/19 05/02/19 History vortioxetine [Trintellix] 5 mg PO DAILY 05/02/19 05/02/19 History Patient History Medical History (Updated 05/07/19 @ 13:52 by PADMA Ramos) Absence seizure last 2 years ago Alcohol abuse (Chronic) PER PT NO DRINKING PAST 7 WEEKS Alcoholic cirrhosis (Inactive) FOLLOWS W/ [facility] Anemia (Chronic) Anxiety (Chronic) Ascites (Chronic) managed with furosemide 20mg daily and spironolactone 50mg daily; reports paracentesis 3 years ago Back pain (Chronic) Comfort measures only status Depression (Chronic) Dyslipidemia (Chronic) Esophageal varices (Chronic) banded in 2015. Secondary prevention of variceal bleeding with Nadolol 40mg daily Goals of care, counseling/discussion Hyperbilirubinemia (Chronic) Hypomagnesemia Supplemented, most recent Mg 1.2 on 10/08. Lumbar stenosis (Chronic) Noncompliance Per [facility] records, patient has been noncompliant with Lactulose, and continues to drink ETOH, leading to elevated ammonia levels, hypomagnesemia and hospitalizations/ED visits for confusion/AMS. Poor historian Portal hypertension Portal hypertensive gastropathy (Chronic) Thrombocytopenia (Chronic) 2/2 cirrhosis, most recent platelets 71 on 09/30 Surgical History H/O adenoidectomy (Chronic) H/O colonoscopy (Chronic) "09/2015 - normal " History of esophagogastroduodenoscopy (EGD) (Chronic) 09/09/2018 Impression: No evidence of esophageal varices. Post variceal banding scar in the lower third of the esophagus. Portal hypertensive gastropathy. Normal duodenal bulb and second portion of the duodenum. History of tooth extraction Hx of tonsillectomy (Chronic) Family History Other Bladder cancer Hypertension TIA (transient ischemic attack) Social History Preferred Language: [place] Citizen Communication Ability: Impaired Engraver Lettering Required: No Beliefs That Will Affect Care: None Current Living Situation: Spouse Feels Safe at Home: Yes Safety Concerns: Feels Safe At This Time Smoking Status: Former smoker Tobacco Type: cigarettes ; Second Hand Exposure: No ; Hx Alcohol Use: Yes Alcohol type: wine Hx Substance Use: No Review of Systems Review of Systems: Unobtainable due to cognitive status Physical Exam Constitutional: + ill appearing; + uncomfortable ENMT: external ear and nose normal, oropharynx normal Respiratory: + labored breathing (mild) Auscultation: + diminished lung sounds Cardiovascular: Rate/Rhythm: regular rate and regular rhythm Extremities: + edema (third spacing edema to BUE) Gastrointestinal (Abdomen): Inspection/Auscultation: normal bowel sounds; abdomen not distended Percussion/Palpation: abdomen soft Skin: + jaundice Neurologic: moves all extremities and + confused (extremely lethargic) Results & Data Vital Signs (Past 12 Hours) Vital Signs Temp Pulse Pulse Resp BP BP Pulse Ox 05/07/19 10:09 36.8 C 80 26 H 161/98 H 94 05/07/19 10:00 83 27 H 95 05/07/19 09:54 36.8 C 77 26 H 135/79 95 05/07/19 09:39 82 31 H 163/100 H 95 05/07/19 09:24 36.9 C 85 33 H 180/85 H 94 05/07/19 09:13 36.9 C 84 23 162/85 H 94 05/07/19 09:10 36.9 C 81 21 162/85 H 96 05/07/19 09:00 36.9 C 81 28 H 94 05/07/19 08:55 75 26 H 150/103 H 94 05/07/19 08:49 72 25 H 151/72 H 97 01/03/20 08:47 76 23 96 05/07/19 08:46 36.7 C 74 21 151/72 H 96 05/07/19 08:45 78 35 H 96 05/07/19 08:39 79 21 168/59 H 96 05/07/19 08:30 75 24 97 05/07/19 08:15 36.7 C 79 26 H 149/82 H 96 05/07/19 08:09 75 21 149/82 H 98 05/07/19 08:00 74 20 96 05/07/19 07:54 81 22 146/94 H 96 05/07/19 07:24 79 20 152/86 H 97 05/07/19 07:00 79 19 96 05/07/19 06:34 37.0 C 81 18 160/86 H 98 05/07/19 05:58 37.0 C 78 20 142/108 H 98 05/07/19 05:43 37 C 70 18 170/76 H 99 05/07/19 04:54 37.0 C 77 20 149/64 H 98 05/07/19 04:30 78 22 155/71 H 96 05/07/19 03:48 37.2 C 20 164/90 H 97 05/07/19 03:32 37.2 C 66 21 150/88 H 96 05/07/19 00:18 67 20 97 05/06/19 23:38 36.2 C L 80 36 H 129/85 95 PG Care Time/CCT Prolonged Care Time Prolonged Care Time: Yes Total Prolonged Care Time: 100 Time Spent Midlevel 100 minutes with >50% of time spent at bedside with patient and family discussing condition and GOC.
[2019-05-07] MEDS ORDERED: SODIUM BICARBONATE 8.4% 150 MEQ, POTASSIUM CHLORIDE 20 MEQ in WATER, STERILE 1,000 ML IV SCH (10:45)
[2019-05-07] MEDS ORDERED: SODIUM BICARBONATE 8.4% 150 MEQ, POTASSIUM CHLORIDE 40 MEQ in WATER, STERILE 1,000 ML IV SCH (11:00)
[2019-05-07] MEDS: THIAMINE HCL 100 MG in SYRINGE 9 ML IV SCH (11:24)
--- NOTE | 2019-05-07 13:02 | Electroencephalogram ---
EEG Procedure Note Date of Service May 07, 2019 Start / End Times Start Time: 07:37 End Time: 07:[address] Kg Pavon History A 63 year old woman with encephalopathy. EEG performed for evaluation of epileptiform activity. Home Medication List Home Medications Medication Instructions Recorded Confirmed Type Probiotic 3,000 mmu cells PO HS 09/23/18 05/02/19 History ferrous sulfate 325 mg PO QAM 09/23/18 05/02/19 History folic acid 1 mg PO QAM 09/23/18 05/02/19 History gabapentin 600 mg PO TID 09/23/18 05/02/19 History omeprazole 40 mg PO QAM 09/23/18 05/02/19 History rifaximin 550 mg PO BID 09/23/18 05/02/19 History trazodone 50 mg PO HS PRN 09/23/18 05/02/19 History vitamin B complex [B-Complex] 1 tab PO QAM 09/29/18 05/02/19 History biotin 1 mg PO BID 10/08/18 05/02/19 History lactulose 15 ml PO TID 01/12/19 05/02/19 History ondansetron 4 mg PO Q8H PRN 01/12/19 05/02/19 History cholecalciferol (vitamin D3) 1,000 unit PO QAM 05/02/19 05/02/19 History [Vitamin D3] furosemide [Lasix] 40 mg PO DAILY 05/02/19 05/02/19 History magnesium oxide 400 mg PO AMHS 05/02/19 05/02/19 History naltrexone 50 mg PO QAM 05/02/19 05/02/19 History spironolactone [Aldactone] 100 mg PO DAILY 05/02/19 05/02/19 History vortioxetine [Trintellix] 5 mg PO DAILY 05/02/19 05/02/19 History Inpatient Medication List Lactulose 200 gm/ Sterile Water 700 ml/ BARCODE IDENTIFIER 1 ea 0 gm WV TID PRN PRN Reason: IF UNABLE TO ADMINISTER ORAL Stop: 06/04/19 04:39 Last Admin: 05/06/19 12:23 Dose: 200 gm Documented by: [id number] Folic [facility]vite) [facility] [place] Stop: 06/02/19 08:59 Last Admin: 05/07/19 08:34 Dose: Not Given Documented by: [id number] Admin: 05/06/19 08:00 Dose: Not Given Documented by: [id number] Admin: 05/05/19 08:05 Dose: Not Given Documented by: [id number] Admin: 05/04/19 07:34 Dose: 1 mg Documented by: [id number] Admin: 05/03/19 08:40 Dose: 1 mg Documented by: [id number] Thiamine HCl 100 mg/ Syringe 10 mls @ 2 mls/min IV QAM [facility] Stop: 06/02/19 08:59 Last Admin: 05/07/19 11:24 Dose: 2 mls/min Documented by: [id number] Admin: 05/06/19 08:12 Dose: 2 mls/min Documented by: [id number] Admin: 05/05/19 08:10 Dose: 2 mls/min Documented by: [id number] Admin: 05/04/19 08:27 Dose: 2 mls/min Documented by: [id number] Admin: 05/03/19 08:34 Dose: 2 mls/min Documented by: [id number] Octreotide Acetate 500 mcg/ (Sodium Chloride) 105 mls @ 10.5 mls/hr IV .Q10H SC H Stop: 06/06/19 02:29 Last Infusion: 05/07/19 06:31 Dose: 50 mcg/hr, 10.5 mls/hr Documented by: [id number] Infusion: 05/07/19 05:34 Dose: 0 mcg/hr, 0 mls/hr Documented by: [id number] Admin: 05/07/19 02:54 Dose: 50 mcg/hr, 10.5 mls/hr Documented by: [id number] Pantoprazole Sodium 40 mg/ (Dextrose) 100 mls @ 20 mls/hr IV Q5H [facility] Stop: 06/06/19 02:29 Last Admin: 05/07/19 08:34 Dose: 20 mls/hr Documented by: [id number] Infusion: 05/07/19 08:34 Dose: 20 mls/hr Documented by: [id number] Infusion: 05/07/19 06:30 Dose: 20 mls/hr Documented by: [id number] Infusion: 05/07/19 05:32 Dose: 0 mls/hr Documented by: [id number] Admin: 05/07/19 02:55 Dose: 20 mls/hr Documented by: [id number] Piperacillin Sod/Tazobactam (Sod 4.5 gm/ Dextrose) 120 mls @ 30 mls/hr IV Q8H [facility]; Protocol Stop: 05/14/19 07:59 Last Infusion: 05/07/19 12:19 Dose: 0 mls/hr Documented by: [id number] Admin: 05/07/19 08:34 Dose: 30 mls/hr Documented by: [id number] Acetylcysteine 7,110 mg/ (Dextrose) 1,035.55 mls @ 62.5 mls/hr IV Q16H [facility]; Protocol Stop: 05/10/19 04:59 Last Admin: 05/07/19 11:24 Dose: 62.5 mls/hr Documented by: [id number] Phenobarbital Sodium 130 mg/ (Syringe) 2 mls @ 1 mls/min IV TODAY@1000 [facility] Stop: 06/06/19 09:59 Last Admin: 05/07/19 10:00 Dose: 1 mls/min Documented by: [id number] Sodium Bicarbonate 150 meq/Potassium Chloride 40 meq/Sterile Water 1,170 mls @ 80 mls/hr IV .[id number] [facility] Stop: 06/06/19 10:59 Last Admin: 05/07/19 11:25 Dose: 80 mls/hr Documented by: [id number] Insulin Aspart (Novolog Flexpen) 0 units SC Q6 [facility] Stop: 06/06/19 01:59 Last Admin: 05/07/19 11:35 Dose: 6 units Documented by: [id number] Cosigned by: [id number] Admin: 05/07/19 08:54 Dose: 6 units Documented by: [id number] Cosigned by: [id number] Admin: 05/07/19 01:46 Dose: Not Given Documented by: [id number] Cosigned by: [id number] Multivitamins/Minerals (Multivitamin W/ Minerals Tab) 1 tab PO QAM [facility] Stop: 06/02/19 08:59 Last Admin: 05/07/19 08:34 Dose: Not Given Documented by: [id number] Admin: 05/06/19 08:00 Dose: Not Given Documented by: [id number] Admin: 05/05/19 08:05 Dose: Not Given Documented by: [id number] Admin: 05/04/19 07:34 Dose: 1 tab Documented by: [id number] Admin: 05/03/19 08:43 Dose: 1 tab Documented by: [id number] Rifaximin (Xifaxan) 550 mg PO BID [facility] Stop: 06/04/19 04:29 Last Admin: 05/07/19 08:35 Dose: Not Given Documented by: [id number] Admin: 05/06/19 19:45 Dose: Not Given Documented by: [id number] Admin: 05/06/19 08:01 Dose: Not Given Documented by: [id number] Admin: 05/05/19 20:30 Dose: Not Given Documented by: [id number] Admin: 05/05/19 05:08 Dose: Not Given Documented by: [id number] Vitamin B Complex (Vitamin B Complex) 1 tab PO QAM [facility] Stop: 06/02/19 08:59 Last Admin: 05/07/19 08:35 Dose: Not Given Documented by: [id number] Admin: 05/06/19 08:01 Dose: Not Given Documented by: [id number] Admin: 05/05/19 08:06 Dose: Not Given Documented by: [id number] Admin: 05/04/19 07:33 Dose: 1 tab Documented by: [id number] Admin: 05/03/19 08:40 Dose: 1 tab Documented by: [id number] Discontinued Medications Albuterol (Duoneb) 3 ml NEB NOW STA Stop: 05/07/19 00:02 Last Admin: 05/07/19 00:32 Dose: 3 ml Documented by: [id number] Lactulose 200 gm/ Sterile Water 700 ml/ BARCODE IDENTIFIER 1 ea 0 gm [place] Q8H [facility] Stop: 06/02/19 21:59 Last Admin: 05/05/19 03:10 Dose: Not Given Documented by: [id number] Admin: 05/04/19 20:00 Dose: Not Given Documented by: [id number] Admin: 05/04/19 14:53 Dose: Not Given Documented by: [id number] Admin: 05/04/19 06:38 Dose: 200 gm Documented by: [id number] Admin: 05/03/19 22:40 Dose: 200 gm Documented by: [id number] Lactulose 200 gm/ Sterile Water 700 ml/ BARCODE IDENTIFIER 1 ea 0 gm [place] Q8H [facility] Stop: 06/04/19 04:39 Last Admin: 05/05/19 11:56 Dose: Not Given Documented by: [id number] Admin: 05/05/19 05:12 Dose: 200 gm Documented by: [id number] Ferrous Sulfate (Feosol) 325 mg PO QAM [facility] Stop: 06/02/19 08:59 Last Admin: 05/06/19 08:00 Dose: Not Given Documented by: [id number] Admin: 05/05/19 08:09 Dose: Not Given Documented by: [id number] Admin: 05/04/19 07:33 Dose: 325 mg Documented by: [id number] Admin: 05/03/19 08:40 Dose: 325 mg Documented by: [id number] Gabapentin (Neurontin) 1,200 mg PO TODAY@2300 [facility] Stop: 05/02/19 23:01 Last Admin: 05/03/19 00:05 Dose: 1,200 mg Documented by: [id number] Gabapentin (Neurontin) 600 mg PO Q6H [facility] Stop: 05/03/19 12:01 Last Admin: 05/03/19 10:23 Dose: 600 mg Documented by: [id number] Admin: 05/03/19 05:46 Dose: Not Given Documented by: [id number] Gabapentin (Neurontin) 600 mg PO Q8H [facility] Stop: 05/04/19 14:01 Last Admin: 05/04/19 14:52 Dose: Not Given Documented by: [id number] Admin: 05/04/19 05:37 Dose: Not Given Documented by: [id number] Admin: 05/03/19 21:47 Dose: Not Given Documented by: [id number] Gabapentin (Neurontin) 600 mg PO Q12H [facility] Stop: 05/05/19 12:01 Last Admin: 05/04/19 23:13 Dose: Not Given Documented by: [id number] Gabapentin (Neurontin) 200 mg PO BID [facility] Stop: 06/04/19 08:59 Last Admin: 05/07/19 08:35 Dose: Not Given Documented by: [id number] Admin: 05/06/19 19:45 Dose: Not Given Documented by: [id number] Admin: 05/06/19 08:00 Dose: Not Given Documented by: [id number] Admin: 05/05/19 20:30 Dose: Not Given Documented by: [id number] Admin: 05/05/19 08:06 Dose: Not Given Documented by: [id number] Guaifenesin (Mucinex) 600 mg PO Q12 [facility] Stop: 06/02/19 20:59 Last Admin: 05/07/19 08:34 Dose: Not Given Documented by: [id number] Admin: 05/06/19 19:45 Dose: Not Given Documented by: [id number] Admin: 05/06/19 08:00 Dose: Not Given Documented by: [id number] Admin: 05/05/19 20:30 Dose: Not Given Documented by: [id number] Admin: 05/05/19 08:10 Dose: Not Given Documented by: [id number] Admin: 05/04/19 20:14 Dose: Not Given Documented by: [id number] Admin: 05/04/19 07:32 Dose: 600 mg Documented by: [id number] Admin: 05/03/19 21:47 Dose: Not Given Documented by: [id number] Hydromorphone HCl (Dilaudid) 0.25 mg IV NOW STA Stop: 05/05/19 04:11 Last Admin: 05/05/19 04:36 Dose: 0.25 mg Documented by: [id number] Thiamine HCl 100 mg/ Syringe 10 mls @ 2 mls/min IV NOW STA Stop: 05/02/19 19:43 Last Admin: 05/02/19 20:33 Dose: 2 mls/min Documented by: [id number] Folic Acid 1 mg/ Syringe 10 mls @ 5 mls/min IV NOW STA Stop: 05/02/19 19:40 Last Admin: 05/02/19 20:33 Dose: 5 mls/min Documented by: [id number] Sodium Chloride (Nss) 500 mls @ 999 mls/hr IV .Q31M ONE Stop: 05/02/19 20:48 Last Infusion: 05/02/19 21:15 Dose: 0 mls/hr Documented by: [id number] Admin: 05/02/19 20:33 Dose: 999 mls/hr Documented by: [id number] Magnesium Sulfate/Dextrose (Magnesium Sulfate / D5w) 1 gm in 100 mls @ 100 mls/hr IV ONE ONE Stop: 05/02/19 23:45 Last Infusion: 05/03/19 03:59 Dose: 0 mls/hr Documented by: [id number] Admin: 05/02/19 23:49 Dose: 100 mls/hr Documented by: [id number] Potassium Chloride/Dextrose/Sod Cl (D5nss + 20meq Kcl) 20 meq in 1,000 mls @ 50 mls/hr IV .Q20H [facility] Stop: 06/02/19 00:59 Last Infusion: 05/05/19 04:41 Dose: 0 mls/hr Documented by: [id number] Infusion: 05/05/19 03:05 Dose: 0 mls/hr Documented by: [id number] Admin: 05/04/19 20:20 Dose: 50 mls/hr Documented by: [id number] Infusion: 05/04/19 20:20 Dose: 50 mls/hr Documented by: [id number] Admin: 05/04/19 19:48 Dose: Not Given Documented by: [id number] Admin: 05/04/19 01:43 Dose: 50 mls/hr Documented by: [id number] Infusion: 05/03/19 23:17 Dose: 50 mls/hr Documented by: [id number] Admin: 05/03/19 03:17 Dose: 50 mls/hr Documented by: [id number] Multivitamins 10 ml/ Thiamine HCl 100 mg/ Folic Acid 1 mg/Sodium Chloride 1,011.2 mls @ 500 mls/hr IV .Q2H2M ONE Stop: 05/03/19 01:01 Last Infusion: 05/03/19 03:59 Dose: 0 mls/hr Documented by: [id number] Admin: 05/02/19 23:49 Dose: 500 mls/hr Documented by: [id number] Lorazepam (Ativan) 1 mg in 2 mls @ 2 mls/min IV UD PRN; Protocol PRN Reason: EtOH Withdrawl AWSS Score 6,7 Stop: 06/01/19 22:45 Last Admin: 05/03/19 00:12 Dose: 2 mls/min Documented by: [id number] Phytonadione 2.5 mg/ Sodium (Chloride) 50.25 mls @ 100.5 mls/hr IV ONE ONE Stop: 05/03/19 01:59 Last Infusion: 05/03/19 04:00 Dose: 0 mls/hr Documented by: [id number] Admin: 05/03/19 03:14 Dose: 100.5 mls/hr Documented by: [id number] Methylprednisolone 40 mg/ (Syringe) 0.64 mls @ 1.5 mls/min IV DAILY [facility] Stop: 06/02/19 01:59 Last Admin: 05/03/19 03:09 Dose: 1.5 mls/min Documented by: [id number] Famotidine 20 mg/ Syringe 5 mls @ 2.5 mls/min IV BID [facility] Stop: 06/02/19 08:59 Last Admin: 05/06/19 19:54 Dose: 2.5 mls/min Documented by: [id number] Admin: 05/06/19 08:12 Dose: 2.5 mls/min Documented by: [id number] Admin: 05/05/19 20:35 Dose: 2.5 mls/min Documented by: [id number] Admin: 05/05/19 08:27 Dose: 2.5 mls/min Documented by: [id number] Admin: 05/04/19 20:17 Dose: 2.5 mls/min Documented by: [id number] Admin: 05/04/19 07:39 Dose: 2.5 mls/min Documented by: [id number] Admin: 05/03/19 21:21 Dose: 2.5 mls/min Documented by: [id number] Admin: 05/03/19 10:16 Dose: 2.5 mls/min Documented by: [id number] Famotidine 20 mg/ Syringe 5 mls @ 2.5 mls/min IV NOW STA Stop: 05/03/19 02:12 Last Admin: 05/03/19 03:17 Dose: 2.5 mls/min Documented by: [id number] Lorazepam (Ativan) 1 mg in 2 mls @ 2 mls/min IV Q2H PRN PRN Reason: Anxiety/Agitation Stop: 06/02/19 04:06 Last Admin: 05/04/19 22:39 Dose: 2 mls/min Documented by: [id number] Admin: 05/04/19 08:35 Dose: 2 mls/min Documented by: [id number] Admin: 05/04/19 03:54 Dose: 2 mls/min Documented by: [id number] Admin: 05/03/19 21:21 Dose: 2 mls/min Documented by: [id number] Admin: 05/03/19 10:22 Dose: 2 mls/min Documented by: [id number] Sodium Chloride (Nss 1000ml) 250 mls @ 999 mls/hr IV .Q16M ONE Stop: 05/03/19 04:32 Last Infusion: 05/03/19 05:06 Dose: 0 mls/hr Documented by: [id number] Admin: 05/03/19 04:20 Dose: 999 mls/hr Documented by: [id number] Piperacillin Sod/Tazobactam (Sod 4.5 gm/ Dextrose) 120 mls @ 200 mls/hr IV NOW ONE; Protocol Stop: 05/03/19 06:05 Last Infusion: 05/03/19 06:36 Dose: 0 mls/hr Documented by: [id number] Admin: 05/03/19 05:56 Dose: 200 mls/hr Documented by: [id number] Potassium Chloride (K Toy / Wtr) 10 meq in 100 mls @ 100 mls/hr IV Q1H [facility] Stop: 05/03/19 09:59 Last Infusion: 05/03/19 11:37 Dose: 0 mls/hr Documented by: [id number] Admin: 05/03/19 10:16 Dose: 100 mls/hr Documented by: [id number] Infusion: 05/03/19 09:37 Dose: 100 mls/hr Documented by: [id number] Admin: 05/03/19 08:37 Dose: 100 mls/hr Documented by: [id number] Potassium Phosphate 24 mmol/ (Sodium Chloride) 508 mls @ 125 mls/hr IV 0730 ONE Stop: 05/03/19 11:33 Last Infusion: 05/03/19 12:55 Dose: 0 mls/hr Documented by: [id number] Admin: 05/03/19 08:38 Dose: 125 mls/hr Documented by: [id number] Albumin Human (Albumin 25%) 50 mls @ 50 mls/hr IV TID [facility] Stop: 05/06/19 12:59 Last Infusion: 05/06/19 09:29 Dose: 0 mls/hr Documented by: [id number] Admin: 05/06/19 08:11 Dose: 50 mls/hr Documented by: [id number] Infusion: 05/05/19 23:33 Dose: 0 mls/hr Documented by: [id number] Admin: 05/05/19 20:35 Dose: 50 mls/hr Documented by: [id number] Infusion: 05/05/19 15:08 Dose: 0 mls/hr Documented by: [id number] Admin: 05/05/19 13:33 Dose: 50 mls/hr Documented by: [id number] Infusion: 05/05/19 10:58 Dose: 0 mls/hr Documented by: [id number] Admin: 05/05/19 10:08 Dose: 50 mls/hr Documented by: [id number] Infusion: 05/04/19 21:37 Dose: 0 mls/hr Documented by: [id number] Admin: 05/04/19 20:13 Dose: 50 mls/hr Documented by: [id number] Infusion: 05/04/19 16:04 Dose: 0 mls/hr Documented by: [id number] Admin: 05/04/19 14:52 Dose: 50 mls/hr Documented by: [id number] Infusion: 05/04/19 09:28 Dose: 0 mls/hr Documented by: [id number] Admin: 05/04/19 08:26 Dose: 50 mls/hr Documented by: [id number] Infusion: 05/03/19 22:31 Dose: 0 mls/hr Documented by: [id number] Admin: 05/03/19 21:07 Dose: 50 mls/hr Documented by: [id number] Infusion: 05/03/19 16:23 Dose: 0 mls/hr Documented by: [id number] Admin: 05/03/19 15:15 Dose: 50 mls/hr Documented by: [id number] Albumin Human (Albumin 25%) 50 mls @ 50 mls/hr IV Q8H [facility] Stop: 05/05/19 18:00 Last Infusion: 05/05/19 15:09 Dose: 0 mls/hr Documented by: [id number] Admin: 05/05/19 13:35 Dose: 50 mls/hr Documented by: [id number] Infusion: 05/05/19 09:05 Dose: 0 mls/hr Documented by: [id number] Admin: 05/05/19 08:03 Dose: 50 mls/hr Documented by: [id number] Infusion: 05/04/19 22:16 Dose: 0 mls/hr Documented by: [id number] Admin: 05/04/19 21:06 Dose: 50 mls/hr Documented by: [id number] Infusion: 05/04/19 16:30 Dose: 0 mls/hr Documented by: [id number] Infusion: 05/04/19 16:30 Dose: 0 mls/hr Documented by: [id number] Admin: 05/04/19 15:37 Dose: 50 mls/hr Documented by: [id number] Infusion: 05/04/19 09:29 Dose: 0 mls/hr Documented by: [id number] Admin: 05/04/19 08:27 Dose: 50 mls/hr Documented by: [id number] Infusion: 05/03/19 23:27 Dose: 0 mls/hr Documented by: [id number] Admin: 05/03/19 22:15 Dose: 50 mls/hr Documented by: [id number] Infusion: 05/03/19 17:30 Dose: 0 mls/hr Documented by: [id number] Admin: 05/03/19 16:22 Dose: 50 mls/hr Documented by: [id number] Phytonadione 2.5 mg/ Sodium (Chloride) 50.25 mls @ 100.5 mls/hr IV ONE ONE Stop: 05/04/19 16:01 Last Infusion: 05/04/19 16:31 Dose: 0 mls/hr Documented by: [id number] Admin: 05/04/19 16:04 Dose: 100.5 mls/hr Documented by: [id number] Potassium Chloride (K Toy / Wtr) 10 meq in 100 mls @ 100 mls/hr IV Q1H [facility] Stop: 05/04/19 19:59 Last Infusion: 05/04/19 21:12 Dose: 0 mls/hr Documented by: [id number] Admin: 05/04/19 19:48 Dose: 100 mls/hr Documented by: [id number] Infusion: 05/04/19 18:53 Dose: 100 mls/hr Documented by: [id number] Admin: 05/04/19 17:53 Dose: 100 mls/hr Documented by: [id number] Acetaminophen (Ofirmev) 65 mls @ 200 mls/hr IV NOW ONE; Protocol Stop: 05/05/19 03:49 Last Infusion: 05/05/19 03:47 Dose: 0 mls/hr Documented by: [id number] Admin: 05/05/19 03:27 Dose: 200 mls/hr Documented by: [id number] Potassium Chloride/Sodium Chloride (1/2 Nss + 20meq Kcl 1000ml) 20 meq in 1,000 mls @ 500 mls/hr IV .Q2H [facility] Stop: 05/05/19 06:07 Last Infusion: 05/05/19 08:05 Dose: 0 mls/hr Documented by: [id number] Admin: 05/05/19 05:13 Dose: 500 mls/hr Documented by: [id number] Dextrose (D5w) 1,000 mls @ 80 mls/hr IV .[id number] [facility] Stop: 06/04/19 08:59 Last Infusion: 05/06/19 17:20 Dose: 0 mls/hr Documented by: [id number] Admin: 05/06/19 08:10 Dose: 80 mls/hr Documented by: [id number] Infusion: 05/06/19 08:10 Dose: 80 mls/hr Documented by: [id number] Admin: 05/05/19 20:34 Dose: 80 mls/hr Documented by: [id number] Infusion: 05/05/19 20:34 Dose: 80 mls/hr Documented by: [id number] Admin: 05/05/19 10:16 Dose: 80 mls/hr Documented by: [id number] Potassium Chloride (K Toy / Wtr) 10 meq in 100 mls @ 100 mls/hr IV ONE ONE Stop: 05/05/19 11:59 Last Infusion: 05/05/19 13:42 Dose: 0 mls/hr Documented by: [id number] Admin: 05/05/19 12:49 Dose: 100 mls/hr Documented by: [id number] Lorazepam (Ativan) 0.5 mg in 1 mls @ 0.5 mls/min IV Q12H PRN PRN Reason: Anxiety/Agitation Stop: 06/04/19 10:58 Last Admin: 05/06/19 09:06 Dose: 0.5 mls/min Documented by: [id number] Admin: 05/05/19 18:25 Dose: 0.5 mls/min Documented by: [id number] Albumin Human (Albumin 25%) 50 mls @ 50 mls/hr IV DAILY@1000,1500,2200 [facility]; Protocol Stop: 05/06/19 14:59 Last Infusion: 05/06/19 12:02 Dose: 0 mls/hr Documented by: [id number] Admin: 05/06/19 10:55 Dose: 50 mls/hr Documented by: [id number] Infusion: 05/05/19 23:33 Dose: 0 mls/hr Documented by: [id number] Admin: 05/05/19 20:36 Dose: 50 mls/hr Documented by: [id number] Acetaminophen (Ofirmev) 65 mls @ 200 mls/hr IV Q8H [facility]; Protocol Stop: 05/08/19 18:59 Last Admin: 05/07/19 04:52 Dose: Not Given Documented by: [id number] Infusion: 05/06/19 20:11 Dose: 0 mls/hr Documented by: [id number] Admin: 05/06/19 19:45 Dose: 200 mls/hr Documented by: [id number] Infusion: 05/06/19 11:25 Dose: 0 mls/hr Documented by: [id number] Admin: 05/06/19 10:53 Dose: 200 mls/hr Documented by: [id number] Infusion: 05/06/19 02:21 Dose: 0 mls/hr Documented by: [id number] Admin: 05/06/19 02:06 Dose: 200 mls/hr Documented by: [id number] Infusion: 05/05/19 19:23 Dose: 0 mls/hr Documented by: [id number] Admin: 05/05/19 19:03 Dose: 200 mls/hr Documented by: [id number] Lorazepam (Ativan) 0.5 mg in 1 mls @ 1 mls/min IV NOW STA Stop: 05/06/19 10:00 Last Admin: 05/06/19 10:03 Dose: 1 mls/min Documented by: [id number] Methylprednisolone 20 mg/ (Syringe) 0.32 mls @ 1.5 mls/min IV DAILY [facility] Stop: 06/05/19 11:59 Last Admin: 05/06/19 13:11 Dose: 1.5 mls/min Documented by: [id number] Lorazepam (Ativan) 0.5 mg in 1 mls @ 0.5 mls/min IV Q4H PRN PRN Reason: Anxiety/Agitation Stop: 06/05/19 09:55 Last Admin: 05/06/19 18:31 Dose: 0.5 mls/min Documented by: [id number] Admin: 05/06/19 14:52 Dose: 0.5 mls/min Documented by: [id number] Sodium Bicarbonate 100 meq/Potassium Chloride 40 meq/Dextrose 1,120 mls @ 125 mls/hr IV .[id number] [facility] Stop: 06/05/19 17:44 Last Admin: 05/07/19 03:50 Dose: Not Given Documented by: [id number] Infusion: 05/07/19 02:50 Dose: 0 mls/hr Documented by: [id number] Admin: 05/06/19 17:51 Dose: 125 mls/hr Documented by: [id number] Potassium Chloride (K Toy / Wtr) 10 meq in 100 mls @ 100 mls/hr IV Q1H [facility] Stop: 05/06/19 21:29 Last Infusion: 05/06/19 23:13 Dose: 0 mls/hr Documented by: [id number] Admin: 05/06/19 21:23 Dose: 75 mls/hr Documented by: [id number] Infusion: 05/06/19 21:21 Dose: 75 mls/hr Documented by: [id number] Admin: 05/06/19 20:01 Dose: 75 mls/hr Documented by: [id number] Infusion: 05/06/19 20:01 Dose: 75 mls/hr Documented by: [id number] Admin: 05/06/19 18:57 Dose: 75 mls/hr Documented by: [id number] Infusion: 05/06/19 18:57 Dose: 75 mls/hr Documented by: [id number] Admin: 05/06/19 17:40 Dose: 75 mls/hr Documented by: [id number] Methylprednisolone 40 mg/ (Syringe) 0.64 mls @ 1.5 mls/min IV NOW STA Stop: 05/07/19 00:56 Last Admin: 05/07/19 01:25 Dose: 1.5 mls/min Documented by: [id number] Piperacillin Sod/Tazobactam (Sod 4.5 gm/ Dextrose) 120 mls @ 240 mls/hr IV NOW STA Stop: 05/07/19 01:24 Last Infusion: 05/07/19 05:21 Dose: 0 mls/hr Documented by: [id number] Admin: 05/07/19 01:25 Dose: 30 mls/hr Documented by: [id number] Potassium Chloride (K Toy / Wtr) 10 meq in 100 mls @ 100 mls/hr IV Q1H [facility] Stop: 05/07/19 09:09 Last Infusion: 05/07/19 11:30 Dose: 0 mls/hr Documented by: [id number] Admin: 05/07/19 10:33 Dose: 100 mls/hr Documented by: [id number] Infusion: 05/07/19 10:25 Dose: 100 mls/hr Documented by: [id number] Admin: 05/07/19 09:25 Dose: 100 mls/hr Documented by: [id number] Infusion: 05/07/19 09:25 Dose: 100 mls/hr Documented by: [id number] Admin: 05/07/19 08:34 Dose: 100 mls/hr Documented by: [id number] Infusion: 05/07/19 08:18 Dose: 100 mls/hr Documented by: [id number] Admin: 05/07/19 07:18 Dose: 100 mls/hr Documented by: [id number] Infusion: 05/07/19 06:59 Dose: 100 mls/hr Documented by: [id number] Infusion: 05/07/19 06:30 Dose: 100 mls/hr Documented by: [id number] Infusion: 05/07/19 05:31 Dose: 0 mls/hr Documented by: [id number] Admin: 05/07/19 04:59 Dose: 100 mls/hr Documented by: [id number] Infusion: 05/07/19 04:59 Dose: 100 mls/hr Documented by: [id number] Admin: 05/07/19 04:00 Dose: 100 mls/hr Documented by: [id number] Infusion: 05/07/19 03:54 Dose: 100 mls/hr Documented by: [id number] Admin: 05/07/19 02:54 Dose: 100 mls/hr Documented by: [id number] Infusion: 05/07/19 02:52 Dose: 100 mls/hr Documented by: [id number] Admin: 05/07/19 01:52 Dose: 100 mls/hr Documented by: [id number] Magnesium Sulfate/Dextrose (Magnesium Sulfate / D5w) 1 gm in 100 mls @ 100 mls/hr IV Q1H MALIK Stop: 05/07/19 04:09 Last Infusion: 05/07/19 04:52 Dose: 0 mls/hr Documented by: [id number] Admin: 05/07/19 03:40 Dose: 100 mls/hr Documented by: [id number] Infusion: 05/07/19 03:40 Dose: 100 mls/hr Documented by: [id number] Admin: 05/07/19 02:54 Dose: 100 mls/hr Documented by: [id number] Infusion: 05/07/19 02:52 Dose: 100 mls/hr Documented by: [id number] Admin: 05/07/19 01:52 Dose: 100 mls/hr Documented by: [id number] Pantoprazole Sodium 80 mg/ (Dextrose) 120 mls @ 480 mls/hr IV NOW STA Stop: 05/07/19 02:44 Last Infusion: 05/07/19 03:10 Dose: 0 mls/hr Documented by: [id number] Admin: 05/07/19 02:55 Dose: 480 mls/hr Documented by: [id number] Sodium Bicarbonate 150 meq/Potassium Chloride 40 meq/Dextrose 1,170 mls @ 125 mls/hr IV .[id number] MALIK Stop: 06/06/19 03:14 Last Infusion: 05/07/19 11:31 Dose: 0 mls/hr Documented by: [id number] Admin: 05/07/19 03:37 Dose: 125 mls/hr Documented by: [id number] Octreotide Acetate 50 mcg/ (Syringe) 10 mls @ 3 mls/min IV ONE STA Stop: 05/07/19 03:23 Last Admin: 05/07/19 03:36 Dose: 3 mls/min Documented by: [id number] Acetylcysteine 10,670 mg/ (Dextrose) 253.35 mls @ 200 mls/hr IV ONCE ONE Stop: 05/07/19 06:00 Last Infusion: 05/07/19 06:31 Dose: 0 mls/hr Documented by: [id number] Admin: 05/07/19 05:17 Dose: 200 mls/hr Documented by: [id number] Phytonadione 10 mg/ Sodium (Chloride) 51 mls @ 102 mls/hr IV ONE ONE Stop: 05/07/19 05:14 Last Infusion: 05/07/19 05:49 Dose: 0 mls/hr Documented by: [id number] Admin: 05/07/19 05:18 Dose: 102 mls/hr Documented by: [id number] Acetylcysteine 3,555 mg/ (Dextrose) 517.775 mls @ 125 mls/hr IV ONE ONE; Protocol Stop: 05/07/19 10:08 Last Infusion: 05/07/19 11:26 Dose: 0 mls/hr Documented by: [id number] Admin: 05/07/19 06:40 Dose: 125 mls/hr Documented by: [id number] Sodium Bicarbonate 150 meq/Potassium Chloride 20 meq/Sterile Water 1,160 mls @ 80 mls/hr IV .[id number] [facility] Stop: 06/06/19 10:44 Last Admin: 05/07/19 11:26 Dose: Not Given Documented by: [id number] Insulin Glargine (Lantus Solostar Pen) 5 units SC NOW STA Stop: 05/07/19 01:14 Last Admin: 05/07/19 01:45 Dose: 5 units Documented by: [id number] Cosigned by: [id number] Lactobacillus Acidophilus (Floranex) 4 tab PO HS [facility] Stop: 06/02/19 20:59 Last Admin: 05/06/19 19:45 Dose: Not Given Documented by: [id number] Admin: 05/05/19 20:29 Dose: Not Given Documented by: [id number] Admin: 05/04/19 20:14 Dose: Not Given Documented by: [id number] Admin: 05/03/19 21:47 Dose: Not Given Documented by: [id number] Lactulose (Chronulac) 30 gm PO NOW STA Stop: 05/02/19 23:46 Last Admin: 05/03/19 00:09 Dose: 30 gm Documented by: [id number] Lactulose (Chronulac) 30 gm PO TID MALIK Stop: 06/02/19 00:59 Last Admin: 05/04/19 19:49 Dose: 30 gm Documented by: [id number] Admin: 05/04/19 14:52 Dose: 30 gm Documented by: [id number] Admin: 05/04/19 07:34 Dose: 30 gm Documented by: [id number] Admin: 05/03/19 21:47 Dose: Not Given Documented by: [id number] Admin: 05/03/19 15:10 Dose: 30 gm Documented by: [id number] Admin: 05/03/19 08:35 Dose: 30 gm Documented by: [id number] Admin: 05/03/19 00:12 Dose: 30 gm Documented by: [id number] Lactulose (Chronulac) 30 gm PO NOW STA Stop: 05/03/19 07:04 Last Admin: 05/03/19 08:34 Dose: 30 gm Documented by: [id number] Lactulose (Chronulac) 30 gm PO TID [facility] Stop: 06/04/19 04:29 Last Admin: 05/06/19 19:45 Dose: Not Given Documented by: [id number] Admin: 05/06/19 13:16 Dose: Not Given Documented by: [id number] Admin: 05/06/19 09:28 Dose: Not Given Documented by: [id number] Admin: 05/05/19 20:12 Dose: 30 gm Documented by: [id number] Admin: 05/05/19 11:55 Dose: 30 gm Documented by: [id number] Admin: 05/05/19 05:07 Dose: Not Given Documented by: [id number] Magnesium Oxide (Mag-Ox) 400 mg PO BID MALIK Stop: 06/02/19 08:59 Last Admin: 05/06/19 19:45 Dose: Not Given Documented by: [id number] Admin: 05/06/19 08:00 Dose: Not Given Documented by: [id number] Admin: 05/05/19 20:29 Dose: Not Given Documented by: [id number] Admin: 05/05/19 08:05 Dose: Not Given Documented by: [id number] Admin: 05/04/19 20:14 Dose: Not Given Documented by: [id number] Admin: 05/04/19 07:32 Dose: 400 mg Documented by: [id number] Admin: 05/03/19 21:47 Dose: Not Given Documented by: [id number] Admin: 05/03/19 08:40 Dose: 400 mg Documented by: [id number] Miscellaneous (Order Awaiting Action) 1 ea N/A QS MALIK Stop: 06/02/19 07:59 Last Admin: 05/07/19 00:00 Dose: Not Given Documented by: [id number] Admin: 05/06/19 09:29 Dose: Not Given Documented by: [id number] Admin: 05/06/19 07:36 Dose: Not Given Documented by: [id number] Admin: 05/05/19 23:33 Dose: Not Given Documented by: [id number] Admin: 05/05/19 17:05 Dose: Not Given Documented by: [id number] Admin: 05/05/19 10:18 Dose: Not Given Documented by: [id number] Admin: 05/04/19 23:13 Dose: Not Given Documented by: [id number] Admin: 05/04/19 16:04 Dose: Not Given Documented by: [id number] Admin: 05/04/19 07:37 Dose: Not Given Documented by: [id number] Admin: 05/04/19 00:35 Dose: Not Given Documented by: [id number] Admin: 05/03/19 16:22 Dose: Not Given Documented by: [id number] Admin: 05/03/19 08:35 Dose: Not Given Documented by: [id number] [facility]op[facility]ole [facility]) [facility] [place] Stop: 06/02/19 08:59 Last Admin: 05/06/19 08:01 Dose: Not Given Documented by: [id number] Admin: 05/05/19 08:06 Dose: Not Given Documented by: [id number] Admin: 05/04/19 07:39 Dose: 40 mg Documented by: [id number] Admin: 05/03/19 08:41 Dose: 40 mg Documented by: [id number] Potassium Chloride (Isis Ciel Elix) 60 meq PO NOW STA Stop: 05/02/19 22:47 Last Admin: 05/02/19 23:51 Dose: 60 meq Documented by: [id number] Potassium Chloride (Isis Ciel Elix) 20 meq PO NOW STA Stop: 05/03/19 06:58 Last Admin: 05/03/19 08:33 Dose: 20 meq Documented by: [id number] Rifaximin (Xifaxan) 550 mg PO BID [facility] Stop: 06/02/19 08:59 Last Admin: 05/04/19 19:59 Dose: 550 mg Documented by: [id number] Admin: 05/04/19 07:33 Dose: 550 mg Documented by: [id number] Admin: 05/03/19 21:47 Dose: Not Given Documented by: [id number] Admin: 05/03/19 08:41 Dose: 550 mg Documented by: [id number] Vitamin D (Vitamin D3) 1,000 units PO [facility] Stop: 06/02/19 08:59 Last Admin: 05/06/19 08:01 Dose: Not Given Documented by: [id number] Admin: 05/05/19 08:06 Dose: Not Given Documented by: [id number] Admin: 05/04/19 07:34 Dose: 1,000 units Documented by: [id number] Admin: 05/03/19 08:41 Dose: 1,000 units Documented by: [id number] Description This is a 21 electrode EEG with a single channel dedicated to limited EKG. The electrodes were placed in accordance with the International 10-20 system. REPORT: At the onset of the EEG the patient is in an altered mental state. The posterior dominant rhythm is not well seen. Instead the background predominantly consist of 5-7 theta activity with intermixed 2-3 Hz delta activity. Large portions are obscured by myogenic or movement artifact. Photic stimulation does not elicit any abnormalities. IMPRESSION: This is an abnormal EEG in a patient with altered mentation due to generalized background slowing. Large portions are obscured by movement artifact.
[2019-05-07] MEDS ORDERED: ATROPINE SULFATE 1% OP SOLN 5 ML BTL SL PRN (13:31)
[2019-05-07] MEDS ORDERED: PHENobarbitaL sodium 30 MG in SYRINGE 0 ML IV PRN (13:45)
[2019-05-07] MEDS: MoRPHine SULFATE 2 MG/ML CARP IV PRN ×2 (13:50→21:42)
[2019-05-07] MEDS ORDERED: PHENOBARBITAL SODIUM IV SCH (14:00)
--- NOTE | 2019-05-07 17:24 | Hospitalist Progress Note ---
Date of Service May 07, 2019 Assessment & Plan (1) Encephalopathy, hepatic: (1) Encephalopathy, hepatic: Per admitting service notes: Recurrent admissions Presented with altered mental status Negative CT of the head Patient given lactulose enema as per mental status precluding p.o. lactulose and rifaximin GI also started on IV Solu-Medrol for possible alcohol hepatitis Transferred to ICU for GI bleed, octreotide started ICU service had a meeting with palliative care and patient's family Patient will transition to comfort measures (2) Alcoholic cirrhosis: Has alcoholic cirrhosis -- possible component of alcohol withdrawal, but no overt signs of DTs like sweating, tachycardia, seizures unable to take Gabapentin protocol due to mental status, Ativan 0.5mg IV q8h PRN given --Phenobarbital protocol started for comfort as well (3) NASIM (acute kidney injury): Per admitting service notes Creatinine noted to be elevated at 2.21 on admission Seems to have NASIM likely secondary to dehydration and evidenced by hematuria Lacquer Sizer consulted -- Creatinine stable around 2 (4) Elevated LFTs: Secondary to cirrhosis Management per #1 Acute cholecystitis ruled out Noted to have gallstones with thickening of the gallbladder on CT of the abdomen and pelvis Ultrasound did show gallstones but no acute cholecystitis (5) Thrombocytopenia concurrent with and due to alcoholism: Secondary to alcoholism #6 anemia Likely from GI bleed in the setting of esophageal varices Management per #1 Subjective Patient transferred to ICU overnight for possible GI bleed Seen with seen at the bedside, one-to-one observation Patient is still mostly drowsy, does not respond to verbal stimuli Keeps eyes mostly closed Not in distress but moves around her bed Had one melanotic stool, loose, per LOADER DEMOLDER Review of Systems Review of Systems: All systems reviewed & are unremarkable except as noted in HPI & below Physical Exam Physical Exam: General-drowsy, but no acute respiratory distress Eyes- anicteric Neck- no JVD Lungs- clear breath sounds bilaterally, no rales/wheezes Heart- normal rate, regular rhythm; no murmurs Abdomen- normal bowel sounds, nondistended, soft, nontender Extremities- no pretibial edema, no calf tenderness Neuro-drowsy, moves extremities equally Skin- warm & dry Results & Data Vital Signs (Past 12 Hours) Vital Signs Temp Pulse Resp BP Pulse Ox 05/07/19 15:00 68 17 05/07/19 14:00 70 20 05/07/19 13:05 74 157/72 H 92 05/07/19 13:00 36.8 C 75 24 156/70 H 92 05/07/19 12:06 84 90 05/07/19 12:05 36.8 C 83 28 H 155/74 H 91 05/07/19 12:00 77 91 05/07/19 11:45 37.0 C 83 26 H 158/80 H 93 05/07/19 11:30 37.0 C 77 28 H 165/88 H 90 05/07/19 11:20 37.1 C 05/07/19 11:15 87 92 05/07/19 11:00 37.1 C 77 26 H 160/69 H 95 05/07/19 10:30 78 94 05/07/19 10:09 36.8 C 80 26 H 161/98 H 94 05/07/19 10:00 83 27 H 95 05/07/19 09:54 36.8 C 77 26 H 135/79 95 05/07/19 09:39 82 31 H 163/100 H 95 05/07/19 09:24 36.9 C 85 33 H 180/85 H 94 05/07/19 09:13 36.9 C 84 23 162/85 H 94 05/07/19 09:10 36.9 C 81 21 162/85 H 96 05/07/19 09:00 36.9 C 81 28 H 94 05/07/19 08:55 75 26 H 150/103 H 94 05/07/19 08:49 72 25 H 151/72 H 97 05/07/19 08:47 76 23 96 05/07/19 08:46 36.7 C 74 21 151/72 H 96 05/07/19 08:45 78 35 H 96 05/07/19 08:39 79 21 168/59 H 96 05/07/19 08:30 75 24 97 05/07/19 08:15 36.7 C 79 26 H 149/82 H 96 05/07/19 08:09 75 21 149/82 H 98 05/07/19 08:00 74 20 96 05/07/19 07:54 81 22 146/94 H 96 05/07/19 07:24 79 20 152/86 H 97 05/07/19 07:00 79 19 96 05/07/19 06:34 37.0 C 81 18 160/86 H 98 05/07/19 05:58 37.0 C 78 20 142/108 H 98 05/07/19 05:43 37 C 70 18 170/76 H 99 Laboratory Results Laboratory Results - last 24 hr 05/07/19 05/07/19 05/07/19 00:20 00:20 00:20 WBC 3.85 L RBC 2.02 L Hgb 7.5 L Hct 21.0 L MCV 104.0 H MCH 37.1 H MCHC 35.7 RDW Std Deviation 67.1 H RDW Coeff of Adam 17.6 H Plt Count 31 L MPV 10.6 H Immature Gran % (Auto) 0.5 Neut % (Auto) 83.2 Lymph % (Auto) 10.1 Dolores % (Auto) 6.2 Eos % (Auto) 0.0 Baso % (Auto) 0.0 Immature Gran # (Auto) 0.02 Neut # (Auto) 3.20 Lymph # (Auto) 0.39 L Dolores # (Auto) 0.24 Eos # (Auto) 0.00 Baso # (Auto) 0.00 Toxic Granulation 1+ Echinocytes 2+ PT INR APTT PTT Ratio ABG pH ABG pCO2 ABG pO2 ABG HCO3 ABG O2 Saturation ABG Base Excess Eder Test VBG pH VBG pCO2 VBG pO2 VBG HCO3 VBG O2 Saturation VBG Base Excess Barometric Pressure Oxygen Given Sodium 151 H Potassium 2.7 L Chloride 131 H Carbon Dioxide 15 L Anion Gap 5.0 BUN 25 H Creatinine 1.90 H Est Cr Clr Drug Dosing 28.5 Est GFR ( Amer) 31.5 Est GFR (Non-Af Amer) 27.2 BUN/Creatinine Ratio 13.0 Glucose 175 H POC Glucose Estimat Average Glucose Hemoglobin A1c Lactate Calcium 9.0 Phosphorus Magnesium 1.4 L Total Bilirubin 7.2 H Direct Bilirubin AST 104 H ALT 37 Alkaline Phosphatase 61 Ammonia 105.0 H Total Protein 5.6 L Albumin 3.5 Globulin 2.1 L Albumin/Globulin Ratio 1.7 Lipase Beta-Hydroxybutyric Acd Specimen Hemolysis Nasal Screen MRSA (PCR) Blood Type Antibody Screen Crossmatch 05/07/19 05/07/19 05/07/19 00:20 00:20 00:34 WBC RBC Hgb Hct MCV MCH MCHC RDW Std Deviation RDW Coeff of Adam Plt Count MPV Immature Gran % (Auto) Neut % (Auto) Lymph % (Auto) Dolores % (Auto) Eos % (Auto) Baso % (Auto) Immature Gran # (Auto) Neut # (Auto) Lymph # (Auto) Dolores # (Auto) Eos # (Auto) Baso # (Auto) Toxic Granulation Echinocytes PT 26.5 H INR 2.8 H APTT 54.2 H* PTT Ratio 2.0 ABG pH 7.38 ABG pCO2 26 L ABG pO2 196 H ABG HCO3 15 L ABG O2 Saturation 99.3 H ABG Base Excess -9.3 L Eder Test Pos VBG pH VBG pCO2 VBG pO2 VBG HCO3 VBG O2 Saturation VBG Base Excess Barometric Pressure 726.9 Oxygen Given 7L O2 Sodium Potassium Chloride Carbon Dioxide Anion Gap BUN Creatinine Est Cr Clr Drug Dosing Est GFR ( Amer) Est GFR (Non-Af Amer) BUN/Creatinine Ratio Glucose POC Glucose Estimat Average Glucose Hemoglobin A1c Lactate 1.9 Calcium Phosphorus Magnesium Total Bilirubin Direct Bilirubin AST ALT Alkaline Phosphatase Ammonia Total Protein Albumin Globulin Albumin/Globulin Ratio Lipase Beta-Hydroxybutyric Acd Specimen Hemolysis Nasal Screen MRSA (PCR) Blood Type Antibody Screen Crossmatch 05/07/19 05/07/19 05/07/19 00:34 00:35 01:28 WBC RBC Hgb Hct MCV MCH MCHC RDW Std Deviation RDW Coeff of Adam Plt Count MPV Immature Gran % (Auto) Neut % (Auto) Lymph % (Auto) Dolores % (Auto) Eos % (Auto) Baso % (Auto) Immature Gran # (Auto) Neut # (Auto) Lymph # (Auto) Dolores # (Auto) Eos # (Auto) Baso # (Auto) Toxic Granulation Echinocytes PT INR APTT PTT Ratio ABG pH ABG pCO2 ABG pO2 ABG HCO3 ABG O2 Saturation ABG Base Excess Eder Test VBG pH VBG pCO2 VBG pO2 VBG HCO3 VBG O2 Saturation VBG Base Excess Barometric Pressure Oxygen Given Sodium Potassium Chloride Carbon Dioxide Anion Gap BUN Creatinine Est Cr Clr Drug Dosing Est GFR ( Amer) Est GFR (Non-Af Amer) BUN/Creatinine Ratio Glucose POC Glucose 168 H Estimat Average Glucose Hemoglobin A1c Lactate Calcium Phosphorus Magnesium Total Bilirubin Direct Bilirubin AST ALT Alkaline Phosphatase Ammonia Total Protein Albumin Globulin Albumin/Globulin Ratio Lipase Beta-Hydroxybutyric Acd Specimen Hemolysis Nasal Screen MRSA (PCR) Blood Type O Positive Antibody Screen NEGATIVE Crossmatch See Detail See Detail 05/07/19 05/07/19 05/07/19 03:10 04:26 04:26 WBC RBC Hgb Hct MCV MCH MCHC RDW Std Deviation RDW Coeff of Adam Plt Count MPV Immature Gran % (Auto) Neut % (Auto) Lymph % (Auto) Dolores % (Auto) Eos % (Auto) Baso % (Auto) Immature Gran # (Auto) Neut # (Auto) Lymph # (Auto) Dolores # (Auto) Eos # (Auto) Baso # (Auto) Toxic Granulation Echinocytes PT INR APTT PTT Ratio ABG pH ABG pCO2 ABG pO2 ABG HCO3 ABG O2 Saturation ABG Base Excess Eder Test VBG pH VBG pCO2 VBG pO2 VBG HCO3 VBG O2 Saturation VBG Base Excess Barometric Pressure Oxygen Given Sodium 150 H Potassium 3.4 L D Chloride 127 H Carbon Dioxide 16 L Anion Gap 7.0 BUN 25 H Creatinine 1.92 H Est Cr Clr Drug Dosing 28.2 Est GFR ( Amer) 31.1 Est GFR (Non-Af Amer) 26.8 BUN/Creatinine Ratio 12.9 Glucose 234 H POC Glucose Estimat Average Glucose 85 Hemoglobin A1c 4.6 Lactate Calcium 9.5 Phosphorus 2.6 Magnesium 2.3 Total Bilirubin 7.4 H Direct Bilirubin 2.0 H AST 116 H ALT 40 Alkaline Phosphatase 65 Ammonia Total Protein 5.9 L Albumin 3.6 Globulin Albumin/Globulin Ratio Lipase 65 L Beta-Hydroxybutyric Acd Specimen Hemolysis Nasal Screen MRSA (PCR) Negative Blood Type Antibody Screen Crossmatch 05/07/19 05/07/19 05/07/19 04:26 04:26 04:26 WBC RBC Hgb 7.7 L Hct 22.0 L MCV MCH MCHC RDW Std Deviation RDW Coeff of Adam Plt Count MPV Immature Gran % (Auto) Neut % (Auto) Lymph % (Auto) Dolores % (Auto) Eos % (Auto) Baso % (Auto) Immature Gran # (Auto) Neut # (Auto) Lymph # (Auto) Dolores # (Auto) Eos # (Auto) Baso # (Auto) Toxic Granulation Echinocytes PT 22.8 H INR 2.4 H APTT 45.0 H PTT Ratio 1.7 ABG pH ABG pCO2 ABG pO2 ABG HCO3 ABG O2 Saturation ABG Base Excess Eder Test VBG pH 7.32 L VBG pCO2 28 L VBG pO2 34 VBG HCO3 14 VBG O2 Saturation < 60.0 VBG Base Excess -10.8 Barometric Pressure 726.2 Oxygen Given Sodium Potassium Chloride Carbon Dioxide Anion Gap BUN Creatinine Est Cr Clr Drug Dosing Est GFR ( Amer) Est GFR (Non-Af Amer) BUN/Creatinine Ratio Glucose POC Glucose Estimat Average Glucose Hemoglobin A1c Lactate Calcium Phosphorus Magnesium Total Bilirubin Direct Bilirubin AST ALT Alkaline Phosphatase Ammonia Total Protein Albumin Globulin Albumin/Globulin Ratio Lipase Beta-Hydroxybutyric Acd Specimen Hemolysis Nasal Screen MRSA (PCR) Blood Type Antibody Screen Crossmatch 05/07/19 05/07/19 05/07/19 07:38 07:38 07:38 WBC RBC Hgb 6.8 L* Hct 19.6 L* MCV MCH MCHC RDW Std Deviation RDW Coeff of Adam Plt Count MPV Immature Gran % (Auto) Neut % (Auto) Lymph % (Auto) Dolores % (Auto) Eos % (Auto) Baso % (Auto) Immature Gran # (Auto) Neut # (Auto) Lymph # (Auto) Dolores # (Auto) Eos # (Auto) Baso # (Auto) Toxic Granulation Echinocytes PT INR APTT PTT Ratio ABG pH ABG pCO2 ABG pO2 ABG HCO3 ABG O2 Saturation ABG Base Excess Eder Test VBG pH VBG pCO2 VBG pO2 VBG HCO3 VBG O2 Saturation VBG Base Excess Barometric Pressure Oxygen Given Sodium Cancelled Cancelled Potassium Cancelled Cancelled Chloride Cancelled Cancelled Carbon Dioxide Cancelled Cancelled Anion Gap Cancelled Cancelled BUN Cancelled Cancelled Creatinine Cancelled Cancelled Est Cr Clr Drug Dosing Cancelled Cancelled Est GFR ( Amer) Cancelled Cancelled Est GFR (Non-Af Amer) Cancelled Cancelled BUN/Creatinine Ratio Cancelled Cancelled Glucose Cancelled Cancelled POC Glucose Estimat Average Glucose Hemoglobin A1c Lactate Calcium Cancelled Cancelled Phosphorus 2.1 L Magnesium 2.1 Cancelled Total Bilirubin 7.2 H Cancelled Direct Bilirubin 1.7 H AST 112 H Cancelled ALT 41 Cancelled Alkaline Phosphatase 58 Cancelled Ammonia Total Protein 5.8 L Cancelled Albumin 3.2 L Cancelled Globulin Cancelled Albumin/Globulin Ratio Cancelled Lipase Beta-Hydroxybutyric Acd Specimen Hemolysis Nasal Screen MRSA (PCR) Blood Type Antibody Screen Crossmatch 05/07/19 05/07/19 05/07/19 07:38 07:38 07:38 WBC RBC Hgb Hct MCV MCH MCHC RDW Std Deviation RDW Coeff of Adam Plt Count MPV Immature Gran % (Auto) Neut % (Auto) Lymph % (Auto) Dolores % (Auto) Eos % (Auto) Baso % (Auto) Immature Gran # (Auto) Neut # (Auto) Lymph # (Auto) Dolores # (Auto) Eos # (Auto) Baso # (Auto) Toxic Granulation Echinocytes PT 22.4 H INR 2.3 H APTT 40.0 H PTT Ratio 1.5 ABG pH ABG pCO2 ABG pO2 ABG HCO3 ABG O2 Saturation ABG Base Excess Eder Test VBG pH 7.37 VBG pCO2 27 L VBG pO2 32 VBG HCO3 15 VBG O2 Saturation < 60.0 VBG Base Excess -9.0 Barometric Pressure 727.5 Oxygen Given Sodium 152 H Potassium 3.6 Chloride 124 H Carbon Dioxide 15 L Anion Gap 12.0 H BUN 24 H Creatinine 2.00 H Est Cr Clr Drug Dosing 27.5 Est GFR ( Amer) 29.6 Est GFR (Non-Af Amer) 25.6 BUN/Creatinine Ratio 12.2 Glucose 307 H* POC Glucose Estimat Average Glucose Hemoglobin A1c Lactate Calcium 9.3 Phosphorus Magnesium Cancelled Total Bilirubin 7.1 H Direct Bilirubin AST 111 H ALT 41 Alkaline Phosphatase 56 Ammonia Total Protein 5.7 L Albumin 3.2 L Globulin 2.5 Albumin/Globulin Ratio 1.3 Lipase Beta-Hydroxybutyric Acd 1.07 Specimen Hemolysis Cancelled Nasal Screen MRSA (PCR) Blood Type Antibody Screen Crossmatch 05/07/19 11:27 WBC RBC Hgb Hct MCV MCH MCHC RDW Std Deviation RDW Coeff of Adam Plt Count MPV Immature Gran % (Auto) Neut % (Auto) Lymph % (Auto) Dolores % (Auto) Eos % (Auto) Baso % (Auto) Immature Gran # (Auto) Neut # (Auto) Lymph # (Auto) Dolores # (Auto) Eos # (Auto) Baso # (Auto) Toxic Granulation Echinocytes PT INR APTT PTT Ratio ABG pH ABG pCO2 ABG pO2 ABG HCO3 ABG O2 Saturation ABG Base Excess Eder Test VBG pH VBG pCO2 VBG pO2 VBG HCO3 VBG O2 Saturation VBG Base Excess Barometric Pressure Oxygen Given Sodium Potassium Chloride Carbon Dioxide Anion Gap BUN Creatinine Est Cr Clr Drug Dosing Est GFR ( Amer) Est GFR (Non-Af Amer) BUN/Creatinine Ratio Glucose POC Glucose 308 H* Estimat Average Glucose Hemoglobin A1c Lactate Calcium Phosphorus Magnesium Total Bilirubin Direct Bilirubin AST ALT Alkaline Phosphatase Ammonia Total Protein Albumin Globulin Albumin/Globulin Ratio Lipase Beta-Hydroxybutyric Acd Specimen Hemolysis Nasal Screen MRSA (PCR) Blood Type Antibody Screen Crossmatch
--- NOTE | 2019-05-07 19:16 | Communication Note ---
Date of Service: May 07, 2019 This refers to my evaluation and management after transition from Boris OVALLENP. Initial management goals were to stabilize the gastrointestinal hemorrhage which we would proceed with 2 units packed red blood cells, 4 units FFP, 10 mg IV vitamin K, I do not believe PCC is the best option for the patient at this time as this is related to hepatic insufficiency rather than a vitamin K analog coagulopathy. Additionally there was discussion with the patient's that they would most likely desire to pursue comfort measures as complications from the patient's end-stage liver disease have been getting more severe. Additionally the patient was going to obvious alcohol withdraw, it was reported that she continues to use alcohol. Patient was discussed on multidisciplinary rounds. I also discussed the patient's long-term care and long-term prognosis with Dr. Benavidez of the GI service. 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 Her long-term prognosis is extremely poor, she is not a candidate for liver transplantation due to ongoing alcohol use and abuse. The patient's presented the medical power of estate planning attorney, he stated she is a very independent woman whose ultimate desire was to live independently not in any personal care situation. We discussed that while the alcohol withdraw and gastrointestinal hemorrhage are fairly treatable, the con commitment hepatic encephalopathy, recurrence of gastrointestinal bleeding and worsening of liver and kidney function would likely continue he stated that was not with in the patient's ultimate goals of care. She would want to be kept comfortable and allow a natural dying process to continue. In discussion with the gastroenterology service treating the alcohol withdraw with phenobarbital be preferred over Ativan. Both the gastroenterology service and I feel the patient's long-term prognosis is extremely poor/grim and she is in end-stage medical condition without chance of meaningful recovery as a meaningful recovery does find by her is 1 of very independent living without recurrent hospital admissions. Discussion of meaningful recovery took place with myself and the palliative care service. All are in agreement to proceed with palliation. We will continue with small doses of phenobarbital as needed for acute agitation as well as morphine for symptoms of pain. At this point we will discontinue active treatment medications and focus on symptom control. The patient's daughter has been notified, she is attempting to arrive by train, the earliest she can present is tomorrow. Patient will be transferred out of the ICU with comfort measures only.
[2019-05-07] MEDS: PHENobarbitaL sodium 30 MG in SYRINGE 0 ML IV SCH (21:33)
[2019-05-07] MEDS ORDERED: MoRPHine SULFATE 4 MG/ML 1 ML CARP\\VIAL ONE (22:36)
[2019-05-07] MEDS ORDERED: LORazepam 2 MG/4 ML VIAL ONE (22:37)
[2019-05-07] MEDS: MoRPHine SULFATE 4 MG/ML 1 ML CARP\\VIAL IV PRN (23:37)
[2019-05-07] MEDS: LORazepam 1 MG/2 ML VIAL IV PRN (23:38)
[2019-05-08] MEDS: LORazepam 1 MG/2 ML VIAL IV PRN ×2 (06:29→08:03)
[2019-05-08] MEDS: MoRPHine SULFATE 4 MG/ML 1 ML CARP\\VIAL IV PRN ×7 (06:30→12:38)
[2019-05-08] MEDS: PHENobarbitaL sodium 30 MG in SYRINGE 0 ML IV SCH ×2 (07:48→21:35)
[2019-05-08] MEDS: ATROPINE SULFATE 1% OP SOLN 2 ML BTL SL PRN ×4 (08:55→19:31)
[2019-05-08] MEDS ORDERED: methylPREDNISolone 20 MG in SYRINGE 0 ML IV SCH (09:00)
[2019-05-08] MEDS ORDERED: SCOPOLAMINE 1.5 MG TDSY TD SCH (09:00)
[2019-05-08] MEDS ORDERED: INSULIN GLARGINE SOLOSTAR 100 UNITS/ML 3 ML PEN SQ SCH (09:00)
[2019-05-08 10:23] LABS: MDA negative; MDEA negative; MDMA (Ecstasy) Urine, Confirm negative
[2019-05-08] MEDS ORDERED: MoRPHine SULF/NSS 250 MG/250 ML BTL IV SCH (11:45)
[2019-05-08] MEDS ORDERED: Nursing to Pharmacy Communication ONE (13:28)
[2019-05-08] MEDS ORDERED: CHECK SCOPOLAMINE PATCH PLACEMENT SCH (16:00)
--- NOTE | 2019-05-08 18:25 | Hospitalist Progress Note ---
Date of Service May 08, 2019 Assessment & Plan (1) Encephalopathy, hepatic: (1) Encephalopathy, hepatic: Per admitting service notes: Recurrent admissions Presented with altered mental status Negative CT of the head Patient given lactulose enema as per mental status precluding p.o. lactulose and rifaximin GI also started on IV Solu-Medrol for possible alcohol hepatitis Transferred to ICU for GI bleed, octreotide started ICU service had a meeting with palliative care and patient's family, transition to comfort measures status 05/08/2019 Morphine drip started, scopolamine patch placed atropine drops Patient appears comfortable overall, family agrees We will continue to monitor, titrate medications to ensure patient is comfortable (2) Alcoholic cirrhosis: Has alcoholic cirrhosis -- possible component of alcohol withdrawal, but no overt signs of DTs like sweating, tachycardia, seizures unable to take Gabapentin protocol due to mental status, Ativan 0.5mg IV q8h PRN given --On phenobarbital protocol (3) NASIM (acute kidney injury): Per admitting service notes Creatinine noted to be elevated at 2.21 on admission Seems to have NASIM likely secondary to dehydration and evidenced by hematuria Nursing Unit Coordinator consulted -- Creatinine stable around 2 (4) Elevated LFTs: Secondary to cirrhosis Management per #1 Acute cholecystitis ruled out Noted to have gallstones with thickening of the gallbladder on CT of the abdomen and pelvis Ultrasound did show gallstones but no acute cholecystitis (5) Thrombocytopenia concurrent with and due to alcoholism: Secondary to alcoholism #6 anemia Likely from GI bleed in the setting of esophageal varices Management per #1 Subjective Follow-up for hepatic encephalopathy, acute GI bleed, etc. Patient was uncomfortable this morning morphine drip started On exam, patient's daughter and other family members at the bedside She is comfortable, slow breathing, no signs of distress Review of Systems Review of Systems: All systems reviewed & are unremarkable except as noted in HPI & below Physical Exam Physical Exam: General-obtunded, not in distress, accessory muscle use Lungs-crackles bilaterally Heart- normal rate, regular rhythm; no murmurs Abdomen- normal bowel sounds, nondistended, soft, nontender Extremities-dependent edema Neuro-obtunded Skin- warm & dry
--- NOTE | 2019-05-09 08:45 | Discharge Summary ---
Date of Service May 09, 2019 Admission HPI Per Admitting Provider CHIEF COMPLAINT: Altered mental status. HISTORY OF PRESENT ILLNESS: This is a 63-year-old female with past medical history significant for alcoholic cirrhosis, chronic alcoholism, portal hypertension, ascites, esophageal varices status post banding in 2016, chronic anemia, history of hepatic encephalopathy, history of bleeding gastric varices, history of anal fissures, depression, history of pancytopenia, presents with altered mental status. The patient lives with her . As per the patient and also her the patient is still drinking wine, about 5-6 glasses of wine every day, but she says she did not drink since last Friday. In the past, when she stopped drinking, she used to get withdrawal symptoms, but the patient states for some reason she is okay at this time, but her noticed that she is getting more confused since last few days and getting progressively worse and she is falling frequently at home and he thought that she might not take her medications yesterday and he took control of her medications yesterday. The patient says she does not remember when she last time urinated, but she says she noticed some blood in the stools every day and says its from anal fissures. As per the outpatient notes that recently Lasix and Aldactone was increased by GI But says they are on hold secondary to kidney problems. . She is having ongoing difficulty with lower extremity edema recently and she says she has chronic diarrhea and she does not know whether she is taking laxatives or not. The patient could tell her name, knows that she is in the hospital, knows both month and year, knows her date of , but she was somewhat slow to answer and her labs showed her creatinine bumped up to 2.2 and potassium 2.8, magnesium 1.7, INR of 2, platelets 51, which is chronic. Her ammonia level was 86. CT head was unremarkable. The patient has complaints of abdominal pain and she says she has hernia. Denies any headache. Has dizziness, no earache, no runny nose, no sore throat. She has had some difficulty swallowing pills. She has nausea and not eating much,denies any chest pain, no shortness of breath, no cough, no fever, no chills. Has swelling in the legs. Currently, resting comfortable and hemodynamically stable. Blood pressure on the lower side. ALLERGIES: CODEINE, MILK AND SULFA ANTIBIOTICS. PAST MEDICAL HISTORY: As mentioned above. PAST SURGICAL HISTORY: Colonoscopy, dilation and curretage, EGDs, multiple ERCPs, tonsillectomy and adenoidectomy, uterine fibroid embolization, vaginal delivery and rectal exam under anesthesia. MEDICATIONS: The patient is on Naltrexone 50mg daily., but per she is not taking it, Lasix 40 mg daily, as per on hold, spironolactone 100 mg p.o. daily as per which is on hold, omeprazole 40 mg daily, folic acid 1 mg p.o. daily, trazodone 50 mg p.o. at bedtime p.r.n., gabapentin 600 mg p.o. t.i.d., rifaximin 550 mg p.o. b.i.d., B complex 1 tablet daily, biotin 1 mg p.o. t.i.d., ferrous sulfate 325 mg p.o. daily, magnesium oxide 400 mg p.o. b.i.d., probiotic 1 capsule daily. FAMILY HISTORY: Significant for father had bladder cancer, stroke. Mother had thyroid disorder and liver disease. SOCIAL HISTORY: , quit smoking in 2005, smoked 1.1 pack a day for 23 years. Alcohol, drinks 4-6 glasses of wine daily, but she says she stopped drinking about 5 days ago, smoked marijuana. REVIEW OF SYMPTOMS: As per HPI. Rest of review of systems negative. Admission Exam Per Admitting Provider PHYSICAL EXAMINATION: GENERAL: The patient is of moderate built, somewhat confused. VITAL SIGNS: Temperature 36.7, pulse rate 51, respiratory rate 18, blood pressure 90/50, oxygen 98% on room air. HEENT: No pallor. Icterus present. Pupils equal, round, and reactive to light. NECK: No JVD, no neck masses, no carotid bruits. CARDIOVASCULAR: S1, S2 heard, regular rate and rhythm, no murmur, no gallop. RESPIRATORY SYSTEM: Normal AP diameter. No accessory muscle use. No wheezing, no crackles. ABDOMEN: Soft, bowel sounds present. Mild abdominal diffuse discomfort. No guarding, no rigidity. Mild distention. CENTRAL NERVOUS SYSTEM: Alert and oriented x3, somewhat slow to answer. Nonfocal. EXTREMITIES: Bilateral lower extremity +2 edema present. Principal Diagnosis HEPATIC ENCEPHALOPATHY, ALCOHOLIC HEPATITIS Discharge Exam patient Discharge Data Allergies Allergy/AdvReac Type Severity Reaction Status Date / Time codeine Allergy Intermediate VOMITTING Verified 05/02/19 20:49 Sulfa (Sulfonamide Allergy Intermediate VOMITTING Verified 05/02/19 20:49 Antibiotics) lactose AdvReac Intermediate Diarrhea Verified 05/03/19 18:08 Consultations 05/02/19 21:07 ED Decision to Admit Stat 05/02/19 22:46 Consult Case Management - Discharge Planning Routine 05/03/19 08:00 Consult Gastroenterology Routine 05/03/19 09:20 Consult Nephrology Routine 05/05/19 20:10 Consult Patient Rep / Service Excellence [Consult Patient Services] Routine 05/07/19 02:51 Consult Case Management - Discharge Planning Routine 05/07/19 03:02 Consult [employer] Infrastructure Consultant Routine 05/07/19 09:41 Consult Palliative Care Routine Ordered Studies 05/02/19 19:37 CT head/brain wo con Stat 05/02/19 21:50 CT abd pelvis wo con Urgent 05/03/19 04:20 US gallbladder Urgent Hospital Course (1) Encephalopathy, hepatic: (1) Encephalopathy, hepatic: Per admitting service notes: Recurrent admissions Presented with altered mental status Negative CT of the head Patient given lactulose enema as per mental status precluding p.o. lactulose and rifaximin GI also started on IV Solu-Medrol for possible alcohol hepatitis Transferred to ICU for GI bleed, octreotide started ICU service had a meeting with palliative care and patient's family, transition to comfort measures status Morphine drip started, scopolamine patch placed atropine drops Patient appeared comfortable overall patient pronounced evening of 05/08/19 (2) Alcoholic cirrhosis: Has alcoholic cirrhosis -- possible component of alcohol withdrawal, but no overt signs of DTs like sweating, tachycardia, seizures unable to take Gabapentin protocol due to mental status, Ativan 0.5mg IV q8h PRN given --placed On phenobarbital protocol (3) NASIM (acute kidney injury): Per admitting service notes Creatinine noted to be elevated at 2.21 on admission Seems to have NASIM likely secondary to dehydration and evidenced by hematuria Research Software Engineer consulted -- Creatinine stable around 2 (4) Elevated LFTs: Secondary to cirrhosis Management per #1 Acute cholecystitis ruled out Noted to have gallstones with thickening of the gallbladder on CT of the abdomen and pelvis Ultrasound did show gallstones but no acute cholecystitis (5) Thrombocytopenia concurrent with and due to alcoholism: Secondary to alcoholism #6 anemia Likely from GI bleed in the setting of esophageal varices Management per #1 Total Time Total Time Spent Total Time Spent (In Minutes): 20 minutes Discharge Plan Discharge Items Patient Disposition: Reason For Visit: AMS Follow-up/Referrals: Ashley Adkins DO [Primary Care Provider] - Admission Data Admit Date/Time: 05/02/19 21:50 Other DC Date/Time DO NOT enter until pt leaves facility: 05/08/19 23:20
== END 2019-05-08 23:20 | disposition expired | DRG 432 ==
LOC: ED 19:23 → 2N 21:50 → SUATTDRO 21:50 → 2N 22:19 → 2S 05-03 02:54 → 1E 05-07 02:53 → 2W 05-07 19:01